=== PATIENT | male | born 1940 | race Caucasian/White ===

== ENCOUNTER → 2019-12-29 | Outpatient (BNVA) | payer MEDICARE, MEDICAID, SELFPAY | PROVIDERS: PCP Family Medicine; Referring Provider Family Medicine; Visit Provider Internal Medicine | DX: I48.0 Paroxysmal atrial fibrillation (principal); Z51.81 Encounter for therapeutic drug level monitoring; Z79.01 Long term (current) use of anticoagulants | CPT/HCPCS: 85610; 99211 ==

== ENCOUNTER → 2020-01-19 09:36 | Outpatient (BNVA) | payer MEDICARE, MEDICAID, SELFPAY | PROVIDERS: PCP Family Medicine; Visit Provider Internal Medicine | DX: I48.0 Paroxysmal atrial fibrillation (principal); Z51.81 Encounter for therapeutic drug level monitoring; Z79.01 Long term (current) use of anticoagulants | CPT/HCPCS: 85610; 99211 ==

== ENCOUNTER 2020-01-21 08:17 | Outpatient (REF) | payer MEDICARE, MEDICAID, SELFPAY ==
[2020-01-21 09:58] LABS: MANUAL DIFF FLAG NO
[2020-01-21 10:03] LABS: Basophils Percent Auto 0.5 % (0-2); Eosinophils Absolute Auto 0.2 X10*3/uL (0.0-0.4); Eosinophils Percent Auto 3.2 % (0-4); Hematocrit 39.7 % (42-52); Imm Gran Abs Auto 0.02 X10*3/uL (0.00-0.03); Imm Gran Pct Auto 0.3 % (0.0-0.4); Lymphocytes Absolute Auto 1.2 X10*3/uL (1.2-4.9); Lymphocytes Percent Auto 19.7 % (20-40); Mean Corpuscular HGB Conc 32.7 g/dl (31.0-36.0); Mean Corpuscular Hemoglobin 29.5 pg (27.0-33.0); Mean Platelet Volume 12.4 fL (9.4-12.4); Monocytes Absolute Auto 0.5 X10*3/uL (0.1-1.2); Monocytes Percent Auto 8.3 % (2-11); Neutrophils Absolute Auto 4.2 X10*3/uL (2.0-8.3); Platelet Count 163 X10*3/uL (160-400); Red Blood Count 4.41 X10*6/uL (4.60-5.80); Red Cell Distribution Width 13.9 % (11.0-16.0); White Blood Count 6.2 X10*3/uL (4.8-10.8)
[2020-01-21 10:29] LABS: Alanine Aminotransferase 30 U/L (0-40); Albumin Level 4.1 g/dL (3.5-5.0); Alkaline Phosphatase 85 U/L (39-117); Anion Gap 12 (12-20); Aspartate Amino Transferase 19 U/L (5-37); Bilirubin Total 0.8 mg/dL (0.0-1.0); Blood Urea Nitrogen 13 mg/dL (9-16); C Reactive Protein 0.03 mg/dL (< or = 0.50); Calcium 8.5 mg/dL (8.4-10.2); Carbon Dioxide 28 mmol/L (22-29); Chloride 104 mmol/L (96-108); Estimated Glomerular Filt Rate > 60; Glucose Random 250 mg/dL (60-115); Potassium 4.2 mmol/l (3.3-5.1); Sodium 140 mmol/L (135-145); Total Protein 6.3 g/dL (6.5-8.0)
[2020-01-21 11:10] LABS: Erythrocyte Sedimentation Rate 5 MM/HR (0-15)
== END 2020-01-21 08:18 | disposition home or self-care (01) ==
LOC: HO.LAB 08:17
PROVIDERS: PCP Family Medicine; Referring Provider Family Medicine; Visit Provider Student in an Organized Health Care Education/Training Program
DX: M19.90 Unspecified osteoarthritis, unspecified site (principal); M43.06 Spondylolysis, lumbar region; Z79.01 Long term (current) use of anticoagulants
CPT/HCPCS: 36415; 80053; 85025; 85652; 86140; 99212

== ENCOUNTER → 2020-02-16 09:18 | Outpatient (BNVA) | payer MEDICARE, MEDICAID, SELFPAY | PROVIDERS: PCP Family Medicine; Visit Provider Internal Medicine | DX: I48.0 Paroxysmal atrial fibrillation (principal); Z51.81 Encounter for therapeutic drug level monitoring; Z79.01 Long term (current) use of anticoagulants | CPT/HCPCS: 85610; 99211 ==

== ENCOUNTER → 2020-03-01 09:12 | Outpatient (BNVA) | payer MEDICARE, MEDICAID, SELFPAY | PROVIDERS: Visit Provider Internal Medicine | DX: I48.0 Paroxysmal atrial fibrillation (principal); Z51.81 Encounter for therapeutic drug level monitoring; Z79.01 Long term (current) use of anticoagulants | CPT/HCPCS: 85610; 99211 ==

== ENCOUNTER → 2020-03-29 08:54 | Outpatient (BNVA) | payer MEDICARE, MEDICAID, SELFPAY | PROVIDERS: PCP Family Medicine; Visit Provider Internal Medicine | DX: I48.0 Paroxysmal atrial fibrillation (principal); Z51.81 Encounter for therapeutic drug level monitoring; Z79.01 Long term (current) use of anticoagulants | CPT/HCPCS: 85610; 99211 ==

== ENCOUNTER → 2020-04-26 09:00 | Outpatient (BNVA) | payer MEDICARE, MEDICAID, SELFPAY | PROVIDERS: PCP Family Medicine; Visit Provider Internal Medicine | DX: I48.0 Paroxysmal atrial fibrillation (principal); Z51.81 Encounter for therapeutic drug level monitoring; Z79.01 Long term (current) use of anticoagulants | CPT/HCPCS: 85610; 99211 ==

== ENCOUNTER → 2020-05-24 08:59 | Outpatient (BNVA) | payer MEDICARE, MEDICAID, SELFPAY | PROVIDERS: PCP Family Medicine; Visit Provider Internal Medicine | DX: I48.0 Paroxysmal atrial fibrillation (principal); Z51.81 Encounter for therapeutic drug level monitoring; Z79.01 Long term (current) use of anticoagulants | CPT/HCPCS: 85610; 99211 ==

== ENCOUNTER → 2020-05-30 09:12 | Outpatient (BNVA) | payer MEDICARE, MEDICAID, SELFPAY | PROVIDERS: PCP Family Medicine; Visit Provider Internal Medicine | DX: I25.10 Atherosclerotic heart disease of native coronary artery without angina pectoris (principal); I48.0 Paroxysmal atrial fibrillation; I71.2 Thoracic aortic aneurysm, without rupture; I10 Essential (primary) hypertension | CPT/HCPCS: 93005; 99212 ==

== ENCOUNTER → 2020-06-21 09:16 | Outpatient (BNVA) | payer MEDICARE, MEDICAID, SELFPAY | PROVIDERS: PCP Family Medicine; Visit Provider Internal Medicine | DX: I48.0 Paroxysmal atrial fibrillation (principal); Z79.01 Long term (current) use of anticoagulants; Z51.81 Encounter for therapeutic drug level monitoring | CPT/HCPCS: 85610; 99211 ==

== ENCOUNTER 2020-07-13 10:11 | Emergency (ER) | payer MEDICARE, MEDICAID, SELFPAY ==
--- NOTE | ~2020-07-13 | XR_ITS ---
EXAMINATION: XR KNEE, RIGHT CLINICAL INFORMATION: Fall, trauma, pain COMPARISON: Radiographs right knee 04/13/2015 TECHNIQUE: Four views of the right knee. FINDINGS: There is no fracture or dislocation or destructive process. Borderline narrowing medial knee joint compartment is present. Hoffa's fat pad appears normal. There is spurring at the proximal anterior tibial tubercle again noted as incidental finding. The deep infrapatellar recess recess is preserved. There is spurring at the quadriceps insertion patella. Soft tissue swelling involves the superficial prepatellar soft tissues. There is also thickening and ill-defined contours distal quadriceps tendon when compared with prior exam. There may be trace suprapatellar effusion. XR/XR knee RT 4V IMPRESSION: 1. Prepatellar soft tissue swelling. Ill-defined and thickened distal quadriceps, possibly related to tendon injury. Probable trace effusion. 2. Mild narrowing medial knee joint compartment. No fracture or dislocation.
[2020-07-13 10:15] VITALS: BP 169/80; PULSE 66; RESP 18; TEMP 36; O2SAT 99; BMI 32.3
--- NOTE | 2020-07-13 10:26 | ED_ITS ---
HPI - General Adult General Chief complaint: Extremity Problem Stated complaint: swollen knee Time Seen by Provider: 07/13/20 10:25 Source: patient and family Limitations: no limitations History of Present Illness HPI narrative: Patient presents to the ER complaining of right knee pain and swelling. Family patient states he tripped on a sandal on Friday falling onto his right knee. Worsening bruising and swelling since the fall. Patient denies loss of consciousness or any other complaints of pain throughout the body. Patient is currently on Coumadin secondary to AFib. Symptoms are mild to moderate pain increases with ambulation and range of motion. Related Data Home Medications Medication Instructions Recorded Confirmed baclofen 10 mg tablet 10 mg PO BEDTIME 01/21/20 06/21/20 cholecalciferol (vitamin D3) 50 50 mcg PO DAILY 01/21/20 06/21/20 mcg (2,000 unit) capsule ferrous sulfate 325 mg (65 mg 325 mg PO DAILY 01/21/20 06/21/20 iron) tablet gabapentin 300 mg capsule 300 mg PO TID 01/21/20 06/21/20 lisinopril 5 mg tablet 5 mg PO DAILY 01/21/20 06/21/20 meclizine 12.5 mg tablet 12.5 mg PO DAILY 01/21/20 06/21/20 metoprolol succinate 25 mg 25 mg PO DAILY 01/21/20 05/30/20 tablet,extended release 24 hr tramadol 50 mg tablet 50 mg PO BEDTIME 01/21/20 06/21/20 nitroglycerin 0.4 mg sublingual mg SUBLINGUAL 02/16/20 06/21/20 tablet rosuvastatin 20 mg tablet mg PO 02/16/20 06/21/20 fluticasone propionate 50 INTRANASAL 03/01/20 06/21/20 mcg/actuation nasal spray,suspension tamsulosin 0.4 mg capsule mg PO 03/01/20 06/21/20 metoprolol tartrate 25 mg tablet mg PO 06/21/20 06/21/20 Previous Rx's Medication Instructions Recorded warfarin 5 mg tablet 5 mg PO DAILY #90 tab 12/29/19 Allergies Allergy/AdvReac Type Severity Reaction Status Date / Time No Known Allergies Allergy Verified 05/24/20 09:08 [No Known Allergies*] Review of Systems Review of Systems: Constitutional : No Weight loss, No Fever, No Chills, No Night Sweats, No Fatigue, No Malaise ENT/Mouth : No Hearing loss, No Ear Pain, No Nasal Congestion, No Sinus Pain, No Hoarseness, No sore throat, No Rhinorrhea, No Swallowing Difficulty Eyes: No Vision Changes Cardiovascular : No Chest Pain, No SOB, No Dyspnea on Exertion Respiratory : No Cough, No Sputum, No Wheezing, No Smoke Exposure, No Dyspnea Gastrointestinal : No Nausea, No Vomiting, No Diarrhea Musculoskeletal : Right knee pain swelling and bruising Neuro : No Weakness, No Numbness, No Paresthesias, No Loss of Consciousness, No Dizziness, No Headache Psych : No Anxiety/Panic, No Depression, No SI/HI/AH/VH, No Social Issues, Heme/Lymph: Right knee bruising secondary to trauma Endocrine : No Polyuria, No Polydipsia, No Temperature Intolerance PMFSH Past Medical History Attestation statement: The following information was validated with the patient. Medical History Ascending aortic aneurysm Atherosclerotic cardiovascular disease Essential hypertension Inflammatory arthritis Lumbar spondylolysis Surgical History Hx of appendectomy Hx of neck surgery Family History Family History Mother Diabetes Social History Social History Household Members: Spouse Alcohol intake: never Smoking Status: Former smoker Advance Directives: No Advance Directives Information Provided: No Physical Exam Vital Signs: Vital Signs: Last Vital Signs Temp 96.8 F 07/13/20 10:15 Pulse 66 07/13/20 10:15 Resp 18 07/13/20 10:15 BP 169/80 H 07/13/20 10:15 Pulse Ox 99 07/13/20 10:15 Body Mass Index 32.3 vital signs have been reviewed as normal and appeared to be correct. Blood pressure normal. Heart rate normal. Respiration rate normal. Temperature normal. Oxygen saturation normal. Appearance: Alert. Oriented X3. No acute distress. Head: Normal external exam. Normocephalic. Atraumatic. No Ivory signs noted. No raccoon eyes noted Eyes: PERRLA. EOMI. Conjunctiva and sclera normal. Eyelids normal. ENT: Pharynx normal. Uvula midline. Moist mucous membranes. Neck: Soft full range of motion, no JVD CVS: Heart regular rate and rhythm no murmurs and rubs Respiratory: Breath sounds are clear to auscultation bilaterally. No accessory muscle use noted. Abdomen: Soft nontender no rebound or guarding positive bowel sounds Back: No CVA tenderness. Full range of motion noted. Skin: Ecchymosis discoloration noted over the right knee no lymphangitis Extremities: Large effusion noted in the right knee slight tenderness decreased range of motion secondary to pain no joint laxity observed Neuro: Oriented X 3. No motor deficit. No sensory deficit. Reflexes normal. Course Course Course Narrative: Patient's symptoms are consistent with a traumatic fall to the right knee x-ray of the right knee is pending will check PT INR at this time. Patient's last INR on 06/21/2020 was 3.1 on 05/24/2020 was 2.7 INR is 2.6. Will give patient follow-up with orthopedics as needed patient is instructed to rest elevate leg at this time Medical Decision Making Differential Diagnosis Differential Diagnosis: Right knee contusion, right knee fracture,Coagulopathy secondary to Coumadi Lab Data Labs: Lab Results 07/13/20 Range/Units 10:50 PT 31.2 H (10.8-13.0) SEC INR 2.6 H (0.9-1.1) Imaging Data knee : Radiologist's impression: [address] [id number] ReportSigned Patient: Ramesh KenyonMR#: [id number]: 1940cct:[id number]/Sex: 79 / MADM Date: 07/13/20Loc: [email or web address].EDAttending Dr: Ordering Physician: Filippo Bolaños Date of Service: 07/13/20 Procedure(s): XR knee RT 4V Accession Number(s): [id number] cc: Filippo Bolaños ~ EXAMINATION: XR KNEE, RIGHT CLINICAL INFORMATION: Fall, trauma, pain COMPARISON: Radiographs right knee 04/13/2015 TECHNIQUE: Four views of the right knee. FINDINGS: There is no fracture or dislocation or destructive process. Borderline narrowing medial knee joint compartment is present. Hoffa's fat pad appears normal. There is spurring at the proximal anterior tibial tubercle again noted as incidental finding. The deep infrapatellar recess recess is preserved. There is spurring at the quadriceps insertion patella. Soft tissue swelling involves the superficial prepatellar soft tissues. There is also thickening and ill-defined contours distal quadriceps tendon when compared with prior exam. There may be trace suprapatellar effusion. XR/XR knee RT 4V IMPRESSION: 1. Prepatellar soft tissue swelling. Ill-defined and thickened distal quadriceps, possibly related to tendon injury. Probable trace effusion. 2. Mild narrowing medial knee joint compartment. No fracture or dislocation. Dictated By:PAOLO WATTigned By:<Electronically signed by PAOLO WATT MD in OV>07/13/20 1049 DD/ 1025TD/TT: [employer] Operator: JOHNSON Discharge Plan Discharge Clinical Impression: Knee contusion Patient Disposition: Home, Self-Care Instructions: Knee Pain (ED) Additional Instructions: The swelling is likely due to the patient being on Coumadin and bleeding into the joint swelling should resolve over time. Pain worsens follow-up with Orthopedics is recommended Rest ice elevation at this time Prescriptions: No Action metoprolol succinate [Toprol XL] 25 mg tablet extended release 24 hr 25 mg PO DAILY RF: 0 ferrous sulfate 325 mg (65 mg iron) tablet 325 mg PO DAILY RF: 0 gabapentin 300 mg capsule 300 mg PO TID RF: 0 tramadol 50 mg tablet 50 mg PO BEDTIME RF: 0 meclizine 12.5 mg tablet 12.5 mg PO DAILY RF: 0 cholecalciferol (vitamin D3) 50 mcg (2,000 unit) capsule 50 mcg PO DAILY RF: 0 baclofen 10 mg tablet 10 mg PO BEDTIME RF: 0 lisinopril 5 mg tablet 5 mg PO DAILY RF: 0 warfarin 5 mg tablet 5 mg PO DAILY Qty: 90 RF: 0 rosuvastatin 20 mg tablet PO RF: 0 nitroglycerin 0.4 mg tablet, sublingual sublingual RF: 0 tamsulosin 0.4 mg capsule PO RF: 0 fluticasone propionate 50 mcg/actuation spray,suspension intranasal RF: 0 metoprolol tartrate 25 mg tablet PO RF: 0 Referrals: Constance Brito MD [Physician] - 2 days
[2020-07-13 11:13] LABS: INTERNATIONAL NORM RATIO 2.6 (0.9-1.1); Prothrombin Time 31.2 SEC (10.8-13.0)
== END 2020-07-13 11:37 | disposition home or self-care (01) ==
PROVIDERS: Physician Assistant; Emergency Provider Emergency Medicine; PCP Family Medicine
DX: S80.01XA Contusion of right knee, initial encounter (principal); W01.0XXA Fall on same level from slipping, tripping and stumbling without subsequent striking against object, initial encounter; I48.91 Unspecified atrial fibrillation; Y93.01 Activity, walking, marching and hiking; Y92.039 Unspecified place in apartment as the place of occurrence of the external cause; Y99.9 Unspecified external cause status; Z79.01 Long term (current) use of anticoagulants
CPT/HCPCS: 36415; 73564; 85610; 99283

== ENCOUNTER → 2020-07-19 09:07 | Outpatient (BNVA) | payer MEDICARE, MEDICAID, SELFPAY | PROVIDERS: PCP Family Medicine; Visit Provider Internal Medicine | DX: I48.0 Paroxysmal atrial fibrillation (principal); Z51.81 Encounter for therapeutic drug level monitoring; Z79.01 Long term (current) use of anticoagulants | CPT/HCPCS: 85610; 99211 ==

== ENCOUNTER → 2020-08-16 09:00 | Outpatient (BNVA) | payer MEDICARE, MEDICAID, SELFPAY | PROVIDERS: PCP Family Medicine; Visit Provider Internal Medicine | DX: I48.0 Paroxysmal atrial fibrillation (principal); Z51.81 Encounter for therapeutic drug level monitoring; Z79.01 Long term (current) use of anticoagulants | CPT/HCPCS: 85610; 99211 ==

== ENCOUNTER → 2020-08-30 08:56 | Outpatient (BNVA) | payer MEDICARE, MEDICAID, SELFPAY | PROVIDERS: PCP Family Medicine; Visit Provider Internal Medicine | DX: I48.0 Paroxysmal atrial fibrillation (principal); Z51.81 Encounter for therapeutic drug level monitoring; Z79.01 Long term (current) use of anticoagulants | CPT/HCPCS: 85610; 99211 ==

== ENCOUNTER → 2020-09-27 08:36 | Outpatient (BNVA) | payer MEDICARE, MEDICAID, SELFPAY | PROVIDERS: PCP Family Medicine; Visit Provider Internal Medicine | DX: I48.0 Paroxysmal atrial fibrillation (principal); Z51.81 Encounter for therapeutic drug level monitoring; Z79.01 Long term (current) use of anticoagulants | CPT/HCPCS: 85610; 99211 ==

== ENCOUNTER 2020-09-29 09:38 | Outpatient (REF) | payer MEDICARE, MEDICAID, SELFPAY ==
--- NOTE | ~2020-09-29 | CT_ITS ---
EXAMINATION: CT CHEST WITHOUT CONTRAST CLINICAL INFORMATION: Solitary pulmonary nodule. COMPARISON: Previous chest CT November 2019. TECHNIQUE: Multidetector volumetric CT imaging of the chest was done. Axial MIP volume rendering provided. Sagittal and coronal reformatted images were obtained. This CT examination was performed using dose optimization techniques as appropriate, variously including the following: *Automated exposure control *Adjustment of mA and/or kV according to patient size (this includes techniques or standardized protocols for targeted exams where dose is matched to indication/reason for exam; i.e. extremities or head) *Use of iterative reconstruction technique DLP: 168 mGy-cm FINDINGS: LUNGS: There is evidence of mild paraseptal emphysema. There is biapical pleural and parenchymal scarring that is stable. There are small bilateral pulmonary nodules. Largest pulmonary nodule measures 4 mm in the left lower lobe adjacent to the diaphragmatic pleural surface axial image 428 series 5. There is mild scarring or chronic subsegmental atelectasis in the posterior segment of the right upper lobe axial image 230 series 5. There is subsegmental atelectasis at the left lung base in the inferior segment of the lingula and in the left lower lobe. This is stable. MEDIASTINUM: There is coronary artery calcification. The thoracic aorta is upper normal in size and tortuous. The mediastinum is otherwise normal. PLEURA: There is mild left pleural thickening that is stable. There is no pleural effusion. AXILLA: No lymphadenopathy. UPPER ABDOMEN: There is a 1 x 2 cm low-attenuation lesion in the peripheral right lobe of the liver that is stable. There is left renal cortical thinning or scarring. There is a 1 cm low-attenuation lesion in the upper pole of the left kidney that is stable and probably represents a cyst. OSSEOUS STRUCTURES: There are degenerative changes of the spine. CT/CT chest wo con IMPRESSION: Emphysema. Stable biapical pleural and parenchymal scarring and small pulmonary nodules. Upper normal-size tortuous thoracic aorta. Coronary artery calcification. Stable abdominal findings.
== END 2020-09-29 09:39 | disposition home or self-care (01) ==
LOC: HO.CT 09:38
PROVIDERS: Visit Provider Surgery
DX: R91.1 Solitary pulmonary nodule (principal)
CPT/HCPCS: 71250

== ENCOUNTER → 2020-10-18 07:59 | Outpatient (BNVA) | payer MEDICARE, MEDICAID, SELFPAY | PROVIDERS: PCP Family Medicine; Visit Provider Internal Medicine | DX: I48.0 Paroxysmal atrial fibrillation (principal); Z51.81 Encounter for therapeutic drug level monitoring; Z79.01 Long term (current) use of anticoagulants | CPT/HCPCS: 85610; 99211 ==

== ENCOUNTER → 2020-10-27 09:37 | Outpatient (BNVA) | payer MEDICARE, MEDICAID, SELFPAY | PROVIDERS: PCP Family Medicine; Visit Provider Surgery | DX: R91.8 Other nonspecific abnormal finding of lung field (principal); J43.9 Emphysema, unspecified; Z79.899 Other long term (current) drug therapy; Z79.01 Long term (current) use of anticoagulants | CPT/HCPCS: 99212 ==

== ENCOUNTER → 2020-11-02 09:05 | Outpatient (REF) | payer MEDICARE, MEDICAID, SELFPAY ==
--- NOTE | 2020-11-02 09:08 | CA_ITS ---
Transthoracic Echocardiogram Patient (Last, First, Middle): Ramesh Kenyon, Gender: Male Date of : 1940 Age: 79 Procedure Date: 11/02/2020 Procedure Type: Transthoracic Echocardiogram Location: OP Height: 167.64 cm Weight: 85.73 kg BSA: 1.95 m2 Heart Rate: bpm BP: 124 / 62 mmHg [employer]: Referring MD: Rodolfo Martin MD Symptoms: I71.2 - Thoracic aortic aneurysm, without rupture Conclusions: - 1. Normal LV systolic function with LVEF of 55-60% with impaired relaxation filling pattern 2. Mild aortic regurgitation 3. Mildly dilated ascending aorta at 4 cm 4. Normal RV systolic pressure 5. No pericardial effusion Findings Left Ventricle Normal left ventricular size, thickness, and systolic function. The visually estimated ejection fraction is between 55-60%. Spectral Doppler is indicative of an impaired relaxation filling pattern. E/E prime ratio is between 8 and 15 consistent with indeterminate filling pressures. Right Ventricle Normal right ventricular cavity size and systolic function. Atria The left atrium is normal in size. Interatrial shunt cannot be excluded. The right atrium is normal in size. Aortic Valve The aortic valve structure and function is likely normal. There is no aortic valve stenosis. There is mild aortic valve regurgitation. Mitral Valve There is mild anterior mitral leaflet thickening. There is trace mitral valve regurgitation. There is no mitral valve stenosis. Pulmonic Valve The pulmonic valve was not well visualized. Tricuspid Valve Likely normal tricuspid valve structure and function. There is trace tricuspid valve regurgitation. The right ventricular systolic pressure is normal. The right ventricular systolic pressure is 31 mmHg. Normal right atrial pressure. There is no evidence of pulmonary hypertension. Great Vessels The pulmonary artery was not well visualized. There is mild dilatation of the ascending aorta measuring 4.00 cm. Venous The inferior vena cava is normal in size and collapses greater than 50% with inspiration. Pericardium/Pleural There is no evidence of pericardial effusion. Prior Study Comparison Changes noted compared to prior study dated: 11/03/2019. LV systolic function is normal on this study Measurements 2D Linear Measurements RVIDd: 3.01 RVIDd Index: 1.54 IVSd: 1.20 0.6-0.9/0.6-1.0 cm LVIDd: 4.59 3.9-5.3/4.2-5.9 cm LVIDd Index: 2.35 2.4-3.2/2.2-3.1 cm/m2 LVIDs: 3.56 2.0-3.6 cm LVPWd: 1.30 0.7-1.1 cm Ao Root: 3.70 2.1-3.5 cm LA Diam: 4.00 2.7-3.8/3.0-4.0 cm LAIDs Index: 2.05 1.5-2.3 cm/m2 LV Mass: 257.68 67-162/88-224 g LV Mass Index: 132.14 43-95/49-115 g/m2 LVOT Diam: 2.30 3.0+(-)1.3 cm 2D Systolic Function EF 4C: 63.00 >55% EF 2C: 48.70 >55% EF BiP: 55.50 >55% Mitral Valve MV Pk E: 0.65 MV PK A: 0.51 MV Decel Time: 289.00 E/A: 1.30 E'Lateral: 6.85 E'Medial: 5.44 E/E' Med: 11.90 E/E' Lat: 9.40 Aortic Valve AoV Pk Yeison: 1.07 AoV Mn Yeison: 0.74 AoV VTI: 0.23 AoV Pk Grad: 5.00 Aov Mn Grad: 2.00 LANA Cont.VTI: 3.22 LVOT LVOT Pk Yeison: 0.77 LVOT Mn Yeison: 0.49 LVOT VTI: 0.18 LVOT Pk Grad: 2.00 LVOT Mn Grad: 1.00 LVOT Diam: 2.30 LVOT Area: 4.15 Diastolic Function MV Pk E: 0.65 MV Pk A: 0.51 E/A: 1.30 E'Medial: 5.44 E/E' Med: 11.90 E' Laterial: 6.85 E/E' Lat: 9.40 Right Ventricle TAPSE (mm): 21.00 TVS' Yeison: 9.10 Tricuspid Valve TR Pk Yeison: 2.65 TR Pk Grad: 28.00 RA Press: 3.00 RVSP: 31.00 Great Vessels Aorta Ao Root-2D: 3.70 2.0-3.7 cm Ao Asc: 4.00 2.1-3.4 cm Ao Arch: 3.30 Updated in Other Vendor System with Status of Final Chace Hernandez MD electronically signed on 11/03/2020 3:48:54 PM with status of Final
== END ==
LOC: HO.CARD 09:05
PROVIDERS: PCP Family Medicine; Visit Provider Internal Medicine
DX: I71.2 Thoracic aortic aneurysm, without rupture (principal)
CPT/HCPCS: 93306

== ENCOUNTER → 2020-11-13 09:14 | Outpatient (BNVA) | payer MEDICARE, MEDICAID, SELFPAY | PROVIDERS: PCP Family Medicine; Visit Provider Internal Medicine | DX: I25.10 Atherosclerotic heart disease of native coronary artery without angina pectoris (principal); I48.0 Paroxysmal atrial fibrillation; I71.2 Thoracic aortic aneurysm, without rupture; I10 Essential (primary) hypertension | CPT/HCPCS: 99212 ==

== ENCOUNTER → 2020-11-15 08:54 | Outpatient (BNVA) | payer MEDICARE, MEDICAID, SELFPAY | PROVIDERS: PCP Family Medicine; Visit Provider Internal Medicine | DX: I48.0 Paroxysmal atrial fibrillation (principal); Z51.81 Encounter for therapeutic drug level monitoring; Z79.01 Long term (current) use of anticoagulants | CPT/HCPCS: 85610; 99211 ==

== ENCOUNTER 2020-12-05 08:44 | Outpatient (REF) | payer MEDICARE, MEDICAID, SELFPAY ==
--- NOTE | ~2020-12-05 | XR_ITS ---
EXAMINATION: XR CERVICAL SPINE CLINICAL INFORMATION: Neck pain COMPARISON: None TECHNIQUE: 5 views of the cervical spine were obtained. FINDINGS: There is normal cervical lordosis. The vertebral heights, alignment and disc heights are normal. There is no visible acute fracture, dislocation or subluxation seen. There is mild ventral bridging osteophytes and anterior longitudinal calcification from C4 to C7 vertebra. No lytic or sclerotic process seen. On oblique views there is mild bilateral narrowing of C3-C4 neural foramina. No visible acute fracture, dislocation or lytic process seen. The prevertebral soft tissues are normal. XR/XR cervical spine 4V IMPRESSION: There is moderate ventral spondylosis with bridging osteophytes and anterior longitudinal calcification from c4 through C7 vertebra. There is no acute fracture or dislocation.
== END 2020-12-05 08:45 | disposition home or self-care (01) ==
LOC: HO.XRAY 08:44
PROVIDERS: PCP Family Medicine; Visit Provider Family Medicine
DX: M54.2 Cervicalgia (principal)
CPT/HCPCS: 72050

== ENCOUNTER → 2020-12-13 08:57 | Outpatient (BNVA) | payer MEDICARE, MEDICAID, SELFPAY | PROVIDERS: PCP Family Medicine; Visit Provider Internal Medicine | DX: I48.0 Paroxysmal atrial fibrillation (principal); Z51.81 Encounter for therapeutic drug level monitoring; Z79.01 Long term (current) use of anticoagulants | CPT/HCPCS: 85610; 99211 ==

== ENCOUNTER → 2021-01-10 09:13 | Outpatient (BNVA) | payer MEDICARE, MEDICAID, SELFPAY | PROVIDERS: PCP Family Medicine; Visit Provider Internal Medicine | DX: I48.0 Paroxysmal atrial fibrillation (principal); Z51.81 Encounter for therapeutic drug level monitoring; Z79.01 Long term (current) use of anticoagulants | CPT/HCPCS: 85610; 99211 ==

== ENCOUNTER 2021-01-30 08:03 | Outpatient (REF) | payer MEDICARE, MEDICAID, SELFPAY ==
--- NOTE | ~2021-01-30 | XR_ITS ---
EXAMINATION: XR LUMBOSACRAL SPINE WITH OBLIQUES CLINICAL INFORMATION: Spondylolysis. . COMPARISON: CT chest 09/29/2020, 11/02/2019 CT abdomen pelvis 03/04/2019 TECHNIQUE: 5 views of lumbar spine FINDINGS: Lumbar vertebrae have normal height and alignment. No fracture or bone destruction. There are degenerative spurs of the endplates of all lumbar and lower thoracic vertebra. There is mild degenerative change of the facet joints of lower lumbar spine. Lumbar disc heights are maintained. No spondylolysis or spondylolisthesis. Compared to prior CAT scan 03/04/2019 there is not been substantial change. XR/XR lumbar spine 4V min IMPRESSION: 1. No acute osseous abnormality. 2. Degenerative spondylosis of lumbar spine.
[2021-01-30 09:13] LABS: MANUAL DIFF FLAG NO
[2021-01-30 09:22] LABS: Basophils Percent Auto 0.5 % (0-2); Eosinophils Absolute Auto 0.1 X10*3/uL (0.0-0.4); Eosinophils Percent Auto 2.4 % (0-4); Hematocrit 41.3 % (42.0-52.0); Hemoglobin 12.8 g/dl (14.0-18.0); Imm Gran Abs Auto 0.03 X10*3/uL (0.00-0.03); Imm Gran Pct Auto 0.5 % (0.0-0.4); Lymphocytes Absolute Auto 1.2 X10*3/uL (1.2-4.9); Lymphocytes Percent Auto 19.3 % (20-40); Mean Corpuscular Hemoglobin 28.2 pg (27.0-33.0); Mean Platelet Volume 12.2 fL (9.4-12.4); Monocytes Absolute Auto 0.6 X10*3/uL (0.1-1.2); Monocytes Percent Auto 9.4 % (2-11); Neutrophils Percent Auto 67.9 % (45-73); Platelet Count 146 X10*3/uL (160-400); Red Blood Count 4.54 X10*6/uL (4.60-5.80); Red Cell Distribution Width 14.6 % (11.0-16.0)
[2021-01-30 10:03] LABS: Alanine Aminotransferase 34 U/L (0-40); Albumin Level 3.9 g/dL (3.5-5.0); Alkaline Phosphatase 82 U/L (39-117); Anion Gap 9 (12-20); Aspartate Amino Transferase 20 U/L (5-37); Bilirubin Total 0.5 mg/dL (0.0-1.0); Blood Urea Nitrogen 17 mg/dL (9-16); C Reactive Protein 0.03 mg/dL (< or = 0.50); Calcium 9.2 mg/dL (8.4-10.2); Carbon Dioxide 29 mmol/L (22-29); Chloride 105 mmol/L (96-108); Estimated Glomerular Filt Rate > 60; Glucose Random 213 mg/dL (60-115); Potassium 4.4 mmol/L (3.3-5.1); Sodium 139 mmol/L (135-145); Total Protein 6.3 g/dL (6.5-8.0)
[2021-01-30 10:08] LABS: Erythrocyte Sedimentation Rate 7 MM/HR (0-15)
== END 2021-01-30 08:04 | disposition home or self-care (01) ==
LOC: HO.LAB 08:03
PROVIDERS: PCP Family Medicine; Referring Provider Family Medicine; Visit Provider Nurse Practitioner Family
DX: M19.90 Unspecified osteoarthritis, unspecified site (principal); M43.06 Spondylolysis, lumbar region
CPT/HCPCS: 36415; 72110; 80053; 85025; 85652; 86140; 99212

== ENCOUNTER → 2021-02-07 09:13 | Outpatient (BNVA) | payer MEDICARE, MEDICAID, SELFPAY | PROVIDERS: PCP Family Medicine; Visit Provider Internal Medicine | DX: I48.0 Paroxysmal atrial fibrillation (principal); Z51.81 Encounter for therapeutic drug level monitoring; Z79.01 Long term (current) use of anticoagulants | CPT/HCPCS: 85610; 99211 ==

== ENCOUNTER → 2021-03-07 09:16 | Outpatient (BNVA) | payer MEDICARE, MEDICAID, SELFPAY | PROVIDERS: PCP Family Medicine; Visit Provider Internal Medicine | DX: I48.0 Paroxysmal atrial fibrillation (principal); Z51.81 Encounter for therapeutic drug level monitoring; Z79.01 Long term (current) use of anticoagulants | CPT/HCPCS: 85610; 99211 ==

== ENCOUNTER → 2021-04-04 09:05 | Outpatient (BNVA) | payer MEDICARE, MEDICAID, SELFPAY | PROVIDERS: PCP Family Medicine; Visit Provider Internal Medicine | DX: I48.0 Paroxysmal atrial fibrillation (principal); Z51.81 Encounter for therapeutic drug level monitoring; Z79.01 Long term (current) use of anticoagulants | CPT/HCPCS: 85610; 99211 ==

== ENCOUNTER 2021-04-18 09:44 | Emergency (ER) | payer MEDICARE, MEDICAID, SELFPAY ==
--- NOTE | ~2021-04-18 | CT_ITS ---
EXAMINATION: CT ABDOMEN AND PELVIS WITH CONTRAST CLINICAL INFORMATION: Right upper quadrant abdominal pain COMPARISON: March 04, 2019 TECHNIQUE: Multidetector volumetric images were obtained from the superior aspect of the liver through the pubic symphysis following administration 85 mL of Omnipaque 350 intravenous contrast. Sagittal and coronal reformatted images were obtained on the technologist's workstation. Oral contrast: No This CT examination was performed using dose optimization techniques as appropriate, variously including the following: *Automated exposure control *Adjustment of mA and/or kV according to patient size (this includes techniques or standardized protocols for targeted exams where dose is matched to indication/reason for exam; i.e. extremities or head) *Use of iterative reconstruction technique DLP: 626 mGy-cm FINDINGS: LUNG BASES: There is some bibasilar atelectasis present. No pleural or pericardial effusion. Coronary artery calcifications present. LIVER, GALLBLADDER, AND BILIARY TREE: Within segment 6 of the liver there is a homogeneously hyperechoic enhancing region on portal phase imaging. which may be related to hemangioma which measures approximately 1.7 x 1.6 cm in size. No intrahepatic bile duct dilatation. The gallbladder is unremarkable with no evidence of radiopaque gallstones, gallbladder wall thickening, or obvious pericholecystic inflammatory changes. PANCREAS: Unremarkable. SPLEEN: Unremarkable. ADRENAL GLANDS: There is a 1.2 x 1.0 cm right adrenal gland nodule. The left adrenal gland appears unremarkable. KIDNEYS AND URETERS: The kidneys are normal in size, shape, and attenuation. No hydronephrosis, hydroureter, or calculi seen. There is mild perinephric stranding. There are multiple bilateral renal cysts present. BLADDER: Unremarkable. GASTROINTESTINAL TRACT: No dilated loops of large or small bowel are evident. No free air or free fluid is seen. Appendix was not identified. ABDOMINAL WALL: No significant hernia is appreciated. LYMPH NODES: No lymphadenopathy appreciated VASCULAR: No abdominal aortic aneurysm is seen. Portal vein is patent. There is moderate calcified plaque within the infrarenal abdominal aorta. PELVIC VISCERA: The prostate gland is enlarged with a nodular appearance.. OSSEOUS STRUCTURES: No destructive bony lesions identified. There is fusion of the left sacroiliac joint. There is multilevel degenerative disc disease seen. There is some marginal spurring seen throughout the lumbar spine with narrowing of the L5-S1 disc space. [facility] is seen within the lower thoracic spine. CT/CT abdomen pelvis w con IMPRESSION: 1.7 cm homogeneously enhancing lesion within segment 6 of the liver during portal venous phase which may represent hemangioma. No evidence of cholelithiasis or acute cholecystitis. No evidence of acute pancreatitis. 1.2 cm right adrenal gland nodule. Multiple bilateral renal cysts. Enlarged nodular prostate gland. Fleischner guidelines were followed.
--- NOTE | ~2021-04-18 | CT_ITS ---
EXAMINATION: CT ANGIOGRAM OF THE CHEST WITH AND WITHOUT CONTRAST (CT PULMONARY ANGIOGRAM FOR PE) CLINICAL INFORMATION: Reason for Exam pt coughing up blood COMPARISON: September 29, 2020 TECHNIQUE: Prior to contrast administration, noncontrast localization images were obtained. Subsequently, multidetector volumetric imaging was performed from the thoracic inlet to below the diaphragms following the administration of 85 mL Omnipaque 350 intravenous contrast. No contrast reaction reported Sagittal, coronal, and MIP oblique sagittal reformatted images were obtained on the CT workstation, uploaded to PACS, and reviewed. This CT examination was performed using dose optimization techniques as appropriate, variously including the following: *Automated exposure control *Adjustment of mA and/or kV according to patient size (this includes techniques or standardized protocols for targeted exams where dose is matched to indication/reason for exam; i.e. extremities or head) *Use of iterative reconstruction technique Total exam dose-length product 315 mGy-cm FINDINGS: QUALITY OF STUDY/CONTRAST BOLUS: Satisfactory. PULMONARY ARTERIES: No central or segmental pulmonary emboli. THORACIC AORTA: There is ectasia of the ascending thoracic aorta to approximately 4.1 cm in diameter. No aortic dissection is appreciated. LUNG: There is apical pleural-parenchymal disease present as well as mild changes of paraseptal and centrilobular emphysema. Central airways are patent. There are regions of discoid and linear atelectasis and/or scarring at the lung bases. There is some dependent atelectasis seen bilaterally. There is bronchial wall thickening present. No bronchiectasis. A few calcified granulomas are present. There are numerous sub-4 mm densities present which artery being peripheral. There is a 4 mm noncalcified nodule seen within the left lower lobe and image 355 of 531. There is a 4 mm noncalcified nodule seen within the right upper lobe on image 218 of 531 in series #9. PLEURA: No pleural effusion or pneumothorax. MEDIASTINUM: Normal heart size. No pericardial effusion. No hilar or mediastinal lymphadenopathy. There is some calcified mediastinal lymph nodes present. There are numerous lymph nodes present but none pathologically enlarged. Coronary artery calcification is seen. Visualized thyroid gland unremarkable. No evidence of septal bowing or right heart strain. CHEST WALL/AXILLA: No axillary or internal mammary lymphadenopathy. OSSEOUS STRUCTURES: No acute or suspicious osseous abnormality. DISH is present. UPPER ABDOMEN: Bilateral renal cysts are evident. No significant reflux of contrast into the hepatic veins to suggest elevated right heart pressures. CT/CT angio chest PE protocol IMPRESSION: No evidence of acute pulmonary artery embolus. Ectasia of the ascending thoracic aorta to approximately 4.1 cm in diameter without dissection. Old granulomatous disease. Numerous sub-4 mm nodules with to 4 mm nodules. According to the UPDATED 2017 Fleischner Society recommendations, the advised follow-up imaging for solid nodules < 6 mm is: LOW RISK PATIENT: No routine follow-up. HIGH RISK PATIENT: Optional CT at 12 months. VTE: negative
--- NOTE | 2021-04-18 09:47 | ECG_ITS ---
Test Reason : COUGHING UP BLOOD Blood Pressure : / mmHG Vent. Rate : 066 BPM Atrial Rate : 066 BPM P-R Int : 182 ms QRS Dur : 098 ms QT Int : 428 ms P-R-T Axes : 048 034 042 degrees QTc Int : 448 ms Normal sinus rhythm Increased R/S ratio in V1, consider early transition or posterior infarct Abnormal ECG When compared with ECG of 25-APR-2019 11:36, Premature atrial complexes are no longer Present Vent. rate has decreased BY 37 BPM Referred By: Annie Santiago Electronically Signed By:SHANNON SEVERINO MD
[2021-04-18 10:07] VITALS: BP 153/80; PULSE 78; RESP 18; TEMP 36.9; O2SAT 97; BMI 31.3
[2021-04-18 10:25] LABS: INTERNATIONAL NORM RATIO 3.1 (0.9-1.1); Prothrombin Time 36.4 SEC (9.9-13.0)
[2021-04-18 10:27] LABS: Partial Thromboplastin Time 47.3 SEC (24.1-38.0)
[2021-04-18 10:32] VITALS: O2SAT 97
[2021-04-18 10:37] LABS: MANUAL DIFF FLAG NO
[2021-04-18 10:42] LABS: Alanine Aminotransferase 23 U/L (0-40); Alkaline Phosphatase 87 U/L (39-117); Anion Gap 10 (12-20); Aspartate Amino Transferase 21 U/L (5-37); Bilirubin Total 0.5 mg/dL (0.0-1.0); Blood Urea Nitrogen 17 mg/dL (9-16); Calcium 9.2 mg/dL (8.4-10.2); Carbon Dioxide 24 mmol/L (22-29); Chloride 106 mmol/L (96-108); Creatinine Clr Calc Pharmacy 62.9; Estimated Glomerular Filt Rate > 60; Glucose Random 273 mg/dL (60-115); Magnesium 1.8 mg/dL (1.6-2.6); Potassium 4.5 mmol/L (3.3-5.1); Sodium 135 mmol/L (135-145); Total Protein 6.5 g/dL (6.5-8.0)
[2021-04-18 10:44] LABS: Basophils Percent Auto 0.6 % (0-2); Eosinophils Absolute Auto 0.1 X10*3/uL (0.0-0.4); Eosinophils Percent Auto 2.3 % (0-4); Hematocrit 40.8 % (42.0-52.0); Hemoglobin 13.1 g/dl (14.0-18.0); Imm Gran Abs Auto 0.02 X10*3/uL (0.00-0.03); Imm Gran Pct Auto 0.4 % (0.0-0.4); Lymphocytes Absolute Auto 0.9 X10*3/uL (1.2-4.9); Lymphocytes Percent Auto 16.3 % (20-40); Mean Corpuscular HGB Conc 32.1 g/dl (31.0-36.0); Mean Corpuscular Hemoglobin 28.6 pg (27.0-33.0); Mean Corpuscular Volume 89.1 fL (80.0-98.0); Mean Platelet Volume 11.7 fL (9.4-12.4); Monocytes Absolute Auto 0.5 X10*3/uL (0.1-1.2); Monocytes Percent Auto 9.4 % (2-11); Neutrophils Absolute Auto 3.8 x10*3/uL (2.0-8.3); Platelet Count 135 X10*3/uL (160-400); Red Blood Count 4.58 X10*6/uL (4.60-5.80); Red Cell Distribution Width 14.3 % (11.0-16.0); White Blood Count 5.3 X10*3/uL (4.8-10.8)
[2021-04-18 11:14] LABS: Appearance Urine CLEAR; Color Urine YELLOW; Glucose Urine UA >=1000 MG/DL (NEG); Leukocyte Esterase Urine NEG (NEG); Nitrite Urine NEG (NEG); PH 5.5 (5.0-8.0); Specific Gravity - Urine <= 1.005 (1.005-1.025); UACC Culture Trigger NO; Urine Blood TRACE (NEG); Urine Ketones NEG (NEG); Urine Protein NEG (NEG-TRACE)
[2021-04-18 11:26] LABS: RBC Urine 0-2 /HPF (0); Squamous Epithelial Cell Urine TRACE /LPF; WBC Urine 0-2 /HPF (0-4)
[2021-04-18] MEDS: iohexoL 350 MG/ML 100 ML INFUS..BTL IV (11:28)
--- NOTE | 2021-04-18 11:54 | ED_ITS ---
HPI - Chest Pain General Chief Complaint: Upper Respiratory Symptoms Stated Complaint: coughing up blood Time Seen by Provider: 04/18/21 09:46 Source: patient and other (Neighbor at bed) Mode of arrival: ambulatory Limitations: language barrier (Citizen Of [place] speaking) History of Present Illness HPI narrative: 80-year-old male with a past medical history of atrial fibrillation currently on Coumadin taking as prescribed, HTN, HLD, ascending aortic aneurysm s/p cardiac catheterization in 2019 due to proximal RCA 90% stenosis, diabetes with polyneuropathy and pulmonary nodules with history of lung surgery in 2019 due to left empyema s/p VATs decortication presenting to the ED with his neighbor at bedside presenting to the ED with complaints of coughing up blood that he noticed this a small amount yesterday and this morning with associated anterior chest pain. He also reports some sneezing and scratchiness in his throat. He reports ruq abd pain as well for the past few days. His neighbor at bedside reported that his and daughter are currently at home coughing and this is why she is accompanying the patient. She reports that apparently he does not have any medications at home only his Coumadin for over a month and he has not taken any other medications. I explained to the neighbor that I am unsure why his prescribers did not give him his prescribed medications although if he has not seen his prescriber then this could be a reason why and the neighbor is unsure when the last time the patient actually seen his prescriber. Otherwise patient denies any fevers, chills, dizziness, headaches, neck pain/stiffness, trouble swallowing or breathing, jaw pain, paresthesias, dyspnea on exertion, orthopnea, palpitations, nausea/vomiting, diarrhea, back pain, dysuria, hematuria, abnormal penile discharge, black or bloody stools, black or bloody emesis, recent travel or sick contacts or any other symptoms complaints or concerns at this time. MD complaint: chest pain and other (And coughing up small amounts of) Pertinent past history: other (See above) Onset (ago): day(s) (Started yesterday) Timing of current episode: episodic Prior episodes: No Onset: during rest Pain location: other (Patient points to the entire chest) Pain radiation: none Severity: mild Quality: aching Relieving factors: nothing Exacerbating factors: nothing Associated symptoms: cough Treatment prior to arrival: none Risk Factors Coronary artery disease risk factors: diabetes, hyperlipidemia and hypertension Thoracic aortic dissection risk factors: none Related Data Home Medications Medication Instructions Recorded Confirmed baclofen 10 mg tablet 10 mg PO BEDTIME 01/21/20 04/04/21 cholecalciferol (vitamin D3) 50 50 mcg PO DAILY 01/21/20 04/04/21 mcg (2,000 unit) capsule ferrous sulfate 325 mg (65 mg 325 mg PO DAILY 01/21/20 04/04/21 iron) tablet gabapentin 300 mg capsule 300 mg PO TID 01/21/20 04/04/21 tramadol 50 mg tablet 50 mg PO BEDTIME 01/21/20 04/04/21 fluticasone propionate 50 INTRANASAL 03/01/20 04/04/21 mcg/actuation nasal spray,suspension tamsulosin 0.4 mg capsule mg PO 03/01/20 04/04/21 metformin 500 mg tablet,extended mg PO 08/16/20 04/04/21 release 24 hr lisinopril 5 mg tablet 2.5 mg PO DAILY tab 11/13/20 04/04/21 meclizine 12.5 mg tablet 12.5 mg PO TID tab 11/13/20 04/04/21 metoprolol tartrate 25 mg tablet 12.5 mg PO Q12H tab 11/13/20 04/04/21 rosuvastatin 20 mg tablet mg PO DAILY tab 11/13/20 04/04/21 Previous Rx's Medication Instructions Recorded warfarin 5 mg tablet 5 mg PO DAILY #90 tab 12/29/19 nitroglycerin 0.4 mg sublingual 0.4 mg SUBLINGUAL DAILY #75 tab 10/11/20 tablet azithromycin 250 mg tablet See Rx Instructions PO .COMPLEX #6 04/18/21 tab baclofen 10 mg tablet 10 mg PO DAILY #30 tab 04/18/21 lisinopril 2.5 mg tablet 2.5 mg PO DAILY #30 tab 04/18/21 meclizine 12.5 mg tablet 12.5 mg PO ONCE #30 tab 04/18/21 metformin 500 mg tablet,extended 500 mg PO DAILY #30 tab 04/18/21 release 24 hr metoprolol tartrate 25 mg tablet 25 mg PO DAILY #30 tab 04/18/21 nitroglycerin 0.4 mg sublingual 0.4 mg SUBLINGUAL Q5M PRN #30 tab 04/18/21 tablet rosuvastatin 20 mg tablet 20 mg PO DAILY #30 tab 04/18/21 Allergies Allergy/AdvReac Type Severity Reaction Status Date / Time No Known Allergies Allergy Verified 04/04/21 09:23 [No Known Allergies*] Review of Systems Review of Systems: Constitutional : No Weight loss, No Fever, No Chills, No Night Sweats, No Fatigue, No Malaise ENT/Mouth : No Hearing loss, No Ear Pain, No Nasal Congestion, No Sinus Pain, No Hoarseness, No sore throat, No Rhinorrhea, No Swallowing Difficulty Eyes: No Eye Pain, No Swelling, No Redness, No Foreign Body, No Discharge, No Vision Changes Cardiovascular : Positive chest pain, No SOB, No Dyspnea on Exertion, No Orthopnea, No Edema, No Palpitations Respiratory : Positive hemoptysis with cough, No Sputum, No Wheezing, No Smoke Exposure, No Dyspnea Gastrointestinal : Positive right upper quadrant abdominal, No Nausea, No Vomiting, No Diarrhea, No Constipation, No Hematochezia, No Melena Genitourinary : no irregular bleeding, No Dysuria, No Urinary Frequency, No Hematuria, No Urinary Incontinence, No Urgency, No Flank Pain, No Urinary Flow Changes, No Hesitancy Musculoskeletal : No joint pain, No Myalgias, No Joint Swelling Skin : No Skin Lesions, No rash Neuro : No Weakness, No Numbness, No Paresthesias, No Loss of Consciousness, No Dizziness, No Headache Psych : No Anxiety/Panic, No Depression, No SI/HI/AH/VH, No Social Issues, Heme/Lymph: No Bruising, No Bleeding,No Lymphadenopathy Endocrine : No Polyuria, No Polydipsia, No Temperature Intolerance Yes all other systems are reviewed and are negative [facility] Past Medical History Attestation statement: The following information was validated with the patient. Medical History Ascending aortic aneurysm Atherosclerotic cardiovascular disease Essential hypertension Hyperlipidemia Inflammatory arthritis Lumbar spondylolysis Paroxysmal atrial fibrillation (~01/2015) Pulmonary nodules Tubular adenoma of colon (~2009) Type 2 diabetes mellitus with polyneuropathy Surgical History History of cardiac cath (~2018) History of colonoscopy (~02/2016) History of left inguinal hernia repair (~01/2019) History of lung surgery (~03/2019) Hx of appendectomy Hx of neck surgery Family History Family History Mother Diabetes Social History Social History Household Members: Spouse Alcohol intake: never Patient Tobacco Use Status: Former Tobacco user Physical Exam Vital Signs: Vital Signs: Last Vital Signs Temp 98.1 F 04/18/21 15:22 Pulse 67 04/18/21 15:22 Resp 18 04/18/21 15:22 BP 165/79 H 04/18/21 15:22 Pulse Ox 97 04/18/21 15:22 BMI result Body Mass Index 31.3 vital signs have been reviewed as normal and appeared to be correct. Blood pressure 153/80. Heart rate normal. Respiration rate normal. Temperature normal. Oxygen saturation normal. Appearance: Alert. Oriented X3. No acute distress. Head: Normal external exam. Normocephalic. Atraumatic. Eyes: PERRLA. EOMI. Conjunctiva and sclera normal. Eyelids normal. ENT: EAC normal. TM's Normal. Pharynx normal. Uvula midline. Moist mucous membranes. No trismus noted. No drooling noted. No muffled voice noted. Neck: Normal inspection. Neck supple. FROM. No adenopathy. Thyroid Normal. No meningeal signs. No neck mass noted. CVS: Normal heart rate and rhythm. Heart sound normal. Pulses normal throughout. No murmurs/rales/gallops. Respiratory: No respiratory distress. Painless inspiration. Breath sounds normal. No wheezes/rales/rhonchi noted. Chest nontender. No accessory muscle usage noted or decreased air movement noted. Abdomen: Soft and mild tenderness up patient to the right upper quadrant. Otherwise no other tenderness throughout the abdomen noted. Bowel sounds normal in all 4 quadrants. No distention noted. No organomegaly noted. No visible injury noted. Back: No CVA tenderness. Full range of motion noted. No rashes/lesion/induration/fluctuance or signs of infection noted. Skin: Skin warm and dry. Normal skin color. Normal skin turgor. No rashe s/lesions/lacerations noted. Extremities: No lower extremity edema. No calf tenderness is noted. E xtremities exhibit normal range of motion. Extremities nontender. Neuro: Oriented X 3. No motor deficit. No sensory deficit. Reflexes normal. Normal steady gait. No focal neuro deficits noted. CN's II-XII intact bilaterally? Vascular: + radial pulses/+ 2 distal pedal pulses/+2 dorsalis pedis b/l. Normal cap refill. No cyanosis noted to upper extremity nails and lower extremity toes nails. Course Course Course Narrative: 9:50am - 80-year-old male with a past medical history of atrial fibrillation currently on Coumadin taking as prescribed, HTN, HLD, ascending aortic aneurysm s/p card iac catheterization in 2019 due to proximal RCA 90% stenosis, diabetes with polyneuropathy and pulmonary nodules with history of lung surgery in 2019 due to left empyema s/p VATs decortication presenting to the ED with his neighbor at bedside presenting to the ED with complaints of coughing up blood that he noticed this a small amount yesterday and this morning with associated anterior chest pain. He also reports some sneezing and scratchiness in his throat. He reports ruq abd pain as well for the past few days. Patient reports he is taking his Coumadin as prescribed. Has not been taking any of his other medications although poor historian related to this reports that his prescriber cancelled the appointment and due to this he does not have any meds. Otherwise he denies any additional complaints or concerns Plan: Labs, COVID swab, EKG, CT of chest for possible PE, CT scan of abdomen pelvis with IV contrast, UA. Place a case management consult for possible home services at home due to patient reports he has not seen his primary care provider due to his appointment was canceled and he is not taking his medications other than his Coumadin for the past month will re-evaluate. Reevaluation(s) Reevaluation #1: - labs reviewed and patient with the hemoglobin and hematocrit at 13.1/40.8 which is similar compared to prior. Platelet count 135 similar compared to prior. Anion gap 10. BUN 17. Random glucose 273. Troponin 38.0 then 3 hours later 36.1 which is negative delta. UA revealed a 1000 of glucose otherwise no evidence of UTI. Patient negative for COVID - CTA of chest for PE negative for PE Ectasia of the ascending thoracic aorta to approximately 4.1 cm in diameter without dissection. Old granulomatous disease. Numerous sub-4 mm nodules with to 4 mm nodules. According to the UPDATED 2017 Fleischner Society recommendations, the advised follow-up imaging for solid nodules < 6 mm is: LOW RISK PATIENT: No routine follow-up. HIGH RISK PATIENT: Optional CT at 12 months. - CT scan of abdomen and pelvis with IV contrast revealed chronic changes such as hemangioma right adrenal gland nodule and bilateral renal cysts along with enlarged nodular prostate gland otherwise no other acute processes. Therefore I have printed out the results and handed to the patient and his family at bedside and explained to him that he should have further evaluation and treatment for the abnormal findings found on his CTA otherwise he can be discharged home with antibiotics for possible bronchitis infection - PATI Serrano from Case Management reported that [facility] will accept the patient for home services. Time: 15:12 MDM - Chest Pain Medical Records Data Attestation: I reviewed the patient's medical records. Lab Data Attestation: I reviewed the patient's lab results. Result diagrams: 04/18/21 10:31 04/18/21 10:12 Labs: Lab Results 04/18/21 04/18/21 04/18/21 Range/Units 10:12 10:12 10:12 WBC (4.8-10.8) X10*3/uL RBC (4.60-5.80) X10*6/uL Hgb (14.0-18.0) g/dl Hct (42.0-52.0) % MCV (80.0-98.0) fL MCH (27.0-33.0) pg MCHC (31.0-36.0) g/dl RDW (11.0-16.0) % Plt Count (160-400) X10*3/uL MPV (9.4-12.4) fL Immature Gran % (Auto) (0.0-0.4) % Neut % (Auto) (45-73) % Lymph % (Auto) (20-40) % Garfield % (Auto) (2-11) % Eos % (Auto) (0-4) % Baso % (Auto) (0-2) % Lymph # (Auto) (1.2-4.9) X10*3/uL [place]field # (Auto) (0.1-1.2) X10*3/uL Eos # (Auto) (0.0-0.4) X10*3/uL Baso # (Auto) (0.0-0.2) X10*3/uL Abs Immat Gran (auto) (0.00-0.03) X10*3/uL Absolute Neuts (auto) (2.0-8.3) x10*3/uL Absolute Nucleated RBC (0.0-0.012) X10*3/uL Nucleated RBC % (auto) (0.0-0.2) /100WBC PT 36.4 H (9.9-13.0) SEC INR 3.1 H (0.9-1.1) APTT 47.3 H (24.1-38.0) SEC Sodium 135 (135-145) mmol/L Potassium 4.5 (3.3-5.1) mmol/L Chloride 106 (96-108) mmol/L Carbon Dioxide 24 (22-29) mmol/L Anion Gap 10 L (12-20) BUN 17 H (9-16) mg/dL Creatinine 0.94 (0.5-1.4) mg/dL Estim Creat Clear Calc 62.9 Estimated GFR > 60 Random Glucose 273 H (60-115) mg/dL Calcium 9.2 (8.4-10.2) mg/dL Magnesium 1.8 (1.6-2.6) mg/dL Total Bilirubin 0.5 (0.0-1.0) mg/dL AST 21 (5-37) U/L ALT 23 (0-40) U/L Alkaline Phosphatase 87 (39-117) U/L Troponin I High Sens (<3.5-35.0) ng/L Total Protein 6.5 (6.5-8.0) g/dL Albumin 4.0 (3.5-5.0) g/dL Urine Color Urine Appearance Urine pH (5.0-8.0) Ur Specific [place] (1.005-1.025) Urine Protein (NEG-TRACE) MG/DL Urine Glucose (UA) (NEG) MG/DL Urine Ketones (NEG) MG/DL Urine Blood (NEG) Urine Nitrite (NEG) Ur Leukocyte Esterase (NEG) Urine RBC (0) /HPF Urine WBC (0-4) /HPF Ur Squamous Epith Cells /LPF Urine Bacteria /LPF COVID-19 (ANGIE) (Negative) COVID-19 Clin Com 04/18/21 04/18/21 04/18/21 Range/Units 10:31 10:31 11:05 WBC 5.3 (4.8-10.8) X10*3/uL RBC 4.58 L (4.60-5.80) X10*6/uL Hgb 13.1 L (14.0-18.0) g/dl Hct 40.8 L (42.0-52.0) % MCV 89.1 (80.0-98.0) fL MCH 28.6 (27.0-33.0) pg MCHC 32.1 (31.0-36.0) g/dl RDW 14.3 (11.0-16.0) % Plt Count 135 L (160-400) X10*3/uL MPV 11.7 (9.4-12.4) fL Immature Gran % (Auto) 0.4 (0.0-0.4) % Neut % (Auto) 71.0 (45-73) % Lymph % (Auto) 16.3 L (20-40) % Garfield % (Auto) 9.4 (2-11) % Eos % (Auto) 2.3 (0-4) % Baso % (Auto) 0.6 (0-2) % Lymph # (Auto) 0.9 L (1.2-4.9) X10*3/uL Garfield # (Auto) 0.5 (0.1-1.2) X10*3/uL Eos # (Auto) 0.1 (0.0-0.4) X10*3/uL Baso # (Auto) 0.0 (0.0-0.2) X10*3/uL Abs Immat Gran (auto) 0.02 (0.00-0.03) X10*3/uL Absolute Neuts (auto) 3.8 (2.0-8.3) x10*3/uL Absolute Nucleated RBC 0.000 (0.0-0.012) X10*3/uL Nucleated RBC % (auto) 0.0 (0.0-0.2) /100WBC PT (9.9-13.0) SEC INR (0.9-1.1) APTT (24.1-38.0) SEC Sodium (135-145) mmol/L Potassium (3.3-5.1) mmol/L Chloride (96-108) mmol/L Carbon Dioxide (22-29) mmol/L Anion Gap (12-20) BUN (9-16) mg/dL Creatinine (0.5-1.4) mg/dL Estim Creat Clear Calc Estimated GFR Random Glucose (60-115) mg/dL Calcium (8.4-10.2) mg/dL Magnesium (1.6-2.6) mg/dL Total Bilirubin (0.0-1.0) mg/dL AST (5-37) U/L ALT (0-40) U/L Alkaline Phosphatase (39-117) U/L Troponin I High Sens 38.0 H (<3.5-35.0) ng/L Total Protein (6.5-8.0) g/dL Albumin (3.5-5.0) g/dL Urine Color YELLOW Urine Appearance CLEAR Urine pH 5.5 (5.0-8.0) Ur Specific [place] <= 1.005 (1.005-1.025) Urine Protein NEG (NEG-TRACE) MG/DL Urine Glucose (UA) >=1000 H (NEG) MG/DL Urine Ketones NEG (NEG) MG/DL Urine Blood TRACE (NEG) Urine Nitrite NEG (NEG) Ur Leukocyte Esterase NEG (NEG) Urine RBC 0-2 (0) /HPF Urine WBC 0-2 (0-4) /HPF Ur Squamous Epith Cells TRACE /LPF Urine Bacteria NONE /LPF COVID-19 (ANGIE) (Negative) COVID-19 Clin Com 04/18/21 04/18/21 Range/Units 12:06 14:08 WBC (4.8-10.8) X10*3/uL RBC (4.60-5.80) X10*6/uL Hgb (14.0-18.0) g/dl Hct (42.0-52.0) % MCV (80.0-98.0) fL MCH (27.0-33.0) pg MCHC (31.0-36.0) g/dl RDW (11.0-16.0) % Plt Count (160-400) X10*3/uL MPV (9.4-12.4) fL Immature Gran % (Auto) (0.0-0.4) % Neut % (Auto) (45-73) % Lymph % (Auto) (20-40) % Garfield % (Auto) (2-11) % Eos % (Auto) (0-4) % Baso % (Auto) (0-2) % Lymph # (Auto) (1.2-4.9) X10*3/uL [place] # (Auto) (0.1-1.2) X10*3/uL Eos # (Auto) (0.0-0.4) X10*3/uL Baso # (Auto) (0.0-0.2) X10*3/uL Abs Immat Gran (auto) (0.00-0.03) X10*3/uL Absolute Neuts (auto) (2.0-8.3) x10*3/uL Absolute Nucleated RBC (0.0-0.012) X10*3/uL Nucleated RBC % (auto) (0.0-0.2) /100WBC PT (9.9-13.0) SEC INR (0.9-1.1) APTT (24.1-38.0) SEC Sodium (135-145) mmol/L Potassium (3.3-5.1) mmol/L Chloride (96-108) mmol/L Carbon Dioxide (22-29) mmol/L Anion Gap (12-20) BUN (9-16) mg/dL Creatinine (0.5-1.4) mg/dL Estim Creat Clear Calc Estimated GFR Random Glucose (60-115) mg/dL Calcium (8.4-10.2) mg/dL Magnesium (1.6-2.6) mg/dL Total Bilirubin (0.0-1.0) mg/dL AST (5-37) U/L ALT (0-40) U/L Alkaline Phosphatase (39-117) U/L Troponin I High Sens 36.1 H (<3.5-35.0) ng/L Total Protein (6.5-8.0) g/dL Albumin (3.5-5.0) g/dL Urine Color Urine Appearance Urine pH (5.0-8.0) Ur Specific [place] (1.005-1.025) Urine Protein (NEG-TRACE) MG/DL Urine Glucose (UA) (NEG) MG/DL Urine Ketones (NEG) MG/DL Urine Blood (NEG) Urine Nitrite (NEG) Ur Leukocyte Esterase (NEG) Urine RBC (0) /HPF Urine WBC (0-4) /HPF Ur Squamous Epith Cells /LPF Urine Bacteria /LPF COVID-19 (ANGIE) Negative (Negative) COVID-19 Clin Com See Note Imaging Data CTA of chest for PE: Attestation: I personally reviewed and interpreted this imaging study as follows: Radiologist's impression: FINDINGS: QUALITY OF STUDY/CONTRAST BOLUS: Satisfactory. PULMONARY ARTERIES: No central or segmental pulmonary emboli.? THORACIC AORTA: There is ectasia of the ascending thoracic aorta to approximately 4.1 cm in diameter. No aortic dissection is appreciated. LUNG: There is apical pleural-parenchymal disease present as well as mild changes of paraseptal and centrilobular emphysema. Central airways are patent. There are regions of discoid and linear atelectasis and/or scarring at the lung bases. There is some dependent atelectasis seen bilaterally. There is bronchial wall thickening present. No bronchiectasis. A few calcified granulomas are present. There are numerous sub-4 mm densities present which artery being peripheral. There is a 4 mm noncalcified nodule seen within the left lower lobe and image 355 of 531. There is a 4 mm noncalcified nodule seen within the right upper lobe on image 218 of 531 in series #9. PLEURA: No pleural effusion or pneumothorax. MEDIASTINUM: Normal heart size.? No pericardial effusion.? No hilar or mediastinal lymphadenopathy. There is some calcified mediastinal lymph nodes present. There are numerous lymph nodes present but none pathologically enlarged. Coronary artery calcification is seen. Visualized thyroid gland unremarkable. No evidence of septal bowing or right heart strain. CHEST WALL/AXILLA: No axillary or internal mammary lymphadenopathy. OSSEOUS STRUCTURES: No acute or suspicious osseous abnormality. DISH is present. UPPER ABDOMEN: Bilateral renal cysts are evident.? No significant reflux of contrast into the hepatic veins to suggest elevated right heart pressures. CT/CT angio chest PE protocol IMPRESSION: No evidence of acute pulmonary artery embolus. ? Ectasia of the ascending thoracic aorta to approximately 4.1 cm in diameter without dissection. ? Old granulomatous disease. ? Numerous sub-4 mm nodules with to 4 mm nodules. According to the UPDATED 2017 Fleischner Society recommendations, the advised follow-up imaging for solid nodules < 6 mm is: ?? LOW RISK PATIENT: No routine follow-up. ?? HIGH RISK PATIENT: Optional CT at 12 months. ? VTE: negative CT scan abdomen pelvis with IV contrast: Attestation: I personally reviewed and interpreted this imaging study as follows: Radiologist's impression: FINDINGS: LUNG BASES: There is some bibasilar atelectasis present. No pleural or pericardial effusion. Coronary artery calcifications present. LIVER, GALLBLADDER, AND BILIARY TREE: Within segment 6 of the liver there is a homogeneously hyperechoic enhancing region on portal phase imaging. which may be related to hemangioma which measures approximately 1.7 x 1.6 cm in size. No intrahepatic bile duct dilatation. The gallbladder is unremarkable with no evidence of radiopaque gallstones, gallbladder wall thickening, or obvious pericholecystic inflammatory changes.? PANCREAS: Unremarkable.? SPLEEN: Unremarkable.? ADRENAL GLANDS: There is a 1.2 x 1.0 cm right adrenal gland nodule. The left adrenal gland appears unremarkable.? KIDNEYS AND URETERS: The kidneys are normal in size, shape, and attenuation. No hydronephrosis, hydroureter, or calculi seen. There is mild perinephric stranding. There are multiple bilateral renal cysts present. BLADDER: Unremarkable.? GASTROINTESTINAL TRACT: No dilated loops of large or small bowel are evident. No free air or free fluid is seen. Appendix was not identified. ABDOMINAL WALL: No significant hernia is appreciated.? LYMPH NODES: No lymphadenopathy appreciated VASCULAR: No abdominal aortic aneurysm is seen. Portal vein is patent. There is moderate calcified plaque within the infrarenal abdominal aorta. PELVIC VISCERA: The prostate gland is enlarged with a nodular appearance..? OSSEOUS STRUCTURES: No destructive bony lesions identified. There is fusion of the left sacroiliac joint. There is multilevel degenerative disc disease seen. There is some marginal spurring seen throughout the lumbar spine with narrowing of the L5-S1 disc space. [facility] is seen within the lower thoracic spine. CT/CT abdomen pelvis w con IMPRESSION: 1.7 cm homogeneously enhancing lesion within segment 6 of the liver during portal venous phase which may represent hemangioma. ? No evidence of cholelithiasis or acute cholecystitis. ? No evidence of acute pancreatitis. ? 1.2 cm right adrenal gland nodule. ? Multiple bilateral renal cysts. ? Enlarged nodular prostate gland. ? Fleischner guidelines were followed. ECG Data ECG #1: Attestation: I personally reviewed and interpreted this ECG as follows: ECG interpretation date: 04/18/21 ECG interpretation time: 10:17 Interpretation: Normal sinus rhythm with a ventricular of 66 with increased R to S ratio in V1 otherwise no acute ischemic changes are noted. Similar when compared to prior EKG on 04/25/2019 Critical Care Time Critical Care Time Critical Care Time: Yes Total Critical Care Time: 60 Attestation: I personally attest to this time spent taking care of the patient Discharge Plan Discharge Clinical Impression: Bronchitis, Hemangioma of liver, Adrenal nodule, Aortic ectasia, thoracic Patient Disposition: Home, Self-Care Instructions: Acute Bronchitis (ED), Adrenal Gland Biopsy (DC) Prescriptions: New azithromycin 250 mg tablet See Rx Instructions PO .COMPLEX Qty: 6 0RF Rx Instructions: take 500 mg today (day 1), then 250 mg for 4 days (days 2-5) nitroglycerin 0.4 mg tablet, sublingual 0.4 mg sublingual Q5M PRN (Reason: chest pain) Qty: 30 0RF Rx Instructions: do not exceed 3 doses per episode meclizine 12.5 mg tablet 12.5 mg PO ONCE Qty: 30 0RF metformin 500 mg tablet extended release 24 hr 500 mg PO DAILY Qty: 30 0RF lisinopril 2.5 mg tablet 2.5 mg PO DAILY Qty: 30 0RF rosuvastatin 20 mg tablet 20 mg PO DAILY Qty: 30 0RF metoprolol tartrate 25 mg tablet 25 mg PO DAILY Qty: 30 0RF baclofen 10 mg tablet 10 mg PO DAILY Qty: 30 0RF No Action nitroglycerin 0.4 mg tablet, sublingual 0.4 mg sublingual DAILY Qty: 75 3RF ferrous sulfate 325 mg (65 mg iron) tablet 325 mg PO DAILY 0RF gabapentin 300 mg capsule 300 mg PO TID 0RF tramadol 50 mg tablet 50 mg PO BEDTIME 0RF cholecalciferol (vitamin D3) 50 mcg (2,000 unit) capsule 50 mcg PO DAILY 0RF baclofen 10 mg tablet 10 mg PO BEDTIME 0RF meclizine 12.5 mg tablet 12.5 mg PO TID 0RF lisinopril 5 mg tablet 2.5 mg PO DAILY 0RF warfarin 5 mg tablet 5 mg PO DAILY Qty: 90 0RF Protocol: Dose Management Condition: Friday (Week One) Dose/Route: 7.5 mg Instruction: 1.5 x 5 mg tablets Condition: Friday Dose/Route: 5 mg Instruction: 1 x 5 mg tablet Condition: Friday Dose/Route: 7.5 mg Instruction: 1.5 x 5 mg tablets Condition: Friday Dose/Route: 5 mg Instruction: 1 x 5 mg tablet Condition: Dose/Route: 7.5 mg Instruction: 1.5 x 5 mg tablets Condition: Friday Dose/Route: 5 mg Instruction: 1 x 5 mg tablet Condition: Friday Dose/Route: 7.5 mg Instruction: 1.5 x 5 mg tablets Condition: Friday (Week Two) Dose/Route: 7.5 mg Instruction: 1.5 x 5 mg tablets Condition: Friday Dose/Route: 5 mg Instruction: 1 x 5 mg tablet Condition: Friday Dose/Route: 7.5 mg Instruction: 1.5 x 5 mg tablets Condition: Friday Dose/Route: 5 mg Instruction: 1 x 5 mg tablet Condition: Dose/Route: 7.5 mg Instruction: 1.5 x 5 mg tablets Condition: Friday Dose/Route: 5 mg Instruction: 1 x 5 mg tablet Condition: Friday Dose/Route: 7.5 mg Instruction: 1.5 x 5 mg tablets Protocol Text: Adjustment Start Date: Friday04/04/21 INR Value: 2.8 INR Date: 04/04/21 Recheck Date: 05/04/21 Additional Instructions: keep same dosing balance greens and reds in diet Rx Instructions: 5MG X2, 7.5MGX5 rosuvastatin 20 mg tablet PO DAILY 0RF tamsulosin 0.4 mg capsule PO 0RF fluticasone propionate 50 mcg/actuation spray,suspension intranasal 0RF metoprolol tartrate 25 mg tablet 12.5 mg PO Q12H 0RF metformin 500 mg tablet extended release 24 hr PO 0RF Referrals: [facility] [Outside] - 2 days Olga Paulino DO [Primary Care Provider] - 2 days Print Language: Citizen Of [place]
[2021-04-18 12:03] VITALS: BP 145/78; PULSE 65; RESP 16; O2SAT 99
[2021-04-18 12:37] LABS: COVID-19 Test Negative (Negative)
--- NOTE | 2021-04-18 13:45 | MHC.CM.ED ---
Addendum entered by Kasia Way 04/18/21 14:32: [facility] is unable to accept patient. [facility] is able to accept patient. Original Note: Received case management consult from FIORELLA Valencia. Patient came to ER due to resp issues. Work up pending. However, there is concern that patient hasn't been taking his medication correctly or even been refilling his medication correctly. PCP is Olga Paulino. Copy of HCP verified to be on file. Met with patient and neighbor. Both agreeable to d/c home when patient is medically stable with [facility] follow up. FIORELLA Valencia aware. Continue to monitor for d/c needs.
[2021-04-18 14:33] LABS: Troponin-I High Sensitivity 36.1 ng/L (<3.5-35.0)
[2021-04-18 15:22] VITALS: BP 165/79; PULSE 67; RESP 18; TEMP 36.7; O2SAT 97
== END 2021-04-18 16:08 | disposition home or self-care (01) ==
PROVIDERS: Physician Assistant Medical; Emergency Provider Emergency Medicine; PCP Family Medicine
DX: J40 Bronchitis, not specified as acute or chronic (principal); D18.09 Hemangioma of other sites; E27.8 Other specified disorders of adrenal gland; I77.810 Thoracic aortic ectasia; Q61.02 Congenital multiple renal cysts; N40.2 Nodular prostate without lower urinary tract symptoms; Z20.822 Contact with and (suspected) exposure to COVID-19; E11.9 Type 2 diabetes mellitus without complications; I10 Essential (primary) hypertension; E78.5 Hyperlipidemia, unspecified; I48.0 Paroxysmal atrial fibrillation; R91.8 Other nonspecific abnormal finding of lung field; Z79.01 Long term (current) use of anticoagulants; Z79.02 Long term (current) use of antithrombotics/antiplatelets
CPT/HCPCS: 36415; 71275; 74177; 80053; 81001; 83735; 84484; 85025; 85610; 85730; 87635; 93005; 99284; 99291; Q9967

== ENCOUNTER → 2021-05-02 08:59 | Outpatient (BNVA) | payer MEDICARE, MEDICAID, SELFPAY | PROVIDERS: PCP Family Medicine; Visit Provider Internal Medicine | DX: I48.0 Paroxysmal atrial fibrillation (principal); Z51.81 Encounter for therapeutic drug level monitoring; Z79.01 Long term (current) use of anticoagulants | CPT/HCPCS: 85610; 99211 ==

== ENCOUNTER → 2021-05-24 09:14 | Outpatient (REF) | payer MEDICARE, MEDICAID, SELFPAY ==
--- NOTE | 2021-05-24 09:21 | CA_ITS ---
Transthoracic Echocardiogram Patient (Last, First, Middle): Ramesh Kenyon, Gender: Male Date of : 1940 Age: 80 Procedure Date: 05/24/2021 Procedure Type: Transthoracic Echocardiogram Location: OP Height: 167.64 cm Weight: 88. kg BSA: 1.97 m2 Heart Rate: bpm BP: 122 / 80 mmHg Senior Advisory: PRESTON Referring MD: Rodolfo Martin MD Network Cabler: Chace Hernandez MD Symptoms: I171.2 THOR AA W/O RUP Study Quality: Fair ECG Rhythm: Sinus Conclusions: - 1. Normal LV systolic function with mild LVH with impaired relaxation filling pattern 2. Mild aortic regurgitation 3. Mildly dilated ascending aorta at 4.2 cm 4. Normal RV systolic pressure 5. No pericardial effusion Findings Left Ventricle Normal left ventricular size and systolic function. There is mildly increased left ventricular wall thickness. The visually estimated ejection fraction is between 55-60%. Spectral Doppler is indicative of an impaired relaxation filling pattern. E/E prime ratio is between 8 and 15 consistent with indeterminate filling pressures. Right Ventricle Normal right ventricular cavity size and systolic function. Atria The left atrium is likely dilated. Interatrial shunt cannot be excluded. The right atrium is normal in size. Aortic Valve The aortic valve structure and function is likely normal. There is no aortic valve stenosis. There is mild aortic valve regurgitation. Mitral Valve Likely normal mitral valve structure and function. There is trace mitral valve regurgitation. There is no mitral valve stenosis. Pulmonic Valve The pulmonic valve was not well visualized. Tricuspid Valve Likely normal tricuspid valve structure and function. There is trace tricuspid valve regurgitation. The right ventricular systolic pressure is normal. The right ventricular systolic pressure is 29 mmHg. Normal right atrial pressure. There is no evidence of pulmonary hypertension. Great Vessels The pulmonary artery was not well visualized. There is mild dilatation of the ascending aorta measuring 4.20 cm. Venous The inferior vena cava is normal in size and collapses greater than 50% with inspiration. Pericardium/Pleural There is no evidence of pericardial effusion. Prior Study Comparison Changes noted compared to prior study dated: 11/02/2020. ascending aorta is measured at 4.2 cm Measurements 2D Linear Measurements IVSd: 1.22 0.6-0.9/0.6-1.0 cm LVIDd: 4.82 3.9-5.3/4.2-5.9 cm LVIDd Index: 2.45 2.4-3.2/2.2-3.1 cm/m2 LVIDs: 3.43 2.0-3.6 cm LVPWd: 1.32 0.7-1.1 cm LA Diam: 3.40 2.7-3.8/3.0-4.0 cm LAIDs Index: 1.73 1.5-2.3 cm/m2 LV Mass: 298.18 67-162/88-224 g LV Mass Index: 151.36 43-95/49-115 g/m2 LVOT Diam: 2.30 3.0+(-)1.3 cm 2D Systolic Function EF 4C: 57.60 >55% EF 2C: 56.30 >55% EF BiP: 55.80 >55% Mitral Valve E'Lateral: 8.70 E'Medial: 5.87 Aortic Valve AoV Pk Yeison: 1.03 AoV Mn Yeison: 0.77 AoV VTI: 0.27 AoV Pk Grad: 4.00 Aov Mn Grad: 3.00 LANA Cont.VTI: 2.96 LVOT LVOT Pk Yeison: 0.69 LVOT Mn Yeison: 0.43 LVOT VTI: 0.19 LVOT Pk Grad: 2.00 LVOT Mn Grad: 1.00 LVOT Diam: 2.30 LVOT Area: 4.15 Diastolic Function E'Medial: 5.87 E' Laterial: 8.70 Right Ventricle TAPSE (mm): 16.10 TVS' Yeison: 7.29 Tricuspid Valve TR Pk Yeison: 2.29 TR Pk Grad: 21.00 RA Press: 8.00 RVSP: 29.00 Great Vessels Aorta Sinus of Valsalva: 3.95 2.0-3.[address] Ridge: 3.44 1.7-3.4 cm Ao Asc: 4.20 2.1-3.4 cm Ao Arch: 3.40 Updated in Other Vendor System with Status of Final Chace Hernandez MD electronically signed on 05/25/2021 1:41:20 PM with status of Final
== END ==
LOC: HO.CARD 09:14
PROVIDERS: Visit Provider Internal Medicine
DX: I71.2 Thoracic aortic aneurysm, without rupture (principal)
CPT/HCPCS: 93306

== ENCOUNTER → 2021-05-30 09:03 | Outpatient (BNVA) | payer MEDICARE, MEDICAID, SELFPAY | PROVIDERS: PCP Family Medicine; Visit Provider Internal Medicine | DX: I48.0 Paroxysmal atrial fibrillation (principal); Z51.81 Encounter for therapeutic drug level monitoring; Z79.01 Long term (current) use of anticoagulants | CPT/HCPCS: 85610; 99211 ==

== ENCOUNTER → 2021-06-05 09:48 | Outpatient (BNVA) | payer MEDICARE, MEDICAID, SELFPAY | PROVIDERS: PCP Family Medicine; Referring Provider Family Medicine; Visit Provider Internal Medicine | DX: I25.10 Atherosclerotic heart disease of native coronary artery without angina pectoris (principal); I48.0 Paroxysmal atrial fibrillation; I71.2 Thoracic aortic aneurysm, without rupture; I10 Essential (primary) hypertension | CPT/HCPCS: 99212 ==

== ENCOUNTER 2021-06-08 10:09 | Outpatient (REF) | payer MEDICARE, MEDICAID, SELFPAY ==
--- NOTE | 2021-06-08 16:10 | MHC.AU.ANR ---
Adult Audiological Evaluation Date of Visit: 06/08/21 Data Center Manager Used: Chadian- In Person Reason for Appointment: Audiological evaluation due to concern for decreased hearing. Mr. Kenyon notes that he has difficulty understanding speech and feels he doesn't hear people clearly. He also notes that he has to turn the TV volume up to hear it. He feels it has been worse since March 2021. He also reports tinnitus in both ears. Does patient feel they have a hearing loss?: Yes Hearing Handicap Inventory: HHIE SCORE: 6 Based on HHIE score, patient has: No perceived hearing handicap Ear History: History of Ear Wax Buildup: Both Ears Bothersome Tinnitus/Ringing/Noises in Ears: Both Ears History of occupational noise exposure?: Yes Medical History: Medical History: Diabetes, Heart Problems, High Blood Pressure Medical History (Other): Bronchitis, hyperlipidimia, inflammatory arthritis, anemia, paroxysmal atrial fibrillation Allergies: sensitive to certain scents Medication List: isosorbide mononitrate, nitroglycerin, multivitamin with iron, Colace, Flomax, meclizine, Crestor, Vitamin D3, Calcium 600 + minerals, baclofen, gabapentin, MAPAP arthritis pain, Shingrix, warfarin, lisinopril, metoprolol tartrate, Claritin, Flonase, metformin Otoscopy: Right Ear: Unremarkable Left Ear: Unremarkable Tympanometry: Tympanometry performed due to: To assess integrity of the middle ear system Right Ear: Normal Middle Ear System (Type A) Left Ear: Normal Middle Ear System (Type A) Hearing Evaluation: Transducer(s) Used: Insert Earphones, Bone Conduction Method: Conventional Audiometry Stimuli Used: Pure Tones Right Ear: Description of Hearing: Mild sloping to moderately-severe sensorineural hearing loss from 250-8000 Hz. Left Ear: Description of Hearing: Mild sloping to moderately-severe sensorineural hearing loss from 250-8000 Hz. Speech Recognition Threshold (SRT): Method Used: Recorded Lists Stimuli Used: Chadian Trisyllable Words Right Ear: 50 dBHL Left Ear: 55 dBHL Word Discrimination: Method: Recorded Lists Word Lists Used: Lista Bisil?bica (Chadian) Right Ear: 96% at 85 dBHL Left Ear: 96% at 85 dBHL Recommendations: Audiological re-evaluation in one year. Trial with amplification is recommended based on degree of hearing loss and shared listening needs. Discussed options. He is interested in rechargeable MARION style hearing aids. Medical clearance is being requested from his PCP. Once obtained, hearing aids will be ordered. Diagnosis: Primary Diagnosis: H90.3 Bilateral Sensorineural Hearing Loss Services Performed: Services Performed: Comprehensive Audiological Evaluation (CPT 83459) Tympanometry (CPT 63635) Signature: Provider: Christopher Raphael, CCC-A
--- NOTE | 2021-06-08 16:24 | MHC.AU.HAS ---
Hearing Aid Evaluation Date of Visit: 06/08/21 Director Power Used: Serbian- In Person Historical Information: Description of Hearing: Mild sloping to moderately-severe sensorineural hearing loss bilaterally. Current personal amplification information, if applicable: None Summary: Binaural amplification is recommended based on the degree of Mr. Kenyon's hearing loss and his shared listening needs. Discussed hearing aid styles and technologies. He is interested in rechargeable MARION style hearing aids. Hearing Aid Prescription: Based on the individual?s shared listening needs, communication environments, dexterity, desire for connectivity, and personal preferences, the following prescription for amplification has been made: Right ear: Wind Science And Planning: Phonak Model: Audeo P70-R Battery Size: Rechargeable Color: P5 Electrical Lineworker: Size 1 M Left ear: Left ear prescription to be same as Right Hearing Aid above: Wind Science And Planning: Phonak Model: Audeo P70-R Battery Size: Rechargeable Color: P5 Electrical Lineworker: Size 1 M Plan of Care: Medical Clearance to be requested from PCP/ENT. Once medical clearance is received, hearing aids will be ordered. Hearing aid fitting will be scheduled when materials arrive. Primary Diagnosis: H90.3 Bilateral Sensorineural Hearing Loss Signature: Provider: Christopher Raphael, CCC-A
--- NOTE | 2021-06-15 16:14 | MHC.AU.MED ---
Medical Clearance for Hearing Instrumentation Date: 06/15/21 Patient Name: Ramesh Kenyon Date of : 1940 Referring Provider: Olga Paulino, DO We have seen your patient on 06/08/21 and have determined that they are a candidate for amplification (See accompanying report). Specifically, they would benefit from: Hearing aid use in both ears There is a statute that addresses Medical Evaluation Requirements prior to fitting a patient with a hearing aid. According to [place] statute 265 CMR:6.03(1), (a) General. Except as provided in 265 CMR 6.03(1)(b), a supervisor shearing shall not sell a hearing aid unless the prospective user has presented to the supervisor shearing a written statement signed by a licensed physician that states that the patient's hearing loss has been medically evaluated and the patient may be considered a candidate for a hearing aid. The medical evaluation must have taken place within the preceding six months. Please note: Due to the [place] Statute referenced above, we cannot accept a signature other than that of a licensed physician. BROOM MAN and PA signatures cannot be accepted. I am in agreement with the above recommendation. There is no medical contraindication for hearing instrumentation. Physician Signature Date Physician Name (Printed)
== END 2021-06-08 10:10 | disposition home or self-care (01) ==
LOC: HO.SH 10:09
PROVIDERS: Visit Provider Family Medicine
DX: Z01.118 Encounter for examination of ears and hearing with other abnormal findings (principal); H90.3 Sensorineural hearing loss, bilateral
CPT/HCPCS: 92557; 92567; 92591

== ENCOUNTER → 2021-06-27 09:19 | Outpatient (BNVA) | payer MEDICARE, MEDICAID, SELFPAY | PROVIDERS: PCP Family Medicine; Visit Provider Internal Medicine | DX: I48.0 Paroxysmal atrial fibrillation (principal); Z79.01 Long term (current) use of anticoagulants; Z51.81 Encounter for therapeutic drug level monitoring | CPT/HCPCS: 85610; 99211 ==

== ENCOUNTER 2021-07-03 13:48 | Outpatient (REF) | payer MEDICARE, MEDICAID, SELFPAY ==
--- NOTE | 2021-07-06 17:38 | MHC.AU.P13 ---
Patient dropped off hearing aids stating he doesn't like them and does not want them. He stated he is not interested in trying anything else at this time. Returned hearing aids for credit.
== END 2021-07-03 13:49 | disposition home or self-care (01) ==
LOC: HO.HAP 13:48
PROVIDERS: Visit Provider Family Medicine
DX: Z46.1 Encounter for fitting and adjustment of hearing aid (principal); H90.3 Sensorineural hearing loss, bilateral
CPT/HCPCS: V5011; V5020; V5160; V5261

== ENCOUNTER → 2021-07-31 09:19 | Outpatient (BNVA) | payer MEDICARE, MEDICAID, SELFPAY | PROVIDERS: PCP Family Medicine; Visit Provider Internal Medicine | DX: I48.0 Paroxysmal atrial fibrillation (principal); Z79.01 Long term (current) use of anticoagulants; Z51.81 Encounter for therapeutic drug level monitoring | CPT/HCPCS: 85610; 99211 ==

== ENCOUNTER → 2021-08-28 09:05 | Outpatient (BNVA) | payer MEDICARE, MEDICAID, SELFPAY | PROVIDERS: PCP Family Medicine; Visit Provider Internal Medicine | DX: I48.0 Paroxysmal atrial fibrillation (principal); Z79.01 Long term (current) use of anticoagulants; Z51.81 Encounter for therapeutic drug level monitoring | CPT/HCPCS: 85610; 99211 ==

== ENCOUNTER → 2021-09-25 08:59 | Outpatient (BNVA) | payer MEDICARE, MEDICAID, SELFPAY | PROVIDERS: PCP Family Medicine; Visit Provider Internal Medicine | DX: I48.0 Paroxysmal atrial fibrillation (principal); Z79.01 Long term (current) use of anticoagulants; Z51.81 Encounter for therapeutic drug level monitoring | CPT/HCPCS: 85610; 99211 ==

== ENCOUNTER → 2021-10-09 09:06 | Outpatient (BNVA) | payer MEDICARE, MEDICAID, SELFPAY | PROVIDERS: PCP Family Medicine; Visit Provider Internal Medicine | DX: I48.0 Paroxysmal atrial fibrillation (principal); Z79.01 Long term (current) use of anticoagulants; Z51.81 Encounter for therapeutic drug level monitoring | CPT/HCPCS: 85610; 99211 ==

== ENCOUNTER → 2021-10-30 09:29 | Outpatient (BNVA) | payer MEDICARE, MEDICAID, SELFPAY | PROVIDERS: PCP Family Medicine; Visit Provider Internal Medicine | DX: I48.0 Paroxysmal atrial fibrillation (principal); Z79.01 Long term (current) use of anticoagulants; Z51.81 Encounter for therapeutic drug level monitoring | CPT/HCPCS: 85610 ==

== ENCOUNTER → 2021-11-12 09:25 | Outpatient (BNVA) | payer MEDICARE, MEDICAID, SELFPAY | PROVIDERS: PCP Family Medicine; Visit Provider Internal Medicine | DX: I48.0 Paroxysmal atrial fibrillation (principal); Z79.01 Long term (current) use of anticoagulants; Z51.81 Encounter for therapeutic drug level monitoring | CPT/HCPCS: 85610; 99211 ==

== ENCOUNTER → 2021-12-03 08:55 | Outpatient (BNVA) | payer MEDICARE, MEDICAID, SELFPAY | PROVIDERS: PCP Family Medicine; Visit Provider Internal Medicine | DX: I48.0 Paroxysmal atrial fibrillation (principal); Z79.01 Long term (current) use of anticoagulants; Z51.81 Encounter for therapeutic drug level monitoring | CPT/HCPCS: 85610; 99211 ==

== ENCOUNTER → 2021-12-04 09:25 | Outpatient (BNVA) | payer MEDICARE, MEDICAID, SELFPAY | PROVIDERS: PCP Family Medicine; Referring Provider Family Medicine; Visit Provider Internal Medicine | DX: I25.10 Atherosclerotic heart disease of native coronary artery without angina pectoris (principal); I71.21 Aneurysm of the ascending aorta, without rupture; I48.0 Paroxysmal atrial fibrillation; I10 Essential (primary) hypertension | CPT/HCPCS: 99212 ==

== ENCOUNTER → 2021-12-24 09:14 | Outpatient (BNVA) | payer MEDICARE, MEDICAID, SELFPAY | PROVIDERS: PCP Family Medicine; Visit Provider Internal Medicine | DX: I48.0 Paroxysmal atrial fibrillation (principal); Z79.01 Long term (current) use of anticoagulants; Z51.81 Encounter for therapeutic drug level monitoring | CPT/HCPCS: 85610; 99211 ==

== ENCOUNTER → 2022-01-21 08:48 | Outpatient (BNVA) | payer MEDICARE, MEDICAID, SELFPAY | PROVIDERS: PCP Family Medicine; Visit Provider Internal Medicine | DX: I48.0 Paroxysmal atrial fibrillation (principal); Z79.01 Long term (current) use of anticoagulants; Z51.81 Encounter for therapeutic drug level monitoring | CPT/HCPCS: 85610; 99211 ==

== ENCOUNTER 2022-01-30 09:46 | Outpatient (REF) | payer MEDICARE, MEDICAID, SELFPAY ==
[2022-01-30 10:54] LABS: C Reactive Protein 0.02 mg/dL (< or = 0.50)
[2022-01-30 11:19] LABS: Erythrocyte Sedimentation Rate 7 MM/HR (0-15)
== END 2022-01-30 09:47 | disposition home or self-care (01) ==
LOC: HO.10HDL 09:46
PROVIDERS: Visit Provider Nurse Practitioner Family
DX: M19.90 Unspecified osteoarthritis, unspecified site (principal)
CPT/HCPCS: 36415; 85652; 86140; 99212

== ENCOUNTER 2022-02-13 15:13 | Outpatient (REF) | payer MEDICARE, MEDICAID, SELFPAY ==
--- NOTE | ~2022-02-13 | MR_ITS ---
EXAMINATION: MR BRAIN WITHOUT AND WITH CONTRAST CLINICAL INFORMATION: Bilateral tinnitus. COMPARISON: CT scan of the head 07/22/2015. MRI scan of the brain 01/16/2015. TECHNIQUE: Multiplanar, multisequence MRI of the brain was obtained before and after the intravenous administration of 9.0 mL Gadavist. FINDINGS: The 7th and 8th cranial nerve complexes are normal in course and caliber. No signal abnormality is visualized within the inner ear structures on the precontrast axial T1-weighted sequence. Fluid signal is preserved within the cochleae, semicircular canals, and vestibules on the high-resolution axial FIESTA sequence. No cerebellopontine angle lesion is noted. There is no abnormal labyrinthine or intracanalicular enhancement on postcontrast imaging. No diffusion abnormality is seen. There are relatively extensive areas of hyperintense T2 and FLAIR signal in the periventricular and subcortical white matter and in the eri, most consistent with chronic microvascular ischemic disease. The ventricles and sulci are commensurately prominent consistent with diffuse volume loss. No mass effect or midline shift is evident. No extra-axial fluid collections are noted. The cerebellum appears normal. On postcontrast imaging, there is no abnormal parenchymal or leptomeningeal enhancement. There is a small focus of low gradient signal in the right occipital lobe which is nonspecific. There is no evidence of acute hemorrhage. The craniovertebral junction, marrow signal, and midline structures are normal. The visualized portions of the major intracranial flow-voids at the level of the [place] of [place] are preserved. The dural venous sinus flow-voids are maintained. There have been bilateral lens extractions. The mastoid air cells are well-aerated. There is no significant paranasal sinus opacification. MR/MR head/brain wo/w con IMPRESSION: 1. There are no acute bleeds or territorial infarcts. No masses are demonstrated. 2. The CP angles and internal auditory canals appear normal bilaterally. 3. There are chronic microvascular ischemic changes and there is diffuse volume loss.
== END 2022-02-13 15:14 | disposition home or self-care (01) ==
LOC: HO.MRI 15:13
PROVIDERS: Visit Provider Family Medicine
DX: H93.13 Tinnitus, bilateral (principal)
CPT/HCPCS: 70553; A9585

== ENCOUNTER → 2022-02-18 10:03 | Outpatient (BNVA) | payer MEDICARE, MEDICAID, SELFPAY | PROVIDERS: PCP Family Medicine; Visit Provider Internal Medicine | DX: I48.0 Paroxysmal atrial fibrillation (principal); Z79.01 Long term (current) use of anticoagulants; Z51.81 Encounter for therapeutic drug level monitoring | CPT/HCPCS: 85610 ==

== ENCOUNTER 2022-02-27 14:48 | Outpatient (REF) | payer MEDICARE, MEDICAID, SELFPAY ==
--- NOTE | ~2022-02-27 | CT_ITS ---
EXAMINATION: CT CHEST WITH CONTRAST CLINICAL INFORMATION: Lesions of oral mucosa. COMPARISON: CT chest 04/18/2021. TECHNIQUE: Multidetector volumetric CT imaging of the chest was obtained after the administration of 85 mL of Omnipaque 350 intravenous contrast without immediate adverse reactions. Axial MIP volume rendering provided. Sagittal and coronal reformatted images were obtained. This CT examination was performed using dose optimization techniques as appropriate, variously including the following: *Automated exposure control *Adjustment of mA and/or kV according to patient size (this includes techniques or standardized protocols for targeted exams where dose is matched to indication/reason for exam; i.e. extremities or head) *Use of iterative reconstruction technique DLP: 141 mGy-cm FINDINGS: DASHBOARD DEVELOPER: Expanded lungs with platelike atelectasis left lung base. LUNGS: There is bilateral apical pleural thickening and apical parenchymal scarring. There are several calcified and noncalcified nodules. A 2 mm noncalcified nodule right upper lobe, axial image 18/5; 4 mm nodule right upper lobe, axial image 106/7; 4 mm nodule left lung base, axial image 135/7; 2 mm nodule right middle lobe, axial image 107/7; and 4 mm subpleural nodule right lower lobe adjacent to the major fissure, axial image 79/7. There is underlying mild centrilobular emphysema. MEDIASTINUM: The thyroid lobes are symmetrical and normal. The central trachea and the bronchi are widely patent. Heart size and great vessels are normal caliber. There is no pericardial effusion. No abnormal-size mediastinal or hilar lymph nodes seen. There are mild coronary artery calcifications seen. PLEURA: There is minimal left basilar posterior pleural thickening. AXILLA: No abnormal axillary lymph nodes seen. The chest wall is unremarkable. UPPER ABDOMEN: Visualized liver, spleen, gallbladder and left adrenal gland appears unremarkable. There is a 2.7 cm cyst midpole right kidney measuring 1.34 cm. There is small cortical defect upper pole left kidney, likely a scar. OSSEOUS STRUCTURES: No aggressive lytic or sclerotic process seen. There is mild ventral spondylosis dorsal spine. CT/CT chest w IV con IMPRESSION: Centrilobular emphysema with bilateral apical parenchymal scarring and pleural thickening. Small calcified and noncalcified pulmonary nodules are stable. There are no new nodules. No acute consolidation. There are bilateral renal cysts and left upper pole cortical large scar/defect. Fleischner guidelines were followed.
[2022-02-28 11:29] LABS: Creatinine POC 0.6 mg/dL (0.5-1.4)
== END 2022-02-27 14:49 | disposition home or self-care (01) ==
LOC: HO.CT 14:48
PROVIDERS: PCP Family Medicine; Visit Provider Family Medicine
DX: K13.79 Other lesions of oral mucosa (principal); R19.8 Other specified symptoms and signs involving the digestive system and abdomen
CPT/HCPCS: 71260; 82565

== ENCOUNTER → 2022-03-18 09:44 | Outpatient (BNVA) | payer MEDICARE, MEDICAID, SELFPAY | PROVIDERS: PCP Family Medicine; Visit Provider Internal Medicine | DX: I48.0 Paroxysmal atrial fibrillation (principal); Z79.01 Long term (current) use of anticoagulants; Z51.81 Encounter for therapeutic drug level monitoring | CPT/HCPCS: 85610; 99211 ==

== ENCOUNTER → 2022-04-15 09:23 | Outpatient (BNVA) | payer MEDICARE, MEDICAID, SELFPAY | PROVIDERS: PCP Family Medicine; Visit Provider Internal Medicine | DX: I48.0 Paroxysmal atrial fibrillation (principal); Z79.01 Long term (current) use of anticoagulants; Z51.81 Encounter for therapeutic drug level monitoring | CPT/HCPCS: 85610; 99211 ==

== ENCOUNTER → 2022-05-13 09:26 | Outpatient (BNVA) | payer MEDICARE, MEDICAID, SELFPAY | PROVIDERS: PCP Family Medicine; Visit Provider Internal Medicine | DX: I48.0 Paroxysmal atrial fibrillation (principal); Z79.01 Long term (current) use of anticoagulants; Z51.81 Encounter for therapeutic drug level monitoring | CPT/HCPCS: 85610; 99211 ==

== ENCOUNTER 2022-05-15 10:30 | Emergency (ER) | payer MEDICARE, MEDICAID, SELFPAY ==
--- NOTE | ~2022-05-15 | XR_ITS ---
EXAMINATION: XR FINGER, RIGHT CLINICAL INFORMATION: Foreign body. COMPARISON: Right hand radiograph dated 05/04/2014. TECHNIQUE: PA view of the right hand as well as oblique and lateral views of the right index finger. FINDINGS: Mild index finger soft tissue swelling with focal swelling overlying the distal interphalangeal joint. No radiopaque foreign body or abnormal soft tissue calcification. No acute fracture or dislocation. No concerning lytic or blastic osseous lesion. 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 XR/XR finger RT min 2V IMPRESSION: Mild index finger soft tissue swelling with focal swelling overlying the distal interphalangeal joint. No radiopaque foreign body or abnormal soft tissue calcification.
[2022-05-15 10:35] VITALS: BP 140/65; PULSE 88; RESP 16; TEMP 36.8; O2SAT 100; BMI 25.8
[2022-05-15] MEDS: Diphth,Pertus(ACell),Tet Adult 0.5 ML SYRINGE IM (13:59)
--- NOTE | 2022-05-17 11:31 | ED.SKABFB ---
HPI - Skin/Abscess/Foreign Bdy General Chief complaint: Skin/Abscess/Foreign Body Stated complaint: Bump on finger Time Seen by Provider: 05/15/22 11:49 History of Present Illness HPI narrative: Patient complains of small bump on right index finger that has been there for many weeks, he remembers a small puncture wound from a chicken bone that he was D boning and thought nothing of it and then it developed a small red new bump that has become mildly painful, he denies any difficulty bending or using the finger, no fever denies any other rash no other complaints Related Data Home Medications Medication Instructions Recorded Confirmed cholecalciferol (vitamin D3) 50 50 mcg PO DAILY 01/21/20 05/13/22 mcg (2,000 unit) capsule ferrous sulfate 325 mg (65 mg 325 mg PO DAILY 01/21/20 05/13/22 iron) tablet gabapentin 300 mg capsule 300 mg PO TID 01/21/20 05/13/22 tramadol 50 mg tablet 50 mg PO BEDTIME 01/21/20 05/13/22 fluticasone propionate 50 intranasal 03/01/20 05/13/22 mcg/actuation nasal spray,suspension tamsulosin 0.4 mg capsule 0.4 mg PO DAILY 06/05/21 05/13/22 lisinopril 2.5 mg tablet mg PO 05/13/22 05/13/22 Previous Rx's Medication Instructions Recorded warfarin 5 mg tablet 5 mg PO DAILY #90 tabs 12/29/19 baclofen 10 mg tablet 10 mg PO DAILY #30 tabs 04/18/21 meclizine 12.5 mg tablet 12.5 mg PO ONCE #30 tabs 04/18/21 metformin 500 mg tablet,extended 500 mg PO DAILY #30 tabs 04/18/21 release 24 hr rosuvastatin 20 mg tablet 20 mg PO DAILY #30 tabs 04/18/21 nitroglycerin 0.4 mg sublingual 0.4 mg sublingual Q5M PRN chest 05/10/21 tablet pain #30 tabs metoprolol tartrate 50 mg tablet 50 mg PO BID 90 days #180 tabs 06/05/21 amlodipine 5 mg tablet 5 mg PO DAILY #90 tabs 12/04/21 mupirocin 2 % topical ointment 1 appl topical BID 5 days #15 grams 05/15/22 Allergies Allergy/AdvReac Type Severity Reaction Status Date / Time No Known Allergies Allergy Verified 05/15/22 10:35 [No Known Allergies*] FORMERLY [facility], [facility] Past Medical History Source: nursing notes reviewed Medical History Ascending aortic aneurysm Atherosclerotic cardiovascular disease Essential hypertension Hyperlipidemia Inflammatory arthritis Lumbar spondylolysis Paroxysmal atrial fibrillation (~01/2015) Pulmonary nodules Tubular adenoma of colon (~2009) Type 2 diabetes mellitus with polyneuropathy Surgical History History of cardiac cath (~2018) History of colonoscopy (~02/2016) History of left inguinal hernia repair (~01/2019) History of lung surgery (~03/2019) Hx of appendectomy Hx of neck surgery Family History Family History Mother Diabetes Social History Social History Household Members: Spouse Alcohol intake: never Patient Tobacco Use Status: Former Tobacco user Current occupational status: retired Hearing needs: Yes Physical Exam Vital Signs: Vital Signs: Last Vital Signs Temp 98.2 F 05/15/22 10:35 Pulse 88 05/15/22 10:35 Resp 16 05/15/22 10:35 BP 140/65 H 05/15/22 10:35 Pulse Ox 100 05/15/22 10:35 O2 Del Method 05/15/22 10:35 BMI result Body Mass Index 25.8 General appearance no distress comfortable relax cooperative Head is normocephalic atraumatic Neck is supple Respiratory no distress Extremities full range of motion x4 Right index finger the dorsal mid phalanx has a small granuloma/lump less than the size of a dime, it is round it is indurated there is no discharge there is a small punctate opening, otherwise the finger has full range of motion no surrounding erythema neurovascular intact all tendon function normal, no redness surrounding the small granuloma Course Course Course Narrative: X-ray of the right index finger did not show any evidence of osteomyelitis, no evidence of foreign body, no acute findings The small lump on the back of the right index finger is cleansed with Betadine, it was aspirated and when the needle was inserted a gelatinous allen colored fluid discharged, not pus no blood and the granuloma flattened out, culture was taken Band-Aid applied, and patient will follow with Hand dr and return if worse Medications Administered Discontinued Medications Generic Name Dose Route Start Last Admin Trade Name Radha PRN Reason Stop Dose Admin Diphtheria/Tetanus/Acell Pertussis 0.5 ml 05/15/22 13:54 05/15/22 13:59 Diphth,Pertus(Acell),Tet Adult 0.5 Ml Syringe IM 05/15/22 13:55 0.5 ml .ONCE ONE Administration Discharge Plan Discharge Clinical Impression: Granuloma due to infection Patient Disposition: Home, Self-Care Additional Instructions: I drained some thick watery fluid from the bump on your finger There is a chance it is mild local infection so apply mupirocin twice a day for 5 days Follow with hand doctor for further evaluation Return any time for spreading redness worse pain and swelling red stripe up arm any sign of worsening or spreading infection or any worse condition You got a tetanus shot today Prescriptions: New mupirocin 2 % ointment 1 appl topical BID 5 Days Qty: 15 0RF No Action nitroglycerin 0.4 mg tablet, sublingual 0.4 mg sublingual Q5M PRN (Reason: chest pain) Qty: 30 0RF Rx Instructions: do not exceed 3 doses per episode meclizine 12.5 mg tablet 12.5 mg PO ONCE Qty: 30 0RF metformin 500 mg tablet extended release 24 hr 500 mg PO DAILY Qty: 30 0RF rosuvastatin 20 mg tablet 20 mg PO DAILY Qty: 30 0RF baclofen 10 mg tablet 10 mg PO DAILY Qty: 30 0RF ferrous sulfate 325 mg (65 mg iron) tablet 325 mg PO DAILY gabapentin 300 mg capsule 300 mg PO TID tramadol 50 mg tablet 50 mg PO BEDTIME cholecalciferol (vitamin D3) 50 mcg (2,000 unit) capsule 50 mcg PO DAILY warfarin 5 mg tablet 5 mg PO DAILY Qty: 90 0RF Protocol: Dose Management Condition: Friday (Week One) Dose/Route: 5 mg Instruction: 1 x 5 mg tablet Condition: Friday Dose/Route: 7.5 mg Instruction: 1.5 x 5 mg tablets Condition: Friday Dose/Route: 5 mg Instruction: 1 x 5 mg tablet Condition: Friday Dose/Route: 7.5 mg Instruction: 1.5 x 5 mg tablets Condition: Dose/Route: 5 mg Instruction: 1 x 5 mg tablet Condition: Friday Dose/Route: 7.5 mg Instruction: 1.5 x 5 mg tablets Condition: Friday Dose/Route: 5 mg Instruction: 1 x 5 mg tablet Condition: Friday (Week Two) Dose/Route: 5 mg Instruction: 1 x 5 mg tablet Condition: Friday Dose/Route: 7.5 mg Instruction: 1.5 x 5 mg tablets Condition: Friday Dose/Route: 5 mg Instruction: 1 x 5 mg tablet Condition: Friday Dose/Route: 7.5 mg Instruction: 1.5 x 5 mg tablets Condition: Dose/Route: 5 mg Instruction: 1 x 5 mg tablet Condition: Friday Dose/Route: 7.5 mg Instruction: 1.5 x 5 mg tablets Condition: Friday Dose/Route: 5 mg Instruction: 1 x 5 mg tablet Protocol Text: Adjustment Start Date: Friday05/13/22 INR Value: 2.4 INR Date: 05/13/22 Recheck Date: 06/10/22 Rx Instructions: 5MG X2, 7.5MGX5 fluticasone propionate 50 mcg/actuation spray,suspension intranasal tamsulosin 0.4 mg capsule 0.4 mg PO DAILY lisinopril 2.5 mg tablet PO metoprolol tartrate 50 mg tablet 50 mg PO BID 90 Days Qty: 180 3RF amlodipine 5 mg tablet 5 mg PO DAILY Qty: 90 3RF Referrals: Caity Rose MD [Physician] - (Granuloma left index finger) Interventions: ED Discharge Assessment Last Done: 05/15/22 14:08 Discharge Date/Time: 05/15/22 14:08
== END 2022-05-15 14:08 | disposition home or self-care (01) ==
PROVIDERS: Emergency Provider Emergency Medicine; PCP Family Medicine
DX: S60.410A Abrasion of right index finger, initial encounter (principal); L92.9 Granulomatous disorder of the skin and subcutaneous tissue, unspecified; W26.9XXA Contact with unspecified sharp object(s), initial encounter; Y93.9 Activity, unspecified; Y92.9 Unspecified place or not applicable; Y99.9 Unspecified external cause status; Z79.899 Other long term (current) drug therapy; Z87.891 Personal history of nicotine dependence; Z23 Encounter for immunization
CPT/HCPCS: 73140; 87070; 87205; 90471; 90715; 99282; 99284

== ENCOUNTER → 2022-06-10 09:28 | Outpatient (REF) | payer MEDICARE, MEDICAID, SELFPAY ==
--- NOTE | 2022-06-10 09:31 | CA_ITS ---
Transthoracic Echocardiogram Patient (Last, First, Middle): Ramesh Blank, Gender: Male Date of : 1940 Age: 81 Procedure Date: 06/10/2022 Procedure Type: Transthoracic Echocardiogram Location: OP Height: 167.64 cm Weight: 85.73 kg BSA: 1.95 m2 Heart Rate: 65 bpm BP: 145 / 70 mmHg Junior Oracle Dba: FOREIGN Ellis MD: Rodolfo Martin MD Hooker Machine Tender: Chace Hernandez MD Symptoms: I25.10 - Atherosclerotic heart disease of [place] coronary artery without... Study Quality: Technically Difficult ECG Rhythm: Sinus Conclusions: - 1. Technically limited study especially parasternal windows 2. Low normal LV ejection fraction 50-55% with grade 1 diastolic dysfunction 3. Trace to mild aortic regurgitation 4. Mildly dilated ascending aorta at 4.3 cm Findings Left Ventricle Normal left ventricular cavity size. There is normal left ventricular wall thickness. The left ventricular systolic function is low normal. The visually estimated ejection fraction is between 50-55%. Regional wall motion abnormalities can not be excluded due to suboptimal endocardial definition. Spectral Doppler is indicative of an impaired relaxation filling pattern. E/E prime ratio is <8, consistent with normal filling pressures. Evidence suggests grade I (mild) diastolic dysfunction. Right Ventricle Normal right ventricular cavity size and systolic function. Atria The left atrium is normal in size. Interatrial shunt cannot be excluded. The right atrium is likely dilated. Aortic Valve The aortic valve structure and function is likely normal. There is no aortic valve stenosis. There is mild aortic valve regurgitation. Mitral Valve There is mild anterior and posterior mitral leaflet thickening. There is trace mitral valve regurgitation. There is no mitral valve stenosis. Pulmonic Valve The pulmonic valve was not well visualized. Tricuspid Valve Likely normal tricuspid valve structure and function. Great Vessels The pulmonary artery was not well visualized. There is mild dilatation of the ascending aorta measuring 4.30 cm. Venous The inferior vena cava was not well visualized. Pericardium/Pleural There is no evidence of pericardial effusion. Prior Study Comparison Changes noted compared to prior study dated: 05/24/2021. LV systolic function is marginally reduced but could be due to the technical quality Measurements 2D Linear Measurements IVSd: 1.09 0.6-0.9/0.6-1.0 cm LVIDd: 3.35 3.9-5.3/4.2-5.9 cm LVIDd Index: 1.72 2.4-3.2/2.2-3.1 cm/m2 LVIDs: 2.48 2.0-3.6 cm LVPWd: 0.97 0.7-1.1 cm LA Diam: 3.30 2.7-3.8/3.0-4.0 cm LAIDs Index: 1.69 1.5-2.3 cm/m2 LV Mass: 125.76 67-162/88-224 g LV Mass Index: 64.49 43-95/49-115 g/m2 LVOT Diam: 2.40 3.0+(-)1.3 cm 2D Systolic Function EF 4C: 53.00 >55% EF 2C: 43.40 >55% Mitral Valve MV Pk E: 0.52 MV PK A: 0.61 MV Decel Time: 299.00 E/A: 0.90 E'Lateral: 7.46 E'Medial: 6.08 E/E' Med: 8.50 E/E' Lat: 6.90 PHT: 88.00 MVA PHT: 2.50 Decel [place]: 1.73 Aortic Valve AoV Pk [place]: 0.95 AoV Mn [place]: 0.66 AoV VTI: 0.20 AoV Pk Grad: 4.00 Aov Mn Grad: 2.00 LANA Cont.VTI: 3.98 LVOT LVOT Pk [place]: 0.77 LVOT Mn [place]: 0.50 LVOT VTI: 0.18 LVOT Pk Grad: 2.00 LVOT Mn Grad: 1.00 LVOT Diam: 2.40 LVOT Area: 4.52 Diastolic Function MV Pk E: 0.52 MV Pk A: 0.61 E/A: 0.90 E'Medial: 6.08 E/E' Med: 8.50 E' Laterial: 7.46 E/E' Lat: 6.90 Right Ventricle TAPSE (mm): 26.70 TVS' [place]: 13.10 Great Vessels Aorta Sinus of Valsalva: 4.30 2.0-3.5 cm Ao Asc: 4.30 2.1-3.4 cm Pulmonary Valve PV Pk Yeison: 0.62 Peak PV Grad: 2.00 Updated in Other Vendor System with Status of Final Chace Hernandez MD electronically signed on 06/10/2022 4:33:57 PM with status of Final
== END ==
LOC: HO.CARD 09:28
PROVIDERS: Visit Provider Internal Medicine
DX: I25.10 Atherosclerotic heart disease of native coronary artery without angina pectoris (principal); I71.20 Thoracic aortic aneurysm, without rupture, unspecified; I48.0 Paroxysmal atrial fibrillation; Z51.81 Encounter for therapeutic drug level monitoring; Z79.01 Long term (current) use of anticoagulants
CPT/HCPCS: 85610; 93306; 99211

== ENCOUNTER → 2022-06-12 13:15 | Outpatient (BNVA) | payer MEDICARE, MEDICAID, SELFPAY | PROVIDERS: PCP Family Medicine; Visit Provider Physician Assistant | DX: M67.40 Ganglion, unspecified site (principal) | CPT/HCPCS: 99202 ==

== ENCOUNTER 2022-06-27 11:22 | Day surgery (SDC) | payer MEDICARE, MEDICAID, SELFPAY ==
[2022-06-27 13:03] VITALS: BMI 30.3
--- NOTE | 2022-06-27 16:14 | MHC.SHP ---
Pre-Procedural Eval Section A Date of Service: 06/27/22 The patient is an INPATIENT: No Changes since office visit: No Cold of Flu in the past 2 weeks, No New Medical Problems, No Changes in Medication and No Patient answered all questions The History & Physical has been completed within 30 days and I have reviewed it.: Yes Section B Chief Complaint: Localized swelling, mass and lump, right upper schmidt Allergies: Allergies Allergy/AdvReac Type Severity Reaction Status Date / Time No Known Allergies Allergy Verified 06/27/22 13:18 [No Known Allergies*] Plan I have reviewed the history and physical and performed a pertinent physical examination on my patient. No changes have occurred unless specified. Time Spent With Patient Time: Total time managing care of this patient today ____ minutes.
--- NOTE | 2022-06-27 16:14 | W.PM.OPN ---
Operative Note Operative Note Date of Service: 06/27/22 Narrative: Operative Note Preop diagnosis: 1. 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 same Procedure: 1. Right index finger mucous cyst excision 2. Right index finger DIP joint arthrotomy and excision of osteophytes. Surgeon: Caity Rose MD Anesthesia: Digital block using 1% lidocaine with epinephrine Findings: mucous cyst EBL: Less than 5 mL Tourniquet time: None Specimens: Mucous cyst from right index finger Complications: None Disposition: Brought to recovery room in stable condition Plan: Follow-up for 7-10 days for wound check and suture removal and to check pathology Indications: The patient is 81 years old, with right index finger D IP joint osteoarthritis and a mucous cyst that has been unresponsive to nonoperative management. The risks and benefits of operative treatment including but not limited to risk of damage to blood vessels, nerves, tendons, infection, persistent pain, persistent symptoms, recurrence or possible need for additional surgery were discussed with the patient and the patient wishes to proceed with surgery. Procedure: Once consent was obtained a digital block was performed in the preop area using a combination of 1% lidocaine with epinephrine. The patient was then brought back to the operating suite and placed on the operative table in supine position. The proximal aspect of the a right upper extremity and the limb was prepped and draped in a standard surgical fashion. A finger tourniquet was applied to the base of the finger for few were than 30 minutes. Once assured that we had a good block, an L-shaped incision was made over the dorsal aspect of the right index finger distal phalanx. The incision was made through the skin to the subcutaneous tissues using a #15 blade. Careful dissection was made down to the level of the mucous cyst and extensor mechanism using iris scissors. The cyst was filled with clear viscous fluid consistent with a ganglion. It was dissected free from the surrounding tissues and removed from the finger and sent for pathology. An arthrotomy was performed on the ulnar side of the extensor mechanism at the D IP joint. The periarticular osteophytes were excised using a rongeur. Once satisfied, the wound was copiously irrigated with normal saline and hemostasis was obtained with a brief period of local pressure. The skin edges were reapproximated with some 5.0 Prolene suture material and a sterile dressing was applied. The patient appears to have tolerated the procedure well and with no complications. All digits were well vascularized at the conclusion of the case.
[2022-06-27 17:00] VITALS: BP 116/78; PULSE 78; RESP 16; TEMP 36.6; O2SAT 98
== END 2022-06-27 17:22 | disposition home or self-care (01) ==
PROVIDERS: PCP Family Medicine; Visit Provider Orthopaedic Surgery
PROC: (CPT 26236; principal; 2022-06-27 14:00)
DX: M67.441 Ganglion, right hand (principal); M25.841 Other specified joint disorders, right hand; M19.041 Primary osteoarthritis, right hand; I48.0 Paroxysmal atrial fibrillation; I10 Essential (primary) hypertension; E11.42 Type 2 diabetes mellitus with diabetic polyneuropathy; Z79.84 Long term (current) use of oral hypoglycemic drugs; Z79.01 Long term (current) use of anticoagulants; Z79.899 Other long term (current) drug therapy; Z87.891 Personal history of nicotine dependence
CPT/HCPCS: 26236; 26160; 88304; 88305; J0171

== ENCOUNTER → 2022-07-01 08:59 | Outpatient (BNVA) | payer MEDICARE, MEDICAID, SELFPAY | PROVIDERS: PCP Family Medicine; Visit Provider Internal Medicine | DX: I48.0 Paroxysmal atrial fibrillation (principal); Z79.01 Long term (current) use of anticoagulants; Z51.81 Encounter for therapeutic drug level monitoring | CPT/HCPCS: 85610; 99211 ==

== ENCOUNTER → 2022-07-03 12:44 | Outpatient (BNVA) | payer MEDICARE, MEDICAID, SELFPAY | PROVIDERS: PCP Family Medicine; Visit Provider Physician Assistant | DX: Z47.89 Encounter for other orthopedic aftercare (principal); Z87.39 Personal history of other diseases of the musculoskeletal system and connective tissue | CPT/HCPCS: 99212 ==

== ENCOUNTER → 2022-07-10 12:48 | Outpatient (BNVA) | payer MEDICARE, MEDICAID, SELFPAY | PROVIDERS: PCP Family Medicine; Visit Provider Orthopaedic Surgery | DX: Z47.89 Encounter for other orthopedic aftercare (principal); Z87.2 Personal history of diseases of the skin and subcutaneous tissue | CPT/HCPCS: 99212 ==

== ENCOUNTER → 2022-07-11 09:38 | Outpatient (BNVA) | payer MEDICARE, MEDICAID, SELFPAY | PROVIDERS: PCP Family Medicine; Visit Provider Internal Medicine | DX: I48.0 Paroxysmal atrial fibrillation (principal); Z79.01 Long term (current) use of anticoagulants; Z51.81 Encounter for therapeutic drug level monitoring | CPT/HCPCS: 85610; 99211 ==

== ENCOUNTER → 2022-07-31 09:05 | Outpatient (BNVA) | payer MEDICARE, MEDICAID, SELFPAY | PROVIDERS: PCP Family Medicine; Visit Provider Internal Medicine | DX: I48.0 Paroxysmal atrial fibrillation (principal); Z79.01 Long term (current) use of anticoagulants; Z51.81 Encounter for therapeutic drug level monitoring | CPT/HCPCS: 85610; 99211 ==

== ENCOUNTER → 2022-08-28 08:58 | Outpatient (BNVA) | payer MEDICARE, MEDICAID, SELFPAY | PROVIDERS: PCP Family Medicine; Visit Provider Internal Medicine | DX: I48.0 Paroxysmal atrial fibrillation (principal); Z79.01 Long term (current) use of anticoagulants; Z51.81 Encounter for therapeutic drug level monitoring | CPT/HCPCS: 85610; 99211 ==

== ENCOUNTER 2022-09-25 09:04 | Outpatient (AMB) | payer MEDICARE, MEDICAID, SELFPAY ==
--- NOTE | 2022-09-25 09:17 | MHC.OFFVISCO ---
Intake Intake Visit Reasons: Anticoagulation Allergies No Known Allergies [No Known Allergies*] Allergy (Verified 09/25/22 09:14) Medication List - Last Reconciled 09/25/22 by Mary Trevino RN amlodipine 5 mg PO DAILY amoxicillin-pot clavulanate 500-125 mg (Augmentin) 1 tab PO Q12H 10 days baclofen 10 mg PO DAILY cholecalciferol (vitamin D3) 50 mcg PO DAILY ferrous sulfate 325 mg PO DAILY fluticasone propionate 50 mcg/actuation intranasal gabapentin 300 mg PO TID lisinopril mg PO meclizine 12.5 mg PO ONCE metformin ER 500 mg PO DAILY metoprolol tartrate 50 mg PO BID 90 days mupirocin 2% 1 appl topical BID 5 days nitroglycerin 0.4 mg sublingual Q5M oxycodone 5 mg PO Q6H PRN rosuvastatin 20 mg PO DAILY tamsulosin 0.4 mg PO DAILY tramadol 50 mg PO BEDTIME warfarin 5 mg See Protocol PO DAILY Nursing Note INR: 2.8- in therapeutic range Medications and supplements reviewed- no changes No changes in health, diet, medications, or supplements, Denies any signs and symptoms of bleeding or bruising or clotting. Bleeding, bruising, clotting discussed Nutritional guidance given Dose: 7.5mg x 3, 5mg x 4 F/U INR: 4 weeks Patient verbalizes understanding of instructions given Anti-Coag Initial Assessment Social Hx Patient Tobacco Use Status: Former Tobacco user alcohol intake: never Alcohol intake frequency: does not drink Coding Level of Care Code Est Patient Level 1 Diagnoses Current use of anticoagulant therapy Z79.01 Results AMB INR Fingerstick AMB INR Fingerstick 2.8 Last Edit by Mary Trevino RN on 09/25/22 09:18 Assessment & Plan Assessment & Plan (1) Current use of anticoagulant therapy: Onset Date: ~01/2015 Comment: (on Coumadin - for AFib dx 01/2015) Code(s): 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
[2022-09-25 09:18] LABS: Prothrombin Time Whole Bld POC 33.3 sec (11.1-13.5); ~PT, ~INR - Anti Coag Clinic 2.8 (0.9-1.1)
== END 2022-09-25 09:23 | disposition home or self-care (01) ==
LOC: HO.ACS 09:04
PROVIDERS: PCP Family Medicine; Visit Provider Internal Medicine
DX: Z79.01 Long term (current) use of anticoagulants (principal)

== ENCOUNTER → 2022-09-25 09:04 | Outpatient (BNVA) | payer MEDICARE, MEDICAID, SELFPAY | PROVIDERS: PCP Family Medicine; Visit Provider Internal Medicine | DX: I48.0 Paroxysmal atrial fibrillation (principal); Z79.01 Long term (current) use of anticoagulants; Z51.81 Encounter for therapeutic drug level monitoring | CPT/HCPCS: 85610; 99211 ==

== ENCOUNTER 2022-10-23 09:13 | Outpatient (AMB) | payer MEDICARE, MEDICAID, SELFPAY ==
--- NOTE | 2022-10-23 09:31 | MHC.OFFVISCO ---
Intake Intake Visit Reasons: Anticoagulation Allergies No Known Allergies [No Known Allergies*] Allergy (Verified 10/23/22 09:25) Medication List - Last Reconciled 10/23/22 by Grace Haynes RN amlodipine 5 mg PO DAILY amoxicillin-pot clavulanate 500-125 mg (Augmentin) 1 tab PO Q12H 10 days baclofen 10 mg PO DAILY cholecalciferol (vitamin D3) 50 mcg PO DAILY ferrous sulfate 325 mg PO DAILY fluticasone propionate 50 mcg/actuation intranasal gabapentin 300 mg PO TID lisinopril mg PO meclizine 12.5 mg PO ONCE metformin ER 500 mg PO DAILY metoprolol tartrate 50 mg PO BID 90 days mupirocin 2% 1 appl topical BID 5 days nitroglycerin 0.4 mg sublingual Q5M oxycodone 5 mg PO Q6H PRN rosuvastatin 20 mg PO DAILY tamsulosin 0.4 mg PO DAILY tramadol 50 mg PO BEDTIME warfarin 5 mg See Protocol PO DAILY Nursing Note NO CP,SOB,DIET/MED CHANGES,FALLS OR SX OF BLEEDING. CONTINUE PRESRNT DOSE AND FOLLOW-UP IN 4 WEEKS. GOOD UNDERSTANDING OF DOSING INSTR. Anti-Coag Initial Assessment Social Hx Patient Tobacco Use Status: Former Tobacco user alcohol intake: never Alcohol intake frequency: does not drink Coding Level of Care Code Est Patient Level 1 Diagnoses Current use of anticoagulant therapy Z79.01 Results AMB INR Fingerstick AMB INR Fingerstick 2.1 Last Edit by Grace Haynes RN on 10/23/22 09:30 Assessment & Plan Assessment & Plan (1) Current use of anticoagulant therapy: Onset Date: ~01/2015 Comment: (on Coumadin - for AFib dx 01/2015) Code(s): Z79.01 - [place] [place] psychiatrist (current) use of anticoagulants Category: Medical
[2022-10-23 09:39] LABS: Prothrombin Time Whole Bld POC 24.9 sec (11.1-13.5); ~PT, ~INR - Anti Coag Clinic 2.1 (0.9-1.1)
== END 2022-10-23 09:33 | disposition home or self-care (01) ==
LOC: HO.ACS 09:13
PROVIDERS: PCP Family Medicine; Visit Provider Internal Medicine
DX: Z79.01 Long term (current) use of anticoagulants (principal)

== ENCOUNTER → 2022-10-23 09:13 | Outpatient (BNVA) | payer MEDICARE, MEDICAID, SELFPAY | PROVIDERS: PCP Family Medicine; Visit Provider Internal Medicine | DX: I48.0 Paroxysmal atrial fibrillation (principal); Z79.01 Long term (current) use of anticoagulants; Z51.81 Encounter for therapeutic drug level monitoring | CPT/HCPCS: 85610; 99211 ==

== ENCOUNTER 2022-11-18 09:49 | Outpatient (AMB) | payer MEDICARE, MEDICAID, SELFPAY ==
--- NOTE | 2022-11-18 10:15 | MHC.OFFVISCO ---
Intake Intake Visit Reasons: Anticoagulation Allergies No Known Allergies [No Known Allergies*] Allergy (Verified 11/18/22 10:10) Medication List - Last Reconciled 11/18/22 by Madhuri Allen RN amlodipine 5 mg PO DAILY cholecalciferol (vitamin D3) 50 mcg PO DAILY ferrous sulfate 325 mg PO DAILY fluticasone propionate 50 mcg/actuation intranasal gabapentin 300 mg PO TID lisinopril mg PO meclizine 12.5 mg PO ONCE metformin ER 500 mg PO DAILY metoprolol tartrate 50 mg PO BID 90 days mupirocin 2% 1 appl topical BID 5 days nitroglycerin 0.4 mg sublingual Q5M oxycodone 5 mg PO Q6H PRN rosuvastatin 20 mg PO DAILY tamsulosin 0.4 mg PO DAILY tramadol 50 mg PO BEDTIME warfarin 5 mg See Protocol PO DAILY Nursing Note INR: 2.4 in therapeutic range Medications and supplements reviewed No changes in health, diet, medications, or supplements, Denies any signs and symptoms of bleeding or bruising or clotting. Bleeding, bruising, clotting discussed Nutritional guidance given Dose: keep same 7.5mg mwf/ 5mg x 4 days F/U INR: 1 monthd Patient verbalizes understanding of instructions given Anti-Coag Initial Assessment Social Hx Patient Tobacco Use Status: Former Tobacco user alcohol intake: never Alcohol intake frequency: does not drink Coding Level of Care Code Est Patient Level 1 Diagnoses Current use of anticoagulant therapy Z79.01 Results AMB INR Fingerstick AMB INR Fingerstick 2.4 Last Edit by Madhuri Allen RN on 11/18/22 10:16 manual entry no interfacing 1016 am 11/18/22 Assessment & Plan Assessment & Plan (1) Current use of anticoagulant therapy: Onset Date: ~01/2015 Comment: (on Coumadin - for AFib dx 01/2015) Code(s): Z79.01 - shelter (current) use of anticoagulants Category: Medical
[2022-11-18 10:19] LABS: Prothrombin Time Whole Bld POC 28.6 sec (11.1-13.5); ~PT, ~INR - Anti Coag Clinic 2.4 (0.9-1.1)
== END 2022-11-18 10:20 | disposition home or self-care (01) ==
LOC: HO.ACS 09:49
PROVIDERS: PCP Family Medicine; Visit Provider Internal Medicine
DX: Z79.01 Long term (current) use of anticoagulants (principal)

== ENCOUNTER → 2022-11-18 09:49 | Outpatient (BNVA) | payer MEDICARE, MEDICAID, SELFPAY | PROVIDERS: PCP Family Medicine; Visit Provider Internal Medicine | DX: I48.0 Paroxysmal atrial fibrillation (principal); Z79.01 Long term (current) use of anticoagulants; Z51.81 Encounter for therapeutic drug level monitoring | CPT/HCPCS: 85610; 99211 ==

== ENCOUNTER 2022-11-20 09:39 | Outpatient (REF) | payer MEDICARE, MEDICAID, SELFPAY ==
--- NOTE | ~2022-11-20 | XR_ITS ---
EXAMINATION: XR LUMBOSACRAL SPINE CLINICAL INFORMATION: Chronic lower back pain. Sciatica with bending. COMPARISON: Lumbar spine radiographs dated 01/30/2021. TECHNIQUE: Three views of the lumbosacral spine. FINDINGS: Normal vertebral body alignment. The lumbar lordosis is maintained. No acute fracture or subluxation. No loss of vertebral body height. Mild multilevel loss of intervertebral disc height with endplate degenerative changes, most prominent at L5-S1, similar when compared to the prior examination. Multilevel bilateral facet arthropathy. Atherosclerotic calcifications. No concerning lytic or blastic osseous lesion. XR/XR lumbar spine 2-3V IMPRESSION: Multilevel degenerative disc disease, most prominent at L5-S1, similar when compared to the prior examination.
== END 2022-11-20 09:40 | disposition home or self-care (01) ==
LOC: HO.HHCX 09:39
PROVIDERS: Visit Provider Family Medicine
DX: M54.50 Low back pain, unspecified (principal)
CPT/HCPCS: 72100

== ENCOUNTER 2022-11-21 08:36 | Outpatient (REF) | payer MEDICARE, MEDICAID, SELFPAY ==
[2022-11-21 11:20] LABS: MANUAL DIFF FLAG NO
[2022-11-21 11:46] LABS: Basophils Percent Auto 0.7 % (0-2); Eosinophils Absolute Auto 0.1 X10*3/uL (0.0-0.4); Eosinophils Percent Auto 2.9 % (0-4); Hematocrit 40.5 % (42.0-52.0); Hemoglobin 12.8 g/dl (14.0-18.0); Imm Gran Abs Auto 0.01 X10*3/uL (0.00-0.03); Imm Gran Pct Auto 0.2 % (0.0-0.4); Lymphocytes Absolute Auto 1.2 X10*3/uL (1.2-4.9); Lymphocytes Percent Auto 25.9 % (20-40); Mean Corpuscular HGB Conc 31.6 g/dl (31.0-36.0); Mean Corpuscular Hemoglobin 27.6 pg (27.0-33.0); Mean Corpuscular Volume 87.3 fL (80.0-98.0); Monocytes Absolute Auto 0.5 X10*3/uL (0.1-1.2); Neutrophils Absolute Auto 2.7 x10*3/uL (2.0-8.3); Neutrophils Percent Auto 60.3 % (45-73); Platelet Count 135 X10*3/uL (160-400); Red Blood Count 4.64 X10*6/uL (4.60-5.80); Red Cell Distribution Width 15.6 % (11.0-16.0); White Blood Count 4.5 X10*3/uL (4.8-10.8)
[2022-11-21 12:19] LABS: Estimated Average Glucose 143 mg/dL; Hemoglobin A1c % 6.6 % (<6.0)
[2022-11-21 12:22] LABS: Alanine Aminotransferase 20 U/L (0-40); Albumin Level 3.9 g/dL (3.5-5.0); Alkaline Phosphatase 79 U/L (39-117); Anion Gap 13 (12-20); Aspartate Amino Transferase 18 U/L (5-37); Bilirubin Direct 0.3 mg/dL (0.0-0.5); Bilirubin Total 0.9 mg/dL (0.0-1.0); Blood Urea Nitrogen 15 mg/dL (9-16); Calcium 9.2 mg/dL (8.4-10.2); Carbon Dioxide 28 mmol/L (22-29); Chloride 106 mmol/L (96-108); Cholesterol 121 mg/dL (<200); Estimated Glomerular Filt Rate > 60; Glucose Random 124 mg/dL (60-115); HDL Cholesterol 38 mg/dL (>40); Iron 63 mcg/dL (45-160); LDL Cholesterol Calculated 60 mg/dL (<100); Percent Iron Saturation 19 % (15-50); Potassium 3.8 mmol/L (3.3-5.1); Sodium 143 mmol/L (135-145); Total Iron Binding Capacity 335 mcg/dL (228-428); Total Protein 6.5 g/dL (6.5-8.0); Triglycerides 119 mg/dL (<150); Unsaturated Iron Binding 272 ug/dL
[2022-11-21 12:25] LABS: Ferritin 32 ng/mL (20-250); Free T4 (Free Thyroxine) 0.84 ng/dL (0.71-1.85); Vitamin D 25-OH Total 37.7 ng/mL (>30)
[2022-11-21 12:36] LABS: Folate 13.4 ng/mL (> or = 4.0); Vitamin B12 669 pg/mL (200-900)
[2022-11-21 12:48] LABS: Creatinine Urine 145.49 mg/dL; Microalbum/Creatinine Ratio Ur 283.8 ug/mg cr (<30)
== END 2022-11-21 08:37 | disposition home or self-care (01) ==
LOC: HO.HHCL 08:36
PROVIDERS: Visit Provider Family Medicine
DX: E11.29 Type 2 diabetes mellitus with other diabetic kidney complication (principal); E55.9 Vitamin D deficiency, unspecified; D64.9 Anemia, unspecified
CPT/HCPCS: 36415; 80048; 80061; 80076; 82043; 82306; 82570; 82607; 82728; 82746; 83036; 83540; 84439; 84443; 85025

== ENCOUNTER 2022-12-17 08:51 | Outpatient (AMB) | payer MEDICARE, MEDICAID, SELFPAY ==
[2022-12-17 09:03] LABS: Prothrombin Time Whole Bld POC 24.4 sec (11.1-13.5)
--- NOTE | 2022-12-17 09:05 | MHC.OFFVISCO ---
Intake Intake Visit Reasons: Anticoagulation Allergies No Known Allergies [No Known Allergies*] Allergy (Verified 12/17/22 08:59) Medication List - Last Reconciled 12/17/22 by Madhuri Allen RN amlodipine 5 mg PO DAILY cholecalciferol (vitamin D3) 50 mcg PO DAILY ferrous sulfate 325 mg PO DAILY fluticasone propionate 50 mcg/actuation intranasal gabapentin 300 mg PO TID lisinopril mg PO meclizine 12.5 mg PO ONCE metformin ER 500 mg PO DAILY metoprolol tartrate 50 mg PO BID 90 days mupirocin 2% 1 appl topical BID 5 days nitroglycerin 0.4 mg sublingual Q5M oxycodone 5 mg PO Q6H PRN rosuvastatin 20 mg PO DAILY tamsulosin 0.4 mg PO DAILY tramadol 50 mg PO BEDTIME triamcinolone acetonide 0.1% topical warfarin 5 mg See Protocol PO DAILY Nursing Note INR: 2.0 in therapeutic range Medications and supplements reviewed No changes in health, diet, medications, or supplements, Denies any signs and symptoms of bleeding or bruising or clotting. Bleeding, bruising, clotting discussed Nutritional guidance given - eat foods to help raise the INR with discription Dose: 7.5mg mwf/ 5mg x 4 days F/U INR: 4 week Patient verbalizes understanding of instructions given Anti-Coag Initial Assessment Social Hx Patient Tobacco Use Status: Former Tobacco user alcohol intake: never Alcohol intake frequency: does not drink Coding Level of Care Code Est Patient Level 1 Diagnoses Current use of anticoagulant therapy Z79.01 Assessment & Plan Assessment & Plan (1) Current use of anticoagulant therapy: Onset Date: ~01/2015 Comment: (on Coumadin - for AFib dx 01/2015) Code(s): Z79.01 - intermediate teacher (current) use of anticoagulants Category: Medical
== END 2022-12-17 09:07 | disposition home or self-care (01) ==
LOC: HO.ACS 08:51
PROVIDERS: PCP Family Medicine; Visit Provider Internal Medicine
DX: Z79.01 Long term (current) use of anticoagulants (principal)

== ENCOUNTER → 2022-12-17 08:51 | Outpatient (BNVA) | payer MEDICARE, MEDICAID, SELFPAY | PROVIDERS: PCP Family Medicine; Visit Provider Internal Medicine | DX: I48.0 Paroxysmal atrial fibrillation (principal); Z79.01 Long term (current) use of anticoagulants; Z51.81 Encounter for therapeutic drug level monitoring | CPT/HCPCS: 85610; 99211 ==

== ENCOUNTER 2023-01-14 08:53 | Outpatient (AMB) | payer MEDICARE, MEDICAID, SELFPAY ==
[2023-01-14 09:09] LABS: Prothrombin Time Whole Bld POC 26.4 sec (11.1-13.5); ~PT, ~INR - Anti Coag Clinic 2.2 (0.9-1.1)
--- NOTE | 2023-01-14 09:13 | MHC.OFFVISCO ---
Intake Intake Visit Reasons: Anticoagulation Allergies No Known Allergies [No Known Allergies*] Allergy (Verified 01/14/23 08:55) Medication List - Last Reconciled 01/14/23 by Aniyah Vo RN amlodipine 5 mg PO DAILY cholecalciferol (vitamin D3) 50 mcg PO DAILY ferrous sulfate 325 mg PO DAILY fluticasone propionate 50 mcg/actuation intranasal gabapentin 300 mg PO TID lisinopril mg PO meclizine 12.5 mg PO ONCE metformin ER 500 mg PO DAILY metoprolol tartrate 50 mg PO BID 90 days mupirocin 2% 1 appl topical BID 5 days nitroglycerin 0.4 mg sublingual Q5M oxycodone 5 mg PO Q6H PRN rosuvastatin 20 mg PO DAILY tamsulosin 0.4 mg PO DAILY tramadol 50 mg PO BEDTIME triamcinolone acetonide 0.1% topical warfarin 5 mg See Protocol PO DAILY Nursing Note Amb to ACS feeling well Interpretor available for visit, came in at end of visit Medications and supplements reviewed No changes in health, diet, medications, or supplements Denies any unusual signs and symptoms of bruising, bleeding Denies any new Chest pain, SOB, or clotting INR: 2.2 in therapeutic range Nutritional guidance given: balance greens and reds in diet Dose: continue usual dosing; 7.5mg x 3 days and 5mg x 4 days F/U INR: 4 weeks Patient verbalizes understanding of instructions given with accurate read back/ teach back of dosing Anti-Coag Initial Assessment Social Hx Patient Tobacco Use Status: Former Tobacco user alcohol intake: never Alcohol intake frequency: does not drink Questionnaires HAS-BLED Does the patient had uncontrolled Hypertension?: No Does the patient have renal disease?: Yes Does the patient have liver disease?: No Does the patient have a history of stroke?: No Has the patient had major bleeding or predisposition to bleeding?: Yes Does the patient have labile INRs?: No Is the patient over 65 years of age?: Yes Is the patient on medications that gives them a predisposition to bleeding?: Yes Does the patient use alcohol?: No HAS-BLED Score: 4 CHADSVASC Age: 75 or over Gender: Male Does the patient have a history of CHF?: No Does the patient have a history of Hypertension?: Yes Does the patient have a history of Stroke/TIA/Thromboembolism?: No Does the patient have a history of Vascular Disease (prior [place], PAD or aortic plaque)?: Yes Does the patient have a history of Diabetes?: Yes CHADS VACS Score: 5 Phyllis Prediction Score Rsk VTE Active Cancer: No Previous VTE, excluding superficial vein thrombosis: No Reduced mobility: No Already known Thrombophilic Condition: Yes With-in last month Trauma and/or Surgery: No Elderly 70 year or older: Yes Heart and/or Respiratory Failure: No Acute Myocardial infarction and/or Ischemic Stroke: No Acute Infection and/or Rheumatologic Disorder: No Obesity (BMI 30 or greater): No Ongoing Hormonal Treatment: No Score: 4 Phyllis Score less than 4; Low Risk of VTE Phyllis Score 4 or greater; High Risk of VTE Coding Level of Care Code Est Patient Level 1 Diagnoses Current use of anticoagulant therapy Z79.01 Time Spent (min) 20 Assessment & Plan Assessment & Plan (1) Current use of anticoagulant therapy: Onset Date: ~01/2015 Comment: (on Coumadin - for AFib dx 01/2015) Code(s): Z79.01 - [facility] (current) use of anticoagulants Category: Medical
== END 2023-01-14 09:21 | disposition home or self-care (01) ==
LOC: HO.ACS 08:53
PROVIDERS: PCP Family Medicine; Visit Provider Internal Medicine
DX: Z79.01 Long term (current) use of anticoagulants (principal)

== ENCOUNTER → 2023-01-14 08:53 | Outpatient (BNVA) | payer MEDICARE, MEDICAID, SELFPAY | PROVIDERS: PCP Family Medicine; Visit Provider Internal Medicine | DX: I48.0 Paroxysmal atrial fibrillation (principal); I10 Essential (primary) hypertension; I25.10 Atherosclerotic heart disease of native coronary artery without angina pectoris; I71.20 Thoracic aortic aneurysm, without rupture, unspecified; Z79.01 Long term (current) use of anticoagulants; Z51.81 Encounter for therapeutic drug level monitoring | CPT/HCPCS: 85610; 93005; 99211; 99212 ==

== ENCOUNTER 2023-01-14 12:36 | Outpatient (AMB) | payer OTHER, MEDICAID, SELFPAY ==
[2023-01-14 13:19] VITALS: BP 130/72; PULSE 88; BMI 29.3
--- NOTE | 2023-01-14 13:19 | MHC.OFFVIS ---
Intake Vital Signs 01/14/23 13:19 Height 5 ft 6 in Weight 181 lb 10.574 oz BMI 29.3 BP 130/72 Blood Pressure Location Lt brachial Position Sitting Pulse 88 Intake Visit Reasons: 1 year follow up Sales And Service Specialist Required: Yes Sales And Service Specialist Language: Cloth Bleaching Range Back Tender Name: val woodward [id number] Allergies No Known Allergies [No Known Allergies*] Allergy (Verified 01/14/23 13:32) Medication List - Last Reconciled 01/14/23 by Laura Mckeon NP amlodipine 5 mg PO DAILY cholecalciferol (vitamin D3) 50 mcg PO DAILY ferrous sulfate 325 mg PO DAILY fluticasone propionate 50 mcg/actuation intranasal gabapentin 300 mg PO TID lisinopril mg PO meclizine 12.5 mg PO ONCE metformin ER 500 mg PO DAILY metoprolol tartrate 50 mg PO BID 90 days mupirocin 2% 1 appl topical BID 5 days nitroglycerin 0.4 mg sublingual Q5M oxycodone 5 mg PO Q6H PRN rosuvastatin 20 mg PO DAILY tamsulosin 0.4 mg PO DAILY tramadol 50 mg PO BEDTIME triamcinolone acetonide 0.1% topical warfarin 5 mg See Protocol PO DAILY HPI HPI Comments History of Present Illness Details 82-year-old male presents for his one year follow-up. Past medical history of paroxysmal atrial fibrillation, hyperlipidemia, HTN, ascending aortic aneurysm, and type two diabetes. He reports doing well. Denies any symptoms at this time. Reports blood pressures at home have been well but has no numbers at this time. [facility] Medical History Pulmonary nodules Tubular adenoma of colon (~2009) Hyperlipidemia Type 2 diabetes mellitus with polyneuropathy Paroxysmal atrial fibrillation (~01/2015) Essential hypertension Ascending aortic aneurysm Atherosclerotic cardiovascular disease Lumbar spondylolysis Inflammatory arthritis Surgical History History of cardiac cath (~2018) History of lung surgery (~03/2019) History of left inguinal hernia repair (~01/2019) History of colonoscopy (~02/2016) Hx of neck surgery Hx of appendectomy Family History Mother Diabetes Social History Household Members: Spouse Alcohol intake: never Patient Tobacco Use Status: Former Tobacco user Current occupational status: retired Hearing needs: Yes Review of Systems Const Denies chills, Denies fatigue, Denies fever(s), Denies frequent falls, Denies weakness, Denies weight gain and Denies weight loss ENT Denies dizziness Card Denies chest pain, Denies chest pain at rest, Denies chest pain with activity, Denies rapid heart rate, Denies pedal edema, Denies edema, Denies leg edema, Denies lightheadedness, Denies palpitations, Denies dyspnea, Denies dyspnea on exertion and Denies orthopnea Resp Denies cough, Denies dyspnea and Denies dyspnea on exertion GI Denies hematochezia and Denies change in stool character Musc Denies abnormal gait, Reports limited range of motion, Reports muscle cramps, Denies muscle weakness, Denies numbness, Denies radiating pain into limb, Denies stiffness and Denies tingling Neuro Denies abnormal gait, Denies dizziness, Denies frequent falls, Denies numbness, Denies tingling and Denies weakness Endo Denies fatigue and Denies palpitations Physical Exam Vital Signs: Last Vital Signs Pulse 88 01/14/23 13:19 BP 130/72 01/14/23 13:19 BMI result Body Mass Index 29.3 Const General: healthy appearing and no acute distress Orientation/consciousness: patient oriented x3 HEENT Head: Yes normal to inspection Eyes General: appearance normal, both eyes and all related structures Neck Neck: Yes normal visual inspection Chest Chest palpation & inspection: normal inspection of the chest Resp Effort & Inspection: normal respiratory effort Auscultation: clear to auscultation bilaterally Cardio Jugular venous distension: no JVD Palpation: normal PMI Rate: regular rate Rhythm: regular rhythm Heart sounds: S1 normal heart sound present, S2 normal heart sound present, no click, no gallops, no murmurs and no rubs GI Inspection: Yes normal to inspection Palpation (GI): Soft to palpation Skin General skin exam: no rashes or lesions noted Neuro General: patient oriented x3 Extrem General: Yes normal to inspection Psych Appearance: grossly normal Office Procedures EKG Details: EKG today. Sinus Rhythm with frequent PACs. Cannot exclude atrial fibrillation. Rate 88 bpm. QTc 469ms. [id number], Complete Assessment & Plan Assessment & Plan (1) Paroxysmal atrial fibrillation: Onset Date: ~01/2015 Comment: (onset 01/2015 - on Coumadin) Code(s): I48.0 - Paroxysmal atrial fibrillation (2) Essential hypertension: Code(s): I10 - Essential (primary) hypertension (3) Ascending aortic aneurysm: Code(s): I71.2 - Thoracic aortic aneurysm, without rupture (4) Atherosclerotic cardiovascular disease: Code(s): I25.10 - Atherosclerotic heart disease of [place] coronary artery without angina pectoris Plan Patient continues on warfarin with no issues - continue with clinic. Importance of blood pressure control discuss in detail and how i will affect his aortic aneurysm. Report any new or worsening symptoms. Follow-up in 6 months after echocardiogram or sooner if needed. Orders: Orders CA echo transthoracic complete 5 Months I71.2 - Thoracic aortic aneurysm, without rupture Coding Level of Care Code Est Pt Level 3 (95447) Diagnoses Paroxysmal atrial fibrillation I48.0 Essential hypertension I10 Ascending aortic aneurysm I71.2 Atherosclerotic cardiovascular disease I25.10 CPT Codes EKG - CPT: 09156-[id number], Complete ([id number])
== END 2023-01-14 13:56 | disposition home or self-care (01) ==
PROVIDERS: PCP Family Medicine; Visit Provider Nurse Practitioner
DX: I48.0 Paroxysmal atrial fibrillation (principal); I10 Essential (primary) hypertension; I71.20 Thoracic aortic aneurysm, without rupture, unspecified; I25.10 Atherosclerotic heart disease of native coronary artery without angina pectoris
CPT/HCPCS: 93010; 99213

== ENCOUNTER 2023-02-11 09:13 | Outpatient (AMB) | payer MEDICARE, MEDICAID, SELFPAY ==
[2023-02-11 09:20] LABS: Prothrombin Time Whole Bld POC 22.3 sec (11.1-13.5); ~PT, ~INR - Anti Coag Clinic 1.9 (0.9-1.1)
--- NOTE | 2023-02-11 09:23 | MHC.OFFVISCO ---
Intake Intake Visit Reasons: Anticoagulation Allergies No Known Allergies [No Known Allergies*] Allergy (Verified 02/11/23 09:15) Medication List - Last Reconciled 02/11/23 by Madhuri Allen RN amlodipine 5 mg PO DAILY cholecalciferol (vitamin D3) 50 mcg PO DAILY ferrous sulfate 325 mg PO DAILY fluticasone propionate 50 mcg/actuation intranasal gabapentin 300 mg PO TID lisinopril mg PO meclizine 12.5 mg PO ONCE metformin ER 500 mg PO DAILY metoprolol tartrate 50 mg PO BID 90 days mupirocin 2% 1 appl topical BID 5 days nitroglycerin 0.4 mg sublingual Q5M oxycodone 5 mg PO Q6H PRN rosuvastatin 20 mg PO DAILY tamsulosin 0.4 mg PO DAILY tramadol 50 mg PO BEDTIME triamcinolone acetonide 0.1% topical warfarin 5 mg See Protocol PO DAILY Nursing Note INR 1.9?? out of therapeutic range Medications and supplements reviewed Patient status: possibly diet related -had too many greens Medications or supplements: no changes Diet: good Denies any signs and symptoms of bleeding or clotting or unusual bruising Bleeding, bruising, clotting discussed Nutritional guidance given: no greens today, then review food list weekly Dose: booster today 7.5mg then resume 7.5mg x 3 days/ 5mg x 4 days F/U INR Date : 4 weeks?? Patient verbalizing understanding of instructions given. Anti-Coag Initial Assessment Social Hx Patient Tobacco Use Status: Former Tobacco user alcohol intake: never Alcohol intake frequency: does not drink Coding Level of Care Code Est Patient Level 1 Diagnoses Current use of anticoagulant therapy Z79.01 Assessment & Plan Assessment & Plan (1) Current use of anticoagulant therapy: Onset Date: ~01/2015 Comment: (on Coumadin - for AFib dx 01/2015) Code(s): Z79.01 - terminal superintendent (current) use of anticoagulants Category: Medical
== END 2023-02-11 09:29 | disposition home or self-care (01) ==
LOC: HO.ACS 09:13
PROVIDERS: PCP Family Medicine; Visit Provider Internal Medicine
DX: Z79.01 Long term (current) use of anticoagulants (principal)

== ENCOUNTER → 2023-02-11 09:13 | Outpatient (BNVA) | payer MEDICARE, SELFPAY | PROVIDERS: PCP Family Medicine; Visit Provider Internal Medicine | DX: I48.0 Paroxysmal atrial fibrillation (principal); Z79.01 Long term (current) use of anticoagulants; Z51.81 Encounter for therapeutic drug level monitoring | CPT/HCPCS: 85610; 99211 ==

== ENCOUNTER 2023-03-18 09:02 | Outpatient (AMB) | payer MEDICARE, MEDICAID, SELFPAY ==
--- NOTE | 2023-03-18 09:07 | MHC.OFFVISCO ---
Intake Intake Visit Reasons: Anticoagulation Allergies No Known Allergies [No Known Allergies*] Allergy (Verified 03/18/23 09:02) Medication List - Last Reconciled 03/18/23 by Mary Trevino RN amlodipine 5 mg PO DAILY cholecalciferol (vitamin D3) 50 mcg PO DAILY ferrous sulfate 325 mg PO DAILY fluticasone propionate 50 mcg/actuation intranasal gabapentin 300 mg PO TID lisinopril mg PO meclizine 12.5 mg PO ONCE metformin ER 500 mg PO DAILY metoprolol tartrate 50 mg PO BID 90 days mupirocin 2% 1 appl topical BID 5 days nitroglycerin 0.4 mg sublingual Q5M oxycodone 5 mg PO Q6H PRN rosuvastatin 20 mg PO DAILY tamsulosin 0.4 mg PO DAILY tramadol 50 mg PO BEDTIME triamcinolone acetonide 0.1% topical warfarin 5 mg See Protocol PO DAILY Nursing Note INR: 2.0- in therapeutic range of 2-3 Medications and supplements reviewed-no changes No changes in health, diet, medications, or supplements, Denies any signs and symptoms of bleeding or bruising or clotting. Bleeding, bruising, clotting discussed Nutritional guidance given - no greens for 2 days, eat reds to raise Dose: 7.5mg x 3, 5mg x 4 F/U INR: 4 weeks Patient verbalizes understanding of instructions given Anti-Coag Initial Assessment Social Hx Patient Tobacco Use Status: Former Tobacco user alcohol intake: never Alcohol intake frequency: does not drink Coding Level of Care Code Est Patient Level 1 Diagnoses Current use of anticoagulant therapy Z79.01 Results AMB INR Fingerstick AMB INR Fingerstick 2.0 Last Edit by Mary Trevino RN on 03/18/23 09:09 Assessment & Plan Assessment & Plan (1) Current use of anticoagulant therapy: Onset Date: ~01/2015 Comment: (on Coumadin - for AFib dx 01/2015) Code(s): Z79.01 - [facility] (current) use of anticoagulants Category: Medical
[2023-03-18 09:18] LABS: Prothrombin Time Whole Bld POC 24.1 sec (11.1-13.5)
== END 2023-03-18 09:14 | disposition home or self-care (01) ==
LOC: HO.ACS 09:02
PROVIDERS: PCP Family Medicine; Visit Provider Internal Medicine
DX: Z79.01 Long term (current) use of anticoagulants (principal)

== ENCOUNTER → 2023-03-18 09:02 | Outpatient (BNVA) | payer OTHER, SELFPAY | PROVIDERS: PCP Family Medicine; Visit Provider Internal Medicine | DX: I48.0 Paroxysmal atrial fibrillation (principal); Z79.01 Long term (current) use of anticoagulants; Z51.81 Encounter for therapeutic drug level monitoring | CPT/HCPCS: 85610; 99211 ==

== ENCOUNTER 2023-04-15 08:39 | Outpatient (AMB) | payer MEDICARE, MEDICAID, SELFPAY ==
[2023-04-15 08:47] LABS: Prothrombin Time Whole Bld POC 23.4 sec (11.1-13.5)
--- NOTE | 2023-04-15 08:50 | MHC.OFFVISCO ---
Intake Intake Visit Reasons: Anticoagulation Allergies No Known Allergies [No Known Allergies*] Allergy (Verified 03/18/23 09:02) Medication List - Last Reconciled 04/15/23 by Madhuri Allen RN amlodipine 5 mg PO DAILY cholecalciferol (vitamin D3) 50 mcg PO DAILY ferrous sulfate 325 mg PO DAILY fluticasone propionate 50 mcg/actuation intranasal gabapentin 300 mg PO TID lisinopril mg PO meclizine 12.5 mg PO ONCE metformin ER 500 mg PO DAILY metoprolol tartrate 50 mg PO BID 90 days mupirocin 2% 1 appl topical BID 5 days nitroglycerin 0.4 mg sublingual Q5M oxycodone 5 mg PO Q6H PRN rosuvastatin 20 mg PO DAILY tamsulosin 0.4 mg PO DAILY tramadol 50 mg PO BEDTIME triamcinolone acetonide 0.1% topical warfarin 5 mg See Protocol PO DAILY Anti-Coag Initial Assessment Social Hx Patient Tobacco Use Status: Former Tobacco user alcohol intake: never Alcohol intake frequency: does not drink Questionnaires HAS-BLED Does the patient had uncontrolled Hypertension?: No Does the patient have renal disease?: No Does the patient have liver disease?: No Does the patient have a history of stroke?: No Has the patient had major bleeding or predisposition to bleeding?: Yes Does the patient have labile INRs?: No Is the patient over 65 years of age?: Yes Is the patient on medications that gives them a predisposition to bleeding?: Yes Does the patient use alcohol?: No HAS-BLED Score: 3 CHADSVASC Age: 75 or over Gender: Male Does the patient have a history of CHF?: No Does the patient have a history of Hypertension?: Yes Does the patient have a history of Stroke/TIA/Thromboembolism?: No Does the patient have a history of Vascular Disease (prior [place], PAD or aortic plaque)?: Yes Does the patient have a history of Diabetes?: Yes CHADS VACS Score: 5 Phyllis Prediction Score Rsk VTE Active Cancer: No Previous VTE, excluding superficial vein thrombosis: No Reduced mobility: No Already known Thrombophilic Condition: Yes With-in last month Trauma and/or Surgery: No Elderly 70 year or older: Yes Heart and/or Respiratory Failure: No Acute Myocardial infarction and/or Ischemic Stroke: No Acute Infection and/or Rheumatologic Disorder: No Obesity (BMI 30 or greater): No Ongoing Hormonal Treatment: No Score: 4 Phyllis Score less than 4; Low Risk of VTE Phyllis Score 4 or greater; High Risk of VTE Coding Level of Care Code Est Patient Level 1 Diagnoses Current use of anticoagulant therapy Z79.01 Assessment & Plan Assessment & Plan (1) Current use of anticoagulant therapy: Onset Date: ~01/2015 Comment: (on Coumadin - for AFib dx 01/2015) Code(s): Z79.01 - [facility] (current) use of anticoagulants Category: Medical
== END 2023-04-15 08:56 | disposition home or self-care (01) ==
LOC: HO.ACS 08:39
PROVIDERS: PCP Family Medicine; Visit Provider Internal Medicine
DX: Z79.01 Long term (current) use of anticoagulants (principal)

== ENCOUNTER → 2023-04-15 08:39 | Outpatient (BNVA) | payer OTHER, SELFPAY | PROVIDERS: PCP Family Medicine; Visit Provider Internal Medicine | DX: I48.0 Paroxysmal atrial fibrillation (principal); Z79.01 Long term (current) use of anticoagulants; Z51.81 Encounter for therapeutic drug level monitoring | CPT/HCPCS: 85610; 99211 ==

== ENCOUNTER 2023-05-13 09:02 | Outpatient (AMB) | payer OTHER, SELFPAY ==
--- NOTE | 2023-05-13 09:43 | MHC.OFFVISCO ---
Intake Intake Visit Reasons: Anticoagulation Allergies No Known Allergies [No Known Allergies*] Allergy (Verified 05/13/23 09:23) Medication List - Last Reconciled 05/13/23 by Aniyah Kern RN amlodipine 5 mg PO DAILY cholecalciferol (vitamin D3) 50 mcg PO DAILY ferrous sulfate 325 mg PO DAILY fluticasone propionate 50 mcg/actuation intranasal gabapentin 300 mg PO TID lisinopril mg PO meclizine 12.5 mg PO ONCE metformin ER 500 mg PO DAILY metoprolol tartrate 50 mg PO BID 90 days mupirocin 2% 1 appl topical BID 5 days nitroglycerin 0.4 mg sublingual Q5M oxycodone 5 mg PO Q6H PRN rosuvastatin 20 mg PO DAILY tamsulosin 0.4 mg PO DAILY tramadol 50 mg PO BEDTIME triamcinolone acetonide 0.1% topical warfarin 5 mg See Protocol PO DAILY Nursing Note Pt to [facility]. Latvian interpretter used INR 1.7?? out of therapeutic range 2-3 Pt denies missed dose Unable to determine cause for low INR Medications and supplements reviewed Patient status: no changes Medications or supplements: no changes Diet: no changes Denies any signs and symptoms of bleeding or clotting or unusual bruising Bleeding, bruising, clotting discussed Nutritional guidance given:avoid greens today and tomorrow Food list given to pt in Latvian. Pt to review. Dose: increase today's dose to 7.5mg(5mg) then resume usual dose of 7.5mg X3days and 5mg X4 days F/U INR Date : 2 weeks?? Patient verbalizing understanding of instructions given. Anti-Coag Initial Assessment Social Hx Patient Tobacco Use Status: Former Tobacco user alcohol intake: never Alcohol intake frequency: does not drink Coding Level of Care Code Est Patient Level 1 Diagnoses Current use of anticoagulant therapy Z79.01 Results AMB INR Fingerstick AMB INR Fingerstick 1.7 Last Edit by Aniyah Kern RN on 05/13/23 09:38 interface delay Assessment & Plan Assessment & Plan (1) Current use of anticoagulant therapy: Onset Date: ~01/2015 Comment: (on Coumadin - for AFib dx 01/2015) Code(s): Z79.01 - [facility] (current) use of anticoagulants Category: Medical
[2023-05-13 09:53] LABS: Prothrombin Time Whole Bld POC 20.9 sec (11.1-13.5); ~PT, ~INR - Anti Coag Clinic 1.7 (0.9-1.1)
== END 2023-05-13 09:49 | disposition home or self-care (01) ==
LOC: HO.ACS 09:02
PROVIDERS: PCP Family Medicine; Visit Provider Internal Medicine
DX: Z79.01 Long term (current) use of anticoagulants (principal)

== ENCOUNTER → 2023-05-13 09:02 | Outpatient (BNVA) | payer OTHER, SELFPAY | PROVIDERS: PCP Family Medicine; Visit Provider Internal Medicine | DX: I48.0 Paroxysmal atrial fibrillation (principal); Z79.01 Long term (current) use of anticoagulants; Z51.81 Encounter for therapeutic drug level monitoring | CPT/HCPCS: 85610; 99211 ==

== ENCOUNTER 2023-05-27 08:48 | Outpatient (AMB) | payer OTHER, SELFPAY ==
[2023-05-27 08:59] LABS: Prothrombin Time Whole Bld POC 22.5 sec (11.1-13.5); ~PT, ~INR - Anti Coag Clinic 1.9 (0.9-1.1)
--- NOTE | 2023-05-27 09:17 | MHC.OFFVISCO ---
Intake Intake Visit Reasons: Anticoagulation Allergies No Known Allergies [No Known Allergies*] Allergy (Verified 05/27/23 08:52) Medication List - Last Reconciled 05/27/23 by Madhuri Allen RN amlodipine 5 mg PO DAILY cholecalciferol (vitamin D3) 50 mcg PO DAILY ferrous sulfate 325 mg PO DAILY fluticasone propionate 50 mcg/actuation intranasal gabapentin 300 mg PO TID lisinopril mg PO meclizine 12.5 mg PO ONCE metformin ER 500 mg PO DAILY metoprolol tartrate 50 mg PO BID 90 days mupirocin 2% 1 appl topical BID 5 days nitroglycerin 0.4 mg sublingual Q5M oxycodone 5 mg PO Q6H PRN rosuvastatin 20 mg PO DAILY tamsulosin 0.4 mg PO DAILY tramadol 50 mg PO BEDTIME triamcinolone acetonide 0.1% 1 appl topical BID-TID triamcinolone acetonide 0.1% topical warfarin 5 mg See Protocol PO DAILY Nursing Note INR 1.9 out of therapeutic range Medications and supplements reviewed Patient status: unable to determine reason for low INR, only change he has not refilled his calcium for a few weeks. states he has been having strange dreams - wonder if medication - enc to talk with md . Medications or supplements: no other changes Diet: good Denies any signs and symptoms of bleeding or clotting or unusual bruising Bleeding, bruising, clotting discussed Nutritional guidance given: no greens today then resume usual diet with greens - warfarin dose being increased Dose: 7.5mg x 4 days/ 5mg x 3 days F/U INR Date : 2 weeks ?? Patient verbalizing understanding of instructions given. 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
== END 2023-05-27 09:21 | disposition home or self-care (01) ==
LOC: HO.ACS 08:48
PROVIDERS: PCP Family Medicine; Visit Provider Internal Medicine
DX: Z79.01 Long term (current) use of anticoagulants (principal)

== ENCOUNTER → 2023-05-27 08:48 | Outpatient (BNVA) | payer OTHER, SELFPAY | PROVIDERS: PCP Family Medicine; Visit Provider Internal Medicine | DX: I48.0 Paroxysmal atrial fibrillation (principal); Z79.01 Long term (current) use of anticoagulants; Z51.81 Encounter for therapeutic drug level monitoring | CPT/HCPCS: 85610; 99211 ==

== ENCOUNTER 2023-06-10 09:03 | Outpatient (AMB) | payer OTHER, SELFPAY ==
--- NOTE | 2023-06-10 09:08 | MHC.OFFVISCO ---
Intake Intake Visit Reasons: Anticoagulation Allergies No Known Allergies [No Known Allergies*] Allergy (Verified 06/04/23 10:53) Nursing Note Pt to ACS with no complaints. slat basket maker helper utilized. INR: 2.2 in therapeutic range of 2-3 Medications and supplements reviewed: no changes No changes in health, diet, medications, or supplements, Denies any signs and symptoms of bleeding or bruising or clotting. Bleeding, bruising, clotting discussed Nutritional guidance given to review the food list and cont to balance reds and greens. Japanese food list given. Aske pt if he was still taking calcium as it can raise the INR and his level has been low to low range. Pt states only 2X a week. Dose: 5mg X3 days and 7.5mg X4 days F/U INR: 3 weeks Patient verbalizes understanding of instructions given Anti-Coag Initial Assessment Social Hx Patient Tobacco Use Status: Former Tobacco user alcohol intake: never Alcohol intake frequency: does not drink Coding Level of Care Code Est Patient Level 1 Diagnoses Current use of anticoagulant therapy Z79.01 Assessment & Plan Assessment & Plan (1) Current use of anticoagulant therapy: Onset Date: ~01/2015 Comment: (on Coumadin - for AFib dx 01/2015) Code(s): Z79.01 - long-term (current) use of anticoagulants Category: Medical
[2023-06-10 09:09] LABS: Prothrombin Time Whole Bld POC 26.3 sec (11.1-13.5); ~PT, ~INR - Anti Coag Clinic 2.2 (0.9-1.1)
== END 2023-06-10 09:39 | disposition home or self-care (01) ==
LOC: HO.ACS 09:03
PROVIDERS: PCP Family Medicine; Visit Provider Internal Medicine
DX: Z79.01 Long term (current) use of anticoagulants (principal)

== ENCOUNTER → 2023-06-10 09:03 | Outpatient (BNVA) | payer OTHER, SELFPAY | PROVIDERS: PCP Family Medicine; Visit Provider Internal Medicine | DX: I48.0 Paroxysmal atrial fibrillation (principal); Z79.01 Long term (current) use of anticoagulants; Z51.81 Encounter for therapeutic drug level monitoring | CPT/HCPCS: 85610; 99211 ==

== ENCOUNTER → 2023-06-17 09:28 | Outpatient (REF) | payer OTHER, SELFPAY ==
--- NOTE | 2023-06-17 09:32 | CA_ITS ---
Transthoracic Echocardiogram Patient (Last, First, Middle): Ramesh Blank, Gender: Male Date of : 1940 Age: 82 Procedure Date: 06/17/2023 Procedure Type: Transthoracic Echocardiogram Location: OP Height: 167. cm Weight: 83.46 kg BSA: 1.93 m2 Heart Rate: 69 bpm BP: 145 / 65 mmHg Costume Mistress: FOREIGN Referring MD: Laura Mckeon NP Symptoms: I71.2 - Thoracic aortic aneurysm, without rupture Study Quality: Fair ECG Rhythm: Frequent atrial premature beats Conclusions: - The left ventricular systolic function is mildly decreased. The calculated ejection fraction is 46% by biplane method. - The basal inferior, basal inferoseptal, and basal anteroseptal segments are hypokinetic. - No obvious valvular pathology seen on this study. - There is mild dilatation of the ascending aorta measuring 4.30 cm. Findings Left Ventricle Normal left ventricular cavity size. There is normal left ventricular wall thickness. The left ventricular systolic function is mildly decreased. The calculated ejection fraction is 46% by biplane method. Evidence suggests grade I (mild) diastolic dysfunction. Wall Motion Rest Echo Findings The basal inferior, basal inferoseptal, and basal anteroseptal segments are hypokinetic. Right Ventricle Normal right ventricular cavity size. There is low normal right ventricular systolic function. Atria The left atrium is mildly dilated. The right atrium is normal in size. Aortic Valve There is a normal trileaflet aortic valve. There is no aortic valve stenosis. There is trace (trivial) aortic valve regurgitation. Mitral Valve There is mild anterior mitral leaflet thickening. There is trace mitral valve regurgitation. There is no mitral valve stenosis. Pulmonic Valve The pulmonic valve is likely normal. Tricuspid Valve Normal tricuspid valve structure. There is trace tricuspid valve regurgitation. There is no evidence of pulmonary hypertension. Great Vessels There is mild dilatation of the ascending aorta measuring 4.30 cm. Venous The inferior vena cava is normal in size and collapses greater than 50% with inspiration. Pericardium/Pleural There is no evidence of pericardial effusion. Prior Study Comparison No significant change compared to prior study dated: 06/10/2022. (images reviewed). Recommendations, Care & Conclusions No obvious valvular pathology seen on this study. Measurements 2D Linear Measurements IVSd: 1.01 0.6-0.9/0.6-1.0 cm LVIDd: 4.32 3.9-5.3/4.2-5.9 cm LVIDd Index: 2.24 2.4-3.2/2.2-3.1 cm/m2 LVIDs: 3.96 2.0-3.6 cm LVPWd: 1.01 0.7-1.1 cm LA Diam: 3.90 2.7-3.8/3.0-4.0 cm LAIDs Index: 2.02 1.5-2.3 cm/m2 LV Mass: 181.19 67-162/88-224 g LV Mass Index: 93.88 43-95/49-115 g/m2 LVOT Diam: 2.40 3.0+(-)1.3 cm 2D Systolic Function EF 4C: 47.70 >55% EF 2C: 45.90 >55% EF BiP: 46.30 >55% Mitral Valve MV Pk E: 0.54 MV PK A: 0.50 MV Decel Time: 335.00 E/A: 1.10 E'Lateral: 7.72 E'Medial: 4.13 E/E' Med: 13.20 E/E' Lat: 7.00 PHT: 98.00 MVA PHT: 2.24 Decel Gaines: 1.62 Aortic Valve AoV Pk Yeison: 1.11 AoV Mn Yeison: 0.78 AoV VTI: 0.25 AoV Pk Grad: 5.00 Aov Mn Grad: 3.00 LANA Cont.VTI: 3.15 AI Pk Yeison: 3.77 AI Gaines: 1.89 LVOT LVOT Pk Yeison: 0.87 LVOT Mn Yeison: 0.55 LVOT VTI: 0.18 LVOT Pk Grad: 3.00 LVOT Mn Grad: 1.00 LVOT Diam: 2.40 LVOT Area: 4.52 Diastolic Function MV Pk E: 0.54 MV Pk A: 0.50 E/A: 1.10 E'Medial: 4.13 E/E' Med: 13.20 E' Laterial: 7.72 E/E' Lat: 7.00 Right Ventricle TAPSE (mm): 19.80 TVS' Yeison: 8.92 Tricuspid Valve TR Pk Yeison: 1.87 TR Pk Grad: 14.00 Great Vessels Aorta Sinus of Valsalva: 4.00 2.0-3.5 cm Ao Asc: 4.30 2.1-3.4 cm Pulmonary Valve PV Pk Yeison: 0.65 Peak PV Grad: 2.00 Updated in Other Vendor System with Status of Final Rodolfo Martin MD electronically signed on 06/17/2023 11:06:54 AM with status of Final
== END ==
LOC: HO.CARD 09:28
PROVIDERS: PCP Family Medicine; Visit Provider Nurse Practitioner
DX: I71.20 Thoracic aortic aneurysm, without rupture, unspecified (principal)
CPT/HCPCS: 93306

== ENCOUNTER → 2023-06-17 09:32 | Outpatient (BNV) | payer OTHER, SELFPAY | PROVIDERS: PCP Family Medicine; Visit Provider Internal Medicine | DX: I71.21 Aneurysm of the ascending aorta, without rupture (principal) | CPT/HCPCS: 93306 ==

== ENCOUNTER 2023-06-27 08:34 | Outpatient (REF) | payer OTHER, SELFPAY ==
[2023-06-27 11:51] LABS: Hematocrit 42.6 % (42.0-52.0); Hemoglobin 13.3 g/dl (14.0-18.0); Mean Corpuscular HGB Conc 31.2 g/dl (31.0-36.0); Mean Corpuscular Hemoglobin 28.1 pg (27.0-33.0); Mean Corpuscular Volume 89.9 fL (80.0-98.0); Mean Platelet Volume 12.8 fL (9.4-12.4); Platelet Count 145 X10*3/uL (160-400); Red Blood Count 4.74 X10*6/uL (4.60-5.80); Red Cell Distribution Width 14.5 % (11.0-16.0); White Blood Count 5.6 X10*3/uL (4.8-10.8)
[2023-06-27 12:11] LABS: Estimated Average Glucose 151 mg/dL; Hemoglobin A1c % 6.9 % (<6.0)
[2023-06-27 12:39] LABS: Alanine Aminotransferase 21 U/L (0-40); Alkaline Phosphatase 97 U/L (39-117); Anion Gap 10 (12-20); Aspartate Amino Transferase 20 U/L (5-37); Bilirubin Direct 0.2 mg/dL (0.0-0.5); Bilirubin Total 0.6 mg/dL (0.0-1.0); Blood Urea Nitrogen 14 mg/dL (9-16); Carbon Dioxide 31 mmol/L (22-29); Chloride 105 mmol/L (96-108); Cholesterol 113 mg/dL (<200); Estimated Glomerular Filt Rate > 60; Glucose Random 120 mg/dL (60-115); HDL Cholesterol 35 mg/dL (>40); Iron 78 mcg/dL (45-160); LDL Cholesterol Calculated 57 mg/dL (<100); Percent Iron Saturation 22 % (15-50); Potassium 4.5 mmol/L (3.3-5.1); Sodium 141 mmol/L (135-145); Total Iron Binding Capacity 347 mcg/dL (228-428); Total Protein 6.8 g/dL (6.5-8.0); Triglycerides 108 mg/dL (<150); Unsaturated Iron Binding 269 ug/dL
[2023-06-27 12:42] LABS: Creatinine Urine 79.61 mg/dL; Microalbum/Creatinine Ratio Ur 251.2 ug/mg cr (<30)
[2023-06-27 12:56] LABS: Folate 9.6 ng/mL (> or = 4.0); Vitamin B12 612 pg/mL (200-900)
[2023-06-27 12:58] LABS: Ferritin 40 ng/mL (20-250); Free T4 (Free Thyroxine) 0.77 ng/dL (0.71-1.85); Thyroid Stimulating Hormone 1.95 uIU/mL (0.32-4.0); Vitamin D 25-OH Total 26.2 ng/mL (>30)
== END 2023-06-27 08:35 | disposition home or self-care (01) ==
LOC: HO.HHCL 08:34
PROVIDERS: Visit Provider Family Medicine
DX: E11.29 Type 2 diabetes mellitus with other diabetic kidney complication (principal); D64.9 Anemia, unspecified
CPT/HCPCS: 36415; 80048; 80061; 80076; 82043; 82306; 82570; 82607; 82728; 82746; 83036; 83540; 84439; 84443; 85027

== ENCOUNTER 2023-07-01 08:47 | Outpatient (AMB) | payer OTHER, SELFPAY ==
--- NOTE | 2023-07-01 09:19 | MHC.OFFVISCO ---
Intake Intake Visit Reasons: Anticoagulation Allergies No Known Allergies [No Known Allergies*] Allergy (Verified 07/01/23 09:16) Medication List - Last Reconciled 07/01/23 by Mary Trevino RN amlodipine 5 mg PO DAILY cholecalciferol (vitamin D3) 50 mcg PO DAILY ferrous sulfate 325 mg PO DAILY fluticasone propionate 50 mcg/actuation intranasal gabapentin 300 mg PO TID lisinopril mg PO meclizine 12.5 mg PO ONCE metformin ER 500 mg PO DAILY metoprolol tartrate 50 mg PO BID 90 days mupirocin 2% 1 appl topical BID 5 days nitroglycerin 0.4 mg sublingual Q5M oxycodone 5 mg PO Q6H PRN rosuvastatin 20 mg PO DAILY tamsulosin 0.4 mg PO DAILY tramadol 50 mg PO BEDTIME triamcinolone acetonide 0.1% 1 appl topical BID-TID triamcinolone acetonide 0.1% topical warfarin 5 mg See Protocol PO DAILY Nursing Note INR: 2.8- in therapeutic range of 2-3 Medications and supplements reviewed- no changes No changes in health, diet, medications, or supplements, Denies any signs and symptoms of bleeding or bruising or clotting. Bleeding, bruising, clotting discussed Nutritional guidance given Dose: 5mg x 3, 7.5mg x 4 F/U INR: 3 weeks Patient verbalizes understanding of instructions given Anti-Coag Initial Assessment Social Hx Patient Tobacco Use Status: Former Tobacco user alcohol intake: never Alcohol intake frequency: does not drink Coding Level of Care Code Est Patient Level 1 Diagnoses Current use of anticoagulant therapy Z79.01 Assessment & Plan Assessment & Plan (1) Current use of anticoagulant therapy: Onset Date: ~01/2015 Comment: (on Coumadin - for AFib dx 01/2015) Code(s): Z79.01 - watermelon inspector (current) use of anticoagulants Category: Medical
[2023-07-01 09:20] LABS: Prothrombin Time Whole Bld POC 33.3 sec (11.1-13.5); ~PT, ~INR - Anti Coag Clinic 2.8 (0.9-1.1)
== END 2023-07-01 10:56 | disposition home or self-care (01) ==
LOC: HO.ACS 08:47
PROVIDERS: PCP Family Medicine; Visit Provider Internal Medicine
DX: Z79.01 Long term (current) use of anticoagulants (principal)

== ENCOUNTER → 2023-07-01 08:47 | Outpatient (BNVA) | payer OTHER, SELFPAY | PROVIDERS: PCP Family Medicine; Visit Provider Internal Medicine | DX: I48.0 Paroxysmal atrial fibrillation (principal); Z51.81 Encounter for therapeutic drug level monitoring; Z79.01 Long term (current) use of anticoagulants | CPT/HCPCS: 85610; 99211 ==

== ENCOUNTER 2023-07-17 12:06 | Outpatient (AMB) | payer OTHER, SELFPAY ==
--- NOTE | 2023-07-17 12:30 | MHC.OFFVIS ---
Vital Signs 07/17/23 12:32 Height 5 ft 6 in Weight 190 lb 14.725 oz BMI 30.8 BP 120/60 Blood Pressure Location Rt brachial Position Sitting Pulse 68 Pulse Source Pulse Oximeter Pulse Oximetry (%) 98 Intake Visit Reasons: 6 mos followup Full Stack Engineer Required: Yes Full Stack Engineer Name: [email or web address] Accompanied by: Self / Same As Patient Allergies No Known Allergies [No Known Allergies*] Allergy (Verified 07/01/23 09:16) Medication List - Last Reconciled 07/17/23 by Rodolfo Martin MD amlodipine 5 mg PO DAILY cholecalciferol (vitamin D3) 50 mcg PO DAILY ferrous sulfate 325 mg PO DAILY fluticasone propionate 50 mcg/actuation intranasal gabapentin 300 mg PO TID lisinopril mg PO meclizine 12.5 mg PO ONCE metformin ER 500 mg PO DAILY metoprolol tartrate 50 mg PO BID 90 days mupirocin 2% 1 appl topical BID 5 days nitroglycerin 0.4 mg sublingual Q5M rosuvastatin 20 mg PO DAILY tamsulosin 0.4 mg PO DAILY triamcinolone acetonide 0.1% 1 appl topical BID-TID triamcinolone acetonide 0.1% topical warfarin 5 mg See Protocol PO DAILY HPI Comments Details: Ramesh returns for follow-up regarding his cardiac issues. He has coronary disease, paroxysmal atrial fibrillation, ascending aortic aneurysm. To recall, he was seen in the past for chest pains which led to noninvasive workup with stress test followed by cardiac catheterization. That showed single vessel disease in the right coronary artery, but he is being medically managed. Since last seen, he states he is generally doing okay. Occasionally nose bleeds, but otherwise no clear-cut cardiac symptoms. [facility] Medical History Pulmonary nodules Tubular adenoma of colon (~2009) Hyperlipidemia Type 2 diabetes mellitus with polyneuropathy Paroxysmal atrial fibrillation (~01/2015) Essential hypertension Ascending aortic aneurysm Atherosclerotic cardiovascular disease Lumbar spondylolysis Inflammatory arthritis Surgical History History of cardiac cath (~2018) History of lung surgery (~03/2019) History of left inguinal hernia repair (~01/2019) History of colonoscopy (~02/2016) Hx of neck surgery Hx of appendectomy Family History Mother Diabetes Social History Household Members: Spouse Alcohol intake: never Patient Tobacco Use Status: Former Tobacco user Current occupational status: retired Hearing needs: Yes Review of Systems Const Denies chills, Denies fatigue, Denies fever(s), Denies frequent falls, Denies weakness, Denies weight gain and Denies weight loss ENT Denies dizziness Card Denies chest pain, Denies leg edema, Denies lightheadedness, Denies palpitations, Denies dyspnea and Denies dyspnea on exertion Resp Denies cough, Denies dyspnea and Denies dyspnea on exertion GI Denies hematochezia Musc Denies abnormal gait, Denies muscle weakness, Denies numbness, Denies radiating pain into limb and Denies tingling Neuro Denies abnormal gait, Denies dizziness, Denies frequent falls, Denies numbness, Denies tingling and Denies weakness Endo Denies fatigue and Denies palpitations Physical Exam Vital Signs: Last Vital Signs Pulse 68 07/17/23 12:32 BP 120/60 07/17/23 12:32 Pulse Ox 98 07/17/23 12:32 BMI result Body Mass Index 30.8 Const General: comfortable and no acute distress Orientation/consciousness: patient oriented x3 HEENT Other: Unremarkable Head: Yes normal to inspection Neck Neck: Yes normal visual inspection Chest Chest palpation & inspection: normal inspection of the chest Resp Auscultation: clear to auscultation bilaterally Cardio Palpation: normal PMI Heart sounds: S1 normal heart sound present, S2 normal heart sound present, no gallops, no murmurs and no rubs GI Palpation (GI): Soft to palpation Back/Spine/Pelvis Other: unremarkable Skin General skin exam: no rashes or lesions noted Neuro General: patient oriented x3 Extrem General: Yes normal to inspection Psych Mental Status: mental status grossly normal Assessment & Plan Assessment & Plan (1) Atherosclerotic cardiovascular disease: Code(s): I25.10 - Atherosclerotic heart disease of [place] coronary artery without angina pectoris Category: Medical Plan: Cardiac [id number] RCA-90% stenosis; severe, long segment, heavily calcified; ectatic and tortuous vessel; mild disease elsewhere; for medical treatment. In the recent echocardiogram, LVEF 46%. Basal inferior/inferoseptal/anteroseptal hypokinesis. Clinically, no angina. Continue beta-blockers and statins. Last LDL cholesterol 57 mg/dL. (2) Paroxysmal A-fib: Code(s): I48.0 - Paroxysmal atrial fibrillation Category: Medical Plan: No recent occurrences. He is on anticoagulation with Coumadin. (3) Ascending aortic aneurysm: Code(s): I71.2 - Thoracic aortic aneurysm, without rupture Category: Medical Plan: In the recent echocardiogram, ascending aorta measures 4.3cm. Recheck before next visit. (4) Essential hypertension: Code(s): I10 - Essential (primary) hypertension Category: Medical Plan: Stable. No changes. Coding Level of Care Code Est Pt Level 4 (27696) Diagnoses Atherosclerotic cardiovascular disease I25.10 Paroxysmal A-fib I48.0 Ascending aortic aneurysm I71.2 Essential hypertension I10
[2023-07-17 12:32] VITALS: BP 120/60; PULSE 68; O2SAT 98; BMI 30.8
== END 2023-07-17 12:51 | disposition home or self-care (01) ==
PROVIDERS: PCP Family Medicine; Visit Provider Internal Medicine
DX: I25.10 Atherosclerotic heart disease of native coronary artery without angina pectoris (principal); I48.0 Paroxysmal atrial fibrillation; I71.20 Thoracic aortic aneurysm, without rupture, unspecified; I10 Essential (primary) hypertension
CPT/HCPCS: 99214

== ENCOUNTER → 2023-07-17 12:06 | Outpatient (BNVA) | payer OTHER, SELFPAY | PROVIDERS: PCP Family Medicine; Visit Provider Internal Medicine | DX: I25.10 Atherosclerotic heart disease of native coronary artery without angina pectoris (principal); I48.0 Paroxysmal atrial fibrillation; I71.21 Aneurysm of the ascending aorta, without rupture; I10 Essential (primary) hypertension | CPT/HCPCS: 99212 ==

== ENCOUNTER 2023-07-22 09:05 | Outpatient (AMB) | payer OTHER, SELFPAY ==
[2023-07-22 09:33] LABS: Prothrombin Time Whole Bld POC 28.8 sec (11.1-13.5); ~PT, ~INR - Anti Coag Clinic 2.4 (0.9-1.1)
--- NOTE | 2023-07-22 09:35 | MHC.OFFVISCO ---
Intake Intake Visit Reasons: Anticoagulation Allergies No Known Allergies [No Known Allergies*] Allergy (Verified 07/22/23 09:27) Medication List - Last Reconciled 07/22/23 by Aniyah Vo RN amlodipine 5 mg PO DAILY cholecalciferol (vitamin D3) 50 mcg PO DAILY ferrous sulfate 325 mg PO DAILY fluticasone propionate 50 mcg/actuation intranasal gabapentin 300 mg PO TID lisinopril mg PO meclizine 12.5 mg PO ONCE metformin ER 500 mg PO DAILY metoprolol tartrate 50 mg PO BID 90 days mupirocin 2% 1 appl topical BID 5 days nitroglycerin 0.4 mg sublingual Q5M rosuvastatin 20 mg PO DAILY tamsulosin 0.4 mg PO DAILY triamcinolone acetonide 0.1% 1 appl topical BID-TID triamcinolone acetonide 0.1% topical warfarin 5 mg See Protocol PO DAILY Nursing Note Amb to ACS feeling well Cycle Analyst available for visit Medications and supplements reviewed No changes in health, diet, medications, or supplements, Denies any signs and symptoms of bleeding, bruising, or clotting. INR 2.4 in therapeutic range continue usual dosing 5mg x 3 days and 7.5mg x 4 days Nutritional guidance given, balance greens and reds in diet, be consistent F/U INR: 4 weeks Patient verbalizes understanding of instructions given Anti-Coag Initial Assessment Social Hx Patient Tobacco Use Status: Former Tobacco user alcohol intake: never Alcohol intake frequency: does not drink Coding Level of Care Code Est Patient Level 1 Diagnoses Current use of anticoagulant therapy Z79.01 Time Spent (min) 15 Assessment & Plan Assessment & Plan (1) Current use of anticoagulant therapy: Onset Date: ~01/2015 Comment: (on Coumadin - for AFib dx 01/2015) Code(s): Z79.01 - intermediate accountant (current) use of anticoagulants Category: Medical
== END 2023-07-22 09:41 | disposition home or self-care (01) ==
LOC: HO.ACS 09:05
PROVIDERS: PCP Family Medicine; Visit Provider Internal Medicine
DX: Z79.01 Long term (current) use of anticoagulants (principal)

== ENCOUNTER → 2023-07-22 09:05 | Outpatient (BNVA) | payer OTHER, SELFPAY | PROVIDERS: PCP Family Medicine; Visit Provider Internal Medicine | DX: I48.0 Paroxysmal atrial fibrillation (principal); Z79.01 Long term (current) use of anticoagulants; Z51.81 Encounter for therapeutic drug level monitoring | CPT/HCPCS: 85610; 99211 ==

== ENCOUNTER 2023-08-19 09:13 | Outpatient (AMB) | payer OTHER, SELFPAY ==
[2023-08-19 09:47] LABS: Prothrombin Time Whole Bld POC 29.5 sec (11.1-13.5); ~PT, ~INR - Anti Coag Clinic 2.5 (0.9-1.1)
--- NOTE | 2023-08-19 09:47 | MHC.OFFVISCO ---
Intake Intake Visit Reasons: Anticoagulation Allergies No Known Allergies [No Known Allergies*] Allergy (Verified 08/19/23 09:34) Medication List - Last Reconciled 08/19/23 by Aniyah Kern RN amlodipine 5 mg PO DAILY cholecalciferol (vitamin D3) 50 mcg PO DAILY ferrous sulfate 325 mg PO DAILY fluticasone propionate 50 mcg/actuation intranasal gabapentin 300 mg PO TID lisinopril mg PO meclizine 12.5 mg PO ONCE metformin ER 500 mg PO DAILY metoprolol tartrate 50 mg PO BID 90 days mupirocin 2% 1 appl topical BID 5 days nitroglycerin 0.4 mg sublingual Q5M rosuvastatin 20 mg PO DAILY tamsulosin 0.4 mg PO DAILY triamcinolone acetonide 0.1% 1 appl topical BID-TID triamcinolone acetonide 0.1% topical warfarin 5 mg See Protocol PO DAILY Nursing Note INR: 2.5 in therapeutic range of 2-3 Medications and supplements reviewed No changes in health, diet, medications, or supplements, Denies any signs and symptoms of bleeding or bruising or clotting. Bleeding, bruising, clotting discussed Nutritional guidance given to continue to balance foods that raise and foods that lower the INR Dose: 7.5mg X 4 days and 5mg X 3 F/U INR: 4 weeks Patient verbalizes understanding of instructions given Anti-Coag Initial Assessment Social Hx Patient Tobacco Use Status: Former Tobacco user alcohol intake: never Alcohol intake frequency: does not drink Coding Level of Care Code Est Patient Level 1 Diagnoses Current use of anticoagulant therapy Z79.01 Results AMB INR Fingerstick AMB INR Fingerstick 2.5 Last Edit by Aniyah Kern RN on 08/19/23 09:41 interface delay Assessment & Plan Assessment & Plan (1) Current use of anticoagulant therapy: Onset Date: ~01/2015 Comment: (on Coumadin - for AFib dx 01/2015) Code(s): Z79.01 - terminal carman (current) use of anticoagulants Category: Medical
== END 2023-08-19 09:50 | disposition home or self-care (01) ==
LOC: HO.ACS 09:13
PROVIDERS: PCP Family Medicine; Visit Provider Internal Medicine
DX: Z79.01 Long term (current) use of anticoagulants (principal)

== ENCOUNTER → 2023-08-19 09:13 | Outpatient (BNVA) | payer OTHER, SELFPAY | PROVIDERS: PCP Family Medicine; Visit Provider Internal Medicine | DX: I48.0 Paroxysmal atrial fibrillation (principal); Z79.01 Long term (current) use of anticoagulants; Z51.81 Encounter for therapeutic drug level monitoring | CPT/HCPCS: 85610; 99211 ==

== ENCOUNTER 2023-09-16 09:17 | Outpatient (AMB) | payer OTHER, SELFPAY ==
[2023-09-16 09:32] LABS: Prothrombin Time Whole Bld POC 32.7 sec (11.1-13.5); ~PT, ~INR - Anti Coag Clinic 2.7 (0.9-1.1)
--- NOTE | 2023-09-16 09:37 | MHC.OFFVISCO ---
Intake Intake Visit Reasons: Anticoagulation Allergies No Known Allergies [No Known Allergies*] Allergy (Verified 09/16/23 09:28) Medication List - Last Reconciled 09/16/23 by Aniyah Kern RN amlodipine 5 mg PO DAILY cholecalciferol (vitamin D3) 50 mcg PO DAILY ferrous sulfate 325 mg PO DAILY fluticasone propionate 50 mcg/actuation intranasal gabapentin 300 mg PO TID lisinopril mg PO meclizine 12.5 mg PO ONCE metformin ER 500 mg PO DAILY metoprolol tartrate 50 mg PO BID 90 days mupirocin 2% 1 appl topical BID 5 days nitroglycerin 0.4 mg sublingual Q5M rosuvastatin 20 mg PO DAILY tamsulosin 0.4 mg PO DAILY triamcinolone acetonide 0.1% 1 appl topical BID-TID triamcinolone acetonide 0.1% topical warfarin 5 mg See Protocol PO DAILY Nursing Note INR: 2.7 in therapeutic range of 2-3 Medications and supplements reviewed No changes in health, diet, medications, or supplements, Denies any signs and symptoms of bleeding or bruising or clotting. Bleeding, bruising, clotting discussed Nutritional guidance given Dose: continue usual dose of 7.5mg X 5 days and 5mg X 2 days F/U INR: 4 weeks Patient verbalizes understanding of instructions given Anti-Coag Initial Assessment Social Hx Patient Tobacco Use Status: Former Tobacco user alcohol intake: never Alcohol intake frequency: does not drink Coding Level of Care Code Est Patient Level 1 Diagnoses Current use of anticoagulant therapy Z79.01 Results AMB INR Fingerstick AMB INR Fingerstick 2.7 Last Edit by Aniyah Kern RN on 09/16/23 09:33 interface delay Assessment & Plan Assessment & Plan (1) Current use of anticoagulant therapy: Onset Date: ~01/2015 Comment: (on Coumadin - for AFib dx 01/2015) Code(s): Z79.01 - skilled nursing (current) use of anticoagulants Category: Medical
== END 2023-09-16 09:39 | disposition home or self-care (01) ==
LOC: HO.ACS 09:17
PROVIDERS: PCP Family Medicine; Visit Provider Internal Medicine
DX: Z79.01 Long term (current) use of anticoagulants (principal)

== ENCOUNTER → 2023-09-16 09:17 | Outpatient (BNVA) | payer OTHER, SELFPAY | PROVIDERS: PCP Family Medicine; Visit Provider Internal Medicine | DX: I48.0 Paroxysmal atrial fibrillation (principal); Z79.01 Long term (current) use of anticoagulants; Z51.81 Encounter for therapeutic drug level monitoring | CPT/HCPCS: 85610; 99211 ==

== ENCOUNTER 2023-10-14 09:05 | Outpatient (AMB) | payer OTHER, SELFPAY ==
--- NOTE | 2023-10-14 09:17 | MHC.OFFVISCO ---
Intake Intake Visit Reasons: Anticoagulation Allergies No Known Allergies [No Known Allergies*] Allergy (Verified 10/14/23 09:13) Medication List - Last Reconciled 10/14/23 by aMry Trevino RN amlodipine 5 mg PO DAILY cholecalciferol (vitamin D3) 50 mcg PO DAILY ferrous sulfate 325 mg PO DAILY fluticasone propionate 50 mcg/actuation intranasal gabapentin 300 mg PO TID lisinopril mg PO meclizine 12.5 mg PO ONCE metformin ER 500 mg PO DAILY metoprolol tartrate 50 mg PO BID 90 days mupirocin 2% 1 appl topical BID 5 days nitroglycerin 0.4 mg sublingual Q5M rosuvastatin 20 mg PO DAILY tamsulosin 0.4 mg PO DAILY triamcinolone acetonide 0.1% 1 appl topical BID-TID triamcinolone acetonide 0.1% topical warfarin 5 mg See Protocol PO DAILY Nursing Note INR: 2.5- in therapeutic range of 2-3 Medications and supplements reviewed- no changes No changes in health, diet, medications, or supplements, Denies any signs and symptoms of bleeding or bruising or clotting. Bleeding, bruising, clotting discussed Nutritional guidance given Dose: 5mg x 3, 7.5mg x 4 F/U INR: 4 weeks Patient verbalizes understanding of instructions given Anti-Coag Initial Assessment Social Hx Patient Tobacco Use Status: Former Tobacco user alcohol intake: never Alcohol intake frequency: does not drink Coding Level of Care Code Est Patient Level 1 Diagnoses Current use of anticoagulant therapy Z79.01 Assessment & Plan Assessment & Plan (1) Current use of anticoagulant therapy: Onset Date: ~01/2015 Comment: (on Coumadin - for AFib dx 01/2015) Code(s): Z79.01 - residential (current) use of anticoagulants Category: Medical
[2023-10-14 09:18] LABS: Prothrombin Time Whole Bld POC 29.9 sec (11.1-13.5); ~PT, ~INR - Anti Coag Clinic 2.5 (0.9-1.1)
== END 2023-10-14 09:23 | disposition home or self-care (01) ==
LOC: HO.ACS 09:05
PROVIDERS: PCP Family Medicine; Visit Provider Internal Medicine
DX: Z79.01 Long term (current) use of anticoagulants (principal)

== ENCOUNTER → 2023-10-14 09:05 | Outpatient (BNVA) | payer OTHER, SELFPAY | PROVIDERS: PCP Family Medicine; Visit Provider Internal Medicine | DX: I48.0 Paroxysmal atrial fibrillation (principal); Z79.01 Long term (current) use of anticoagulants; Z51.81 Encounter for therapeutic drug level monitoring | CPT/HCPCS: 85610; 99211 ==

== ENCOUNTER 2023-11-11 08:56 | Outpatient (AMB) | payer OTHER, SELFPAY ==
--- NOTE | 2023-11-11 09:02 | MHC.OFFVISCO ---
Intake Intake Visit Reasons: Anticoagulation Allergies No Known Allergies [No Known Allergies*] Allergy (Verified 11/11/23 08:58) Medication List - Last Reconciled 11/11/23 by Mary Trevino RN amlodipine 5 mg PO DAILY cholecalciferol (vitamin D3) 50 mcg PO DAILY ferrous sulfate 325 mg PO DAILY fluticasone propionate 50 mcg/actuation intranasal gabapentin 300 mg PO TID lisinopril mg PO meclizine 12.5 mg PO ONCE metformin ER 500 mg PO DAILY metoprolol tartrate 50 mg PO BID 90 days mupirocin 2% 1 appl topical BID 5 days nitroglycerin 0.4 mg sublingual Q5M rosuvastatin 20 mg PO DAILY tamsulosin 0.4 mg PO DAILY triamcinolone acetonide 0.1% 1 appl topical BID-TID triamcinolone acetonide 0.1% topical warfarin 5 mg See Protocol PO DAILY Nursing Note INR: 2.6- in therapeutic range of 2-3 Medications and supplements reviewed- no changes No changes in health, diet, medications, or supplements, Denies any signs and symptoms of bleeding or bruising or clotting. Bleeding, bruising, clotting discussed Nutritional guidance given Dose: 5mg x 3, 7.5mg x 4 F/U INR: 4 weeks Patient verbalizes understanding of instructions given Anti-Coag Initial Assessment Social Hx Patient Tobacco Use Status: Former Tobacco user alcohol intake: never Alcohol intake frequency: does not drink Coding Level of Care Code Est Patient Level 1 Diagnoses Current use of anticoagulant therapy Z79.01 Results AMB INR Fingerstick AMB INR Fingerstick 2.6 Last Edit by Mary Trevino RN on 11/11/23 09:03 interface delay Assessment & Plan Assessment & Plan (1) Current use of anticoagulant therapy: Onset Date: ~01/2015 Comment: (on Coumadin - for AFib dx 01/2015) Code(s): Z79.01 - [facility] (current) use of anticoagulants Category: Medical
[2023-11-11 09:04] LABS: Prothrombin Time Whole Bld POC 31.2 sec (11.1-13.5); ~PT, ~INR - Anti Coag Clinic 2.6 (0.9-1.1)
== END 2023-11-11 09:08 | disposition home or self-care (01) ==
LOC: HO.ACS 08:56
PROVIDERS: PCP Family Medicine; Visit Provider Internal Medicine
DX: Z79.01 Long term (current) use of anticoagulants (principal)

== ENCOUNTER → 2023-11-11 08:56 | Outpatient (BNVA) | payer OTHER, SELFPAY | PROVIDERS: PCP Family Medicine; Visit Provider Internal Medicine | DX: I48.0 Paroxysmal atrial fibrillation (principal); Z79.01 Long term (current) use of anticoagulants; Z51.81 Encounter for therapeutic drug level monitoring | CPT/HCPCS: 85610; 99211 ==

== ENCOUNTER 2023-12-09 09:03 | Outpatient (AMB) | payer OTHER, SELFPAY ==
[2023-12-09 09:12] LABS: Prothrombin Time Whole Bld POC 44.5 sec (11.1-13.5); ~PT, ~INR - Anti Coag Clinic 3.7 (0.9-1.1)
--- NOTE | 2023-12-09 09:16 | MHC.OFFVISCO ---
Intake Intake Visit Reasons: Anticoagulation Allergies No Known Allergies [No Known Allergies*] Allergy (Verified 12/09/23 09:08) Medication List - Last Reconciled 12/09/23 by Aniyah Kern RN amlodipine 5 mg PO DAILY cholecalciferol (vitamin D3) 50 mcg PO DAILY ferrous sulfate 325 mg PO DAILY fluticasone propionate 50 mcg/actuation intranasal gabapentin 300 mg PO TID lisinopril mg PO meclizine 12.5 mg PO ONCE metformin ER 500 mg PO DAILY metoprolol tartrate 50 mg PO BID 90 days mupirocin 2% 1 appl topical BID 5 days nitroglycerin 0.4 mg sublingual Q5M rosuvastatin 20 mg PO DAILY tamsulosin 0.4 mg PO DAILY triamcinolone acetonide 0.1% 1 appl topical BID-TID triamcinolone acetonide 0.1% topical warfarin 5 mg See Protocol PO DAILY Nursing Note INR 3.7?out of therapeutic range of 2-3 Medications and supplements reviewed Patient status: well Medications or supplements: no changes Diet: usual diet for pt Denies any signs and symptoms of bleeding or clotting or unusual bruising Bleeding, bruising, clotting discussed Nutritional guidance given: to have a serving of greens today Dose: pt took today's dose already so will hold tomorrow's dose of 5mg then resume usual dose of 7.5mg X 4 days and 5mg X 3 days F/U INR Date : 2 weeks?? Patient verbalizing understanding of instructions given. Anti-Coag Initial Assessment Social Hx Patient Tobacco Use Status: Former Tobacco user alcohol intake: never Alcohol intake frequency: does not drink Coding Level of Care Code Est Patient Level 1 Diagnoses Current use of anticoagulant therapy Z79.01 Results AMB INR Fingerstick AMB INR Fingerstick 3.7 Last Edit by Aniyah Kern RN on 12/09/23 09:13 interface delay Assessment & Plan Assessment & Plan (1) Current use of anticoagulant therapy: Onset Date: ~01/2015 Comment: (on Coumadin - for AFib dx 01/2015) Code(s): Z79.01 - intermodal customer service (current) use of anticoagulants Category: Medical
== END 2023-12-09 09:21 | disposition home or self-care (01) ==
LOC: HO.ACS 09:03
PROVIDERS: PCP Family Medicine; Visit Provider Internal Medicine
DX: Z79.01 Long term (current) use of anticoagulants (principal)

== ENCOUNTER → 2023-12-09 09:03 | Outpatient (BNVA) | payer OTHER, SELFPAY | PROVIDERS: PCP Family Medicine; Visit Provider Internal Medicine | DX: I48.0 Paroxysmal atrial fibrillation (principal); Z79.01 Long term (current) use of anticoagulants; Z51.81 Encounter for therapeutic drug level monitoring | CPT/HCPCS: 85610; 99211 ==

== ENCOUNTER 2023-12-23 08:46 | Outpatient (AMB) | payer OTHER, SELFPAY ==
--- NOTE | 2023-12-23 08:53 | MHC.OFFVISCO ---
Intake Intake Visit Reasons: Anticoagulation Allergies No Known Allergies [No Known Allergies*] Allergy (Verified 12/23/23 08:47) Medication List - Last Reconciled 12/23/23 by Mary Trevino RN amlodipine 5 mg PO DAILY cholecalciferol (vitamin D3) 50 mcg PO DAILY ferrous sulfate 325 mg PO DAILY fluticasone propionate 50 mcg/actuation intranasal gabapentin 300 mg PO TID lisinopril mg PO meclizine 12.5 mg PO ONCE metformin ER 500 mg PO DAILY metoprolol tartrate 50 mg PO BID 90 days mupirocin 2% 1 appl topical BID 5 days nitroglycerin 0.4 mg sublingual Q5M rosuvastatin 20 mg PO DAILY tamsulosin 0.4 mg PO DAILY triamcinolone acetonide 0.1% 1 appl topical BID-TID triamcinolone acetonide 0.1% topical warfarin 5 mg See Protocol PO DAILY Nursing Note INR: 2.7- in therapeutic range of 2-3 Medications and supplements reviewed No changes in health, diet, medications, or supplements, Denies any signs and symptoms of bleeding or bruising or clotting. Bleeding, bruising, clotting discussed Nutritional guidance given Dose: 5mg x 3, 7.5mg x 4 F/U INR: 4 weeks Patient verbalizes understanding of instructions given Anti-Coag Initial Assessment Social Hx Patient Tobacco Use Status: Former Tobacco user alcohol intake: never Alcohol intake frequency: does not drink Coding Level of Care Code Est Patient Level 1 Diagnoses Current use of anticoagulant therapy Z79.01 Results AMB INR Fingerstick AMB INR Fingerstick 2.7 Last Edit by Mary Trevino RN on 12/23/23 08:54 interface delay Assessment & Plan Assessment & Plan (1) Current use of anticoagulant therapy: Onset Date: ~01/2015 Comment: (on Coumadin - for AFib dx 01/2015) Code(s): Z79.01 - [facility] (current) use of anticoagulants Category: Medical
[2023-12-23 08:54] LABS: Prothrombin Time Whole Bld POC 32.1 sec (11.1-13.5); ~PT, ~INR - Anti Coag Clinic 2.7 (0.9-1.1)
== END 2023-12-23 09:01 | disposition home or self-care (01) ==
LOC: HO.ACS 08:46
PROVIDERS: PCP Family Medicine; Visit Provider Internal Medicine
DX: Z79.01 Long term (current) use of anticoagulants (principal)

== ENCOUNTER → 2023-12-23 08:46 | Outpatient (BNVA) | payer OTHER, SELFPAY | PROVIDERS: PCP Family Medicine; Visit Provider Internal Medicine | DX: I48.0 Paroxysmal atrial fibrillation (principal); Z79.01 Long term (current) use of anticoagulants; Z51.81 Encounter for therapeutic drug level monitoring | CPT/HCPCS: 85610; 99211 ==

== ENCOUNTER 2024-01-06 08:58 | Outpatient (AMB) | payer OTHER, SELFPAY ==
--- NOTE | 2024-01-06 09:07 | A.OFFVIS_ITS ---
Intake Visit Reasons: [facility] referral for VV Intake Note: Patient has bilateral varicose veins . No pain, swelling or cramping. Allergies No Known Allergies [No Known Allergies*] Allergy (Verified 01/06/24 09:08) [facility] referral for VV: Details: Very pleasant 83-year-old gentleman patient presents for painful varicose veins. Complaints include pain over varicosities, swelling of lower extremities, cramping, fatigue, and heaviness of the lower extremities. It has been affecting there daily activities including walking. It is noted more so in right leg. Of concern to him is the large varicosities in his right lateral thigh. Patient denies any previous venous surgery or injections. Patient denies any history of DVT/ PE. Patient denies any history of phlebitis. Trial of compression includes - [id number] They now present for vascular evaluation regarding their varicose veins. COUNT INCLUDES THE [facility] Medical History Pulmonary nodules Tubular adenoma of colon (~2009) Hyperlipidemia Type 2 diabetes mellitus with polyneuropathy Paroxysmal atrial fibrillation (~01/2015) Essential hypertension Ascending aortic aneurysm Atherosclerotic cardiovascular disease Lumbar spondylolysis Inflammatory arthritis Surgical History History of cardiac cath (~2018) History of lung surgery (~03/2019) History of left inguinal hernia repair (~01/2019) History of colonoscopy (~02/2016) Hx of neck surgery Hx of appendectomy Family History Mother Diabetes Social History Household Members: Spouse Alcohol intake: never Patient Tobacco Use Status: Former Tobacco user Current occupational status: retired Hearing needs: Yes Review of Systems Const Reports as per HPI ENT Reports no additional complaints Card Denies chest pain, Denies chest pain at rest and Denies chest pain with activity Resp Denies chest congestion and Denies cough GI Reports no additional complaints Musc Details: pain over varicosities, aching of lower extremities, swelling, cramping, h eaviness and tiredness, itching Denies abnormal gait Skin/Breast Reports pruritus and Denies wounds Neuro Reports no additional complaints and Denies abnormal gait Psych Denies no additional complaints Physical Exam Const General: cooperative, healthy appearing and comfortable Orientation/consciousness: oriented to person, oriented to place and oriented to time Neck Carotids: no bruits Chest Chest palpation & inspection: normal inspection of the chest and normal palpation of entire chest wall Resp Effort & Inspection: normal respiratory effort and able to speak in complete sentences Cardio Rate: regular rate Heart sounds: S1 normal heart sound present and S2 normal heart sound present Peripheral pulses: Peripheral pulses 2+ throughout GI Inspection: Yes normal to inspection Skin Other: +2 edema, large rope-like varicosities greater than 4 mm CEAP Classification C4 - skin color changes Ep - Etiology Primary As - superficial veins P - reflux General skin exam: dry skin Neuro General: oriented to person, oriented to place and oriented to time Extrem Right lower extremity: full ROM, normal capillary refill and edema Left lower extremity: full ROM, normal capillary refill and edema Psych Mental Status: mental status grossly normal Assessment & Plan Assessment & Plan (1) Varicose veins of right lower extremity with inflammation: Code(s): I83.11 - Varicose veins of right lower extremity with inflammation Category: Medical Plan: In short, the patient has evidence of venous insufficiency. I have discussed the pathophysiology with the patient. In addition I have provided informational material regarding venous disease to the patient. We have discussed conservative measures including compression, elevation, and exercise. I have also provided a handout regarding appropriate use of compression stockings and where to purchase good compression stockings as well. I have taken the liberty of ordering venous insufficiency testing with the patient. They will follow up with me after testing. The patient had an opportunity to ask questions regarding the treatment plan. All questions were answered. Imaging studies, laboratory studies and physical exam results were discussed and reviewed in detail. No major barriers to understanding were identified. The patient expressed understanding and agreement with the above treatment plan. The patient is aware they should contact our office by phone for worsening of the current condition or the appearance of new symptoms. Thank you for allowing me to participate in the vascular care of this patient. If you have any questions or concerns regarding the treatment for the above condition please do not hesitate to contact me. The office telephone contact is [phone]. This note is constructed using voice recognition software. While every effort has been made to ensure accuracy, research home economist errors may have been included. Thank you for allowing me to participate in the care of your patient. Yours sincerely, Franky Starr MD, FACS, R.P.V.I. Orders: Orders US venous duplex LE BI 1 Week I83.11 - Varicose veins of right lower extremity with inflammation Coding Level of Care Code New Pt Level 4 (00127) Diagnoses Varicose veins of right lower extremity with inflammation I83.11
== END 2024-01-06 09:33 | disposition home or self-care (01) ==
LOC: HO.HVS 08:58
PROVIDERS: PCP Family Medicine; Visit Provider Surgery Vascular Surgery
DX: I83.11 Varicose veins of right lower extremity with inflammation (principal)
CPT/HCPCS: 99204

== ENCOUNTER → 2024-01-06 08:58 | Outpatient (BNVA) | payer OTHER, SELFPAY | PROVIDERS: PCP Family Medicine; Visit Provider Surgery Vascular Surgery | DX: I83.11 Varicose veins of right lower extremity with inflammation (principal) | CPT/HCPCS: 99202 ==

== ENCOUNTER 2024-01-20 08:40 | Outpatient (AMB) | payer OTHER, SELFPAY ==
--- NOTE | 2024-01-20 08:53 | MHC.OFFVISCO ---
Intake Intake Visit Reasons: Anticoagulation Allergies No Known Allergies [No Known Allergies*] Allergy (Verified 01/20/24 08:49) Medication List - Last Reconciled 01/20/24 by Mary Trevino RN amlodipine 5 mg PO DAILY cholecalciferol (vitamin D3) 50 mcg PO DAILY ferrous sulfate 325 mg PO DAILY fluticasone propionate 50 mcg/actuation intranasal gabapentin 300 mg PO TID lisinopril mg PO meclizine 12.5 mg PO ONCE metformin ER 500 mg PO DAILY metoprolol tartrate 50 mg PO BID 90 days mupirocin 2% 1 appl topical BID 5 days nitroglycerin 0.4 mg sublingual Q5M rosuvastatin 20 mg PO DAILY tamsulosin 0.4 mg PO DAILY triamcinolone acetonide 0.1% 1 appl topical BID-TID warfarin 5 mg See Protocol PO DAILY Nursing Note INR: 2.4- in therapeutic range of 2-3 Medications and supplements reviewed- no changes No changes in health, diet, medications, or supplements, Denies any signs and symptoms of bleeding or bruising or clotting. Bleeding, bruising, clotting discussed Nutritional guidance given Dose: 5mg x 3, 7.5mg x 4 F/U INR: 4 weeks Patient verbalizes understanding of instructions given Anti-Coag Initial Assessment Social Hx Patient Tobacco Use Status: Former Tobacco user alcohol intake: never Alcohol intake frequency: does not drink Coding Level of Care Code Est Patient Level 1 Diagnoses Current use of anticoagulant therapy Z79.01 Results AMB INR Fingerstick AMB INR Fingerstick 2.4 Last Edit by Mary Trevino RN on 01/20/24 08:54 interface delAY Assessment & Plan Assessment & Plan (1) Current use of anticoagulant therapy: Onset Date: ~01/2015 Comment: (on Coumadin - for AFib dx 01/2015) Code(s): 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
[2024-01-20 08:54] LABS: Prothrombin Time Whole Bld POC 29.4 sec (11.1-13.5); ~PT, ~INR - Anti Coag Clinic 2.4 (0.9-1.1)
== END 2024-01-20 08:59 | disposition home or self-care (01) ==
LOC: HO.ACS 08:40
PROVIDERS: PCP Family Medicine; Visit Provider Internal Medicine
DX: Z79.01 Long term (current) use of anticoagulants (principal)

== ENCOUNTER → 2024-01-20 08:40 | Outpatient (BNVA) | payer OTHER, SELFPAY | PROVIDERS: PCP Family Medicine; Visit Provider Internal Medicine | DX: I48.0 Paroxysmal atrial fibrillation (principal); Z51.81 Encounter for therapeutic drug level monitoring; Z79.01 Long term (current) use of anticoagulants | CPT/HCPCS: 85610; 99211 ==

== ENCOUNTER 2024-01-26 08:11 | Outpatient (REF) | payer OTHER, SELFPAY | END 2024-01-26 08:12 | disposition home or self-care (01) | LOC: HO.US 08:11 | PROVIDERS: PCP Family Medicine; Visit Provider Surgery Vascular Surgery | DX: I83.11 Varicose veins of right lower extremity with inflammation (principal) | CPT/HCPCS: 93970 ==

== ENCOUNTER 2024-02-03 09:45 | Outpatient (AMB) | payer OTHER, SELFPAY ==
[2024-02-03 10:19] VITALS: BP 114/64; PULSE 71; BMI 30.1
--- NOTE | 2024-02-03 10:19 | A.OFFVIS_ITS ---
Vital Signs 02/03/24 10:19 Height 5 ft 6 in Weight 186 lb 8.177 oz BMI 30.1 BP 114/64 Blood Pressure Location Lt brachial Position Sitting Pulse 71 Intake Visit Reasons: 6M FOLLOW UP Produce Assistant Required: Yes Produce Assistant Services: Produce Assistant Present Produce Assistant Name: Kylah [id number] Accompanied by: Self / Same As Patient Allergies No Known Allergies [No Known Allergies*] Allergy (Verified 01/20/24 08:49) Medication List - Last Reconciled 02/03/24 by Rodolfo Martin MD amlodipine 5 mg PO DAILY cholecalciferol (vitamin D3) 50 mcg PO DAILY ferrous sulfate 325 mg PO DAILY fluticasone propionate 50 mcg/actuation intranasal gabapentin 300 mg PO TID lisinopril 2.5 mg PO ONCE meclizine 12.5 mg PO ONCE metformin ER 500 mg PO DAILY metoprolol tartrate 50 mg PO BID 90 days mupirocin 2% 1 appl topical BID 5 days nitroglycerin 0.4 mg sublingual Q5M rosuvastatin 20 mg PO DAILY tamsulosin 0.4 mg PO DAILY triamcinolone acetonide 0.1% 1 appl topical BID-TID warfarin 5 mg See Protocol PO DAILY HPI Comments Details: Ramesh returns for follow-up regarding his cardiac issues. He has coronary disease, paroxysmal atrial fibrillation, ascending aortic aneurysm. To recall, he was seen in the past for chest pains which led to noninvasive workup with stress test followed by cardiac catheterization. That showed single vessel disease in the right coronary artery, but he is being medically managed. Since last seen, he states he is generally doing okay. Occasionally nose bl eeds, but otherwise no clear-cut cardiac symptoms. [facility] Medical History Pulmonary nodules Tubular adenoma of colon (~2009) Hyperlipidemia Type 2 diabetes mellitus with polyneuropathy Paroxysmal atrial fibrillation (~01/2015) Essential hypertension Ascending aortic aneurysm Atherosclerotic cardiovascular disease Lumbar spondylolysis Inflammatory arthritis Surgical History History of cardiac cath (~2018) History of lung surgery (~03/2019) History of left inguinal hernia repair (~01/2019) History of colonoscopy (~02/2016) Hx of neck surgery Hx of appendectomy Family History Mother Diabetes Social History Household Members: Spouse Alcohol intake: never Patient Tobacco Use Status: Former Tobacco user Current occupational status: retired Hearing needs: Yes Review of Systems Const Denies chills, Denies fatigue, Denies fever(s), Denies weight gain and Denies weight loss ENT Denies dizziness Card Denies chest pain, Denies leg edema, Denies lightheadedness, Denies palpitations, Denies dyspnea on exertion, Denies orthopnea and Denies other Resp Denies cough and Denies dyspnea on exertion GI Denies hematochezia and Denies change in stool character Musc Denies abnormal gait, Denies muscle weakness, Denies numbness, Denies radiating pain into limb and Denies tingling Neuro Denies abnormal gait, Denies dizziness, Denies numbness and Denies tingling Endo Denies fatigue and Denies palpitations Physical Exam Vital Signs: Last Vital Signs Pulse 71 02/03/24 10:19 BP 114/64 02/03/24 10:19 BMI result Body Mass Index 30.1 Const General: comfortable and no acute distress Orientation/consciousness: patient oriented x3 HEENT Other: Unremarkable Head: Yes normal to inspection Neck Neck: Yes normal visual inspection Chest Chest palpation & inspection: normal inspection of the chest Resp Auscultation: clear to auscultation bilaterally Cardio Palpation: normal PMI Heart sounds: S1 normal heart sound present, S2 normal heart sound present, no gallops, no murmurs and no rubs GI Palpation (GI): Soft to palpation Back/Spine/Pelvis Other: unremarkable Skin General skin exam: no rashes or lesions noted Neuro General: patient oriented x3 Extrem General: Yes normal to inspection Psych Mental Status: mental status grossly normal Office Procedures EKG Details: EKG with possibly sinus rhythm with frequent PACs. Ventricular rate 71/Min. [id number], Complete Assessment & Plan Assessment & Plan (1) Atherosclerotic cardiovascular disease: Code(s): I25.10 - Atherosclerotic heart disease of [place] coronary artery without angina pectoris Category: Medical Plan: Cardiac [id number] RCA-90% stenosis; severe, long segment, heavily calcified; ectatic and tortuous vessel; mild disease elsewhere; for medical treatment. In the recent echocardiogram, LVEF 46%. Basal inferior/inferoseptal/anteroseptal hypokinesis. Clinically, no angina. Continue beta-blockers and statins. Last LDL cholesterol 57 mg/dL. (2) Paroxysmal A-fib: Code(s): I48.0 - Paroxysmal atrial fibrillation Category: Medical Plan: Stable. He is on anticoagulation with Coumadin. (3) Ascending aortic aneurysm: Code(s): I71.2 - Thoracic aortic aneurysm, without rupture Category: Medical Plan: In the last echocardiogram, ascending aorta measures 4.3cm. Recheck 1 year (4) Essential hypertension: Code(s): I10 - Essential (primary) hypertension Category: Medical Plan: Stable. No changes. Orders: Orders CA echo transthoracic complete 1 Year I71.2 - Thoracic aortic aneurysm, without rupture Coding Level of Care Code Est Pt Level 4 (70855) Diagnoses Atherosclerotic cardiovascular disease I25.10 Paroxysmal A-fib I48.0 Ascending aortic aneurysm I71.2 Essential hypertension I10 CPT Codes EKG - CPT: 87637-[id number], Complete ([id number])
== END 2024-02-03 10:56 | disposition home or self-care (01) ==
PROVIDERS: PCP Family Medicine; Visit Provider Internal Medicine
DX: I25.10 Atherosclerotic heart disease of native coronary artery without angina pectoris (principal); I48.0 Paroxysmal atrial fibrillation; I71.20 Thoracic aortic aneurysm, without rupture, unspecified; I10 Essential (primary) hypertension
CPT/HCPCS: 93010; 99214

== ENCOUNTER → 2024-02-03 09:45 | Outpatient (BNVA) | payer OTHER, SELFPAY | PROVIDERS: PCP Family Medicine; Visit Provider Internal Medicine | DX: I25.10 Atherosclerotic heart disease of native coronary artery without angina pectoris (principal); I48.0 Paroxysmal atrial fibrillation; I71.20 Thoracic aortic aneurysm, without rupture, unspecified; I10 Essential (primary) hypertension | CPT/HCPCS: 93005; 99212 ==

== ENCOUNTER 2024-02-17 09:27 | Outpatient (AMB) | payer OTHER, SELFPAY ==
--- OUTSIDE RECORDS SUMMARY | 2024-02-17 09:28 | XMS_ITS | Clinical Summary ---
Author Organization Unknown Care Team Providers Care Shipping Lead Name Role Phone MARIA R MCNULTY, DORIAN Unavailable Unavailable CAROLINE KRUEGER, JEREMY Unavailable Unavailable Payers Payer Name Policy Type Policy Number Effective Date Expira tion Date MEDICARE - NGS [place] - PDGM [id number] Problems Condition Name Condition Details Condition Category Status Onset Date Resolution Date Last Treatment Date Treating Clinician Comments PAROXYSMAL ATRIAL FIBRILLATION Active 03-03 00:00: 00 ATHSCL HEART DISEASE OF [place] CORONARY ARTERY W/O ANG PCTRS Active 03-03 00:00: 00 ESSENTIAL (PRIMARY) HYPERTENSION Active 03-03 00:00: 00 THORACIC AORTIC ANEURYSM, WITHOUT RUPTURE Active 03-03 00:00: 00 TYPE 2 DIABETES MELLITUS WITH DIABETIC POLYNEUROPAT HY Active 03-03 00:00: 00 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 Active 03-03 00:00: 00 CENTRILOBULA R EMPHYSEMA Active 03-03 00:00: 00 HYPERLIPIDEM IA, UNSPECIFIED Active 03-03 00:00: 00 BENIGN PROSTATIC HYPERPLASIA WITHOUT LOWER URINRY TRACT SYMP Active 03-03 00:00: 00 ANEMIA, UNSPECIFIED Active 03-03 00:00: 00 PRIMARY OSTEOARTHRIT IS, UNSPECIFIED SITE Active 03-03 00:00: 00 OTH DISRD OF BONE DENSITY AND STRUCTURE, UNSPECIFIED SITE Active 03-03 00:00: 00 SPONDYLOLYSI S, LUMBAR REGION Active 03-03 00:00: 00 PYOGENIC ARTHRITIS, UNSPECIFIED Active 03-03 00:00: 00 RADICULOPATH Y, CERVICAL REGION Active 03-03 00:00: 00 SOLITARY PULMONARY NODULE Active 03-03 00:00: 00 FOUNDRY HAND (CURRENT) USE OF ORAL HYPOGLYCEMIC DRUGS Active 03-03 00:00: 00 FOUNDRY HAND (CURRENT) USE OF ANTICOAGULAN TS Active 03-03 00:00: 00 PERSONAL HISTORY OF COLONIC POLYPS Active 03-03 00:00: 00 Allergies, Adverse Reactions, Alerts Allergy Name Allergy Type Status Severity Reaction(s) Onset Date Inactive Date Treating Clinician Comments NKA Propensity to adverse reactions Active 2021-04 14:35:0 3 Medications Ordered Medication Name Filled Medication Name Start Date Stop Date Current Medication? Ordering Clinician Indication Dosage Frequency Signature (SIG) Comments Components warfarin 5 mg tablet 03-08 00:00: 00 Yes [id number] Per instruc tions DAILY DIRECTED Per instructio ns DAILY DIRECTED (route: oral) Med Classific ation: Hematolog ical Agents lisinopril 2.5 mg tablet 2020-03- 00:00: 00 Yes [id number] 1 tablet DAILY 1 tablet DAILY (route: oral) Med Classific ation: Cardiovas cular Therapy Agents rosuvastati n 20 mg tablet 2020-03 00:00: 00 Yes [id number] 1 tablet DAILY 1 tablet DAILY (route: oral) Med Classific ation: Cardiovas cular Therapy Agents baclofen 10 mg tablet 04-20 00:00: 00 Yes [id number] muscle ache 1 tablet DAILY 1 tablet DAILY (route: oral) Med Classific ation: Locomotor System cholecalcif everardo (vitamin D3) 50 mcg (2,000 unit) capsule 04-20 00:00: 00 Yes [id number] 1 capsule DAILY 1 capsule DAILY (route: oral) Med Classific ation: Electroly te Balance-N utritiona l Products gabapentin 300 mg capsule 04-20 00:00: 00 Yes [id number] 1 capsule DAILY 1 capsule DAILY (route: oral) Med Classific ation: Central Nervous System Agents meclizine 12.5 mg tablet 04-20 00:00: 00 Yes [id number] for nausea and vomiting 1 tablet 3 TIMES DAILY 1 tablet 3 TIMES DAILY (route: oral) Med Classific ation: Gastroint estinal Therapy Agents metformin 500 mg tablet 04-20 00:00: 00 Yes [id number] 1 tablet DAILY 1 tablet DAILY (route: oral) Med Classific ation: Endocrine metoprolol tartrate 25 mg tablet 04-20 00:00: 00 Yes [id number] 1 tablet DAILY 1 tablet DAILY (route: oral) Med Classific ation: Cardiovas cular Therapy Agents nitroglycer in 0.4 mg sublingual tablet 04-20 00:00: 00 Yes [id number] 1 tablet DAILY 1 tablet DAILY (route: sublingual ) Med Classific ation: Cardiovas cular Therapy Agents tamsulosin 0.4 mg capsule 04-20 00:00: 00 Yes [id number] 1 capsule BEDTIME 1 capsule BEDTIME (route: oral) Med Classific ation: Genitouri nary Therapy Immunizations Ordered Immunization Name Filled Immunization Name Date Status Comments Refusal Reason INFLUENZA, TIV (INACTIVATED) 2020-11-01 00:00:00 PNEUMOCOCCAL (PPV), PPV 2015-01-02 00:00:00 Vital Signs Vital Name Observation Time Observation Value Commen ts Temperature 2021-05-09 18:54:29.000 97.9 [degF] Temperature 2021-05-02 12:52:58.000 98.2 [degF] Temperature 2021-04-30 15:59:09.000 98.4 [degF] Temperature 2021-04-27 18:22:13.000 98.6 [degF] Temperature 2021-04-25 14:05:03.000 98.3 [degF] Temperature 2021-04-20 14:37:31.000 98.1 [degF] Height 2021-04-20 14:38:04.000 65 [in_us] Pulse 2021-05-09 18:54:39.000 60 /min Pulse 2021-05-02 12:53:10.000 72 /min Pulse 2021-04-30 15:59:18.000 62 /min Pulse 2021-04-27 18:22:19.000 66 /min Pulse 2021-04-25 14:05:10.000 66 /min Pulse 2021-04-20 14:37:38.000 77 /min O2 Saturation (%) 2021-05-09 18:55:34.000 98 % O2 Saturation (%) 2021-05-02 12:53:53.000 100 % O2 Saturation (%) 2021-04-30 15:59:50.000 97 % O2 Saturation (%) 2021-04-27 18:22:37.000 98 % O2 Saturation (%) 2021-04-25 14:05:43.000 98 % O2 Saturation (%) 2021-04-20 14:38:23.000 97 % Respirations 2021-05-09 18:54:45.000 18 /min Respirations 2021-05-02 12:53:16.000 18 /min Respirations 2021-04-30 15:59:23.000 18 /min Respirations 2021-04-27 18:22:23.000 20 /min Respirations 2021-04-25 14:05:15.000 18 /min Respirations 2021-04-20 14:37:43.000 18 /min Weight (lbs) 2021-04-20 14:38:32.000 192 [lb_av] Systolic Blood Pressure 2021-05-09 18:55:17.000 124 mm [Hg] Systolic Blood Pressure 2021-05-02 12:53:28.000 152 mm [Hg] Systolic Blood Pressure 2021-04-30 15:59:33.000 128 mm [Hg] Systolic Blood Pressure 2021-04-27 18:22:30.000 128 mm [Hg] Systolic Blood Pressure 2021-04-25 14:05:25.000 124 mm [Hg] Systolic Blood Pressure 2021-04-20 14:37:53.000 138 mm [Hg] Diastolic Blood Pressure 2021-05-09 18:55:17.000 80 mm [Hg] Diastolic Blood Pressure 2021-05-02 12:53:28.000 86 mm [Hg] Diastolic Blood Pressure 2021-04-30 15:59:33.000 70 mm [Hg] Diastolic Blood Pressure 2021-04-27 18:22:30.000 74 mm [Hg] Diastolic Blood Pressure 2021-04-25 14:05:25.000 70 mm [Hg] Diastolic Blood Pressure 2021-04-20 14:37:53.000 78 mm [Hg] Plan of Treatment Planned Activity Planned Date Details Comments Future Scheduled Test SKILLED NU RSE TO PERFORM GENERAL ASSESSMENT AND EVALUATE PATIENT, IDENTIFY PRIMARY AND CO-MORBID CONDITIONS, AND DEVELOP PATIENT SPECIFIC PLAN OF CARE THAT INCLUDES PATIENT GOAL FOR HOME HEALTH. CLINICAL SUMMARY (SOC/MELODY/RECERT, 10 DAY, 60 DAY) THE PATIENT IS RECEIVING HOMECARE DUE TO NEW ONSET/EXACERBATION OF: AFIB AND DIABETES RECENT HOSPITALIZATION/INPATIENT ADMISSION RELATED TO: CHEST PAIN NEW OR CHANGED MEDICATIONS PERTINENT TO THE PLAN OF CARE: METOPROLOL TARTRATE 25MG DAILY, WARFARIN DOSE ADJUSTED PATIENT LIVING SITUATION/CAREGIVER STATUS: PATIENT LIVES WITH SIGNIFICANT OTHER IN APARTMENT WITH [address] LU[address] MIGUEL WHO IS ABLE TO ASSIST WITH ADLS AND MEDICATIONS RECENT FALLS: NA SKILLED TEACHING AND TRAINING, OBSERVATION AND ASSESSMENT, AND/OR TREATMENTS THAT REQUIRE SKILLED CARE: AFIB, HYPERTENSION, DIABETES, ANTICOAGULATION AND MEDICATION EDUCATION AND MANAGEMENT ADDITIONAL DISCIPLINES NEEDED OR DECLINED ORDERED SERVICES: PHYSICAL AND OCCUPATIONAL THERAPY REFUSED [code = SKILLED NURSE TO PERFORM GENERAL ASSESSMENT AND EVALUATE PATIENT, IDENTIFY PRIMARY AND CO-MORBID CONDITIONS, AND DEVELOP PATIENT SPECIFIC PLAN OF CARE THAT INCLUDES PATIENT GOAL FOR HOME HEALTH. CLINICAL SUMMARY (SOC/MELODY/RECERT, 10 DAY, 60 DAY) THE PATIENT IS RECEIVING HOMECARE DUE TO NEW ONSET/EXACERBATION OF: AFIB AND DIABETES RECENT HOSPITALIZATION/INPATIENT ADMISSION RELATED TO: CHEST PAIN NEW OR CHANGED MEDICATIONS PERTINENT TO THE PLAN OF CARE: METOPROLOL TARTRATE 25MG DAILY, WARFARIN DOSE ADJUSTED PATIENT LIVING SITUATION/CAREGIVER STATUS: PATIENT LIVES WITH SIGNIFICANT OTHER IN APARTMENT WITH [address] LU[address] MIGUEL WHO IS ABLE TO ASSIST WITH ADLS AND MEDICATIONS RECENT FALLS: NA SKILLED TEACHING AND TRAINING, OBSERVATION AND ASSESSMENT, AND/OR TREATMENTS THAT REQUIRE SKILLED CARE: AFIB, HYPERTENSION, DIABETES, ANTICOAGULATION AND MEDICATION EDUCATION AND MANAGEMENT ADDITIONAL DISCIPLINES NEEDED OR DECLINED ORDERED SERVICES: PHYSICAL AND OCCUPATIONAL THERAPY REFUSED ] Future Scheduled Test SKILLED NU RSE FOR O/A OF LOWER EXTREMITIES TO IDENTIFY CHANGES OR LESIONS ASSOCIATED WITH DIABETES MELLITUS FOR EARLY INTERVENTIONS OF COMPLICATIONS. SKILLED NURSE TO PROVIDE INSTRUCTION ON PROPER DIABETIC SKIN/FOOT CARE. [code = SKILLED NURSE FOR O/A OF LOWER EXTREMITIES TO IDENTIFY CHANGES OR LESIONS ASSOCIATED WITH DIABETES MELLITUS FOR EARLY INTERVENTIONS OF COMPLICATIONS. SKILLED NURSE TO PROVIDE INSTRUCTION ON PROPER DIABETIC SKIN/FOOT CARE.] Future Scheduled Test SKILLED NU RSE TO REVIEW PATIENT MEDICATIONS. INSTRUCT PATIENT/CAREGIVER ON MONITORING OF EFFECTIVENESS, ADVERSE DRUG REACTIONS, SIDE EFFECTS OF ALL MEDICATIONS (PRESCRIPTION/-OTC), AND HOW AND WHEN TO REPORT PROBLEMS. [code = SKILLED NURSE TO REVIEW PATIENT MEDICATIONS. INSTRUCT PATIENT/CAREGIVER ON MONITORING OF EFFECTIVENESS, ADVERSE DRUG REACTIONS, SIDE EFFECTS OF ALL MEDICATIONS (PRESCRIPTION/-OTC), AND HOW AND WHEN TO REPORT PROBLEMS.] Future Scheduled Test SKILLED NU RSE TO PERFORM HOME SAFETY AND FALL ASSESSMENT AND PROVIDE INSTRUCTION TO IMPLEMENT HOME SAFETY AND FALL PREVENTION STRATEGIES. [code = SKILLED NURSE TO PERFORM HOME SAFETY AND FALL ASSESSMENT AND PROVIDE INSTRUCTION TO IMPLEMENT HOME SAFETY AND FALL PREVENTION STRATEGIES.] Future Scheduled Test SKILLED NU RSE TO OBTAIN PULSE OXIMETRY MEASUREMENT PRN FOR SIGNS AND SYMPTOMS OF SHORTNESS OF BREATH, ACTIVITY INTOLERANCE AND WHEN OXYGEN IS ORDERED. [code = SKILLED NURSE TO OBTAIN PULSE OXIMETRY MEASUREMENT PRN FOR SIGNS AND SYMPTOMS OF SHORTNESS OF BREATH, ACTIVITY INTOLERANCE AND WHEN OXYGEN IS ORDERED.] Future Scheduled Test PATIENT AMAYA S A RISK OF REHOSPITALIZATION. SKILLED NURSE TO ESTABLISH SUPPORT MEASURES TO MINIMIZE RISK OF REHOSPITALIZATION, AND INSTRUCT PATIENT/CAREGIVER ON METHODS TO REDUCE AVOIDABLE HOSPITALIZATION. [code = PATIENT HAS A RISK OF REHOSPITALIZATION. SKILLED NURSE TO ESTABLISH SUPPORT MEASURES TO MINIMIZE RISK OF REHOSPITALIZATION, AND INSTRUCT PATIENT/CAREGIVER ON METHODS TO REDUCE AVOIDABLE HOSPITALIZATION.] Future Scheduled Test SKILLED NU RSE TO PROVIDE INSTRUCTION TO PATIENT/CAREGIVER RELATED TO DISCHARGE PLANNING. [code = SKILLED NURSE TO PROVIDE INSTRUCTION TO PATIENT/CAREGIVER RELATED TO DISCHARGE PLANNING.] Future Scheduled Test SKILLED NU RSE FOR OBSERVATION AND ASSESSMENT OF PATIENTS PAIN LEVEL AND EFFECTIVENESS OF PAIN MANAGEMENT REGIMEN. SKILLED NURSE TO INSTRUCT PATIENT/CAREGIVER REGARDING PHARMACOLOGIC AND NON-PHARMACOLOGIC PAIN CONTROL MEASURES. SKILLED NURSE TO REPORT TO PHYSICIAN IF PAIN IS UNCONTROLLED WITH CURRENT PAIN MANAGEMENT REGIMEN. [code = SKILLED NURSE FOR OBSERVATION AND ASSESSMENT OF PATIENTS PAIN LEVEL AND EFFECTIVENESS OF PAIN MANAGEMENT REGIMEN. SKILLED NURSE TO INSTRUCT PATIENT/CAREGIVER REGARDING PHARMACOLOGIC AND NON-PHARMACOLOGIC PAIN CONTROL MEASURES. SKILLED NURSE TO REPORT TO PHYSICIAN IF PAIN IS UNCONTROLLED WITH CURRENT PAIN MANAGEMENT REGIMEN.] Future Scheduled Test SKILLED NU RSE FOR O/A, TEACHING AND MANAGEMENT OF BPH FOR EARLY IDENTIFICATION OF EXACERBATION OF DISEASE PROCESS [code = SKILLED NURSE FOR O/A, TEACHING AND MANAGEMENT OF BPH FOR EARLY IDENTIFICATION OF EXACERBATION OF DISEASE PROCESS] Future Scheduled Test SKILLED NU RSE FOR O/A OF RESPIRATORY SYSTEM TO IDENTIFY CHANGES ASSOCIATED WITH EXACERBATION AND TO PROVIDE SKILLED TEACHING ON MANAGEMENT OF PULMONARY NODULES AND CENRILOBULAR EMPHYSEMA PROCESS. [code = SKILLED NURSE FOR O/A OF RESPIRATORY SYSTEM TO IDENTIFY CHANGES ASSOCIATED WITH EXACERBATION AND TO PROVIDE SKILLED TEACHING ON MANAGEMENT OF PULMONARY NODULES AND CENRILOBULAR EMPHYSEMA PROCESS.] Future Scheduled Test SKILLED NU RSE FOR O/A AND SKILLED TEACHING IN MANAGEMENT OF AAA AND CAD. [code = SKILLED NURSE FOR O/A AND SKILLED TEACHING IN MANAGEMENT OF AAA AND CAD.] Future Scheduled Test SKILLED NU RSE FOR MONITORING, O/A AND TEACHING RELATED TO MANAGEMENT OF ANTICOAGULATION THERAPY INCLUDING DIET, MEDICATION SIDE EFFECTS, SAFETY MEASURES TO PREVENT INJURY, AND S/S TO REPORT. PT/INR TO BE OBTAINED ORDERED BY PHYSICIAN AND RESULTS REPORTED TO PHYSICIAN. [code = SKILLED NURSE FOR MONITORING, O/A AND TEACHING RELATED TO MANAGEMENT OF ANTICOAGULATION THERAPY INCLUDING DIET, MEDICATION SIDE EFFECTS, SAFETY MEASURES TO PREVENT INJURY, AND S/S TO REPORT. PT/INR TO BE OBTAINED ORDERED BY PHYSICIAN AND RESULTS REPORTED TO PHYSICIAN.] Future Scheduled Test SKILLED NU RSE TO ASSESS PATIENT'S SKIN INTEGRITY AND INSTRUCT PATIENT/CAREGIVER ON MEASURES TO PREVENT PRESSURE ULCERS [code = SKILLED NURSE TO ASSESS PATIENT'S SKIN INTEGRITY AND INSTRUCT PATIENT/CAREGIVER ON MEASURES TO PREVENT PRESSURE ULCERS] Future Scheduled Test INSTRUCTED PATIENT/CAREGIVER ON SIGNS AND SYMPTOMS, RISK FACTORS, COMPLICATIONS, AND MANAGEMENT OF ATRIAL FIBRILLATION. [code = INSTRUCTED PATIENT/CAREGIVER ON SIGNS AND SYMPTOMS, RISK FACTORS, COMPLICATIONS, AND MANAGEMENT OF ATRIAL FIBRILLATION.] Future Scheduled Test SKILLED NU RSE TO PROVIDE TEACHING ON SIGNS AND SYMPTOMS AND MANAGEMENT OF HYPERTENSION. [code = SKILLED NURSE TO PROVIDE TEACHING ON SIGNS AND SYMPTOMS AND MANAGEMENT OF HYPERTENSION.] Future Scheduled Test SKILLED NU RSE FOR O/A AND TEACHING OF DIABETIC MANAGEMENT INCLUDING PARTICIPATION IN [facility] DIABETIC SPECIALTY PROGRAM, SPECIFY BLOOD SUGAR MONITORING/USE OF GLUCOMETER, DIABETIC DIET, LOWER EXTREMITY SKIN INSPECTION, PROPER SKIN/FOOT CARE, AND SIGNS AND SYMPTOMS HYPO/HYPERGLYCEMIA TO REPORT AND METHODS TO MANAGE [code = SKILLED NURSE FOR O/A AND TEACHING OF DIABETIC MANAGEMENT INCLUDING PARTICIPATION IN [facility] DIABETIC SPECIALTY PROGRAM, SPECIFY BLOOD SUGAR MONITORING/USE OF GLUCOMETER, DIABETIC DIET, LOWER EXTREMITY SKIN INSPECTION, PROPER SKIN/FOOT CARE, AND SIGNS AND SYMPTOMS HYPO/HYPERGLYCEMIA TO REPORT AND METHODS TO MANAGE] Future Scheduled Test SKILLED NU RSE FOR O/A AND SKILLED TEACHING RELATED TO SIGNS AND SYMPTOMS AND MANAGEMENT OF INFLAMATORY ARTHRITIS AND LUMBAR SPONDYLOSIS, RADICULOPATHY, AND OSTEOPENIA. [code = SKILLED NURSE FOR O/A AND SKILLED TEACHING RELATED TO SIGNS AND SYMPTOMS AND MANAGEMENT OF INFLAMATORY ARTHRITIS AND LUMBAR SPONDYLOSIS, RADICULOPATHY, AND OSTEOPENIA. ] Goal 2021-05-09 Patient Goal - TO BE ABLE TO DRIVE AGAIN Goal Provider Goal - A PLAN OF CARE WILL BE ESTABLISHED THAT MEETS PATIENT'S JAIL NEEDS AND INCLUDES PATIENT GOAL FOR HOME HEALTH. Goal Provider Goal - CHANGES IN LOWER EXTREMITIES WILL BE IDENTIFIED AND REPORTED TO MD FOR PROMPT INTERVENTION TO PREVENT ASSOCIATED RISKS THROUGHOUT THE CERTIFICATION PERIOD. PATIENT/CAREGIVER WILL VERBALIZE UNDERSTANDING OF PROPER DIABETIC SKIN/FOOT CARE BY THE END OF THE CERTIFICATION PERIOD. Goal Provider Goal - PATIENT/CAREGIVER WILL VERBALIZE UNDERSTANDING OF EDUCATION PROVIDED ON MEDICATIONS BY THE END OF THE CERTIFICATION PERIOD. Goal Provider Goal - PATIENT/CAREGIVER WILL VERBALIZE/DEMONSTRATE EFFECTIVE HOME SAFETY AND FALL PREVENTION STRATEGIES THROUGHOUT CERTIFICATION PERIOD. Goal Provider Goal - PULSE OXIMETER RESULTS OBTAINED NEEDED FOR RESPIRATORY COMPLICATIONS. Goal Provider Goal - PATIENT WILL HAVE SUPPORT MEASURES ESTABLISHED TO PREVENT REHOSPITALIZATION AND PATIENT/CAREGIVER WILL VERBALIZE/DEMONSTRATE METHODS TO REDUCE AVOIDABLE HOSPITALIZATION BY JUNE 18 2021 Goal Provider Goal - PATIENT/CAREGIVER WILL VERBALIZE UNDERSTANDING OF DISCHARGE PLANNING INSTRUCTIONS BY DATE OF DISCHARGE. Goal Provider Goal - PATIENT/CAREGIVER WILL DEMONSTRATE UNDERSTANDING OF PHARMACOLOGIC AND NONPHARMACOLOGIC PAIN CONTROL MEASURES AND PATIENT WILL HAVE IMPROVEMENT IN PAIN INTERFERING WITH ACTIVITY EVIDENCED BY PAIN CONTROLLED AT LEVEL OF 7 OR LESS BY END OF CERTIFICATION PERIOD. Goal Provider Goal - PATIENT/CAREGIVER WILL VERBALIZE UNDERSTANDING OF GENITOURINARY DISEASE PROCESS, AND EXACERBATIONS OF GENITOURINARY DISEASE WILL BE PROMPTLY IDENTIFIED FOR EARLY INTERVENTION THROUGHOUT THE CERTIFICATION PERIOD. Goal Provider Goal - PATIENT/CAREGIVER WILL VERBALIZE/DEMONSTRATE MANAGEMENT OF RESPIRATORY DISEASE PROCESS. CHANGES IN RESPIRATORY STATUS WILL BE IDENTIFIED AND REPORTED TO PHYSICIAN FOR PROMPT INTERVENTION THROUGHOUT THE CERTIFICATION PERIOD. Goal Provider Goal - PATIENT/CARGIVER WILL VERBALIZE/DEMONSTRATE THE ABILITY TO MANAGE CIRCULATORY DISEASE PROCESS AND EXACERBATIONS WILL BE IDENTIFIED FOR EARLY INTERVENTION THROUGHOUT THE CERTIFICATION PERIOD. Goal Provider Goal - PATIENT/CAREGIVER WILL VERBALIZE/DEMONSTRATE UNDERSTANDING OF MANAGEMENT OF ANTICOAGULATION THERAPY BY 2021. PT/INR OBTAINED AND REPORTED TO PHYSICIAN. Goal Provider Goal - PATIENT/CAREGIVER WILL VERBALIZE UNDERSTANDING OF PRESSURE ULCER PREVENTION BY JUNE 18 2021 Goal Provider Goal - PATIENT/CAREGIVER WILL VERBALIZE UNDERSTANDING OF SIGNS AND SYMPTOMS, COMPLICATIONS, AND MANAGEMENT OF ATRIAL FIBRILLATION BY END OF EPISODE. Goal Provider Goal - PATIENT/CAREGIVER WILL VERBALIZE SIGNS AND SYMPTOMS OF HYPERTENSION AND WILL BE ABLE TO DEMONSTRATE ABILITY TO MANAGE EXACERBATION BY JUNE 18 2021 Goal Provider Goal - PATIENT/CAREGIVER WILL VERBALIZE/DEMONSTRATE UTILIZATION OF TOOLS ASSOCIATED WITH THE [facility] DIABETIC SPECIALTY PROGRAM, AND/OR KNOWLEDGE OF DIABETIC MANAGEMENT. CHANGES IN DIABETIC STATUS WILL BE IDENTIFIED AND REPORTED TO PHYSICIAN FOR PROMPT INTERVENTION THROUGHOUT THE CERTIFICATION PERIOD. Goal Provider Goal - PATIENT/CAREGIVER WILL VERBALIZE UNDERSTANDING OF MUSCULOSKELETAL DISEASE INCLUDING SIGNS AND SYMPTOMS, MANAGEMENT, AND PRESCRIBED TREATMENT REGIMEN BY END OF EPISODE. Reason for Visit INDEPENDENT IN THE COMMUNITY Encounters Start Date/Time End Date/Time Encounter Type Admission Type Attending [facility] Care Department Encounter ID Discharge Date Discharge Status Discharge Condition Discharge Reason Percent Goals Met 2021-04-20 00:00:00 2021-05-09 00:00:00 Outpatient NEW ADMISSION JEREMY VELAZQUEZ [facility] [id number] 00:00:00 DISCHARGE TO HOME OR SELF CARE INDEPENDEN T IN THE COMMUNITY NO LONGER HOMEBOUND ( ONLY) 92.86
[2024-02-17 09:31] LABS: Prothrombin Time Whole Bld POC 30.5 sec (11.1-13.5); ~PT, ~INR - Anti Coag Clinic 2.5 (0.9-1.1)
--- NOTE | 2024-02-17 09:37 | MHC.OFFVISCO ---
Intake Intake Visit Reasons: Anticoagulation Allergies No Known Allergies [No Known Allergies*] Allergy (Verified 02/17/24 09:36) Medication List - Last Reconciled 02/17/24 by Madhuri Allen RN amlodipine 5 mg PO DAILY cholecalciferol (vitamin D3) 50 mcg PO DAILY ferrous sulfate 325 mg PO DAILY fluticasone propionate 50 mcg/actuation intranasal gabapentin 300 mg PO TID lisinopril 2.5 mg PO ONCE meclizine 12.5 mg PO ONCE metformin ER 500 mg PO DAILY metoprolol tartrate 50 mg PO BID 90 days mupirocin 2% 1 appl topical BID 5 days nitroglycerin 0.4 mg sublingual Q5M rosuvastatin 20 mg PO DAILY tamsulosin 0.4 mg PO DAILY triamcinolone acetonide 0.1% 1 appl topical BID-TID warfarin 5 mg See Protocol PO DAILY Nursing Note INR: 2.5 in therapeutic range Medications and supplements reviewed No changes in health, diet, medications, or supplements, Denies any signs and symptoms of bleeding or bruising or clotting. Bleeding, bruising, clotting discussed Nutritional guidance given Dose: keep same dose 5mg x 3 days/ 7.5mg x 4 days F/U INR: 1 month Patient verbalizes understanding of instructions given Anti-Coag Initial Assessment Social Hx Patient Tobacco Use Status: Former Tobacco user alcohol intake: never Alcohol intake frequency: does not drink Coding Level of Care Code Est Patient Level 1 Diagnoses Current use of anticoagulant therapy Z79.01 Assessment & Plan Assessment & Plan (1) Current use of anticoagulant therapy: Onset Date: ~01/2015 Comment: (on Coumadin - for AFib dx 01/2015) Code(s): Z79.01 - group home (current) use of anticoagulants Category: Medical
== END 2024-02-17 09:38 | disposition home or self-care (01) ==
LOC: HO.ACS 09:27
PROVIDERS: PCP Family Medicine; Visit Provider Internal Medicine
DX: Z79.01 Long term (current) use of anticoagulants (principal)

== ENCOUNTER → 2024-02-17 09:27 | Outpatient (BNVA) | payer OTHER, SELFPAY | PROVIDERS: PCP Family Medicine; Visit Provider Internal Medicine | DX: I48.0 Paroxysmal atrial fibrillation (principal); Z79.01 Long term (current) use of anticoagulants; Z51.81 Encounter for therapeutic drug level monitoring | CPT/HCPCS: 85610; 99211 ==

== ENCOUNTER 2024-03-16 08:45 | Outpatient (AMB) | payer OTHER, SELFPAY ==
--- OUTSIDE RECORDS SUMMARY | 2024-03-16 09:06 | XMS_ITS | Clinical Summary ---
Author Organization Unknown Care Team Providers Care Vice Principal Name Role Phone MARIA R MCNULTY, DORIAN Unavailable Unavailable CAROLINE KRUEGER, JEREMY Unavailable Unavailable Payers Payer Name Policy Type Policy Number Effective Date Expira tion Date MEDICARE - [place] PDGM [id number] Problems Condition Name Condition Details Condition Category Status Onset Date Resolution Date Last Treatment Date Treating Clinician Comments PAROXYSMAL ATRIAL FIBRILLATION Active 03-03 00:00: 00 ATHSCL HEART DISEASE OF [place] CORONARY ARTERY W/O ANG PCTRS Active 03-03 [...] SOLITARY PULMONARY NODULE Active 03-03 00:00: 00 CUSTODIAL (CURRENT) USE OF ORAL HYPOGLYCEMIC DRUGS Active 03-03 00:00: 00 RESEARCH SPEC (CURRENT) USE OF ANTICOAGULAN TS Active 03-03 [...] 5 mg tablet 03-08 00:00: 00 Yes [id number] Per instruc tions DAILY DIRECTED Per instructio ns DAILY DIRECTED (route: oral) Med Classific ation: Hematolog ical Agents lisinopril 2.5 mg tablet 2020-03- 00:00: 00 Yes [id number] 1 tablet DAILY 1 tablet DAILY (route: oral) Med Classific ation: Cardiovas cular Therapy Agents rosuvastati n 20 mg tablet 2020-03 00:00: 00 Yes [id number] 1 tablet DAILY 1 tablet DAILY (route: oral) Med Classific ation: Cardiovas cular Therapy Agents baclofen 10 mg tablet 04-20 00:00: 00 Yes [id number] muscle ache 1 tablet DAILY 1 tablet DAILY (route: oral) Med Classific ation: Locomotor System cholecalcif everardo (vitamin D3) 50 mcg (2,000 unit) capsule 04-20 00:00: 00 Yes [id number] 1 capsule DAILY 1 capsule DAILY (route: oral) Med Classific ation: Electroly te Balance-N utritiona l Products gabapentin 300 mg capsule 04-20 00:00: 00 Yes [id number] 1 capsule DAILY 1 capsule DAILY (route: oral) Med Classific ation: Central Nervous System Agents meclizine 12.5 mg tablet 04-20 00:00: 00 Yes [id number] for nausea and vomiting 1 tablet 3 TIMES DAILY 1 tablet 3 TIMES DAILY (route: oral) Med Classific ation: Gastroint estinal Therapy Agents metformin 500 mg tablet 04-20 00:00: 00 Yes [id number] 1 tablet DAILY 1 tablet DAILY (route: oral) Med Classific ation: Endocrine metoprolol tartrate 25 mg tablet 04-20 00:00: 00 Yes [id number] 1 tablet DAILY 1 tablet DAILY (route: oral) Med Classific ation: Cardiovas cular Therapy Agents nitroglycer in 0.4 mg sublingual tablet 04-20 00:00: 00 Yes [id number] 1 tablet DAILY 1 tablet DAILY (route: sublingual ) Med Classific ation: Cardiovas cular Therapy Agents tamsulosin 0.4 mg capsule 04-20 00:00: 00 Yes [id number] 1 capsule BEDTIME 1 capsule BEDTIME (route: [...] TEACHING OF DIABETIC MANAGEMENT INCLUDING PARTICIPATION IN [facility] DIABETIC SPECIALTY PROGRAM, SPECIFY BLOOD SUGAR MONITORING/USE OF GLUCOMETER, DIABETIC DIET, LOWER EXTREMITY SKIN INSPECTION, PROPER SKIN/FOOT CARE, AND SIGNS AND SYMPTOMS HYPO/HYPERGLYCEMIA TO REPORT AND METHODS TO MANAGE [code = SKILLED NURSE FOR O/A AND TEACHING OF DIABETIC MANAGEMENT INCLUDING PARTICIPATION IN [facility] DIABETIC SPECIALTY PROGRAM, SPECIFY BLOOD SUGAR [...] CARE WILL BE ESTABLISHED THAT MEETS PATIENT'S [facility] NEEDS AND INCLUDES PATIENT GOAL FOR HOME [...] VERBALIZE/DEMONSTRATE UTILIZATION OF TOOLS ASSOCIATED WITH THE [facility] DIABETIC SPECIALTY PROGRAM, AND/OR KNOWLEDGE OF [...] End Date/Time Encounter Type Admission Type Attending [facility] Care Department Encounter ID Discharge Date Discharge Status Discharge Condition Discharge Reason Percent Goals Met 2021-04-20 00:00:00 2021-05-09 00:00:00 Outpatient NEW ADMISSION JEREMY VELAZQUEZ [facility] [id number] [id number] 00:00:00 DISCHARGE TO HOME OR SELF CARE INDEPENDEN T IN THE COMMUNITY NO LONGER HOMEBOUND ( ONLY) 92.86
--- OUTSIDE RECORDS SUMMARY | 2024-03-16 09:06 | XMS_ITS | Clinical Summary ---
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 03-03 [...] SOLITARY PULMONARY NODULE Active 03-03 00:00: 00 [facility] (CURRENT) USE OF ORAL HYPOGLYCEMIC DRUGS Active 03-03 00:00: 00 SALES SUPPORT MANAGER (CURRENT) USE OF ANTICOAGULAN TS Active 03-03 [...] 5 mg tablet 03-08 00:00: 00 Yes [id number] Per instruc tions DAILY DIRECTED Per instructio ns DAILY DIRECTED (route: oral) Med Classific ation: Hematolog ical Agents lisinopril 2.5 mg tablet 2020-03- 00:00: 00 Yes [id number] 1 tablet DAILY 1 tablet DAILY (route: oral) Med Classific ation: Cardiovas cular Therapy Agents rosuvastati n 20 mg tablet 2020-03 00:00: 00 Yes [id number] 1 tablet DAILY 1 tablet DAILY (route: oral) Med Classific ation: Cardiovas cular Therapy Agents baclofen 10 mg tablet 04-20 00:00: 00 Yes [id number] muscle ache 1 tablet DAILY 1 tablet DAILY (route: oral) Med Classific ation: Locomotor System cholecalcif everardo (vitamin D3) 50 mcg (2,000 unit) capsule 04-20 00:00: 00 Yes [id number] 1 capsule DAILY 1 capsule DAILY (route: oral) Med Classific ation: Electroly te Balance-N utritiona l Products gabapentin 300 mg capsule 04-20 00:00: 00 Yes [id number] 1 capsule DAILY 1 capsule DAILY (route: oral) Med Classific ation: Central Nervous System Agents meclizine 12.5 mg tablet 04-20 00:00: 00 Yes [id number] for nausea and vomiting 1 tablet 3 TIMES DAILY 1 tablet 3 TIMES DAILY (route: oral) Med Classific ation: Gastroint estinal Therapy Agents metformin 500 mg tablet 04-20 00:00: 00 Yes [id number] 1 tablet DAILY 1 tablet DAILY (route: oral) Med Classific ation: Endocrine metoprolol tartrate 25 mg tablet 04-20 00:00: 00 Yes [id number] 1 tablet DAILY 1 tablet DAILY (route: oral) Med Classific ation: Cardiovas cular Therapy Agents nitroglycer in 0.4 mg sublingual tablet 04-20 00:00: 00 Yes [id number] 1 tablet DAILY 1 tablet DAILY (route: sublingual ) Med Classific ation: Cardiovas cular Therapy Agents tamsulosin 0.4 mg capsule 04-20 00:00: 00 Yes [id number] 1 capsule BEDTIME 1 capsule BEDTIME (route: [...] TEACHING OF DIABETIC MANAGEMENT INCLUDING PARTICIPATION IN [facility], SPECIFY BLOOD SUGAR MONITORING/USE OF GLUCOMETER, DIABETIC DIET, LOWER EXTREMITY SKIN INSPECTION, PROPER SKIN/FOOT CARE, AND SIGNS AND SYMPTOMS HYPO/HYPERGLYCEMIA TO REPORT AND METHODS TO MANAGE [code = SKILLED NURSE FOR O/A AND TEACHING OF DIABETIC MANAGEMENT INCLUDING PARTICIPATION IN [facility] DI[facility]ET[facility], SPECIFY BLOOD SUGAR [...] CARE WILL BE ESTABLISHED THAT MEETS PATIENT'S DETENTION NEEDS AND INCLUDES PATIENT GOAL FOR HOME [...] VERBALIZE/DEMONSTRATE UTILIZATION OF TOOLS ASSOCIATED WITH THE [facility] DIABET[facility], AND/OR KNOWLEDGE OF [...] End Date/Time Encounter Type Admission Type Attending [facility] Care Department Encounter ID Discharge Date Discharge Status Discharge Condition Discharge Reason Percent Goals Met 2021-04-20 00:00:00 2021-05-09 00:00:00 Outpatient NEW ADMISSION JEREMY VELAZQUEZ [facility] [id number] 00:00:00 DISCHARGE TO HOME OR SELF CARE INDEPENDEN T IN THE COMMUNITY NO LONGER HOMEBOUND ( ONLY) 92.86
[2024-03-16 09:11] LABS: Prothrombin Time Whole Bld POC 30.2 sec (11.1-13.5); ~PT, ~INR - Anti Coag Clinic 2.5 (0.9-1.1)
--- NOTE | 2024-03-16 09:12 | MHC.OFFVISCO ---
Intake Intake Visit Reasons: Anticoagulation Allergies No Known Allergies [No Known Allergies*] Allergy (Verified 03/16/24 09:05) Medication List - Last Reconciled 03/16/24 by Aniyah Kern, PATI amlodipine 5 mg PO DAILY cholecalciferol (vitamin D3) 50 mcg PO DAILY ferrous sulfate 325 mg PO DAILY fluticasone propionate 50 mcg/actuation intranasal gabapentin 300 mg PO TID lisinopril 2.5 mg PO ONCE meclizine 12.5 mg PO ONCE metformin ER 500 mg PO DAILY metoprolol tartrate 50 mg PO BID 90 days mupirocin 2% 1 appl topical BID 5 days nitroglycerin 0.4 mg sublingual Q5M rosuvastatin 20 mg PO DAILY tamsulosin 0.4 mg PO DAILY triamcinolone acetonide 0.1% 1 appl topical BID-TID warfarin 5 mg See Protocol PO DAILY Nursing Note INR: 2.5 in therapeutic range of 2-3 Medications and supplements reviewed No changes in health, diet, medications, or supplements, Denies any signs and symptoms of bleeding or bruising or clotting. Bleeding, bruising, clotting discussed Nutritional guidance given Dose: 7.5mg X 4 days and 5mg X 3 days F/U INR: 4 weeks Patient verbalizes understanding of instructions given Anti-Coag Initial Assessment Social Hx Patient Tobacco Use Status: Former Tobacco user alcohol intake: never Alcohol intake frequency: does not drink Coding Level of Care Code Est Patient Level 1 Diagnoses Current use of anticoagulant therapy Z79.01 Assessment & Plan Assessment & Plan (1) Current use of anticoagulant therapy: Onset Date: ~01/2015 Comment: (on Coumadin - for AFib dx 01/2015) Code(s): Z79.01 - meterman (current) use of anticoagulants Category: Medical
== END 2024-03-16 09:16 | disposition home or self-care (01) ==
LOC: HO.ACS 08:45
PROVIDERS: PCP Family Medicine; Visit Provider Internal Medicine
DX: Z79.01 Long term (current) use of anticoagulants (principal)

== ENCOUNTER → 2024-03-16 08:45 | Outpatient (BNVA) | payer OTHER, SELFPAY | PROVIDERS: PCP Family Medicine; Visit Provider Internal Medicine | DX: I48.0 Paroxysmal atrial fibrillation (principal); Z79.01 Long term (current) use of anticoagulants; Z51.81 Encounter for therapeutic drug level monitoring | CPT/HCPCS: 85610; 99211 ==

== ENCOUNTER 2024-03-23 10:37 | Outpatient (AMB) | payer OTHER, SELFPAY ==
--- NOTE | 2024-03-23 10:52 | A.OFFVIS_ITS ---
Intake Visit Reasons: follow up s/p US 01/26/24 Intake Note: Patient presents for US follow up. No complaints. Accompanied by: Self / Same As Patient Allergies No Known Allergies [No Known Allergies*] Allergy (Verified 03/23/24 10:53) [facility] follow up s/p US 01/26/24: Details: 83-year-old gentleman presents for follow-up regarding venous insufficiency. He continues to have swelling and itching of the lower extremities he complains about the right more so than left. He has had no interval changes since his last visit. Now presents for follow-up with venous insufficiency testing. REPLACED BY [facility] Medical History Pulmonary nodules Tubular adenoma of colon (~2009) Hyperlipidemia Type 2 diabetes mellitus with polyneuropathy Paroxysmal atrial fibrillation (~01/2015) Essential hypertension Ascending aortic aneurysm Atherosclerotic cardiovascular disease Lumbar spondylolysis Inflammatory arthritis Surgical History History of cardiac cath (~2018) History of lung surgery (~03/2019) History of left inguinal hernia repair (~01/2019) History of colonoscopy (~02/2016) Hx of neck surgery Hx of appendectomy Family History Mother Diabetes Social History Household Members: Spouse Alcohol intake: never Patient Tobacco Use Status: Former Tobacco user Current occupational status: retired Hearing needs: Yes Review of Systems Const Reports as per HPI ENT Reports no additional complaints Card Denies chest pain, Denies chest pain at rest and Denies chest pain with activity Resp Denies chest congestion and Denies cough GI Reports no additional complaints Musc Details: pain over varicosities, aching of lower extremities, swelling, cramping, heaviness and tiredness, itching Denies abnormal gait Skin/Breast Reports pruritus and Denies wounds Neuro Reports no additional complaints and Denies abnormal gait Psych Denies no additional complaints Physical Exam Const General: cooperative, healthy appearing and comfortable Orientation/consciousness: oriented to person, oriented to place and oriented to time Neck Carotids: no bruits Chest Chest palpation & inspection: normal inspection of the chest and normal palpation of entire chest wall Resp Effort & Inspection: normal respiratory effort and able to speak in complete sentences Cardio Rate: regular rate Heart sounds: S1 normal heart sound present and S2 normal heart sound present Peripheral pulses: Peripheral pulses 2+ throughout GI Inspection: Yes normal to inspection Skin Other: +2 edema, large rope-like varicosities greater than 4 mm CEAP Classification C4 - skin color changes Ep - Etiology Primary As - superficial veins P - reflux General skin exam: dry skin Neuro General: oriented to person, oriented to place and oriented to time Extrem Right lower extremity: full ROM, normal capillary refill and edema Left lower extremity: full ROM, normal capillary refill and edema Psych Mental Status: mental status grossly normal Results Reviewed Results Reviewed: Brief summary of venous insufficiency testing is as follows: right great saphenous vein: Positive right small saphenous vein: negative right accessory vein: none present left great saphenous vein: Positive left small saphenous vein: negative left accessory vein: none present Please note there is no evidence of any venous aneurysms or significant tortuos ity Assessment & Plan Assessment & Plan (1) Varicose veins of right lower extremity with inflammation: Code(s): I83.11 - Varicose veins of right lower extremity with inflammation Category: Medical Plan: This patient has varicose veins with inflammation. They continue to be a source of discomfort for the patient. The patient has tried conservative treatment with compression, leg elevation and exercise program for over 3 months time. They have been compliant with all treatment. This has provided minimal relief for the patient. I do not anticipate this course of treatment will alter the underlying etiology. The patient has been scheduled for lower extremity venous treatment inclusive of --- right great saphenous vein radiofrequency ablation. Risks, benefits, and complications of this procedure has been discussed in detail with the patient including but not limited to bleeding, infection, and the development of a DVT. The patient has demonstrated a clear understanding and has consented. We will schedule the patient as soon as possible. Thank you for allowing us to participate in this patient's care. If there are any questions or concerns please do not hesitate to contact us. Coding Level of Care Code Est Pt Level 4 (18029) Diagnoses Varicose veins of right lower extremity with inflammation I83.11
== END 2024-03-23 11:02 | disposition home or self-care (01) ==
PROVIDERS: PCP Family Medicine; Visit Provider Surgery Vascular Surgery
DX: I83.11 Varicose veins of right lower extremity with inflammation (principal)
CPT/HCPCS: 99214

== ENCOUNTER → 2024-03-23 10:37 | Outpatient (BNVA) | payer OTHER, SELFPAY | PROVIDERS: PCP Family Medicine; Visit Provider Surgery Vascular Surgery | DX: I83.11 Varicose veins of right lower extremity with inflammation (principal) | CPT/HCPCS: 99212 ==

== ENCOUNTER 2024-04-13 09:15 | Outpatient (AMB) | payer OTHER, SELFPAY ==
[2024-04-13 09:25] LABS: Prothrombin Time Whole Bld POC 25.2 sec (11.1-13.5); ~PT, ~INR - Anti Coag Clinic 2.1 (0.9-1.1)
--- NOTE | 2024-04-13 09:26 | MHC.OFFVISCO ---
Intake Intake Visit Reasons: Anticoagulation Allergies No Known Allergies [No Known Allergies*] Allergy (Verified 04/13/24 09:20) Medication List - Last Reconciled 04/13/24 by Madhuri Allen RN amlodipine 5 mg PO DAILY cholecalciferol (vitamin D3) 50 mcg PO DAILY ferrous sulfate 325 mg PO DAILY fluticasone propionate 50 mcg/actuation intranasal gabapentin 300 mg PO TID lisinopril 2.5 mg PO ONCE meclizine 12.5 mg PO ONCE metformin ER 500 mg PO DAILY metoprolol tartrate 50 mg PO BID 90 days mupirocin 2% 1 appl topical BID 5 days nitroglycerin 0.4 mg sublingual Q5M rosuvastatin 20 mg PO DAILY tamsulosin 0.4 mg PO DAILY triamcinolone acetonide 0.1% 1 appl topical BID-TID warfarin 5 mg See Protocol PO DAILY Nursing Note INR:2.1 in therapeutic range Medications and supplements reviewed No changes in health, diet, medications, or supplements, Denies any signs and symptoms of bleeding or bruising or clotting. Bleeding, bruising, clotting discussed Nutritional guidance given - CONT TO EAT A MIX OF FRUITS AND VEGETABLES Dose: 5MG X 3 DAYS/ 7.5MG X 4 DAYS F/U INR: 1 MONTH Patient verbalizes understanding of instructions given Anti-Coag Initial Assessment Social Hx Patient Tobacco Use Status: Former Tobacco user alcohol intake: never Alcohol intake frequency: does not drink Questionnaires HAS-BLED Does the patient had uncontrolled Hypertension?: No Does the patient have renal disease?: No Does the patient have liver disease?: No Does the patient have a history of stroke?: No Has the patient had major bleeding or predisposition to bleeding?: Yes (ASCENDING AORTIC ANEURYSM) Does the patient have labile INRs?: No Is the patient over 65 years of age?: Yes Is the patient on medications that gives them a predisposition to bleeding?: Yes Does the patient use alcohol?: No HAS-BLED Score: 3 CHADSVASC Age: 75 or over Gender: Male Does the patient have a history of CHF?: No Does the patient have a history of Hypertension?: Yes Does the patient have a history of Stroke/TIA/Thromboembolism?: No Does the patient have a history of Vascular Disease (prior [place], PAD or aortic plaque)?: Yes Does the patient have a history of Diabetes?: Yes CHADS VACS Score: 5 Phyllis Prediction Score Rsk VTE Active Cancer: No Previous VTE, excluding superficial vein thrombosis: No Reduced mobility: No Already known Thrombophilic Condition: No With-in last month Trauma and/or Surgery: No Elderly 70 year or older: Yes Heart and/or Respiratory Failure: No Acute Myocardial infarction and/or Ischemic Stroke: No Acute Infection and/or Rheumatologic Disorder: Yes (INFLAMMATORY ARTHRITIS, VARICOSE VEINS WITH INFLAMMATION ) Obesity (BMI 30 or greater): No Ongoing Hormonal Treatment: No Score: 2 Phyllis Score less than 4; Low Risk of VTE Phyllis Score 4 or greater; High Risk of VTE Coding Level of Care Code Est Patient Level 1 Diagnoses Current use of anticoagulant therapy Z79.01 Assessment & Plan Assessment & Plan (1) Current use of anticoagulant therapy: Onset Date: ~01/2015 Comment: (on Coumadin - for AFib dx 01/2015) Code(s): Z79.01 - first beater (current) use of anticoagulants Category: Medical
== END 2024-04-13 09:33 | disposition home or self-care (01) ==
LOC: HO.ACS 09:15
PROVIDERS: PCP Family Medicine; Visit Provider Internal Medicine
DX: Z79.01 Long term (current) use of anticoagulants (principal)

== ENCOUNTER → 2024-04-13 09:15 | Outpatient (BNVA) | payer OTHER, SELFPAY | PROVIDERS: PCP Family Medicine; Visit Provider Internal Medicine | DX: I48.0 Paroxysmal atrial fibrillation (principal); Z79.01 Long term (current) use of anticoagulants; Z51.81 Encounter for therapeutic drug level monitoring | CPT/HCPCS: 85610; 99211 ==

== ENCOUNTER 2024-04-23 11:37 | Outpatient (AMB) | payer OTHER, SELFPAY ==
--- NOTE | 2024-04-23 11:57 | MHC.OFFVIS ---
Intake Visit Reasons: Right Leg RFA Allergies No Known Allergies [No Known Allergies*] Allergy (Verified 04/23/24 12:02) PFSH Medical History Pulmonary nodules Tubular adenoma of colon (~2009) Hyperlipidemia Type 2 diabetes mellitus with polyneuropathy Paroxysmal atrial fibrillation (~01/2015) Essential hypertension Ascending aortic aneurysm Atherosclerotic cardiovascular disease Lumbar spondylolysis Inflammatory arthritis Surgical History History of cardiac cath (~2018) History of lung surgery (~03/2019) History of left inguinal hernia repair (~01/2019) History of colonoscopy (~02/2016) Hx of neck surgery Hx of appendectomy Family History Mother Diabetes Social History Household Members: Spouse Alcohol intake: never Patient Tobacco Use Status: Former Tobacco user Current occupational status: retired Hearing needs: Yes Office Procedures Vascular Office Procedure Details Details: Diagnosis: Varicose veins with inflammation of right leg Procedure: Endovenous radiofrequency ablation of the right great saphenous vein(s) of the lower extremity. Anesthesia: Local infiltration 5 cc, Tumescent 200 cc. Estimated Blood Loss: minimal Specimen: Varicose veins The patient was transferred to the procedure suite and the insufficient saphenous vein was mapped by ultrasound and diagrammed on the overlying skin. The depth and diameter of the vein(s) to be treated was documented. The varicose tributary veins and suitable access sites were identified and mapped as well. The patient was then positioned supine on the procedure table. The affected limb was prepped and draped in the usual sterile fashion. The RF catheter was placed on the sterile field, flushed and wiped down, prepared, and connected by a sterile cable. The patient was placed in supine position and local anesthesia was instilled in the skin overlying the access site. A skin incision was made overlying the identified and mapped great saphenous vein entry site. The vein was accessed using ultrasound guidance and the Seldinger technique, a guide wire was introduced through the needle, which was then exchanged over the guide wire for a 6F sheath, which was secured in place. The guide wire was removed and the sheath was flushed. The RF catheter was placed into the vein through the sheath and preferentially, imaging was used to place the catheter tip just inferior to the superficial epigastric vein to preserve normal physiological flow in that vein. Additionally, it was confirmed by ultrasound guidance that the catheter tip was also placed a minimum of 1.5cm distal to the saphenofemoral junction. After the RF catheter position was verified by ultrasound, tumescent anesthesia was infiltrated, under ultrasound guidance, precisely into the perivenous compartment along the entire length of vein from the entry site to the saphenofemoral junction until a halo of fluid was noted around the vein. The patient was then placed in supine position to further exsanguinate the superficial venous system. After RF catheter position was again confirmed with ultrasound imaging, and under direct external compression along the length of the heating element, RF energy was applied. The vein was segmentally ablated by heating a 8 cm segment and then indexing the catheter forward by 7.5 cm until the treatment length is completed. Device temperature was maintained at 120 plus or minus 5 degrees C with an initial power level of 40W dropping to below 20W for each treatment. Total vein length treated 15 cm Total cycles of RF 3. Repeat ultrasound of the saphenous vein was performed, confirming successful treatment. The catheter and sheath were withdrawn and hemostasis established with direct pressure. After assuring hemostasis, the skin incision over the saphenous vein was closed with a bandage and a compression wrap, and/ or graduated compression stocking was applied from the level of the foot to the most proximal level of the thigh. 88355 - Endovenous RF, 1st Vein All charges added?: Procedure code (CPT) selection complete Assessment & Plan Assessment & Plan (1) Varicose veins of right lower extremity with inflammation: Comment: 04/23/2024 - right great saphenous vein radiofrequency ablation Code(s): I83.11 - Varicose veins of right lower extremity with inflammation Category: Medical Plan: See op note Coding Level of Care Code Procedure Only Diagnoses Varicose veins of right lower extremity with inflammation I83.11 CPT Codes Details - Vascular 1: 39987 - Endovenous RF, 1st Vein ([id number])
--- OUTSIDE RECORDS SUMMARY | 2024-04-23 12:41 | XMS_ITS | Encounter Summary ---
Author Organization [employer] Address [address] [facility] [address] [place] [address] Care Team Providers Care Business Objects Consultant Name Role Phone Olga Paulino DO Primary Care Provider [phone] Reason for Visit * Reason Comments Med Refill Encounter Details Date Type Department Care Team ([facility] st Contact Info) Description 04/12/2024 Refill [facility] [address] [place] [address] Olga Paulino DO [address] [place] [address] Essential hypertension; Type 2 diabetes mellitus with other specified complication, unspecified whether usp insulin use (CMS/HCC); Paroxysmal atrial fibrillation ([facility]) Social History Tobacco Use Types Packs/Day Years Used Date Smoking Tobacco: Former Cigarettes Passive Smoke Exposure: Past Smokeless Tobacco: Never Alcohol Use Standard Drinks/Week Comments Never 0 (1 standard drink = 0.6 oz pur e alcohol) Depression Answer Date Recorded Patient Health Questionnaire-9 Score 0 10/06/2023 Patient Health Questionnaire-9 Score 0 10/06/2023 Last PHQ-9: Questionnaire Data Not on file 0 10/06/2023 Housing Stability Answer Date Recorded What is your housing situation today? I have brian mccrary 10/06/[address] you li ve. Do you have problems with any of the following? Pests such as bugs, ants, or mice 10/06/2023 Food Insecurity Answer Date Recorded Within the past 12 months, y ou worried that your food would run out before you got money to buy more: Never True 10/06/2023 Within the past 12 months,th e food you bought just didn't last and you didn't have enough money to get more: Never True 07/2023 Transportation Answer Date Recorded In the past 12 months, has l ack of transportation kept you from medical appts, meetings, work or from getting things needed for daily living? No 10/06/2023 Utilities Answer Date Recorded In the past 12 months, has t he electric, gas, oil or water company threatened to shut off services in your home? No 10/06/2023 Depression Answer Date Recorded Patient Health Questionnaire-2 Score 0 10/06/2023 Internet Access Answer Date Recorded Internet Access Q1 Yes 11/03/2023 Internet Access Q2 Not on file 11/03/2023 Sex and Gender Information Value Date Recorded Sex Assigned at Male 12/31/2021 10:18 AM EDT Legal Sex Male 10:18 AM EDT Gender Identity Male 12/31/2021 10:18 AM EDT Sexual Orientation Straight 12/31/2021 10 :18 AM EDT documented as of this encounter Plan of Treatment Upcoming Encounters Date Type Department Care Team (Late st Contact Info) Description 05/17/2024 9:00 AM EDT Office Visit [facility] [address] [place] [address] Olga Paulino DO [address] [place] [address] documented as of this encounter Visit Diagnoses Diagnosis Essential hypertension Unspecified essential hypertension Type 2 diabetes mellitus with other specified complication, unspecified whether intermodal customer service insulin use ([facility]/HCC) Paroxysmal atrial fibrillation ([facility]) Atrial fibrillation documented in this encounter Additional Health Concerns Assessment Noted Time PHQ-9 Depression Total Score: 0 10/06/19 24 9:06 AM EDT documented as of this encounter Care Teams Business Objects Consultant Relationship Specialty Start Date End Date Olga Paulino DO [address] [place] [address] PCP - General Family Medicine 03/03/18 documented as of this encounter
--- OUTSIDE RECORDS SUMMARY | 2024-04-23 12:41 | XMS_ITS | Encounter Summary ---
Author Organization [employer] Address [address] [facility] [address] [place] [address] Care Team Providers Care Brokerage Manager Name Role Phone Olga Paulino DO Primary Care Provider [phone] Encounter Details Date Type Department Care Team (Late st Contact Info) Description 06/28/2022 Orders Only [facility] [address] [place] [address] Olga Jaime LPN Social History Tobacco Use Types Packs/Day Years Used Date Smoking Tobacco: Never Assessed Sex and Gender Information Value Date Recorded Sex Assigned at Male 12/31/2021 10:18 AM EDT Legal Sex Male 10:18 AM EDT Gender Identity Male 12/31/2021 10:18 AM EDT Sexual Orientation Straight 12/31/2021 10 :18 AM EDT documented as of this encounter Plan of Treatment Upcoming Encounters Date Type Department Care Team (Late st Contact Info) Description 05/17/2024 9:00 AM EDT Office Visit [facility] [address] [place] [address] Olga Paulino DO [address] [place] [address] documented as of this encounter Visit Diagnoses Not on filedocumented in this encounter Care Teams Brokerage Manager Relationship Specialty Start Date End Date Olga Paulino DO [address] [place] [address] PCP - General Family Medicine 03/03/18 documented as of this encounter
--- OUTSIDE RECORDS SUMMARY | 2024-04-23 12:41 | XMS_ITS | Encounter Summary ---
Demographics Address [address] [place] [address] Home Phone Work Phone Mobile Phone Preferred Language es Marital Status Unknown Anglican Affiliation Unknown Race Other Race Ethnic Group or Author Organization [employer] Address [address] [place] [address] Care Team Providers Care Corrective Therapist Name Role Phone Olga Paulino DO Primary Care Provider [phone] Encounter Details Date Type Department Care Team (Late st Contact Info) Description 04/13/2024 Orders Only GENERIC EXTERNAL DATA DEPARTMENT Provider, Generic External Data Social History Tobacco Use Types Packs/Day Years [...] Description 05/17/2024 9:00 AM EDT Office Visit [facility] [address] [place] [address] Olga Paulino DO [address] [place] [address] documented as of this encounter Procedures Procedure Name Priority Date/Time Associated Diagnosis Comments PROTHROMBIN TIME WHOLE BLD POC Routine 04/13/2024 9:23 AM EST ~PT, ~INR - ANTI COAG CLINIC Routine 04/13/2024 9:23 AM EST documented in this encounter Results * (ABNORMAL) PROTHROMBIN TIME WHOLE BLD POC (04/13/2024 9:23 AM EST) Protime 25.2(H) 11.1 - 13.5 sec [facility] 04/13/2024 9:23 AM EST 04/13/2024 9:25 AM EST us Generic External Data Provider LAB BLOOD ORDERAB LES Final Result [facility] [address] [place] [address] [phone] * (ABNORMAL) ~PT, ~INR - ANTI COAG CLINIC (04/13/2024 9:23 AM EST) Prothrombin Time INR 2.1(H) 0.9 - 1.1 [facility] Comment:METER #: [id number] TERNATIONAL NORMALIZED RATIO (INR) REFERENCE RANGES Reference RangeFor patients not on anticoagulant therapy: 0.9 - 1.1INR ranges for oral anticoagulanttherapy:For prevention and treatment of venous thrombosis and pulmonary embolism: 2.0 - 3.0For acute myocardial infarction with aspirin therapy: 2.0 - 3.0For acute myocardial infarction without aspirin therapy: 3.0 - 4.0For patients with mechanical prosthetic heart valves: 2.5 - 3.5 04/13/2024 9:23 AM EST 04/13/2024 9:25 AM EST us Generic External Data Provider LAB BLOOD ORDERAB LES Final Result [facility] [address] [place] [address] [phone] documented in this encounter Visit Diagnoses Not on filedocumented in this encounter Additional Health Concerns Assessment Noted Time PHQ-9 Depression Total Score: 0 10/06/19 24 9:06 AM EDT documented as of this encounter Care Teams Corrective Therapist Relationship Specialty Start Date End Date Olga Paulino DO [address] [place] [address] PCP - General Family Medicine 03/03/18 documented as of this encounter
--- OUTSIDE RECORDS SUMMARY | 2024-04-23 12:41 | XMS_ITS | Clinical Summary ---
Demographics Address [address] [place] [address] Home Phone Work Phone Mobile Phone Preferred Language es Marital Status Unknown Moravian Affiliation Unknown Race Other Race Ethnic Group or Author Organization [employer] Address [address] [place] [address] Care Team Providers Care Business Process Associate Name Role Phone Olga Paulino DO Primary Care Provider [phone] Allergies No known active allergies Medications amLODIPine (Norvasc) 5 MG tablet TOME JACKIE TABLETA TODOS LOS D 03/01/20 22 Active metoprolol tartrate (Lopressor) 50 MG tablet TOME JACKIE TABLETA DOS VECES AL D A 12/06/19 22 Active Blood Glucose Monitoring Suppl (FreeStyle Collins Lite) w/Device kit USE TO CHECK BLOOD SUGAR TWICE A DAY 1 kit 07/12/19 23 Active Blood Glucose Monitoring Suppl (Accu-Chek Leslye Plus) w/Device kit 1 each 2 times daily. 1 kit 08/09/19 23 Active glucose blood (Accu-Chek Leslye Plus) test strip USE TO TEST BLOOD SUGAR DOS VECES AL SABIHA 100 strip 11 08/09/19 23 Active nitroglycerin (Nitrostat) 0.4 MG SL tablet DISSOLVE 1 TABLET SUBLINGUALLY EVERY 5 MINS X3 DOSES FOR CHEST PAIN, IF NO RELIEF CALL 911 08/08/19 23 Active triamcinolone (Kenalog) 0.1 % ointmentIndicat ions:Nummular dermatitis Apply topically 2 times daily. 80 g 12/28/19 23 Active Calcium Carbonate-Vit D-Min (Calcium 600+D Plus Minerals) 600-400 MG-UNIT tabletIndicatio ns:Osteopenia, unspecified location Take 1 tablet by mouth daily 90 tablet 3 02/20/20 23 Active Vitamin D3 Super Strength 50 MCG (2000 UT) tablet Take 2,000 Units by mouth in the morning. 30 tablet 11 06/03/19 24 2024 Active triamcinolone (Kenalog) 0.1 % cream APPLY TOPICALLY IF NEEDED IN THE MORNING AND AT BEDTIME (PAIN AND SWELLING). 30 g 2 08/22/19 24 Active rosuvastatin (Crestor) 20 MG tablet TOME JACKIE TABLETA TODOS LOS STINSON 90 tablet 3 09/10/19 24 Active tamsulosin (Flomax) 0.4 MG 24 hr capsuleIndicati ons:Benign prostatic hyperplasia, unspecified whether lower urinary tract symptoms present TAKE 1 CAPSULE BY MOUTH EVERY DAY 1/2 HOUR FOLLOWING THE SAME MEAL EACH DAY 90 capsule 3 10/21/19 24 Active fluticasone (Flonase) 50 MCG/ACT nasal sprayIndication s:Allergic rhinitis, unspecified seasonality, unspecified trigger SPRAY 2 SPRAYS INTO EACH NOSTRIL EVERY DAY IF NEEDED 48 mL 1 10/30/19 24 Active lisinopril 2.5 MG tabletIndicatio ns:Essential hypertension TOME JACKIE TABLETA TODOS LOS STINSON 90 tablet 3 04/14/19 25 Active metFORMIN XR (Glucophage-XR) 500 MG 24 hr tabletIndicatio ns:Type 2 diabetes mellitus with other specified complication, unspecified whether longwall machine operator helper insulin use (CMS/HCC) TOME 1 TABLETA POR VIA ORAL TODOS LOS STINSON 90 tablet 1 04/14/19 25 Active warfarin (Coumadin) 5 MG tabletIndicatio ns:Paroxysmal atrial fibrillation (CMS/HCC) TAKE 1 - 1 & 1/2 TABLETS POR VIA ORAL TODOS LOS STINSON AIDA LO INDICADO BY COUMADIN CLINIC 135 tablet 1 04/14/19 25 Active lisinopril 2.5 MG tabletIndicatio ns:Essential hypertension TAKE 1 TABLET BY MOUTH EVERY DAY 90 tablet 3 05/04/19 24 2024 Discontinued metFORMIN XR (Glucophage-XR) 500 MG 24 hr tabletIndicatio ns:Type 2 diabetes mellitus with other specified complication, unspecified whether chcf insulin use (CMS/HCC) TAKE 1 TABLET BY MOUTH EVERY DAY 90 tablet 1 10/16/19 24 2024 Discontinued warfarin (Coumadin) 5 MG tabletIndicatio ns:Paroxysmal atrial fibrillation (CMS/HCC) TAKE 1 - 1 & 1/2 TABLETS POR VIA ORAL TODOS LOS STINSON AIDA LO INDICADO BY COUMADIN CLINIC 135 tablet 1 10/21/19 24 2024 Discontinued Active Problems Problem Noted Date Diagnosed Date Healthcare maintenance 06/03/2023 Assessment & Plan (06/03/2023 1:55 PM EDT): -s/p flu vaccine NOV 2022 -COVID vaccine today -encouraged RSV vaccine -s/p Tdap MAY 2022 -s/p pneumovax JAN 2015 -PCV20 today -s/p prevnar August 2014 -encouraged shingrix vaccine -Hep B immune -s/p DEXA with osteopenia May 2011, encouraged Ca/Vit D supplementation -s/p colonoscopy with tubular adenoma Feb 2016->no need for repeat, per GS -s/p abd US with no AAA May 2009 -STI/HIV screen negative Apr 2015 Current use of anticoagulant therapy 07/10/2022 Lumbar degenerative disc disease 07/10/2022 Cerebral microvascular disease 07/10/2022 Ascending aortic aneurysm 07/10/2022 Assessment & Plan (06/03/2023 1:51 PM EDT): -CT-A chest w/ ectasia of the ascending thoracic aorta to 4.1cm APR 2021 -ECHO w/ ascending aorta at 4.2cm MAY 2021->repeat this mos as scheduled -f/u with cardiology as scheduled, due JULY 2023 Centrilobular emphysema 07/10/2022 Renal cyst 07/10/2022 Coronary artery disease 07/10/2022 Multiple pulmonary nodules 07/10/2022 Assessment & Plan (06/03/2023 1:53 PM EDT): CT chest w/ small, stable pulmonary nodules JAN 2022 -no need for repeat CT chest per CT surgeon -f/u with Dr. Isabel shaikh Sensorineural hearing loss, bilateral 07/09/2022 Assessment & Plan (06/03/2023 1:51 PM EDT): Audiology eval w/ b/l [id number] SN hearing loss JUN 2021 -his agrees to schedule f/u w/ audiology Type 2 diabetes mellitus 06/16/2015 Assessment & Plan (06/03/2023 1:48 PM EDT): A1c at-goal -cont metformin daily -cont aspirin, statin, and lisinopril daily -s/p optho eval JAN 2023 for annual f/u with Dr. Cleary -foot exam with abnormal monofilament today Anemia 06/16/2015 Assessment & Plan (06/03/2023 1:50 PM EDT): Hgb stable NOV 2022 -iron studies nml, B12/folate normal NOV 2022 -cont MVI with iron daily -colonoscopy with tubular adenoma Feb 2016, no need for repeat per GI Paroxysmal atrial fibrillation 03/16/2015 Assessment & Plan (06/03/2023 1:52 PM EDT): CHADS2 score=3, rate controlled -continue metoprolol BID -ECHO with nml EF mild LVH, mild diastolic dysfunction, and mild AR MAY 2021 -cardiac cath with single vessel RCA disease -f/u with coumadin clinic as scheduled, goal INR 2-3 -f/u with cardiology as scheduled, due JULY 2023 Benign prostatic hyperplasia 12/15/2014 Cervical radiculopathy 12/15/2014 Assessment & Plan (06/03/2023 1:53 PM EDT): s/p NS eval, no indication for surgery per Dr. Fragoso -MRI C-spine with stenosis, spondylosis and neuroforaminal narrowing NOV 2013 -C-spine XR with moderate spondylosis DEC 2020 -cont gabapentin BID -encouraged standing doses of tylenol -encouraged baclofen prn -encouraged heat/ice therapy -cont HEP -advised rtc if sx worsen Essential hypertension 12/15/2014 Assessment & Plan (06/03/2023 1:49 PM EDT): BP controlled -cont lisinopril and amlodipine daily -Cr/GFR nml with significant urine microalbumin NOV 2022->repeat today -there is EKG in chart -optho as above Hyperlipidemia 12/15/2014 Assessment & Plan (06/03/2023 1:50 PM EDT): LDL at-goal NOV 2022 -cont crestor nightly Inflammatory arthritis 12/15/2014 Assessment & Plan (06/03/2023 1:52 PM EDT): In-remission -f/u with rheumatology prn Microalbuminuria 12/15/2014 Osteopenia 12/15/2014 Tubular adenoma of colon 12/15/2014 Encounters Date Type Department Care Team Description 04/13/2024 Orders Only GENERIC EXTERNAL DATA DEPARTMENT Provider, Generic External Data 04/12/2024 Refill [facility] [address] [place] [phone] Olga Paulino DO Essential hypertension; Type 2 diabetes mellitus with other specified complication, unspecified whether longwall machine operator helper insulin use ([facility]); Paroxysmal atrial fibrillation ([facility]) 03/17/2024 Telephone [facility] [address] [place] [address] Julia Driscoll, PATI Coumadin clinic renewal form 03/16/2024 Orders Only GENERIC EXTERNAL DATA DEPARTMENT Provider, Generic External Data 02/17/2024 Orders Only GENERIC EXTERNAL DATA DEPARTMENT Provider, Generic External Data from Last 3 Months Immunizations Name Administration Dates Next Due Influenza High-dose Quadriva lent Preservative Free 11/20/2021 Influenza Quadrivalent Adjuvanted 11/07/2022,,11/10/2019 Influenza injectable quadriv alent IIV4 with preservative 02/22/2016 Influenza injectable quadriv alent preservative free 12/02/2014 Influenza, High Dose Seasona l, Preservative Free 11/26/2017,12/03/2016 Influenza, IIV3, injectable 11/08/2013,1 ,11/10/2009,12/15,12/25/2007,12/24/2006 Influenza, Split (incl. tommy f[place] surface antigen) 01/01/2014,11/03/2012,03/19/2012,11/26 Influenza, trivalent, adjuvanted 11/08/2018 Moderna Covid-19 Vaccine 12+ 08/13/2021, 03/05/2021,05/11/2020,04/13 Pfizer Covid-19 Vaccine 12+ 06/03/2023 Pfizer Covid-19 Vaccine 12+ Bivalent 01/15/2022 Pneumococcal Conjugate PCV 13 08/17/2014 Pneumococcal Conjugate PCV 20 06/03/2023 Pneumococcal Polysaccharide PPSV23 01/16/2015, TD (adult), 2 Lf tetanus tox oid, preservative free, adsorbed 07/11/2005 Tdap 05/15/2022,10/19/2015 Social History Tobacco Use Types Packs/Day Years Used Date Smoking Tobacco: Former Cigarettes Passive Smoke Exposure: Past Smokeless Tobacco: Never Tobacco Cessation:Counseling Given: Not Answered Alcohol Use Standard Drinks/Week Comments Never 0 [...] Orientation Straight 12/31/2021 10 :18 AM EDT Last Filed Vital Signs Vital Sign Reading Time Taken Comments Blood Pressure 135/72 10/06/2023 9:05 AM EDT Pulse 71 10/06/2023 9:05 AM EDT Temperature 37.4 ??C (99.3 ??F) 10/06/2023 9:05 AM ED T Respiratory Rate 20 10/06/2023 9:05 AM EDT Oxygen Saturation 99% 10/06/2023 9:05 AM EDT Inhaled Oxygen Concentration - - Weight 84 kg (185 lb 3.2 oz) 10/06/2023 9:05 AM EDT Height 167.6 cm (5' 6 ) 10/06/2023 9:05 AM EDT Body Mass Index 29.89 10/06/2023 9:05 AM EDT Plan of Treatment Upcoming Encounters Date Type Department Care Team (Late st Contact Info) Description 05/17/2024 9:00 AM EDT Office Visit [facility] [address] [place] [address] Olga Paulino DO [address] [place] [address] Health Maintenance Due Date Last Done Comments Eye Exam 1950 Alcohol/Substance Use Screening 1950 Zoster Vaccines (1 of 2) 1988 RSV Patients and Patients Aged 60 years or older (1 - 1-dose 75+ series) 2013 COVID-19 Vaccine ( season) 2023 06/03/2023, 01/15/2022, 08/13/2021, Additional history exists Diabetes: Hemoglobin A1C 04/07/2024 024, 06/27/2023, 06/03/2023, Additional history exists Diabetes: Foot Exam 06/02/2024 06/03/2023, 06/03/2023, 06/03/2023, Additional history exists Lipid Panel 06/26/2024 06/27/2023, 11/02, 06/07/2021, Additional history exists Depression Screening 10/05/2024 10/06/2023, 10/06/19 SDOH Screening 10/05/2024 10/06/2023 Tobacco Screening 10/05/2024 10/06/2023 DTaP/Tdap/Td Vaccines (3 - Td or Tdap) 05/15/2032 05/15/2022, 10/19/2015, 07/11/2005 Pneumococcal Vaccine: 50+ Years Completed 06/03/2023, 01/16/2015, 08/17/2014, Additional history exists Influenza Vaccine Completed 12/09/2023, , 11/20/2021, Additional history exists HIB Vaccines Aged Out No longer eligi ble based on patient's age to complete this topic HPV Vaccines Aged Out No longer eligi ble based on patient's age to complete this topic Hepatitis A Vaccines Aged Out No long er eligible based on patient's age to complete this topic Hepatitis B Vaccines Aged Out No long er eligible based on patient's age to complete this topic IPV Vaccines Aged Out No longer eligi ble based on patient's age to complete this topic Meningococcal Vaccine Aged Out No harika damaris eligible based on patient's age to complete this topic RSV under 20 months Aged Out No longe r eligible based on patient's age to complete this topic Rotavirus Vaccines Aged Out No longer eligible based on patient's age to complete this topic Procedures Procedure Name Priority Date/Time Associated Diagnosis Comments PROTHROMBIN TIME WHOLE BLD POC Routine 04/13/2024 9:23 AM EST ~PT, ~INR - ANTI COAG CLINIC Routine 04/13/2024 9:23 AM EST PROTHROMBIN TIME WHOLE BLD POC Routine 03/16/2024 9:09 AM EST ~PT, ~INR - ANTI COAG CLINIC Routine 03/16/2024 9:09 AM EST PROTHROMBIN TIME WHOLE BLD POC Routine 02/17/2024 9:29 AM EST ~PT, ~INR - ANTI COAG CLINIC Routine 02/17/2024 9:29 AM EST VASC US LOWER EXTREMITY VENOUS INSUFFICIENCY BILATERAL Routine 01/26/2024 8:39 AM EST POCT GLYCATED HEMOGLOBIN, TOTAL Routine 10/06/2023 9:09 AM EDT 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) LIPID PANEL, STANDARD Routine 06/27/2023 8:40 AM EDT 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) from Last 3 Months or Most Recently Relevant to Health Maintenance Results * (ABNORMAL) PROTHROMBIN TIME WHOLE BLD POC (04/13/2024 9:23 AM EST) Only the most recent of3 resultswithin the time period is included. Protime 25.2(H) 11.1 - 13.5 sec [facility] 04/13/2024 9:23 AM EST 04/13/2024 9:25 AM EST us Generic External Data Provider LAB BLOOD ORDERAB LES Final Result Performing Organization Address City/State/[facility] Co de Phone Number [facility] [address] [place] [phone] * (ABNORMAL) ~PT, ~INR - ANTI COAG CLINIC (04/13/2024 9:23 AM EST) Only the most recent of3 resultswithin the time period is included. Prothrombin Time INR 2.1(H) 0.9 - 1.1 [facility] Comment:METER #: [id number] TERNATIONAL NORMALIZED RATIO (INR) REFERENCE RANGES Reference [...] Provider LAB BLOOD ORDERAB LES Final Result [facility] [address] [facility] [place] [address] [phone] * VASC US Lower Extremity Venous Insufficiency Bilateral (01/26/2024 8:39 AM EST) 01/26/2024 8:39 AM EST Narrative [facility] - 02/27/2024 5:53 PM EST ? [facility] ?[address] ?[place] [address] ? Ultrasound Report ? Signed ? Patient: Ramesh Blank ?MR#: ?? [id number] ? : 1940 ?Acct:[id number] ? Age/Sex: 83 / M ?ADM Date: 01/26/24 ? Loc: HO.US ? Attending Dr: Franky Starr MD ? Ordering Physician: Franky Starr MD ?? Date of Service: 01/26/24 ?? Procedure(s): US venous insuf bilat ?? Accession Number(s): [id number] ? cc: Olga Paulino DO; Franky Starr MD ? EXAMINATION: ?? US LOWER EXTREMITY VENOUS (REFLUX EXAM), BILATERAL ? CLINICAL INDICATION: ?? Varicose veins of right lower extremity with inflammation ? COMPARISON: ?? None. ? TECHNIQUE: ?? Color flow triplex imaging and compression Doppler was performed to ?? evaluate both the deep and the superficial systems bilaterally. To ?? evaluate the superficial system, the examination was performed in the ?? upright position. Color-flow Doppler ultrasound and compression ?? ultrasound were utilized. In addition, maneuvers were utilized to ?? demonstrate reflux. ? FINDINGS: ? 1. DEEP VENOUS ULTRASOUND OF THE RIGHT LOWER EXTREMITY: ?? Common Femoral Vein: Compressible, normal respiratory variation and ?? augmented flow. ? Femoral Vein: Compressible, normal color flow and augmentation. ?? Popliteal Vein: Compressible, normal augmentation. ? Deep Reflux: There is no evidence of reflux in the deep system in ?? either the common femoral vein, superficial femoral or the popliteal ?? vein. ? There is no evidence of a Lomax's cyst. ? 2. SUPERFICIAL ULTRASOUND WITH DOPPLER OF RIGHT LOWER EXTREMITY: ? GREAT SAPHENOUS VEIN: ?? Saphenofemoral Junction: 0.7 cm; Reflux: 2384 ms ?? Proximal Thigh: 0.5 cm; Reflux: 2660 ms ?? Mid Thigh: 0.3 cm; Reflux: 2292 ms ?? Above Knee: 0.3 cm; Reflux: 2388 ms ?? At Knee: 0.3 cm; Reflux: 0 ms ?? Below Knee: 0.1 cm; Reflux: 2208 ms ?? Mid Calf: 0.2 cm; Reflux: 0 ms ?? Ankle: 0.3 cm; Reflux: 0 ms ? DUPLICATED MEDIAL GREAT SAPHENOUS VEIN: ?? Saphenofemoral Junction: 0.5 cm; Reflux: 0 ms ?? Mid Thigh: Not visualized ? SMALL SAPHENOUS VEIN: ?? Saphenopopliteal Junction: 0.1 cm; Reflux: 0 ms ?? Proximal: 0.2 cm; Reflux: 0 ms ?? Distal: 0.2 cm; Reflux: 0 ms ? PERFORATORS: ?? Location: Posterior SSV thigh extension ?? Size: 0.1; Reflux: 0 ms ? Location: Mid calf SSV ?? Size: 0.2; Reflux: 0 ms ? Location: Distal PTV ?? Size: 0.3; Reflux: 0 ms ? Location: Proximal PTV ?? Size: 0.2; Reflux: 0 ms ? Location: Mid calf ?? Size: 0.1; Reflux: 0 ms ? VARICOSITIES: ?? Location: SFJ ?? Size: 0.4; Reflux: 0 ms ? Location: SFJ ?? Size: 0.5; Reflux: 0 ms ? Location: SFJ ?? Size: 0.3; Reflux: 0 ms ? Location: Mid thigh ?? Size: 0.4; Reflux: 2880 ms ? Location: Proximal calf ?? Size: 0.3; Reflux: 0 ms ? Location: Lateral distal thigh to proximal calf ?? Size: 0.4; Reflux: 3172 ms ? 3. DEEP VENOUS ULTRASOUND OF THE LEFT LOWER EXTREMITY: ?? Common Femoral Vein: Compressible, normal respiratory variation and ?? augmented flow. ? Femoral Vein: Compressible, normal color flow and augmentation. ?? Popliteal Vein: Compressible, normal augmentation. ? Deep Reflux: There is no evidence of reflux in the deep system in ?? either the common femoral vein, superficial femoral or the popliteal ?? vein. ? There is no evidence of a Lomax's cyst. ? 4. SUPERFICIAL ULTRASOUND WITH DOPPLER OF LEFT LOWER EXTREMITY: ? GREAT SAPHENOUS VEIN: ?? Saphenofemoral Junction: 1.0 cm; Reflux: 0 ms ?? Proximal Thigh: 0.4 cm; Reflux: 2492 ms ?? Mid Thigh: 0.4 cm; Reflux: 2792 ms ?? Above Knee: 0.4 cm; Reflux: 1232 ms ?? At Knee: 0.4 cm; Reflux: 2104 ms ?? Below Knee: 0.3 cm; Reflux: 992 ms ?? Mid Calf: 0.2 cm; Reflux: 0 ms ?? Ankle: 0.3 cm; Reflux: 0 ms ? DUPLICATED MEDIAL GREAT SAPHENOUS VEIN: ?? Saphenofemoral Junction: 0.4 cm; Reflux: 0 ms ?? Mid Thigh: Not visualized ? DUPLICATED LATERAL GREAT SAPHENOUS VEIN: ?? Saphenofemoral Junction: 0.3 cm; Reflux: 1620 ms ?? Mid Thigh: 0.1 cm; Reflux: 0 ms ? SMALL SAPHENOUS VEIN: ?? Saphenopopliteal Junction: 0.2 cm; Reflux: 0 ms ?? Proximal: 0.1 cm; Reflux: 0 ms ?? Distal: 0.2 cm; Reflux: 0 ms ? PERFORATORS: ?? Location: Proximal calf ?? Size: 0.3; Reflux: 0 ms ? Location: Proximal calf ?? Size: 0.2; Reflux: 0 ms ? Location: Posterior distal PTV ?? Size: 0.5; Reflux: 0 ms ? VARICOSITIES: ?? Location: SFJ ?? Size: 0.4; Reflux: 0 ms ? Location: Proximal calf ?? Size: 0.4; Reflux: 0 ms ? / venous insuf bilat ?? IMPRESSION: ?? 1. ??No evidence of deep venous thrombosis or reflux in the bilateral ?? lower extremities. ?? 2. ??Multifocal areas of incompetence in the right great saphenous vein ?? from the saphenofemoral junction to the distal thigh and again in the ?? proximal calf, with significant reflux measuring up to 2660 ms. ?? 3. ??Long segment of incompetence in the left great saphenous vein from ?? the proximal thigh to the proximal calf, with significant reflux ?? measuring up to 2792 ms. ?? 4. ??Multiple perforators in varicose veins in the bilateral lower ?? extremities. ? Electronically signed by: ??Jolynn Meneses MD ??02/27/2024 05:50 PM EST ? Dictated By: ?Isabel Meneses ? Signed By: ?<Electronically signed by Isabel ??Gideon in OV> ? 02/27/24 1750 ? DD/ 0839 ? TD/TT: 01/26/24 0934 ? Extension Service Agent: ? Procedure Note Phuong Morelos - 02/27/2024 [place] [address] Ultrasound Report Signed Patient: Ramesh BlankMR#: [id number] : 1940cct:[id number] Age/Sex: 83 / MADM Date: 01/26/24 Loc: HO.US Attending Dr: Franky Starr MD Ordering Physician: Franky Starr MD Date of Service: 01/26/24 Procedure(s): US venous insuf bilat Accession Number(s): [id number] cc: Olga Paulino DO; Franky Starr MD EXAMINATION: US LOWER EXTREMITY VENOUS (REFLUX EXAM), BILATERAL CLINICAL INDICATION: Varicose veins of right lower extremity with inflammation COMPARISON: None. TECHNIQUE: Color flow triplex imaging and compression Doppler was performed to evaluate both the deep and the superficial systems bilaterally. To evaluate the superficial system, the examination was performed in the upright position. Color-flow Doppler ultrasound and compression ultrasound were utilized. In addition, maneuvers were utilized to demonstrate reflux. FINDINGS: 1. DEEP VENOUS ULTRASOUND OF THE RIGHT LOWER EXTREMITY: Common Femoral Vein: Compressible, normal respiratory variation and augmented flow. Femoral Vein: Compressible, normal color flow and augmentation. Popliteal Vein: Compressible, normal augmentation. Deep Reflux: There is no evidence of reflux in the deep system in either the common femoral vein, superficial femoral or the popliteal vein. There is no evidence of a Lomax's cyst. 2. SUPERFICIAL ULTRASOUND WITH DOPPLER OF RIGHT LOWER EXTREMITY: GREAT SAPHENOUS VEIN: Saphenofemoral Junction: 0.7 cm; Reflux: 2384 ms Proximal Thigh: 0.5 cm; Reflux: 2660 ms Mid Thigh: 0.3 cm; Reflux: 2292 ms Above Knee: 0.3 cm; Reflux: 2388 ms At Knee: 0.3 cm; Reflux: 0 ms Below Knee: 0.1 cm; Reflux: 2208 ms Mid Calf: 0.2 cm; Reflux: 0 ms Ankle: 0.3 cm; Reflux: 0 ms DUPLICATED MEDIAL GREAT SAPHENOUS VEIN: Saphenofemoral Junction: 0.5 cm; Reflux: 0 ms Mid Thigh: Not visualized SMALL SAPHENOUS VEIN: Saphenopopliteal Junction: 0.1 cm; Reflux: 0 ms Proximal: 0.2 cm; Reflux: 0 ms Distal: 0.2 cm; Reflux: 0 ms PERFORATORS: Location: Posterior SSV thigh extension Size: 0.1; Reflux: 0 ms Location: Mid calf SSV Size: 0.2; Reflux: 0 ms Location: Distal PTV Size: 0.3; Reflux: 0 ms Location: Proximal PTV Size: 0.2; Reflux: 0 ms Location: Mid calf Size: 0.1; Reflux: 0 ms VARICOSITIES: Location: SFJ Size: 0.4; Reflux: 0 ms Location: SFJ Size: 0.5; Reflux: 0 ms Location: SFJ Size: 0.3; Reflux: 0 ms Location: Mid thigh Size: 0.4; Reflux: 2880 ms Location: Proximal calf Size: 0.3; Reflux: 0 ms Location: Lateral distal thigh to proximal calf Size: 0.4; Reflux: 3172 ms 3. DEEP VENOUS ULTRASOUND OF THE LEFT LOWER EXTREMITY: Common Femoral Vein: Compressible, normal respiratory variation and augmented flow. Femoral Vein: Compressible, normal color flow and augmentation. Popliteal Vein: Compressible, normal augmentation. Deep Reflux: There is no evidence of reflux in the deep system in either the common femoral vein, superficial femoral or the popliteal vein. There is no evidence of a Lomax's cyst. 4. SUPERFICIAL ULTRASOUND WITH DOPPLER OF LEFT LOWER EXTREMITY: GREAT SAPHENOUS VEIN: Saphenofemoral Junction: 1.0 cm; Reflux: 0 ms Proximal Thigh: 0.4 cm; Reflux: 2492 ms Mid Thigh: 0.4 cm; Reflux: 2792 ms Above Knee: 0.4 cm; Reflux: 1232 ms At Knee: 0.4 cm; Reflux: 2104 ms Below Knee: 0.3 cm; Reflux: 992 ms Mid Calf: 0.2 cm; Reflux: 0 ms Ankle: 0.3 cm; Reflux: 0 ms DUPLICATED MEDIAL GREAT SAPHENOUS VEIN: Saphenofemoral Junction: 0.4 cm; Reflux: 0 ms Mid Thigh: Not visualized DUPLICATED LATERAL GREAT SAPHENOUS VEIN: Saphenofemoral Junction: 0.3 cm; Reflux: 1620 ms Mid Thigh: 0.1 cm; Reflux: 0 ms SMALL SAPHENOUS VEIN: Saphenopopliteal Junction: 0.2 cm; Reflux: 0 ms Proximal: 0.1 cm; Reflux: 0 ms Distal: 0.2 cm; Reflux: 0 ms PERFORATORS: Location: Proximal calf Size: 0.3; Reflux: 0 ms Location: Proximal calf Size: 0.2; Reflux: 0 ms Location: Posterior distal PTV Size: 0.5; Reflux: 0 ms VARICOSITIES: Location: SFJ Size: 0.4; Reflux: 0 ms Location: Proximal calf Size: 0.4; Reflux: 0 ms US/US venous insuf bilat IMPRESSION: 1. No evidence of deep venous thrombosis or reflux in the bilateral lower extremities. 2. Multifocal areas of incompetence in the right great saphenous vein from the saphenofemoral junction to the distal thigh and again in the proximal calf, with significant reflux measuring up to 2660 ms. 3. Long segment of incompetence in the left great saphenous vein from the proximal thigh to the proximal calf, with significant reflux measuring up to 2792 ms. 4. Multiple perforators in varicose veins in the bilateral lower extremities. Electronically signed by: Jolynn Meneses MD 02/27/2024 05:50 PM [facility] Dictated By: Isabel Meneses Signed By: <Electronically signed by Isabel Meneses in OV> 02/27/24 1750 DD/ 0839 TD/TT: 01/26/24 0934 Extension Service Agent: [facility] External Provider CV VASC ULAR PROCEDURES Final Result [facility] [address] [place] [address] [phone] * (ABNORMAL) POCT HGB A1C (10/06/2023 9:09 AM EDT) Hemoglobin A1C 6.6(A) 4.0 - 6.0 % QC Media Lot # [id number] Lot# Expiration Date [id number] Blood 10/06/2023 9:09 AM EDT Olga Paulino DO POINT OF CARE TEST ENTER/PREETHI T ORDERABLES Final Result * (ABNORMAL) Lipid Panel, Standard (06/27/2023 8:40 AM EDT) Triglycerides 108 <150 mg/dL [facility] Comment:Desirable Triglyceri de: less than 150 mg/dLBorderline High Triglyceride 150-199 mg/dLHigh Triglyceride: 200-499 mg/dLVery High Triglyceride: greater than or equal to 5OO mg/dL Cholesterol 113 <200 mg/dL [facility] Comment:Desirable Cholestero l: less than 200 mg/dLBorderline High Cholesterol: 200-239 mg/dLHigh Cholesterol: greater than 239 mg/dL LDL Cholesterol Calculated 57 <100 mg/dL [facility] Comment:Desirable LDL: less than 100 mg/dLNear Optimal/Above Optimal LDL: 110- 129 mg/dLBorderline High LDL: 130-159 mg/dLHigh LDL: 160-189 mg/dLVery High LDL: greater than or equal to 190 mg/dL HDL Cholesterol 35(L) >40 mg/dL [facility] Comment:Desirable HDL: great er than 40 mg/dL Note: This HDL assay may give artificially low results in patients with liver disease. Blood Venous blood specimen / Unknown 06/27/2023 8:40 AM EDT 06/27/2023 11:31 AM EDT Olga Paulino DO LAB BLOOD ORDERABLES Final R esult [facility] [address] [place] [phone] [phone] from Last 3 Months or Most Recently Relevant to Health Maintenance Insurance [facility] Care Teams Business Process Associate Relationship Specialty Start Date End Date Olga Paulino DO [address] [place] [address] PCP - General Family Medicine 03/03/18
--- OUTSIDE RECORDS SUMMARY | 2024-04-23 12:41 | XMS_ITS | Encounter Summary ---
Author Organization [employer] Address [address] [facility] 7t [place] [address] Care Team Providers Care Animal Chiropractor Name Role Phone Olga Paulino DO Primary Care Provider [phone]- [phone] Encounter Details Date Type Department Care Team (Late st Contact Info) Description 04/26/2022 Orders Only [facility] [address] [place] [address] Olga Jaime LPN Social History Tobacco Use [...] Description 05/17/2024 9:00 AM EDT Office Visit [facility] [address] [place] [address] Olga Paulino DO [address] [place] [address] documented as of this encounter Visit Diagnoses Not on filedocumented in this encounter Care Teams Animal Chiropractor Relationship Specialty Start Date End Date Olga Paulino DO [address] [place] [address] PCP - General Family Medicine 03/03/18 documented as of this encounter
== END 2024-04-23 13:23 | disposition home or self-care (01) ==
PROVIDERS: PCP Family Medicine; Visit Provider Surgery Vascular Surgery
DX: I83.11 Varicose veins of right lower extremity with inflammation (principal)
CPT/HCPCS: 36475

== ENCOUNTER → 2024-04-23 11:37 | Outpatient (BNVA) | payer OTHER, SELFPAY | PROVIDERS: PCP Family Medicine; Visit Provider Surgery Vascular Surgery | DX: I83.11 Varicose veins of right lower extremity with inflammation (principal) | CPT/HCPCS: 36475; J2003; J2004 ==

== ENCOUNTER 2024-05-11 09:09 | Outpatient (AMB) | payer OTHER, SELFPAY ==
[2024-05-11 09:35] LABS: Prothrombin Time Whole Bld POC 26.4 sec (11.1-13.5); ~PT, ~INR - Anti Coag Clinic 2.2 (0.9-1.1)
--- NOTE | 2024-05-11 09:36 | MHC.OFFVISCO ---
Intake Intake Visit Reasons: Anticoagulation Allergies No Known Allergies [No Known Allergies*] Allergy (Verified 05/11/24 09:29) Medication List - Last Reconciled 05/11/24 by Aniyah Vo RN amlodipine 5 mg PO DAILY cholecalciferol (vitamin D3) 50 mcg PO DAILY ferrous sulfate 325 mg PO DAILY fluticasone propionate 50 mcg/actuation intranasal gabapentin 300 mg PO TID lisinopril 2.5 mg PO ONCE meclizine 12.5 mg PO ONCE metformin ER 500 mg PO DAILY metoprolol tartrate 50 mg PO BID 90 days mupirocin 2% 1 appl topical BID 5 days nitroglycerin 0.4 mg sublingual Q5M rosuvastatin 20 mg PO DAILY tamsulosin 0.4 mg PO DAILY triamcinolone acetonide 0.1% 1 appl topical BID-TID warfarin 5 mg See Protocol PO DAILY Nursing Note Amb to ACS feeling well Medications and supplements reviewed No changes in health, diet, medications, or supplements, Denies any signs and symptoms of bleeding,bruising, or clotting. Bleeding, bruising, clotting discussed INR 2.2 in therapeutic range Dose: continue usual dosing 5mg x 3 days and 7.5mg x 4 days balance greens and reds in diet, be consistent F/U INR: 4 weeks Patient verbalizes understanding of instructions given Anti-Coag Initial Assessment Social Hx Patient Tobacco Use Status: Former Tobacco user alcohol intake: never Alcohol intake frequency: does not drink Coding Level of Care Code Est Patient Level 1 Diagnoses Current use of anticoagulant therapy Z79.01 Time Spent (min) 15 Assessment & Plan Assessment & Plan (1) Current use of anticoagulant therapy: Onset Date: ~01/2015 Comment: (on Coumadin - for AFib dx 01/2015) Code(s): Z79.01 - FPC (current) use of anticoagulants Category: Medical
--- OUTSIDE RECORDS SUMMARY | 2024-05-11 10:13 | XMS_ITS | Encounter Summary ---
Demographics Address [address] [place] [address] Home Phone Work Phone Mobile Phone Preferred Language es Marital Status Unknown Hinduism Affiliation Unknown Race Other Race Ethnic Group or Author Organization [employer] Address [address] [facility] [address] [place] [address] Care Team Providers Care Client Onboarding Analyst Name Role Phone Olga Paulino DO Primary Care Provider [phone] [phone] Encounter Details Date Type Department Care Team [...] Description 05/17/2024 9:00 AM EDT Office Visit [facility] [address] [place] [address] Olga Paulino DO [address] [place] [address] documented as of this encounter Procedures Procedure Name Priority Date/Time Associated Diagnosis Comments PROTHROMBIN TIME WHOLE BLD POC Routine 04/13/2024 9:23 AM EST ~PT, ~INR - ANTI COAG CLINIC Routine 04/13/2024 9:23 AM EST documented in this encounter Results * (ABNORMAL) PROTHROMBIN TIME WHOLE BLD POC (04/13/2024 9:23 AM EST) Protime 25.2(H) 11.1 - 13.5 sec [facility] 04/13/2024 9:23 AM EST 04/13/2024 9:25 AM EST us Generic External Data Provider LAB BLOOD ORDERAB LES Final Result [facility] [address] [place] [address] [phone] * (ABNORMAL) ~PT, ~INR - ANTI COAG CLINIC (04/13/2024 9:23 AM EST) Prothrombin Time INR 2.1(H) 0.9 - 1.1 [facility] Comment:METER #: [id number] TERNATIONAL NORMALIZED RATIO (INR) REFERENCE RANGES Reference [...] Provider LAB BLOOD ORDERAB LES Final Result [facility] [address] [place] [address] [phone] documented in this encounter Visit Diagnoses Not on filedocumented in this encounter Additional Health Concerns Assessment Noted Time PHQ-9 Depression Total Score: 0 10/06/19 24 9:06 AM EDT documented as of this encounter Care Teams Client Onboarding Analyst Relationship Specialty Start Date End Date Olga Paulino DO [address] [place] [address] PCP - General Family Medicine 03/03/18 documented as of this encounter
--- OUTSIDE RECORDS SUMMARY | 2024-05-11 10:13 | XMS_ITS | Encounter Summary ---
Author Organization [employer] Address [address] [facility] [address] [place] [address] Care Team Providers Care Commercial Solar Sales Consultant Name Role Phone Olga Paulino DO Primary Care Provider [phone] [phone] Encounter Details Date Type Department Care Team (Late st Contact Info) Description 05/10/2024 Patient Outreach [facility] & [facility]EDS [address] [place] [address] Olag Paulino DO [address] [place] [address] Social History Tobacco Use Types Packs/Day Years [...] Description 05/17/2024 9:00 AM EDT Office Visit [facility] [address] [place] [address] Olga Paulino DO [address] [place] [address] documented as of this encounter Visit Diagnoses Not on filedocumented in this encounter Additional Health Concerns Assessment Noted Time PHQ-9 Depression Total Score: 0 10/06/19 24 9:06 AM EDT documented as of this encounter Care Teams Commercial Solar Sales Consultant Relationship Specialty Start Date End Date Olga Paulino DO [address] [place] [address] PCP - General Family Medicine 03/03/18 documented as of this encounter
--- OUTSIDE RECORDS SUMMARY | 2024-05-11 10:13 | XMS_ITS | Encounter Summary ---
Author Organization [employer] Address [address] [facility] [address] [place] [address] Care Team Providers Care Manager Environmental Health And Safety Name Role Phone Olga Paulino DO Primary Care Provider [phone]- [phone] Encounter Details Date Type Department Care Team (Late st Contact Info) Description 04/26/2022 Orders Only [facility] MED & PEDS [address] [place] [address] Olga Jaime LPN Social History Tobacco Use [...] Description 05/17/2024 9:00 AM EDT Office Visit [facility] [address] [place] [address] Olga Paulino DO [address] [place] [address] documented as of this encounter Visit Diagnoses Not on filedocumented in this encounter Care Teams Manager Environmental Health And Safety Relationship Specialty Start Date End Date Olga Paulino DO [address] [place] [address] PCP - General Family Medicine 03/03/18 documented as of this encounter
--- OUTSIDE RECORDS SUMMARY | 2024-05-11 10:13 | XMS_ITS | Encounter Summary ---
Author Organization [employer] Address [address] [facility] [address] [place] [address] Care Team Providers Care Communication Center Operator Name Role Phone Olga Paulino DO Primary Care Provider [phone]- [phone] Encounter Details Date Type Department Care Team (Late st Contact Info) Description 06/28/2022 Orders Only [facility] MED & PEDS [address] [place] [address] Olga Jaime LPN Social History Tobacco Use [...] Description 05/17/2024 9:00 AM EDT Office Visit [facility] MED[facility]INE [address] [place] [address] Olga Paulino DO [address] [place] [address] documented as of this encounter Visit Diagnoses Not on filedocumented in this encounter Care Teams Communication Center Operator Relationship Specialty Start Date End Date Olga Paulino DO [address] [place] [address] PCP - General Family Medicine 03/03/18 documented as of this encounter
--- OUTSIDE RECORDS SUMMARY | 2024-05-11 10:13 | XMS_ITS | Encounter Summary ---
Author Organization [employer] Address [address] [facility] [address] [place] [address] Care Team Providers Care Wellness Nurse Name Role Phone Olga Paulino DO Primary Care Provider [phone] Reason for Visit * Reason Comments Pre-visit Planning SDOH screening negat jaden and tobacco screening negative Encounter Details Date Type Department Care Team (Late st Contact Info) Description 05/10/2024 Patient Outreach [facility] [address] [place] [address] Olga Paulino DO [address] [place], [place] [phone] Pre-visit Planning (SDOH screening negative and tobacco screening negative) Social History Tobacco Use Types Packs/Day Years [...] AM EDT documented as of this encounter Progress Notes * Precious Zurita - 05/10/2024 9:12 AM EDT CC Precious placed successful outbound call to patient for pre-visit planning. Patient name and confirmed. Patient confirms appt date and time, and has transportation. Biggest concern for appointment at this time is none Patient advised to bring to appointment a photo id and insurance card. Appropriate screenings completed in anticipation of appointment. documented in this encounter Plan of Treatment Upcoming Encounters Date Type Department Care Team (Late st Contact Info) Description 05/17/2024 9:00 AM EDT Office Visit [facility] [address] [place] [address] Olga Paulino DO [address] [place] [address] documented as of this encounter Visit Diagnoses Not on filedocumented in this encounter Additional Health Concerns Assessment Noted Time PHQ-9 Depression Total Score: 0 10/06/19 24 9:06 AM EDT documented as of this encounter Care Teams Wellness Nurse Relationship Specialty Start Date End Date Olga Paulino DO [address] [place] [address] PCP - General Family Medicine 03/03/18 documented as of this encounter
--- OUTSIDE RECORDS SUMMARY | 2024-05-11 10:13 | XMS_ITS | Encounter Summary ---
Author Organization [employer] Address [address] [facility] [address] [place] [address] Care Team Providers Care Quality Assurance Calibrator Name Role Phone Ogla Paulino DO Primary Care Provider [phone]- [phone] Reason for Visit * Reason Comments Med Refill Encounter Details Date Type Department Care Team ([facility] st Contact Info) Description 04/12/2024 Refill [facility] [address] [place] [address] Olga Paulino DO [address] [place], [place] [phone] Essential hypertension; Type 2 diabetes mellitus with other specified complication, unspecified whether mcfp insulin use (CMS/HCC); Paroxysmal atrial fibrillation ([facility]) Social History Tobacco Use Types Packs/Day Years [...] Description 05/17/2024 9:00 AM EDT Office Visit [facility] [address] [place] [address] Olga Paulino DO [address] [place] [address] documented as of this encounter Visit Diagnoses Diagnosis Essential hypertension Unspecified essential hypertension Type 2 diabetes mellitus with other specified complication, unspecified whether exterminator helper insulin use ([facility]/HCC) Paroxysmal atrial fibrillation ([facility]) Atrial fibrillation documented in this encounter Additional Health Concerns Assessment Noted Time PHQ-9 Depression Total Score: 0 10/06/19 24 9:06 AM EDT documented as of this encounter Care Teams Quality Assurance Calibrator Relationship Specialty Start Date End Date Olga Paulino DO [address] [place] [address] PCP - General Family Medicine 03/03/18 documented as of this encounter
--- OUTSIDE RECORDS SUMMARY | 2024-05-11 10:13 | XMS_ITS | Encounter Summary ---
Demographics Address [address] [facility] [address] [place] [address] Home Phone Work Phone Mobile Phone Preferred Language es Marital Status Unknown Jewish Affiliation Unknown Race Other Race Ethnic Group or Author Organization [employer] Address [address] [facility] 7t [place] [address] Care Team Providers Care Manager File Name Role Phone Olga Paulino DO Primary Care Provider [phone] [phone] Encounter Details Date Type Department Care Team (Late st Contact Info) Description 05/11/2024 Orders Only GENERIC EXTERNAL DATA DEPARTMENT Provider, [...] 9:00 AM EDT Office Visit [facility] [address] [place] [address] Olga Paulino DO [address] [place] [address] documented as of this encounter Procedures Procedure Name Priority Date/Time Associated Diagnosis Comments PROTHROMBIN TIME WHOLE BLD POC Routine 05/11/2024 9:33 AM EDT ~PT, ~INR - ANTI COAG CLINIC Routine 05/11/2024 9:33 AM EDT documented in this encounter Results * (ABNORMAL) PROTHROMBIN TIME WHOLE BLD POC (05/11/2024 9:33 AM EDT) Protime 26.4(H) 11.1 - 13.5 sec [facility] 05/11/2024 9:33 AM EDT 05/11/2024 9:34 AM EDT us Generic External Data Provider LAB BLOOD ORDERAB LES Final Result [facility] [address] [place] [phone] * (ABNORMAL) ~PT, ~INR - ANTI COAG CLINIC (05/11/2024 9:33 AM EDT) Prothrombin Time INR 2.2(H) 0.9 - 1.1 [facility] Comment:METER #: [id number] TERNATIONAL NORMALIZED RATIO (INR) REFERENCE RANGES Reference RangeFor patients not on anticoagulant therapy: 0.9 - 1.1INR ranges for oral anticoagulanttherapy:For prevention and treatment of venous thrombosis and pulmonary embolism: 2.0 - 3.0For acute myocardial infarction with aspirin therapy: 2.0 - 3.0For acute myocardial infarction without aspirin therapy: 3.0 - 4.0For patients with mechanical prosthetic heart valves: 2.5 - 3.5 05/11/2024 9:33 AM EDT 05/11/2024 9:34 AM EDT us Generic External Data Provider LAB BLOOD ORDERAB LES Final Result Performing Organization Address City/State/[facility] Co de Phone Number [facility] [address] [place] [phone] documented in this encounter Visit Diagnoses Not on filedocumented in this encounter Additional Health Concerns Assessment Noted Time PHQ-9 Depression Total Score: 0 10/06/19 24 9:06 AM EDT documented as of this encounter Care Teams Manager File Relationship Specialty Start Date End Date Olga Paulino DO [address] [place] [address] PCP - General Family Medicine 03/03/18 documented as of this encounter
--- OUTSIDE RECORDS SUMMARY | 2024-05-11 10:13 | XMS_ITS | Clinical Summary ---
Demographics Address [address] [facility] [facility] [address] [place] [address] Home Phone Work Phone Mobile Phone Preferred Language es Marital Status Unknown Anglican Affiliation Unknown Race Other Race Ethnic Group or Author Organization [employer] Address [address] [facility] [address] [place] [address] Care Team Providers Care Student Loan Counselor Name Role Phone Olga Paulino DO Primary Care Provider Allergies No known active allergies Medications amLODIPine (Norvasc) 5 MG tablet TOME JACKIE TABLETA TODOS LOS D 03/01/20 22 Active metoprolol tartrate (Lopressor) 50 MG tablet TOME JACKIE TABLETA DOS VECES AL D A 12/06/19 22 Active Blood Glucose Monitoring Suppl (FreeStyle [place]) w/Device kit USE TO CHECK BLOOD [...] mellitus with other specified complication, unspecified whether mcc insulin use (CMS/HCC) TOME 1 TABLETA POR [...] mellitus with other specified complication, unspecified whether mcc insulin use (CMS/HCC) TAKE 1 TABLET BY [...] 1:51 PM EDT): Audiology eval w/ b/l [id number] SN hearing loss JUN 2021 -his agrees [...] Encounters Date Type Department Care Team Description 05/11/2024 Orders Only GENERIC EXTERNAL DATA DEPARTMENT Provider, Generic External Data 05/10/2024 Patient Outreach [facility] & PEDS [address] [place], [place] [phone] Olga Paulino DO 05/10/2024 Patient Outreach [facility] [address] [place] [address] Olga Paulino DO Pre-visit Planning (SDOH screening negative and tobacco screening negative) 04/13/2024 Orders Only GENERIC EXTERNAL DATA DEPARTMENT Provider, Generic External Data 04/12/2024 Refill [facility] [address] [place] [phone] Olga Paulino DO Essential hypertension; Type 2 diabetes mellitus with other specified complication, unspecified whether mcc insulin use ([facility]); Paroxysmal atrial fibrillation ([facility]) 03/17/2024 Telephone [facility] [address] [place] [address] [phone] Julia Driscoll, PATI Coumadin clinic renewal form [...] Description 05/17/2024 9:00 AM EDT Office Visit [facility] [address] [place] [address] Olga Paulino DO [address] [place] [address] Health Maintenance Due Date Last Done Comments [...] history exists Depression Screening 10/05/2024 10/06/2023, 10/06/19 Tobacco Screening 10/05/2024 10/06/2023 SDOH Screening 05/10/2025 05/10/2024 DTaP/Tdap/Td Vaccines (3 - Td or Tdap) [...] COAG CLINIC Routine 05/11/2024 9:33 AM EDT PROTHROMBIN TIME WHOLE BLD POC Routine 04/13/2024 9:23 AM EST ~PT, ~INR - ANTI COAG CLINIC Routine 04/13/2024 9:23 AM EST PROTHROMBIN TIME WHOLE BLD POC Routine 03/16/2024 9:09 AM EST ~PT, ~INR - ANTI COAG CLINIC Routine 03/16/2024 9:09 AM EST PROTHROMBIN TIME WHOLE BLD POC Routine 02/17/2024 9:29 AM EST ~PT, ~INR - ANTI COAG CLINIC Routine 02/17/2024 9:29 AM EST POCT GLYCATED HEMOGLOBIN, TOTAL Routine 10/06/2023 9:09 AM EDT 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 Protime 26.4(H) 11.1 - 13.5 sec [facility] 05/11/2024 9:33 AM EDT 05/11/2024 9:34 AM EDT us Generic External Data Provider LAB BLOOD ORDERAB LES Final Result [facility] [address] [place] [phone] * (ABNORMAL) ~PT, ~INR - ANTI COAG CLINIC (05/11/2024 9:33 AM EDT) Only the most recent of4 resultswithin the time period is included. Prothrombin Time INR 2.2(H) 0.9 - 1.1 [facility] Comment:METER #: [id number] TERNATIONAL NORMALIZED RATIO (INR) REFERENCE RANGES Reference [...] ORDERAB LES Final Result Performing Organization Address City/State/[facility] Co de Phone Number [facility] [address] [place] [phone] * (ABNORMAL) POCT HGB A1C (10/06/2023 9:09 AM EDT) Hemoglobin A1C 6.6(A) 4.0 - 6.0 % QC Media Lot # [id number] Lot# Expiration Date ,026 Blood 10/06/2023 9:09 AM EDT Olga Paulino DO POINT OF CARE TEST ENTER/PREETHI T ORDERABLES Final Result * (ABNORMAL) Lipid Panel, Standard (06/27/2023 8:40 AM EDT) Triglycerides 108 <150 mg/dL [facility] Comment:Desirable Triglyceri de: less than 150 mg/dLBorderline High Triglyceride 150-199 mg/dLHigh Triglyceride: 200-499 mg/dLVery High Triglyceride: greater than or equal to 5OO mg/dL Cholesterol 113 <200 mg/dL [facility] Comment:Desirable Cholestero l: less than 200 mg/dLBorderline High Cholesterol: 200-239 mg/dLHigh Cholesterol: greater than 239 mg/dL LDL Cholesterol Calculated 57 <100 mg/dL [facility] Comment:Desirable LDL: less than 100 mg/dLNear Optimal/Above Optimal LDL: 110- 129 mg/dLBorderline High LDL: 130-159 mg/dLHigh LDL: 160-189 mg/dLVery High LDL: greater than or equal to 190 mg/dL HDL Cholesterol 35(L) >40 mg/dL [facility] Comment:Desirable HDL: great er than 40 mg/dL Note: This HDL assay may give artificially low results in patients with liver disease. Blood Venous blood specimen / Unknown 06/27/2023 8:40 AM EDT 06/27/2023 11:31 AM EDT us Olga Paulino DO LAB BLOOD ORDERABLES Final R esult [facility] [address] [place] [phone] [phone] from Last 3 Months or Most Recently Relevant to Health Maintenance Insurance [facility] Care Teams Student Loan Counselor Relationship Specialty Start Date End Date Olga Paulino DO [address] [place] [phone] PCP - General Family Medicine 03/03/18
== END 2024-05-11 09:39 | disposition home or self-care (01) ==
LOC: HO.ACS 09:09
PROVIDERS: PCP Family Medicine; Visit Provider Internal Medicine
DX: Z79.01 Long term (current) use of anticoagulants (principal)

== ENCOUNTER → 2024-05-11 09:09 | Outpatient (BNVA) | payer OTHER, SELFPAY | PROVIDERS: PCP Family Medicine; Visit Provider Internal Medicine | DX: I48.0 Paroxysmal atrial fibrillation (principal); Z79.01 Long term (current) use of anticoagulants; Z51.81 Encounter for therapeutic drug level monitoring | CPT/HCPCS: 85610; 99211 ==

== ENCOUNTER 2024-06-04 19:47 | Emergency (ER) | payer OTHER, SELFPAY ==
[2024-06-04 19:58] VITALS: BP 190/120; PULSE 80; O2SAT 96
[2024-06-04 20:16] VITALS: BP 143/68; PULSE 90; RESP 20; TEMP 36.7; O2SAT 95; BMI 28.1
--- NOTE | 2024-06-04 20:23 | ED.GENADULT ---
HPI - General Adult General Chief complaint: General Medical Stated complaint: hypertension Time Seen by Provider: 06/04/24 23:21 Source: patient, family (), RN notes reviewed and air analyst Mode of arrival: EMS Limitations: language barrier History of Present Illness ED Provider: Augustine HPI narrative: 83-year-old male with past medical history significant for atrial fibrillation on Coumadin, diabetes, hypertension presents for evaluation of multiple complaints. Patient reports that he went to urgent care 3 days ago for cough which is worse at night. He was discharged with a prescription for Augmentin and Tylenol with codeine he took the antibiotic and cough medicine earlier this afternoon and shortly after developed nausea vomiting, felt warm, dizzy his blood pressure was elevated to 191/128 which prompted him to come to the emergency department the patient's states the patient intermittently has nosebleeds and sometimes his gums bleed. The patient denies any abdominal pain, he only had 1 episode of vomiting and he has no further nausea. Denies any shortness of breath, back pain he has no other complaints or concerns at this time Related Data Home Medications ?Medication ?Instructions ?Recorded ?Confirmed cholecalciferol (vitamin D3) 50 50 mcg PO DAILY 01/21/20 05/11/24 mcg (2,000 unit) capsule ferrous sulfate 325 mg (65 mg 325 mg PO DAILY 01/21/20 05/11/24 iron) tablet gabapentin 300 mg capsule 300 mg PO TID 01/21/20 05/11/24 fluticasone propionate 50 intranasal 03/01/20 05/11/24 mcg/actuation nasal spray,suspension tamsulosin 0.4 mg capsule 0.4 mg PO DAILY 06/05/21 05/11/24 triamcinolone acetonide 0.1 % 1 appl topical BID-TID 05/27/23 05/11/24 topical cream lisinopril 2.5 mg tablet 2.5 mg PO ONCE 02/03/24 05/11/24 Previous Rx's ?Medication ?Instructions ?Recorded meclizine 12.5 mg tablet 12.5 mg PO ONCE #30 tabs 04/18/21 metformin 500 mg tablet,extended 500 mg PO DAILY #30 tabs 04/18/21 release 24 hr rosuvastatin 20 mg tablet 20 mg PO DAILY #30 tabs 04/18/21 metoprolol tartrate 50 mg tablet 50 mg PO BID 90 days #180 tabs 06/05/21 amlodipine 5 mg tablet 5 mg PO DAILY #90 tabs 12/04/21 mupirocin 2 % topical ointment 1 appl topical BID 5 days #15 grams 05/15/22 nitroglycerin 0.4 mg sublingual 0.4 mg sublingual Q5M #25 tabs 08/07/22 tablet warfarin 5 mg tablet 5 mg PO DAILY #90 tabs 05/27/23 cefpodoxime 200 mg tablet 200 mg PO Q12H #10 tabs 06/05/24 Allergies Allergy/AdvReac Type Severity Reaction Status Date / Time No Known Allergies Allergy Verified 06/04/24 20:25 [No Known Allergies*] Review of Systems Constitutional: Constitutional: Denies body ache(s), Denies chills, Denies fever(s), Denies headache(s), Denies increased appetite and Denies lethargy Eyes: Eyes: Denies blurry vision ENT: Denies vertigo, Reports dizziness, Denies headache(s) and Reports epistaxis Cardiovascular: Cardiovascular: Denies chest pain, Denies chest pain at rest, Denies rapid heart rate and Denies dyspnea Respiratory: Respiratory: Reports cough, Denies hemoptysis and Denies dyspnea Gastrointestinal: Gastrointestinal: Denies abdominal pain, Denies nausea and Denies vomiting Musculoskeletal: Musculoskeletal: Denies back pain Integumentary/Breasts: Skin/Breast: Denies rash Neurologic: Denies vertigo, Reports dizziness and Denies headache(s) Psychiatric: Psychiatric: Denies anxiety [facility] Past Medical History Medical History Pulmonary nodules Tubular adenoma of colon (~2009) Hyperlipidemia Type 2 diabetes mellitus with polyneuropathy Paroxysmal atrial fibrillation (~01/2015) Essential hypertension Ascending aortic aneurysm Atherosclerotic cardiovascular disease Lumbar spondylolysis Inflammatory arthritis Surgical History History of cardiac cath (~2018) History of lung surgery (~03/2019) History of left inguinal hernia repair (~01/2019) History of colonoscopy (~02/2016) Hx of neck surgery Hx of appendectomy Family History Family History Mother Diabetes Social History Social History Household Members: Spouse Alcohol intake: never Patient Tobacco Use Status: Former Tobacco user Advance Directives: Yes Advance Directives Information Provided: Yes Advance Directives on File: No Current occupational status: retired Hearing needs: Yes Physical Exam ED Vital Signs: Vital Signs - 24 hr 06/04/24 20:16 06/04/24 23:23 06/05/24 00:15 Temperature 98.1 F 97.9 F 97.9 F Pulse Rate 90 81 81 Respiratory Rate 20 16 16 Blood Pressure 143/68 H 133/56 L 133/56 L Pulse Oximetry 95 96 96 Oxygen Delivery Method Room Air Room Air Room Air BMI result Body Mass Index 28.1 Const General: healthy appearing, comfortable, no acute distress, alert and awake Nutritional Appearance: well nourished Orientation/consciousness: patient oriented x3 HENMT Head: Yes normocephalic and Yes atraumatic Eyes Eyelids: Yes eyelids normal Conjunctivae: conjunctivae normal Sclerae: sclerae normal Corneas: corneas normal Pupils: Equal, round and reactive pupils present EOM: EOMs intact bilaterally Neck Neck: Yes full ROM Resp Effort & Inspection: normal respiratory effort, able to speak in complete sentences, no audible wheezes and not labored Auscultation: clear to auscultation bilaterally Cardio Rate: abnormal rate Rhythm: abnormal rhythm GI Inspection: No distended Palpation (GI): Soft to palpation, not firm, nontender, no guarding and not rigid Skin General skin exam: elasticity normal Neuro General: patient oriented x3 Cranial nerves: Yes Equal, round and reactive pupils present and Yes Bilaterally intact EOM present Cognition (Neuro): normal cognition Extrem Other: Moving all extremities well without any obvious deformities Course Course Course Narrative: RME performed by Tania Liang PA-C. Patient is an 83 year old assigned male at presenting to the emergency department with multiple concerns. Patient doesn't express any complaints however, his states that he has been dizzy, vomiting, and overall unwell appearing. Detailed physical exam and review of systems are deferred to the securities settlement processor. EKG, labs, imaging, and swabs ordered. Patient placed back in the waiting room pending room availability and results. Medical Decision Making Medical Decision Making MDM Narrative: 83-year-old male past medical history as above presents for evaluation of multiple complaints but primarily he had an episode of nausea vomiting with dizziness prior to arrival. This happened after he took his Augmentin and Tylenol with codeine which she was taking for bronchitis. Both of these medications can cause GI upset as well as dizziness. His blood pressure was elevated to 191/128 which was likely reactive to his episode of vomiting. he did not have any chest pain, shortness of breath. His blood pressure has returned to normal, most recently 133/56 without any intervention. The patient's lungs are clear to auscultation, he is not tachypneic, tachycardic or hypoxic. I do not see any indication for x-ray imaging at this time. The patient has no leukocytosis, he has a mild anemia consistent with his baseline, there is no significant left shift. His INR is elevated to 2.7 which is consistent with his warfarin use for AFib. No significant chemistry abnormalities. Patient's troponin is elevated to 43.0, but he does not have any chest pain, his troponin was similarly elevated last time he was here to 38 and 36. the patient's EKG shows AFib with a rate of 82 beats minute. Prolonged QTC with a QTC of 490. I believe the patient's symptoms are likely related to his medications he was prescribed call with have him discontinue the Tylenol with codeine and we will change his Augmentin to cefuroxime. I considered azithromycin but given the prolonged QT felt this was not a good choice. Differential Diagnosis Differential Diagnoses: The differential diagnosis associated with the presentation includes Acute bronchitis Upper respiratory infection GI upset from antibiotic use Dizziness Hypertension Pneumonia less likely Admission/Observation Consideration of admission/observation: Escalation of care including admission/observation considered Lab Data MDM Lab Attestation statement: I reviewed the patient's lab results. as above 06/04/24 20:36 06/04/24 20:36 Labs: Lab Results 06/04/24 06/04/24 Range/Units 20:36 20:42 WBC 7.1 (4.8-10.8) X10*3/uL RBC 4.40 L (4.60-5.80) X10*6/uL Hgb 12.7 L (14.0-18.0) g/dl Hct 38.7 L (42.0-52.0) % MCV 88.0 (80.0-98.0) fL MCH 28.9 (27.0-33.0) pg MCHC 32.8 (31.0-36.0) g/dl RDW 14.3 (11.0-16.0) % Plt Count 158 L (160-400) X10*3/uL MPV 11.5 (9.4-12.4) fL Immature Gran % (Auto) 0.6 H (0.0-0.4) % Neut % (Auto) 72.0 (45-73) % Lymph % (Auto) 16.3 L (20-40) % [place] % (Auto) 8.2 (2-11) % Eos % (Auto) 2.5 (0-4) % Baso % (Auto) 0.4 (0-2) % Lymph # (Auto) 1.2 (1.2-4.9) X10*3/uL [place] # (Auto) 0.6 (0.1-1.2) X10*3/uL Eos # (Auto) 0.2 (0.0-0.4) X10*3/uL Baso # (Auto) 0.0 (0.0-0.2) X10*3/uL Abs Immat Gran (auto) 0.04 H (0.00-0.03) X10*3/uL Absolute Neuts (auto) 5.1 (2.0-8.3) x10*3/uL Absolute Nucleated RBC 0.000 (0.0-0.012) X10*3/uL Nucleated RBC % (auto) 0.0 (0.0-0.2) /100WBC PT 31.8 H (10.9-12.4) SEC INR 2.7 H (0.9-1.1) Sodium 141 (135-145) mmol/L Potassium 4.0 (3.3-5.1) mmol/L Chloride 106 (96-108) mmol/L Carbon Dioxide 28 (22-29) mmol/L Anion Gap 11 L (12-20) BUN 21 H (9-16) mg/dL Creatinine 0.95 (0.5-1.4) mg/dL Estim Creat Clear Calc 59.9 Estimated GFR > 60 Random Glucose 178 H (60-115) mg/dL Calcium 8.8 (8.4-10.2) mg/dL Magnesium 2.0 (1.6-2.6) mg/dL Total Bilirubin 0.4 (0.0-1.0) mg/dL AST 26 (5-37) U/L ALT 27 (0-40) U/L Alkaline Phosphatase 96 (39-117) U/L Troponin I High Sens 43.0 H (<3.5-35.0) ng/L Total Protein 6.4 L (6.5-8.0) g/dL Albumin 3.6 (3.5-5.0) g/dL Urine Color Yellow Urine Appearance Clear Urine pH 6.0 (5.0-9.0) Ur Specific [place] >= 1.030 H (1.005-1.025) Urine Protein 300 (3+) H (Neg-Trace) mg/dL Urine Glucose (UA) Negative (Negative) mg/dL Urine Ketones Trace (Negative) mg/dL Urine Blood Negative (Negative) Urine Nitrite Negative (Negative) Ur Leukocyte Esterase Negative (Negative) Urine RBC 0-2 (0-2) /HPF Urine WBC 0-5 (0-5) /HPF Ur Squamous Epith Cells 0-2 (0-2) /HPF Urine Bacteria None Seen (None Seen) Hyaline Casts 0-2 (0-2) /LPF Influenza Type A (PCR) NEGATIVE (Negative) Influenza Type B (PCR) NEGATIVE (Negative) RSV RNA Qual (PCR) NEGATIVE (Negative) SARS-CoV-2 RNA (RT-PCR) NEGATIVE (Negative) Independent Interpretation I performed an independent interpretation of an: EKG Tests considered The following testing was considered but not selected: consider chest x-ray Discharge Plan Discharge Clinical Impression: Nausea & vomiting, Hypertension Patient Disposition: Home, Self-Care Instructions: Chronic Hypertension (ED) Additional Instructions: your workup in the ER today was reassuring. Your blood work did not show any concerning abnormalities. The nausea, vomiting from this afternoon was possibly related to the antibiotic you are taking. Augmentin is well known to cause GI upset. I recommend that you discontinue this medication and start taking cefuroxime b.i.d. for the remaining 5 days of your prescription the Tylenol with codeine may have also contributed to your dizziness, I recommend that you stop taking this your blood pressure improved today without any intervention, take your medications as prescribed for your nosebleed I recommend using the humidifier that you told me you have at home this may help prevent nosebleeds and may help with the coughing as well follow-up with your primary doctor, return for new or worsening symptoms Prescriptions: New cefpodoxime 200 mg tablet 200 mg PO Q12H Qty: 10 0RF Rx Instructions: must administer with a meal/food No Action nitroglycerin 0.4 mg tablet, sublingual 0.4 mg sublingual Q5M Qty: 25 0RF Rx Instructions: Dissolve 1 tab under tongue every 5 minutes times 3 doses for chest pain. OVERDUE FOR APPT. PLEASE CALL [phone] TO SCHEDULE FOLLOW UP FOR 2022 SO WE CAN CONTINUE REFILLING meclizine 12.5 mg tablet 12.5 mg PO ONCE Qty: 30 0RF metformin 500 mg tablet extended release 24 hr 500 mg PO DAILY Qty: 30 0RF rosuvastatin 20 mg tablet 20 mg PO DAILY Qty: 30 0RF mupirocin 2 % ointment 1 appl topical BID 5 Days Qty: 15 0RF ferrous sulfate 325 mg (65 mg iron) tablet 325 mg PO DAILY gabapentin 300 mg capsule 300 mg PO TID cholecalciferol (vitamin D3) 50 mcg (2,000 unit) capsule 50 mcg PO DAILY fluticasone propionate 50 mcg/actuation spray,suspension intranasal tamsulosin 0.4 mg capsule 0.4 mg PO DAILY lisinopril 2.5 mg tablet 2.5 mg PO ONCE metoprolol tartrate 50 mg tablet 50 mg PO BID 90 Days Qty: 180 3RF amlodipine 5 mg tablet 5 mg PO DAILY Qty: 90 3RF triamcinolone acetonide 0.1 % cream 1 appl topical BID-TID warfarin 5 mg tablet 5 mg PO DAILY Qty: 90 0RF Protocol: Dose Management Condition: Friday (Week One) Dose/Route: 5 mg Instruction: 1 x 5 mg tablet Condition: Friday Dose/Route: 7.5 mg Instruction: 1.5 x 5 mg tablets Condition: Friday Dose/Route: 7.5 mg Instruction: 1.5 x 5 mg tablets Condition: Friday Dose/Route: 5 mg Instruction: 1 x 5 mg tablet Condition: Dose/Route: 7.5 mg Instruction: 1.5 x 5 mg tablets Condition: Friday Dose/Route: 5 mg Instruction: 1 x 5 mg tablet Condition: Friday Dose/Route: 7.5 mg Instruction: 1.5 x 5 mg tablets Condition: Friday (Week Two) Dose/Route: 5 mg Instruction: 1 x 5 mg tablet Condition: Friday Dose/Route: 7.5 mg Instruction: 1.5 x 5 mg tablets Condition: Friday Dose/Route: 7.5 mg Instruction: 1.5 x 5 mg tablets Condition: Friday Dose/Route: 5 mg Instruction: 1 x 5 mg tablet Condition: Dose/Route: 7.5 mg Instruction: 1.5 x 5 mg tablets Condition: Friday Dose/Route: 5 mg Instruction: 1 x 5 mg tablet Condition: Friday Dose/Route: 7.5 mg Instruction: 1.5 x 5 mg tablets Protocol Text: Adjustment Start Date: Friday05/11/24 INR Value: Pending INR Date: 05/11/24 Recheck Date: 06/10/24 Additional Instructions: INR is in range continue usual dosing balance greens and reds in diet and be consistent Rx Instructions: 5MG X3, [id number] Interventions: ED Discharge Assessment Last Done: 06/05/24 00:15 Discharge Date/Time: 06/05/24 00:20 Print Language: Ugandan
--- NOTE | 2024-06-04 20:24 | ECG_ITS ---
Test Reason : WEAKNESS Blood Pressure : */* mmHG Vent. Rate : 82 BPM Atrial Rate : * BPM P-R Int : * ms QRS Dur : 98 ms QT Int : 420 ms P-R-T Axes : * 66 68 degrees QTcB Int : 490 ms Normal sinus rhythm Premature atrial complexes Prolonged QT Abnormal ECG When compared with ECG of 18-Apr-2021 10:17, Premature atrial complexes present Referred By: Tania Liang Electronically Signed By: TONE SOL
[2024-06-04 20:40] LABS: MANUAL DIFF FLAG NO
[2024-06-04 20:42] LABS: Basophils Percent Auto 0.4 % (0-2); Eosinophils Absolute Auto 0.2 X10*3/uL (0.0-0.4); Eosinophils Percent Auto 2.5 % (0-4); Hematocrit 38.7 % (42.0-52.0); Hemoglobin 12.7 g/dl (14.0-18.0); Imm Gran Abs Auto 0.04 X10*3/uL (0.00-0.03); Imm Gran Pct Auto 0.6 % (0.0-0.4); Lymphocytes Absolute Auto 1.2 X10*3/uL (1.2-4.9); Lymphocytes Percent Auto 16.3 % (20-40); Mean Corpuscular HGB Conc 32.8 g/dl (31.0-36.0); Mean Corpuscular Hemoglobin 28.9 pg (27.0-33.0); Mean Platelet Volume 11.5 fL (9.4-12.4); Monocytes Absolute Auto 0.6 X10*3/uL (0.1-1.2); Monocytes Percent Auto 8.2 % (2-11); Neutrophils Absolute Auto 5.1 x10*3/uL (2.0-8.3); Platelet Count 158 X10*3/uL (160-400); Red Cell Distribution Width 14.3 % (11.0-16.0); White Blood Count 7.1 X10*3/uL (4.8-10.8)
[2024-06-04 20:48] LABS: INTERNATIONAL NORM RATIO 2.7 (0.9-1.1); Prothrombin Time 31.8 SEC (10.9-12.4)
[2024-06-04 20:50] LABS: Appearance Urine Clear; Color Urine Yellow; Glucose Urine UA Negative (Negative); Leukocyte Esterase Urine Negative (Negative); Nitrite Urine Negative (Negative); Specific Gravity - Urine >= 1.030 (1.005-1.025); UMIC TRIGGER UACC YES; Urine Blood Negative (Negative); Urine Ketones Trace mg/dL (Negative); Urine Protein 300 (3+) mg/dL (Neg-Trace)
[2024-06-04 20:54] LABS: Alanine Aminotransferase 27 U/L (0-40); Albumin Level 3.6 g/dL (3.5-5.0); Alkaline Phosphatase 96 U/L (39-117); Anion Gap 11 (12-20); Aspartate Amino Transferase 26 U/L (5-37); Bilirubin Total 0.4 mg/dL (0.0-1.0); Blood Urea Nitrogen 21 mg/dL (9-16); Calcium 8.8 mg/dL (8.4-10.2); Carbon Dioxide 28 mmol/L (22-29); Chloride 106 mmol/L (96-108); Creatinine Clr Calc Pharmacy 59.9; Estimated Glomerular Filt Rate > 60; Glucose Random 178 mg/dL (60-115); Sodium 141 mmol/L (135-145); Total Protein 6.4 g/dL (6.5-8.0)
[2024-06-04 20:59] LABS: Bacteria Urine None Seen (None Seen); Hyaline Casts Urine 0-2 /LPF (0-2); RBC Urine 0-2 /HPF (0-2); Squamous Epithelial Cell Urine 0-2 /HPF (0-2); WBC Urine 0-5 /HPF (0-5)
[2024-06-04 21:17] LABS: Influenza A PCR NEGATIVE (Negative); Influenza B PCR NEGATIVE (Negative); Resp Syncy Virus RNA Qual PCR NEGATIVE (Negative); SARS COV2 PCR INHOUSE NEGATIVE (Negative)
[2024-06-04 23:23] VITALS: BP 133/56; PULSE 81; RESP 16; TEMP 36.6; O2SAT 96
--- OUTSIDE RECORDS SUMMARY | 2024-06-04 23:39 | XMS_ITS | Encounter Summary ---
Author Organization [employer] Address [address] [place] [address] Care Team Providers Care Bobbin Dumper Name Role Phone Olga Paulino DO Primary Care Provider [phone] Encounter Details Date Type Department Care Team (Late st Contact Info) Description 04/26/2022 Orders Only [facility] [address] [place] [address] Olga Jaime LPN Social History Tobacco Use Types Packs/Day Years Used Date Smoking Tobacco: Never Assessed Sex and Gender Information Value Date Recorded Sex Assigned at Male 12/31/2021 10:18 AM EDT Legal Sex Male 10:18 AM EDT Gender Identity Male 12/31/2021 10:18 AM EDT Sexual Orientation Straight 12/31/2021 10 :18 AM EDT documented as of this encounter Plan of Treatment Not on file documented as of this encounter Visit Diagnoses Not on filedocumented in this encounter Care Teams Bobbin Dumper Relationship Specialty Start Date End Date Olga Paulino DO [address] [place] [address] PCP - General Family Medicine 03/03/18 documented as of this encounter
--- OUTSIDE RECORDS SUMMARY | 2024-06-04 23:39 | XMS_ITS | Encounter Summary ---
Author Organization [employer] Address [address] [facility] [facility] [address] [place] [address] Care Team Providers Care Bilingual Inside Sales Representative Name Role Phone Olga Paulino DO Primary Care Provider [phone] Reason for Visit * Reason Comments Cough Sore Throat Encounter Details Date Type Department Care Team (Late st Contact Info) Description 06/02/2024 10:00 AM EDT Office Visit [facility] [address] [place] [address] Ambrosio Byers MD [address] [place] [address] Acute cough (Primary Dx); Acute non-recurrent sinusitis, unspecified location; Essential hypertension; Acute URI Social History Tobacco Use Types Packs/Day Years [...] AM EDT documented as of this encounter Last Filed Vital Signs Vital Sign Reading Time Taken Comments Blood Pressure 185/85 06/02/2024 9:56 AM EDT Pulse 81 06/02/2024 9:56 AM EDT Temperature 36.7 ??C (98.1 ??F) 06/02/2024 9:56 AM ED T Respiratory Rate 17 06/02/2024 9:56 AM EDT Oxygen Saturation 99% 06/02/2024 10: 05 AM EDT Inhaled Oxygen Concentration - - Weight 84.7 kg (186 lb 12.8 oz) 06/02/2024 9:56 AM EDT Height - - Body Mass Index 30.15 05/17/2024 10:32 AM EDT documented in this encounter Progress Notes * Ambrosio Byers MD - 06/02/2024 10:00 AM EDT Subjective Patient ID: Ramesh Kenyon is a 83 y.o. male. Senior Software Engineer Analytics: Teofilo Here with . HPI Ramesh has 3 week h/o productive cough that is worse at night, left forehead and cheek pain, nasal discharge, occasional throat discomfort.. No fever, SOB, n/v/d, wheezing. Taking po well. Tried Robitussin with no relief of cough. Lives with Former smoker. Last INR= 2.2 on 05/11/2024. Patient Active Problem List Diagnosis Benign prostatic hyperplasia Cervical radiculopathy Essential hypertension Hyperlipidemia Inflammatory arthritis Microalbuminuria Osteopenia Tubular adenoma of colon Type 2 diabetes mellitus (CMS/HCC) Paroxysmal atrial fibrillation (CMS/HCC) Sensorineural hearing loss, bilateral Anemia Current use of anticoagulant therapy Lumbar degenerative disc disease Cerebral microvascular disease Ascending aortic aneurysm (CMS/HCC) Centrilobular emphysema (CMS/HCC) Renal cyst Coronary artery disease Multiple pulmonary nodules Healthcare maintenance The following portions of the chart were reviewed this encounter and updated as appropriate: Review of Systems Constitutional: Negative for fever. HENT: Positive for rhinorrhea, sinus pressure and sinus pain. Respiratory: Positive for cough. Negative for wheezing. Cardiovascular: Negative for chest pain. Gastrointestinal: Negative for abdominal pain. Skin: Negative for rash. Neurological: Negative for headaches. Objective Physical Exam Constitutional: Appearance: Normal appearance. HENT: Right Ear: Tympanic membrane, ear canal and external ear normal. Left Ear: Tympanic membrane, ear canal and external ear normal. Nose: Nose normal. Mouth/Throat: Mouth: Mucous membranes are moist. Pharynx: Oropharynx is clear. Eyes: Conjunctiva/sclera: Conjunctivae normal. Pupils: Pupils are equal, round, and reactive to light. Cardiovascular: Rate and Rhythm: Normal rate. Rhythm irregular. Heart sounds: No murmur heard. Pulmonary: Effort: Pulmonary effort is normal. Breath sounds: Normal breath sounds. Musculoskeletal: General: Normal range of motion. Cervical back: No tenderness. Skin: Findings: No rash. Neurological: Mental Status: He is alert. Gait: Gait is intact. Psychiatric: Mood and Affect: Mood normal. Behavior: Behavior normal. Procedures Assessment/Plan Diagnoses and all orders for this visit: Acute non-recurrent sinusitis, unspecified location Prescribed acetaminophen and Augmentin. Return to clinic if not improving Acute cough Negative rapid Covid and Influenza tests. Rapid Strep test negative. Prescribed albuterol HFA with chamber to try for cough. Return to clinic if not improving. Essential hypertension Has home BP monitor. Reviewed BP parameters, given written BP log that includes BP parameters, to keep daily. Call if BP readings are elevated. - POCT Rapid COVID Ag - POCT rapid strep A manually resulted - Influenza B (ID NOW Rapid Molecular) - Influenza A (ID NOW Rapid Molecular) Other orders - albuterol 108 (90 Base) MCG/ACT inhaler; Inhale 2 puffs every 4 (four) hours if needed for wheezing or shortness of breath. - Spacer/Aero-Holding Chambers (OptiChamber Bernadette) misc; 1 each every 4 (four) hours if needed (asthma). - amoxicillin-clavulanate (Augmentin) 875-125 MG tablet; Take 1 tablet by mouth 2 times daily. - acetaminophen (Tylenol) 500 MG tablet; Take 2 tablets (1,000 mg) by mouth every 6 (six) hours if needed for moderate pain or fever. documented in this encounter Plan of Treatment Not on file documented as of this encounter Procedures Procedure Name Priority Date/Time Associated Diagnosis Comments POCT INFLUENZA B (ID NOW RAPID MOLECULAR) Routine 06/02/2024 10:02 AM EDT Acute URI POCT INFLUENZA A (ID NOW RAPID MOLECULAR) Routine 06/02/2024 10:02 AM EDT Acute URI POCT RAPID COVID ANTIGEN Routine 06/02/2024 10:02 AM EDT Acute URI POCT RAPID STREP A Routine 06/02/2024 10 :02 AM EDT Acute URI documented in this encounter Results * Influenza A (ID NOW Rapid Molecular) (06/02/2024 10:02 AM EDT) Influenza A Negative Negative, Indeterminate [facility] Swab 06/02/2024 10:0 2 AM EDT us Ambrosio yBers MD POINT OF CARE TEST ENTER/EDIT OR DERABLES Final Result [facility] [address] [place] [phone] * Influenza B (ID NOW Rapid Molecular) (06/02/2024 10:02 AM EDT) Influenza B Negative Negative, Indeterminate [facility] Swab 06/02/2024 10:0 2 AM EDT us Ambrosio Byers MD POINT OF CARE TEST ENTER/EDIT OR DERABLES Final Result Performing Organization Address [facility] de Phone Number [facility] [address] [place] [phone] * POCT rapid strep A manually resulted (06/02/2024 10:02 AM EDT) Pathologist [facility] Rapid Strep A Screen Negative Negative, None Detected [facility] Swab 06/02/2024 10:0 2 AM EDT us Ambrosio Byers MD POINT OF CARE TEST ENTER/EDIT OR DERABLES Final Result Performing Organization Address [facility] de Phone Number [facility] [address] [place] [phone] * POCT Rapid COVID Ag (06/02/2024 10:02 AM EDT) Pathologist [facility] Rapid COVID Ag Negative [facility] Swab 06/02/2024 10:0 2 AM EDT us Ambrosio Byers MD POINT OF CARE TEST ENTER/EDIT OR DERABLES Final Result Performing Organization Address [facility] Phone Number [facility] [address] [place] [phone] documented in this encounter Visit Diagnoses Diagnosis Acute cough- Primary Acute non-recurrent sinusitis, unspecified location Essential hypertension Unspecified essential hypertension Acute URI Acute upper respiratory infections of unspecified site documented in this encounter Additional Health Concerns Assessment Noted Time PHQ-9 Depression Total Score: 0 10/06/19 24 9:06 AM EDT documented as of this encounter Care Teams Bilingual Inside Sales Representative Relationship Specialty Start Date End Date Olga Paulino DO [address] [place] [address] PCP - General Family Medicine 03/03/18 documented as of this encounter
--- OUTSIDE RECORDS SUMMARY | 2024-06-04 23:39 | XMS_ITS | Clinical Summary ---
Demographics Address [address] [place] [address] Home Phone Work Phone Mobile Phone Preferred Language es Marital Status Unknown Buddhist Affiliation Unknown Race Other Race Ethnic Group or Author Organization [email or web address] Address [address] [facility] [address] [place] [address] Care Team Providers Care Funds Development Director Name Role Phone Olga Paulino DO Primary Care Provider Allergies No known active allergies Medications amLODIPine (Norvasc) 5 MG tablet TOME JACKIE TABLETA TODOS LOS D 022 Active metoprolol tartrate (Lopressor) 50 MG tablet TOME JACKIE TABLETA DOS VECES AL D A 022 Active Blood Glucose Monitoring Suppl (FreeStyle [place] Lite) w/Device kit USE TO CHECK BLOOD SUGAR TWICE A DAY 1 kit 023 Active Blood Glucose Monitoring Suppl (Accu-Chek Leslye Plus) w/Device kit 1 each 2 times daily. 1 kit 023 Active glucose blood (Accu-Chek Leslye Plus) test strip USE TO TEST BLOOD SUGAR DOS VECES AL SABIHA 100 strip 11 023 Active Calcium Carbonate-Vit D-Min (Calcium 600+D Plus Minerals) 600-400 MG-UNIT tabletIndicatio ns:Osteopenia, unspecified location Take 1 tablet by mouth daily 90 tablet 3 023 Active rosuvastatin (Crestor) 20 MG tablet TOME JACKIE TABLETA TODOS LOS STINSON 90 tablet 3 024 Active tamsulosin (Flomax) 0.4 MG 24 hr capsuleIndicati ons:Benign prostatic hyperplasia, unspecified whether lower urinary tract symptoms present TAKE 1 CAPSULE BY MOUTH EVERY DAY 1/2 HOUR FOLLOWING THE SAME MEAL EACH DAY 90 capsule 3 024 Active fluticasone (Flonase) 50 MCG/ACT nasal sprayIndication s:Allergic rhinitis, unspecified seasonality, unspecified trigger SPRAY 2 SPRAYS INTO EACH NOSTRIL EVERY DAY IF NEEDED 48 mL 1 024 Active lisinopril 2.5 MG tabletIndicatio ns:Essential hypertension TOME JACKIE TABLETA TODOS LOS STINSON 90 tablet 3 025 Active metFORMIN XR (Glucophage-XR) 500 MG 24 hr tabletIndicatio ns:Type 2 diabetes mellitus with other specified complication, unspecified whether intermediate manager insulin use (CMS/HCC) TOME 1 TABLETA POR VIA ORAL TODOS LOS STINSON 90 tablet 1 025 Active warfarin (Coumadin) 5 MG tabletIndicatio ns:Paroxysmal atrial fibrillation (CMS/[facility]) TAKE 1 - 1 & 1/2 TABLETS POR VIA ORAL TODOS LOS STINSON AIDA LO INDICADO BY COUMADIN CLINIC 135 tablet 1 025 Active nitroglycerin (Nitrostat) 0.[address] 1 tablet (0.4 mg) under the tongue every 5 (five) minutes if needed for chest pain. X 3 doses. Call 911 if CP does not resolve 30 tablet 025 Active triamcinolone (Kenalog) 0.1 % ointmentIndicat ions:Nummular dermatitis Apply topically 2 times daily. 80 g 025 Active albuterol 108 (90 Base) MCG/ACT inhaler Inhale 2 puffs every 4 (four) hours if needed for wheezing or shortness of breath. 18 g 1 025 2025 Active Spacer/Aero-Hol ding Chambers (OptiChamber Bernadette) misc 1 each every 4 (four) hours if needed (asthma). 1 each 025 Active amoxicillin-cla vulanate (Augmentin) 875-125 MG tablet Take 1 tablet by mouth 2 times daily. 14 tablet 025 Active acetaminophen (Tylenol) 500 MG tablet Take 2 tablets (1,000 mg) by mouth every 6 (six) hours if needed for moderate pain or fever. 30 tablet 025 Active nitroglycerin (Nitrostat) 0.4 MG SL tablet DISSOLVE 1 TABLET SUBLINGUALLY EVERY 5 MINS X3 DOSES FOR CHEST PAIN, IF NO RELIEF CALL 911 023 2024 Discontinued(R eovijayer (will not trigger notification to Pharmacy)) triamcinolone (Kenalog) 0.1 % ointmentIndicat ions:Nummular dermatitis Apply topically 2 times daily. 80 g 023 2024 Discontinued Vitamin D3 Super Strength 50 MCG (2000 UT) tablet Take 2,000 Units by mouth in the morning. 30 tablet 11 024 2024 triamcinolone (Kenalog) 0.1 % cream APPLY TOPICALLY IF NEEDED IN THE MORNING AND AT BEDTIME (PAIN AND SWELLING). 30 g 2 024 2024 Discontinued meclizine (Antivert) 12.5 MG tablet Take 1 tablet (12.5 mg) by mouth if needed in the morning, at noon, and at bedtime for dizziness for up to 10 days. 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) (Primary Dx); Essential hypertension; Other hyperlipidemia; Anemia, unspecified type; Bilateral hearing loss, unspecified hearing loss type; Ascending aortic aneurysm, unspecified whether ruptured (CMS/HCC); Paroxysmal atrial fibrillation (CMS/HCC); Inflammatory arthritis; Cervical radiculopathy; Multiple pulmonary nodules; Chronic bilateral low back pain without sciatica; Varicose veins of bilateral lower extremities with pain; Rash; Healthcare maintenance; Nummular dermatitis; Need for vaccination 05/17/2024 Travel 05/11/2024 Orders Only GENERIC EXTERNAL DATA DEPARTMENT Provider, Generic External Data 05/10/2024 Patient Outreach [facility] [address] [place], [place] [phone] Olga Paulino DO 05/10/2024 Patient Outreach [facility] [address] [place] [address] Olga Paulino DO Pre-visit Planning (SDOH screening negative and tobacco screening negative) 04/13/2024 Orders Only GENERIC EXTERNAL DATA DEPARTMENT Provider, Generic External Data 04/12/[address] [address] Olga Paulino DO Essential hypertension; Type 2 diabetes mellitus with other specified complication, unspecified whether skilled nursing insulin use ([facility]); Paroxysmal atrial fibrillation ([facility]) 03/17/[address] [address] Julia Driscoll, PATI Coumadin clinic renewal form 03/16/2024 Orders Only GENERIC EXTERNAL DATA DEPARTMENT Provider, Generic External Data from Last 3 Months Immunizations Name Administration Dates Next Due Influenza High-dose Quadriva lent Preservative Free 11/20/2021 Influenza Quadrivalent Adjuvanted 11/07/2022,,11/10/2019 Influenza injectable quadriv alent IIV4 with preservative 02/22/2016 Influenza injectable quadriv alent preservative free 12/02/2014 Influenza, High Dose Seasona l, Preservative Free 12/09/2023,11/26/2017,12/03/2016 Influenza, IIV3, injectable 11/08/2013,1 ,11/10/2009,12/15,12/25/2007,12/24/2006 Influenza, Split (incl. tommy fied surface antigen) 01/01/2014,11/03/2012,03/19/2012,11/26 Influenza, trivalent, adjuvanted 11/08/2018 Moderna Covid-19 Vaccine 12+ 08/13/2021, 03/05/2021,05/11/2020,04/13 Pfizer Covid-19 Vaccine 12+ 05/17/2024, Pfizer Covid-19 Vaccine 12+ Bivalent 01/15/2022 Pneumococcal [...] 12.8 oz) 06/02/2024 9:56 AM EDT Height 167.6 cm (5' 6 ) 05/17/2024 10:3 2 AM EDT Body Mass Index 30.15 05/17/2024 10:32 AM EDT Plan of Treatment Health Maintenance Due Date Last Done Comments Eye Exam 1948 Alcohol/Substance Use Screening 1950 Zoster Vaccines (1 of 2) 1988 RSV Patients and Patients Aged 60 years or older (1 - 1-dose 75+ series) 2013 Diabetes: Foot Exam 06/02/2024 06/03/2023, 06/03/2023, 06/03/2023, Additional history exists Lipid Panel 06/26/2024 06/27/2023, 11/02, 06/07/2021, Additional history exists Depression Screening 10/05/2024 10/06/2023, 10/06/19 24 Diabetes: Hemoglobin A1C 11/17/2024 025, 10/06/2023, 06/27/2023, Additional history exists SDOH Screening 05/10/2025 05/10/2024 Tobacco Screening 06/02/2025 06/02/2024 DTaP/Tdap/Td Vaccines (3 - Td or Tdap) 05/15/2032 05/15/2022, 10/19/2015, 07/11/2005 Pneumococcal Vaccine: 50+ Years Completed 06/03/2023, 01/16/2015, 08/17/2014, Additional history exists Influenza Vaccine Completed 12/09/2023, , 11/20/2021, Additional history exists COVID-19 Vaccine Completed 05/17/2024, 04/2023, 01/15/2022, Additional history exists HIB Vaccines Aged Out [...] Priority Date/Time Associated Diagnosis Comments POCT INFLUENZA A (ID NOW RAPID MOLECULAR) Routine 06/02/2024 10:02 AM EDT Acute URI POCT INFLUENZA B (ID NOW RAPID MOLECULAR) Routine 06/02/2024 10:02 AM EDT Acute URI POCT RAPID STREP A Routine 06/02/2024 10 :02 AM EDT Acute URI POCT RAPID COVID ANTIGEN Routine 06/02/2024 10:02 AM EDT Acute URI POCT GLYCATED HEMOGLOBIN, TOTAL Routine 05/17/2024 10:43 AM EDT 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) POCT GLUCOSE Routine 05/17/2024 10:35 AM EDT 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) PROTHROMBIN TIME WHOLE BLD POC Routine 05/11/2024 9:33 AM EDT ~PT, ~INR - ANTI COAG CLINIC Routine 05/11/2024 9:33 AM EDT PROTHROMBIN TIME WHOLE BLD POC Routine 04/13/2024 9:23 AM EST ~PT, ~INR - ANTI COAG CLINIC Routine 04/13/2024 9:23 AM EST PROTHROMBIN TIME WHOLE BLD POC Routine 03/16/2024 9:09 AM EST ~PT, ~INR - ANTI COAG CLINIC Routine 03/16/2024 9:09 AM EST LIPID PANEL, STANDARD Routine 06/27/2023 8:40 AM EDT 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) from Last 3 Months or Most Recently Relevant to Health Maintenance Results * Influenza B (ID NOW Rapid Molecular) (06/02/2024 10:02 AM EDT) Influenza B Negative Negative, Indeterminate [facility] Swab 06/02/2024 10:0 2 AM EDT us Ambrosio Byers MD POINT OF CARE TEST ENTER/EDIT OR DERABLES Final Result Performing Organization Address [facility] Co de Phone Number [facility] [address] [place] [phone] * Influenza A (ID NOW Rapid Molecular) (06/02/2024 10:02 AM EDT) Influenza A Negative Negative, Indeterminate [facility] Swab 06/02/2024 10:0 2 AM EDT us Ambrosio Byers MD POINT OF CARE TEST ENTER/EDIT OR DERABLES Final Result Performing Organization Address [facility] Co de Phone Number [facility] [address] [place] [phone] * POCT Rapid COVID Ag (06/02/2024 10:02 AM EDT) [facility] Rapid COVID Ag Negative [facility] Swab 06/02/2024 10:0 2 AM EDT Ambrosio Byers MD POINT OF CARE TEST ENTER/EDIT OR DERABLES Final Result Performing Organization Address City/[facility]/ZIP Co de Phone Number [facility] [address] [place] [phone] [phone] * POCT rapid strep A manually resulted (06/02/2024 10:02 AM EDT) [facility] Rapid Strep A Screen Negative Negative, None Detected [facility] Swab 06/02/2024 10:0 2 AM EDT Ambrosio Byers MD POINT OF CARE TEST ENTER/EDIT OR DERABLES Final Result Performing Organization Address City/[facility] Co de Phone Number [facility] [address] [place] [phone] * (ABNORMAL) POCT HGB A1C (05/17/2024 10:43 AM EDT) [facility] Hemoglobin A1C 6.9(A) 4.0 - 6.0 % QC Media Lot # [id number] Lot# Expiration Date Blood 05/17/2024 10:4 3 AM EDT Olga Paulino DO POINT OF CARE TEST ENTER/PREETHI T ORDERABLES Final Result * (ABNORMAL) POCT Glucose (05/17/2024 10:35 AM EDT) [facility] Glucose Blood, POC 250(A) 60 - 200 mg/dL QC Media Lot # [id number] Lot# Expiration Date Blood Capillary blood specimen / Unknown 05/17/2024 10:35 AM EDT us Olga Paulino DO POINT OF CARE TEST ENTER/PREETHI T ORDERABLES Final Result * (ABNORMAL) PROTHROMBIN TIME WHOLE BLD POC (05/11/2024 9:33 AM EDT) Only the most recent of3 resultswithin the time period is included. Protime 26.4(H) 11.1 - 13.5 sec [facility] 05/11/2024 9:33 AM EDT 05/11/2024 9:34 AM EDT us Generic External Data Provider LAB BLOOD ORDERAB LES Final Result Performing Organization Address [facility] Co de Phone Number [facility] [address] [place] [phone] * (ABNORMAL) ~PT, ~INR - ANTI COAG CLINIC (05/11/2024 9:33 AM EDT) Only the most recent of3 resultswithin the time period is included. Prothrombin Time INR 2.2(H) 0.9 - 1.1 [facility] Comment:METER #: [id number] TERNATIONAL NORMALIZED RATIO (INR) REFERENCE RANGES Reference [...] ORDERAB LES Final Result Performing Organization Address [facility]/ZIP Co de Phone Number [facility] [address] [place] [phone] * (ABNORMAL) Lipid Panel, Standard (06/27/2023 8:40 AM EDT) Triglycerides 108 <150 mg/dL [facility] Comment:Desirable Triglyceri de: less than 150 mg/dLBorderline High Triglyceride 150-199 mg/dLHigh Triglyceride: 200-499 mg/dLVery High Triglyceride: greater than or equal to 5OO mg/dL Cholesterol 113 <200 mg/dL [facility] Comment:Desirable Cholestero l: less than 200 mg/dLBorderline High Cholesterol: 200-239 mg/dLHigh Cholesterol: greater than 239 mg/dL LDL Cholesterol Calculated 57 <100 mg/dL [facility] Comment:Desirable LDL: less than 100 mg/dLNear Optimal/Above Optimal LDL: 110- 129 mg/dLBorderline High LDL: 130-159 mg/dLHigh LDL: 160-189 mg/dLVery High LDL: greater than or equal to 190 mg/dL HDL Cholesterol 35(L) >40 mg/dL [facility] Comment:Desirable HDL: great er than 40 mg/dL Note: This HDL assay may give artificially low results in patients with liver disease. Blood Venous blood specimen / Unknown 06/27/2023 8:40 AM EDT 06/27/2023 11:31 AM EDT us Olga Paulino DO LAB BLOOD ORDERABLES Final R esult [facility] [address] [place] [phone] from Last 3 Months or Most Recently Relevant to Health Maintenance Insurance [facility] Care Teams Funds Development Director Relationship Specialty Start Date End Date Olga Paulino DO [address] [place] [phone] PCP - General Family Medicine 03/03/18
--- OUTSIDE RECORDS SUMMARY | 2024-06-04 23:39 | XMS_ITS | Encounter Summary ---
Author Organization [employer] Address [address] [facility] [address] [place] [address] Care Team Providers Care Mud Analysis Well Logging Captain Name Role Phone Olga Paulino DO Primary Care Provider [phone] Encounter Details Date Type Department Care Team (Late st Contact Info) Description 06/28/2022 Orders Only [facility] [address] [place] [address] Olga Jaime LPN Social History Tobacco Use [...] on filedocumented in this encounter Care Teams Mud Analysis Well Logging Captain Relationship Specialty Start Date End Date Olga Paulino DO [address] [place] [address] PCP - General Family Medicine 03/03/18 documented as of this encounter
[2024-06-05 00:15] VITALS: BP 133/56; PULSE 81; RESP 16; TEMP 36.6; O2SAT 96
== END 2024-06-05 00:20 | disposition home or self-care (01) ==
PROVIDERS: Physician Assistant Medical; Emergency Provider Internal Medicine; PCP Family Medicine
DX: R11.2 Nausea with vomiting, unspecified (principal); R10.2 Pelvic and perineal pain; I10 Essential (primary) hypertension; R05.9 Cough, unspecified; I48.91 Unspecified atrial fibrillation; R42 Dizziness and giddiness; Z79.01 Long term (current) use of anticoagulants; Z79.899 Other long term (current) drug therapy; Z03.818 Encounter for observation for suspected exposure to other biological agents ruled out; Z87.891 Personal history of nicotine dependence
CPT/HCPCS: 0241U; 36415; 80053; 81001; 83735; 84484; 85025; 85610; 93005; 99283; 99284

== ENCOUNTER → 2024-06-04 20:24 | Outpatient (BNV) | payer OTHER, SELFPAY | PROVIDERS: Emergency Provider Internal Medicine; PCP Family Medicine; Visit Provider Internal Medicine | DX: I49.1 Atrial premature depolarization (principal) | CPT/HCPCS: 93010 ==

== ENCOUNTER 2024-06-08 09:15 | Outpatient (AMB) | payer OTHER, SELFPAY ==
[2024-06-08 09:33] LABS: Prothrombin Time Whole Bld POC 29.8 sec (11.1-13.5); ~PT, ~INR - Anti Coag Clinic 2.5 (0.9-1.1)
--- NOTE | 2024-06-08 09:47 | MHC.OFFVISCO ---
Intake Intake Visit Reasons: Anticoagulation Allergies No Known Allergies [No Known Allergies*] Allergy (Verified 06/04/24 20:25) Medication List - Last Reconciled 06/08/24 by Madhuri Allen RN acetaminophen mg PO albuterol sulfate 90 mcg/actuation inhalation amlodipine 5 mg PO DAILY amoxicillin-pot clavulanate 875-125 mg 1 tab PO BID cefpodoxime 200 mg PO Q12H cholecalciferol (vitamin D3) 50 mcg PO DAILY ferrous sulfate 325 mg PO DAILY fluticasone propionate 50 mcg/actuation intranasal gabapentin 300 mg PO TID lisinopril 2.5 mg PO ONCE meclizine 12.5 mg PO ONCE metformin ER 500 mg PO DAILY metoprolol tartrate 50 mg PO BID 90 days mupirocin 2% 1 appl topical BID 5 days nitroglycerin 0.4 mg sublingual Q5M rosuvastatin 20 mg PO DAILY tamsulosin 0.4 mg PO DAILY triamcinolone acetonide 0.1% 1 appl topical BID-TID warfarin 5 mg See Protocol PO DAILY Nursing Note INR: 2.5 in therapeutic range Medications and supplements reviewed Has URI on antbx that can raise the INR starte 06/02/24 Denies any signs and symptoms of bleeding or bruising or clotting. Bleeding, bruising, clotting discussed Nutritional guidance given - increase greens over the weekend due to antbiotic raising the INR Dose: decrease this week dose at end of week - friday from 7.5mg to 5mg -( 5mg x 4 days this week ) then next week resume 5mg sun fri/ 7.5mg x 4 days F/U INR: 10 days Patient verbalizes understanding of instructions given Anti-Coag Initial Assessment Social Hx Patient Tobacco Use Status: Former Tobacco user alcohol intake: never Alcohol intake frequency: does not drink Coding Level of Care Code Est Patient Level 1 Diagnoses Current use of anticoagulant therapy Z79.01 Assessment & Plan Assessment & Plan (1) Current use of anticoagulant therapy: Onset Date: ~01/2015 Comment: (on Coumadin - for AFib dx 01/2015) Code(s): Z79.01 - senior living (current) use of anticoagulants Category: Medical
--- OUTSIDE RECORDS SUMMARY | 2024-06-08 10:11 | XMS_ITS | Encounter Summary ---
Author Organization [employer] Address [address] [facility] [address] [place] [address] Care Team Providers Care Color Grinder Name Role Phone Olga Paulino DO Primary Care Provider [phone] Encounter Details Date Type Department Care Team (Late st Contact Info) Description 04/26/2022 Orders Only [facility] [address] [place] [address] Olga Jaime LPN Social History Tobacco Use [...] on filedocumented in this encounter Care Teams Color Grinder Relationship Specialty Start Date End Date Olga Paulino DO [address] [place] [address] PCP - General Family Medicine 03/03/18 documented as of this encounter
--- OUTSIDE RECORDS SUMMARY | 2024-06-08 10:11 | XMS_ITS | Encounter Summary ---
Author Organization [employer] Address [address] [facility] [address] [place] [address] Care Team Providers Care Spray Cementer Name Role Phone Olga Paulino DO Primary Care Provider [phone]- [phone] Encounter Details Date Type Department Care Team (Late st Contact Info) Description 06/28/2022 Orders Only [facility] [address] [place] [address] Olga Jaime LPN Social History Tobacco Use [...] on filedocumented in this encounter Care Teams Spray Cementer Relationship Specialty Start Date End Date Olga Paulino DO [address] [place] [address] PCP - General Family Medicine 03/03/18 documented as of this encounter
--- OUTSIDE RECORDS SUMMARY | 2024-06-08 10:11 | XMS_ITS | Encounter Summary ---
Demographics Address [address] [facility] [address] [place] [address] Home Phone Work Phone Mobile Phone Preferred Language es Marital Status Unknown Cheondoism Affiliation Unknown Race Other Race Ethnic Group or Author Organization [employer] Address [address] [facility] [address] [place] [address] Care Team Providers Care Core Winder Machine Operator Name Role Phone Olga Paulino DO Primary Care Provider [phone] Encounter Details Date Type Department Care Team (Late st Contact Info) Description 06/08/2024 Orders Only GENERIC EXTERNAL DATA DEPARTMENT Provider, [...] Comments PROTHROMBIN TIME WHOLE BLD POC Routine 06/08/2024 9:31 AM EDT ~PT, ~INR - ANTI COAG CLINIC Routine 06/08/2024 9:31 AM EDT documented in this encounter Results * (ABNORMAL) PROTHROMBIN TIME WHOLE BLD POC (06/08/2024 9:31 AM EDT) Protime 29.8(H) 11.1 - 13.5 sec [facility] 06/08/2024 9:31 AM EDT 06/08/2024 9:33 AM EDT us Generic External Data Provider LAB BLOOD ORDERAB LES Final Result [facility] [address] [place] [phone] * (ABNORMAL) ~PT, ~INR - ANTI COAG CLINIC (06/08/2024 9:31 AM EDT) Prothrombin Time INR 2.5(H) 0.9 - 1.1 [facility] Comment:METER #: [id number] TERNATIONAL NORMALIZED RATIO (INR) REFERENCE RANGES Reference RangeFor patients not on anticoagulant therapy: 0.9 - 1.1INR ranges for oral anticoagulanttherapy:For prevention and treatment of venous thrombosis and pulmonary embolism: 2.0 - 3.0For acute myocardial infarction with aspirin therapy: 2.0 - 3.0For acute myocardial infarction without aspirin therapy: 3.0 - 4.0For patients with mechanical prosthetic heart valves: 2.5 - 3.5 06/08/2024 9:31 AM EDT 06/08/2024 9:33 AM EDT us Generic External Data Provider LAB BLOOD ORDERAB LES Final Result [facility] [address] [place] [address] [phone] documented in this encounter Visit Diagnoses Not on filedocumented in this encounter Additional Health Concerns Assessment Noted Time PHQ-9 Depression Total Score: 0 10/06/19 24 9:06 AM EDT documented as of this encounter Care Teams Core Winder Machine Operator Relationship Specialty Start Date End Date Olga Paulino DO [address] [place] [address] PCP - General Family Medicine 03/03/18 documented as of this encounter
--- OUTSIDE RECORDS SUMMARY | 2024-06-08 10:11 | XMS_ITS | Clinical Summary ---
Demographics Address [address] [place] [address] Home Phone Work Phone Mobile Phone Preferred Language es Marital Status Unknown Scientologist Affiliation Unknown Race Other Race Ethnic Group or Author Organization [employer] Address [address] [facility] [address] [place] [address] Care Team Providers Care Bias Cutting Machine Operator Vertical Name Role Phone Olga Paulino DO Primary Care Provider [phone] Allergies No known active allergies Medications amLODIPine (Norvasc) 5 MG tablet TOME JACKIE TABLETA TODOS LOS D 022 Active metoprolol tartrate (Lopressor) 50 MG tablet TOME JACKIE TABLETA DOS VECES AL D A 022 Active Blood Glucose Monitoring Suppl (FreeStyle [place] Lite) w/Device kit USE TO CHECK BLOOD [...] mellitus with other specified complication, unspecified whether manager long term care insulin use (CMS/HCC) TOME 1 TABLETA POR VIA ORAL TODOS LOS STINSON 90 tablet 1 025 Active warfarin (Coumadin) 5 MG tabletIndicatio ns:Paroxysmal atrial fibrillation (CMS/[facility]) TAKE 1 - 1 & 1/2 TABLETS [...] 1:51 PM EDT): Audiology eval w/ b/l [id number] SN hearing loss JUN 2021 -his agrees [...] Encounters Date Type Department Care Team Description 06/08/2024 Orders Only GENERIC EXTERNAL DATA DEPARTMENT Provider, Generic External Data 06/02/2024 10:00 AM EDT Office Visit [facility] [address] [place] [phone] Ambrosio Byers MD Acute cough (Primary Dx); Acute non-recurrent sinusitis, unspecified location; Essential hypertension; Acute URI 05/17/2024 9:00 AM EDT Office Visit [facility] [address] [place] [phone] Olga Paulino DO Type 2 diabetes mellitus [...] Provider, Generic External Data 05/10/2024 Patient Outreach [facility] [address] [place], [place] [phone] Olga Paulino DO 05/10/2024 Patient Outreach [facility] [address] [place], [place] [phone] Olga Paulino DO Pre-visit Planning (SDOH screening negative and tobacco screening negative) 04/13/2024 Orders Only GENERIC EXTERNAL DATA DEPARTMENT Provider, Generic External Data 04/12/[address] [phone] Olga Paulino DO Essential hypertension; Type 2 diabetes mellitus with other specified complication, unspecified whether manager long term care insulin use (CMS/[facility]); Paroxysmal atrial fibrillation ([facility]) 03/17/[address] [phone] Julia Driscoll RN Coumadin clinic renewal form 03/16/2024 Orders Only [...] [facility] Routine 06/08/2024 9:31 AM EDT POCT INFLUENZA A (ID NOW RAPID MOLECULAR) [...] WHOLE BLD POC (06/08/2024 9:31 AM EDT) Only the most recent of4 resultswithin the time period is included. Protime 29.8(H) 11.1 - 13.5 sec [facility] 06/08/2024 9:31 AM EDT 06/08/2024 9:33 AM EDT us Generic External Data Provider LAB BLOOD ORDERAB LES Final Result [facility] [address] [place] [phone] * (ABNORMAL) ~PT, ~INR - ANTI COAG CLINIC (06/08/2024 9:31 AM EDT) Only the most recent of4 resultswithin the time period is included. [facility] Prothrombin Time INR 2.5(H) 0.9 - 1.1 [facility] Comment:METER #: [id number] TERNATIONAL NORMALIZED RATIO (INR) REFERENCE RANGES Reference [...] 9:31 AM EDT 06/08/2024 9:33 AM EDT Generic External Data Provider LAB BLOOD ORDERAB LES Final Result Performing Organization Address [facility]/ZIP Co de Phone Number [facility] [address] [place] [phone] * Influenza B (ID NOW Rapid Molecular) (06/02/2024 10:02 AM EDT) [facility] Influenza B Negative Negative, Indeterminate [facility] Swab 06/02/2024 10:0 2 AM EDT Ambrosio Byers MD POINT OF CARE TEST ENTER/EDIT OR DERABLES Final Result Performing Organization Address [facility] Co de Phone Number [facility] [address] [place] [phone] * Influenza A (ID NOW Rapid Molecular) (06/02/2024 10:02 AM EDT) [facility] Influenza A Negative Negative, Indeterminate [facility] Swab 06/02/2024 10:0 2 AM EDT Ambrosio Byers MD POINT OF CARE TEST ENTER/EDIT OR DERABLES Final Result Performing Organization Address [facility]/ZIP Co de Phone Number [facility] [address] [place] [phone] * POCT Rapid COVID Ag (06/02/2024 10:02 AM EDT) [facility] Rapid COVID Ag Negative [facility] Swab 06/02/2024 10:0 2 AM EDT Ambrosio Byers MD POINT OF CARE TEST ENTER/EDIT OR DERABLES Final Result Performing Organization Address [facility] Co de Phone Number [facility] [address] [place] [phone] * POCT rapid strep A manually resulted (06/02/2024 10:02 AM EDT) [facility] Rapid Strep A Screen Negative Negative, None Detected [facility] Swab 06/02/2024 10:0 2 AM EDT Ambrosio Byers MD POINT OF CARE TEST ENTER/EDIT OR DERABLES Final Result Performing Organization Address [facility] de Phone Number [facility] [address] [place] [phone] * (ABNORMAL) POCT HGB A1C (05/17/2024 10:43 AM EDT) [facility] Hemoglobin A1C 6.9(A) 4.0 - 6.0 % QC Media Lot # [id number] Lot# Expiration Date ,397 Blood 05/17/2024 10:4 3 AM EDT Olga Paulino DO POINT OF CARE TEST ENTER/PREETHI T ORDERABLES Final Result * (ABNORMAL) POCT Glucose (05/17/2024 10:35 AM EDT) Glucose Blood, POC 250(A) 60 - 200 mg/dL QC Media Lot # [id number] Lot# Expiration Date [id number] Blood Capillary blood specimen / Unknown 05/17/2024 10:35 AM EDT Olga Paulino DO POINT OF CARE TEST ENTER/PREETHI T ORDERABLES Final Result * (ABNORMAL) Lipid Panel, Standard (06/27/2023 8:40 AM EDT) Triglycerides 108 <150 mg/dL [facility] Comment:Desirable Triglyceri de: less than 150 mg/dLBorderline High Triglyceride 150-199 mg/dLHigh Triglyceride: 200-499 mg/dLVery High Triglyceride: greater than or equal to 5OO mg/dL Cholesterol 113 <200 mg/dL [facility] Comment:Desirable Cholestero l: less than 200 mg/dLBorderline High Cholesterol: 200-239 mg/dLHigh Cholesterol: greater than 239 mg/dL LDL Cholesterol Calculated 57 <100 mg/dL [facility] Comment:Desirable LDL: less than 100 mg/dLNear Optimal/Above Optimal LDL: 110- 129 mg/dLBorderline High LDL: 130-159 mg/dLHigh LDL: 160-189 mg/dLVery High LDL: greater than or equal to 190 mg/dL HDL Cholesterol 35(L) >40 mg/dL [facility] Comment:Desirable HDL: great er than 40 mg/dL Note: This HDL assay may give artificially low results in patients with liver disease. Blood Venous blood specimen / Unknown 06/27/2023 8:40 AM EDT 06/27/2023 11:31 AM EDT us Olga Paulino DO LAB BLOOD ORDERABLES Final R esult [facility] [address] [place] [phone] from Last 3 Months or Most Recently Relevant to Health Maintenance Insurance [facility] Care Teams Bias Cutting Machine Operator Vertical Relationship Specialty Start Date End Date Olga Paulino DO [address] [place] [phone] PCP - General Family Medicine 03/03/18
== END 2024-06-08 09:52 | disposition home or self-care (01) ==
LOC: HO.ACS 09:15
PROVIDERS: PCP Family Medicine; Visit Provider Internal Medicine Medical Oncology
DX: Z79.01 Long term (current) use of anticoagulants (principal)

== ENCOUNTER → 2024-06-08 09:15 | Outpatient (BNVA) | payer OTHER, SELFPAY | PROVIDERS: PCP Family Medicine; Visit Provider Internal Medicine Medical Oncology | DX: I48.0 Paroxysmal atrial fibrillation (principal); Z79.01 Long term (current) use of anticoagulants; Z51.81 Encounter for therapeutic drug level monitoring | CPT/HCPCS: 85610; 99211 ==

== ENCOUNTER 2024-06-10 17:48 | Observation (INO) | payer OTHER, SELFPAY ==
--- NOTE | ~2024-06-10 | CT_ITS ---
CLINICAL HISTORY: dizziness CT head without contrast Comparison: MR/SR - MR HEAD/BRAIN WO/W CON - 02/13/22 16:45 EST Findings: No intracranial mass, midline shift, hydrocephalus, or acute hemorrhage. There is generalized cerebral volume loss. Mild nonspecific periventricular and subcortical white matter changes are identified, which may be seen in the setting of chronic small vessel ischemic disease. Coarse calcifications identified along the falx. Visualized paranasal sinuses and mastoid air cells appear clear. No acute skull fracture. Impression: 1. No acute intracranial abnormality. No acute intracranial hemorrhage. This document has been electronically signed by: Drake Galvez MD on 06/11/2024 02:42:06
[2024-06-10 17:58] VITALS: BP 164/66; PULSE 97; O2SAT 94
[2024-06-10 18:05] VITALS: BP 147/78; PULSE 85; RESP 18; TEMP 36.5; O2SAT 96; BMI 26.9
--- NOTE | 2024-06-10 18:23 | ECG_ITS ---
Test Reason : DIZZINESS Blood Pressure : */* mmHG Vent. Rate : 70 BPM Atrial Rate : * BPM P-R Int : * ms QRS Dur : 102 ms QT Int : 464 ms P-R-T Axes : * 39 40 degrees QTcB Int : 501 ms Atrial fibrillation Increased R/S ratio in V1, consider early transition or posterior infarct Prolonged QT Abnormal ECG When compared with ECG of 04-Jun-2024 20:28, No significant change was found Referred By: Tania Liang Electronically Signed By: Kwasi Parrish
[2024-06-10 18:40] VITALS: BP 144/71; PULSE 71; RESP 18; O2SAT 98
[2024-06-10 18:42] LABS: MANUAL DIFF FLAG NO
[2024-06-10 18:44] LABS: Basophils Percent Auto 0.5 % (0-2); Eosinophils Absolute Auto 0.1 X10*3/uL (0.0-0.4); Eosinophils Percent Auto 2.1 % (0-4); Hematocrit 38.3 % (42.0-52.0); Hemoglobin 12.7 g/dl (14.0-18.0); Imm Gran Abs Auto 0.03 X10*3/uL (0.00-0.03); Imm Gran Pct Auto 0.5 % (0.0-0.4); Lymphocytes Absolute Auto 0.9 X10*3/uL (1.2-4.9); Lymphocytes Percent Auto 14.9 % (20-40); Mean Corpuscular HGB Conc 33.2 g/dl (31.0-36.0); Mean Corpuscular Hemoglobin 28.9 pg (27.0-33.0); Mean Platelet Volume 11.4 fL (9.4-12.4); Monocytes Absolute Auto 0.5 X10*3/uL (0.1-1.2); Monocytes Percent Auto 8.8 % (2-11); Neutrophils Absolute Auto 4.5 x10*3/uL (2.0-8.3); Neutrophils Percent Auto 73.2 % (45-73); Platelet Count 154 X10*3/uL (160-400); Red Cell Distribution Width 14.3 % (11.0-16.0); White Blood Count 6.2 X10*3/uL (4.8-10.8)
--- OUTSIDE RECORDS SUMMARY | 2024-06-10 18:50 | XMS_ITS | Clinical Summary ---
Demographics Address [address] [place] [address] Home Phone Work Phone Mobile Phone Preferred Language es Marital Status Unknown Jew Affiliation Unknown Race Other Race Ethnic Group or Author Organization [employer] Address [address] [facility] [address] [place] [address] Care Team Providers Care Laundry Operator Name Role Phone Olga Paulino DO Primary Care Provider Allergies No known active allergies Medications amLODIPine (Norvasc) 5 MG tablet TOME JACKIE TABLETA TODOS LOS D 022 Active metoprolol tartrate (Lopressor) 50 MG tablet TOME JACKIE TABLETA DOS VECES AL D A 022 Active Blood Glucose Monitoring Suppl (FreeStyle [place] Lite) w/Device kit USE TO CHECK BLOOD [...] mellitus with other specified complication, unspecified whether penitentiary insulin use (CMS/HCC) TOME 1 TABLETA POR VIA ORAL TODOS LOS STINSON 90 tablet 1 025 Active warfarin (Coumadin) 5 MG tabletIndicatio ns:Paroxysmal atrial fibrillation (CMS/[facility]) TAKE 1 - 1 & 1/2 [...] 1:51 PM EDT): Audiology eval w/ b/l [id number] SN hearing loss JUN 2021 -his agrees [...] Data 06/02/2024 10:00 AM EDT Office Visit [facility] [address] [place] [phone] Ambrosio Byers MD Acute cough (Primary Dx); Acute non-recurrent sinusitis, unspecified location; Essential hypertension; Acute URI 05/17/2024 9:00 AM EDT Office Visit [facility] [address] [place] [phone] Olga Paulino DO Type 2 diabetes mellitus [...] Provider, Generic External Data 05/10/2024 Patient Outreach [facility] [address] [place], [place] [phone] Olga Paulino DO 05/10/2024 Patient Outreach [facility] [address] [place], [place] [phone] Olga Paulino DO Pre-visit Planning (SDOH screening negative and tobacco screening negative) 04/13/2024 Orders Only GENERIC EXTERNAL DATA DEPARTMENT Provider, Generic External Data 04/12/[address] [phone] Olga Paulino DO Essential hypertension; Type 2 diabetes mellitus with other specified complication, unspecified whether intermediate designer insulin use (CMS/[facility]); Paroxysmal atrial fibrillation ([facility]) 03/17/[address] [phone] Julia Driscoll RN Coumadin clinic renewal form [...] included. Protime 29.8(H) 11.1 - 13.5 sec [facility] 06/08/2024 9:31 AM EDT 06/08/2024 9:33 AM EDT us Generic External Data Provider LAB BLOOD ORDERAB LES Final Result [facility] [address] [place] [phone] * (ABNORMAL) ~PT, ~INR - ANTI COAG CLINIC (06/08/2024 9:31 AM EDT) Only the most recent of4 resultswithin the time period is included. [facility] Prothrombin Time INR 2.5(H) 0.9 - 1.1 [facility] Comment:METER #: [id number] TERNATIONAL NORMALIZED RATIO (INR) REFERENCE RANGES Reference [...] ORDERAB LES Final Result Performing Organization Address [facility]/ZIP Co de Phone Number [facility] [address] [place] [phone] * Influenza B (ID NOW Rapid Molecular) (06/02/2024 10:02 AM EDT) [facility] Influenza B Negative Negative, Indeterminate [facility] Swab 06/02/2024 10:0 2 AM EDT Ambrosio Byers MD POINT OF CARE TEST ENTER/EDIT OR DERABLES Final Result Performing Organization Address [facility] Co de Phone Number [facility] [address] [place] [address] [phone] * Influenza A (ID NOW Rapid Molecular) (06/02/2024 10:02 AM EDT) [facility] Influenza A Negative Negative, Indeterminate [facility] Swab 06/02/2024 10:0 2 AM EDT Ambrosio Byers MD POINT OF CARE TEST ENTER/EDIT OR DERABLES Final Result Performing Organization Address [facility]/ZIP Co de Phone Number [facility] [address] [place] [address] [phone] * POCT Rapid COVID Ag (06/02/2024 10:02 AM EDT) [facility] Rapid COVID Ag Negative [facility] Swab 06/02/2024 10:0 2 AM EDT Ambrosio Byers MD POINT OF CARE TEST ENTER/EDIT OR DERABLES Final Result Performing Organization Address [facility] Co de Phone Number [facility] [address] [place] [phone] * POCT rapid strep A manually resulted (06/02/2024 10:02 AM EDT) [facility] Rapid Strep A Screen Negative Negative, None Detected [facility] Swab 06/02/2024 10:0 2 AM EDT Ambrosio Byers MD POINT OF CARE TEST ENTER/EDIT OR DERABLES Final Result Performing Organization Address [facility] de Phone Number [facility] [address] [place] [phone] * (ABNORMAL) POCT HGB A1C (05/17/2024 10:43 AM EDT) [facility] Hemoglobin A1C 6.9(A) 4.0 - 6.0 % QC Media Lot # [id number] Lot# Expiration Date ,712 Blood 05/17/2024 10:4 3 AM EDT Olga Paulino DO POINT OF CARE TEST ENTER/PREETHI T ORDERABLES Final Result * (ABNORMAL) POCT Glucose (05/17/2024 10:35 AM EDT) Glucose Blood, POC 250(A) 60 - 200 mg/dL QC Media Lot # [id number] Lot# Expiration Date [id number] Blood Capillary blood specimen / Unknown 05/17/2024 [...] to 5OO mg/dL Cholesterol 113 <200 mg/dL [facility] Comment:Desirable Cholestero l: less than 200 mg/dLBorderline High Cholesterol: 200-239 mg/dLHigh Cholesterol: greater than 239 mg/dL LDL Cholesterol Calculated 57 <100 mg/dL [facility] Comment:Desirable LDL: less than 100 mg/dLNear Optimal/Above Optimal LDL: 110- 129 mg/dLBorderline High LDL: 130-159 mg/dLHigh LDL: 160-189 mg/dLVery High LDL: greater than or equal to 190 mg/dL HDL Cholesterol 35(L) >40 mg/dL [facility] Comment:Desirable HDL: great er than 40 mg/dL Note: This HDL assay may give artificially low results in patients with liver disease. Blood Venous blood specimen / Unknown 06/27/2023 8:40 AM EDT 06/27/2023 11:31 AM EDT us Olga Paulino DO LAB BLOOD ORDERABLES Final R esult [facility] [address] [place] [phone] from Last 3 Months or Most Recently Relevant to Health Maintenance Insurance [facility] Care Teams Laundry Operator Relationship Specialty Start Date End Date Olga Paulino DO [address] [place] [phone] PCP - General Family Medicine 03/03/18
--- OUTSIDE RECORDS SUMMARY | 2024-06-10 18:50 | XMS_ITS | Encounter Summary ---
Author Organization [employer] Address [address] [facility] [address] [place] [address] Care Team Providers Care Miner Name Role Phone Olga Paulino DO Primary Care Provider [phone] Encounter Details Date Type Department Care Team (Late st Contact Info) Description 06/28/2022 Orders Only [facility] [address] [place] [address] Olga Jaime LPN Social History Tobacco Use [...] on filedocumented in this encounter Care Teams Miner Relationship Specialty Start Date End Date Olga Paulino DO [address] [place] [address] PCP - General Family Medicine 03/03/18 documented as of this encounter
--- OUTSIDE RECORDS SUMMARY | 2024-06-10 18:50 | XMS_ITS | Encounter Summary ---
Author Organization [employer] Address [address] [facility] [address] [place] [address] Care Team Providers Care Financial Wellness Coach Name Role Phone Olga Paulino DO Primary Care Provider [phone] Encounter Details Date Type Department Care Team (Late st Contact Info) Description 04/26/2022 Orders Only [facility] [address] [place] [address] Olga Jaime LPN Social History Tobacco Use [...] on filedocumented in this encounter Care Teams Financial Wellness Coach Relationship Specialty Start Date End Date Olga Paulino DO [address] [place] [address] PCP - General Family Medicine 03/03/18 documented as of this encounter
--- OUTSIDE RECORDS SUMMARY | 2024-06-10 18:50 | XMS_ITS | Encounter Summary ---
Demographics Address [address] [facility] [address] [place] [address] Home Phone Work Phone Mobile Phone Preferred Language es Marital Status Unknown Baptist Affiliation Unknown Race Other Race Ethnic Group or Author Organization [employer] Address [address] [facility] [address] [place] [address] Care Team Providers Care Correctional Lieutenant Name Role Phone Olga Paulino DO Primary Care Provider [phone] Encounter Details Date Type Department Care Team [...] is your housing situation today? I have brina mccrary 10/06/[address] you [...] EDT) Protime 29.8(H) 11.1 - 13.5 sec [facility] 06/08/2024 9:31 AM EDT 06/08/2024 9:33 AM EDT us Generic External Data Provider LAB BLOOD ORDERAB LES Final Result [facility] [address] [place] [phone] * (ABNORMAL) ~PT, ~INR - ANTI COAG CLINIC (06/08/2024 9:31 AM EDT) Prothrombin Time INR 2.5(H) 0.9 - 1.1 [facility] Comment:METER #: [id number] TERNATIONAL NORMALIZED RATIO (INR) REFERENCE RANGES Reference [...] Provider LAB BLOOD ORDERAB LES Final Result [facility] [address] [place] [phone] documented in this encounter Visit Diagnoses Not on filedocumented in this encounter Additional Health Concerns Assessment Noted Time PHQ-9 Depression Total Score: 0 10/06/19 24 9:06 AM EDT documented as of this encounter Care Teams Correctional Lieutenant Relationship Specialty Start Date End Date Olga Paulino DO [address] [place] [address] PCP - General Family Medicine 03/03/18 documented as of this encounter
[2024-06-10 19:17] LABS: Alanine Aminotransferase 32 U/L (0-40); Albumin Level 3.7 g/dL (3.5-5.0); Alkaline Phosphatase 95 U/L (39-117); Anion Gap 14 (12-20); Aspartate Amino Transferase 30 U/L (5-37); Bilirubin Total 0.6 mg/dL (0.0-1.0); Blood Urea Nitrogen 21 mg/dL (9-16); Carbon Dioxide 26 mmol/L (22-29); Chloride 106 mmol/L (96-108); Creatinine Clr Calc Pharmacy 66.3; Estimated Glomerular Filt Rate > 60; Glucose Random 154 mg/dL (60-115); Potassium 4.6 mmol/L (3.3-5.1); Sodium 141 mmol/L (135-145); Total Protein 6.4 g/dL (6.5-8.0)
[2024-06-10 20:11] VITALS: BP 150/74; PULSE 71; RESP 16; TEMP 36.8; O2SAT 97
[2024-06-10 23:30] VITALS: BP 142/62; PULSE 69; RESP 15; TEMP 36.4; O2SAT 95
[2024-06-11] VITALS (11 sets, daily range): BP systolic 103–169; BP diastolic 62–83; PULSE 64–88; RESP 16–19; TEMP 36.1–36.7; O2SAT 97–99
--- NOTE | 2024-06-11 00:20 | ECG_ITS ---
Test Reason : DIZZINESS Blood Pressure : */* mmHG Vent. Rate : 58 BPM Atrial Rate : 58 BPM P-R Int : 192 ms QRS Dur : 100 ms QT Int : 482 ms P-R-T Axes : 74 20 38 degrees QTcB Int : 473 ms Sinus bradycardia Increased R/S ratio in V1, consider early transition or posterior infarct Abnormal ECG When compared with ECG of 10-Jun-2024 18:42, Sinus rhythm has replaced Atrial fibrillation Referred By: Wei Lynch Electronically Signed By: Kwasi Parrish
[2024-06-11 00:53] LABS: INTERNATIONAL NORM RATIO 2.3 (0.9-1.1); Prothrombin Time 26.3 SEC (10.9-12.4)
[2024-06-11 00:55] LABS: Partial Thromboplastin Time 39.4 SEC (26.0-36.8)
[2024-06-11 01:11] LABS: Troponin-I High Sensitivity 50.9 ng/L (<3.5-35.0)
[2024-06-11] MEDS: 0.9 % Sodium Chloride 1,000 ML 999 ML IV ×2 (01:13)
--- NOTE | 2024-06-11 01:47 | ED.GENADULT ---
HPI - General Adult General Chief complaint: General Medical Stated complaint: started new meds experiencing dizzyness Time Seen by Provider: 06/10/24 23:43 Source: patient Mode of arrival: ambulatory Limitations: no limitations History of Present Illness ED Provider: Wei Lynch HPI narrative: 83-year-old female with a past medical history of AFib type 2 diabetes, high cholesterol, hypertension presents to the ED for dizziness described as room spinning. Patient states feeling dizzy when he changes position of his head. Last night while sitting down he got up quickly and felt like the move was spinning and he had to sit down. Presently patient is asymptomatic. Patient denies any slurred speech, facial droop, paralysis of extremities, loss of vision, nausea Chris, or inability to walk. Patient denies any chest pain or shortness of breath. Patient denies passing out Related Data Home Medications ?Medication ?Instructions ?Recorded ?Confirmed albuterol sulfate 90 mcg/actuation 2 puff inhalation Q4H PRN 06/08/24 06/11/24 aerosol inhaler Shortness Of Breath Or Wheezing acetaminophen 500 mg tablet 1,000 mg PO Q6H PRN Pain, Moderate 06/11/24 06/11/24 Previous Rx's ?Medication ?Instructions ?Recorded metformin 500 mg tablet,extended 500 mg PO DAILY #30 tabs 04/18/21 release 24 hr rosuvastatin 20 mg tablet 20 mg PO DAILY #30 tabs 04/18/21 nitroglycerin 0.4 mg sublingual 0.4 mg sublingual Q5M #25 tabs 08/07/22 tablet warfarin 5 mg tablet 5 mg PO DAILY #90 tabs 05/27/23 lisinopril 2.5 mg tablet 2.5 mg PO QPM #90 tabs 06/12/24 tamsulosin 0.4 mg capsule 0.4 mg PO QPM #90 caps 06/12/24 Allergies Allergy/AdvReac Type Severity Reaction Status Date / Time No Known Allergies Allergy Verified 06/10/24 18:10 [No Known Allergies*] Review of Systems Review of Systems: dizziness Yes all other systems are reviewed and are negative [facility] Past Medical History Medical History Pulmonary nodules Tubular adenoma of colon (~2009) Hyperlipidemia Type 2 diabetes mellitus with polyneuropathy Paroxysmal atrial fibrillation (~01/2015) Essential hypertension Ascending aortic aneurysm Atherosclerotic cardiovascular disease Lumbar spondylolysis Inflammatory arthritis Surgical History History of cardiac cath (~2018) History of lung surgery (~03/2019) History of left inguinal hernia repair (~01/2019) History of colonoscopy (~02/2016) Hx of neck surgery Hx of appendectomy Family History Family History Mother Diabetes Social History Social History Household Members: Spouse Housing: Apartment Do you presently have visiting nurse or other home services: No Alcohol intake: former Patient Tobacco Use Status: Former Tobacco user Advance Directives Date on File: 04/18/21 Current occupational status: retired Hearing needs: Yes Physical Exam ED Vital Signs: Vital Signs - 24 hr 06/10/24 18:05 06/10/24 18:40 06/10/24 20:11 Temperature 97.7 F 98.3 F Pulse Rate 85 71 71 Respiratory Rate 18 18 16 Blood Pressure 147/78 H 144/71 H 150/74 H Pulse Oximetry 96 98 97 Oxygen Delivery Method Room Air Room Air Room Air 06/10/24 23:30 06/11/24 00:50 06/11/24 00:55 Temperature 97.6 F Pulse Rate 69 64 72 Respiratory Rate 15 Blood Pressure 142/62 H 143/69 H 131/70 Pulse Oximetry 95 Oxygen Delivery Method Room Air 06/11/24 00:55 06/11/24 04:59 06/11/24 06:35 Temperature 97.7 F Pulse Rate 76 66 72 Respiratory Rate 17 Blood Pressure 103/68 149/75 H 154/64 H Pulse Oximetry 97 Oxygen Delivery Method Room Air 06/11/24 06:37 06/11/24 06:39 Temperature Pulse Rate 79 88 Respiratory Rate Blood Pressure 154/62 H 117/67 Pulse Oximetry Oxygen Delivery Method BMI result Body Mass Index 26.9 Const General: cooperative, healthy appearing, comfortable, no acute distress, well developed, alert, awake and Physically active Orientation/consciousness: patient oriented x3 HENMT Head: Yes normal to inspection, Yes No palpable skull fracture present, Yes normocephalic, Yes atraumatic and No abrasion Eyes General: appearance normal, both eyes and all related structures Neck Neck: Yes normal visual inspection, Yes full ROM, Yes no lymphadenopathy, Yes no meningeal signs, Yes trachea midline, Yes supple, No anterior neck swelling and No tender Chest Chest palpation & inspection: normal inspection of the chest and normal palpation of entire chest wall Resp Effort & Inspection: normal respiratory effort and able to speak in complete sentences Auscultation: clear to auscultation bilaterally Cardio Jugular venous distension: no JVD Heart sounds: S1 normal heart sound present and S2 normal heart sound present GI Inspection: Yes normal to inspection Palpation (GI): Soft to palpation, not firm, nontender, no guarding and not rigid General: Yes no CVA tenderness Back/Spine/Pelvis Back: no CVA tenderness and No back tenderness Skin General skin exam: no rashes or lesions noted, elasticity normal and turgor normal Neuro General: patient oriented x3, gait normal, tone normal, moves all extremities, Normal light touch and pain sensation, no meningeal signs, no focal motor deficits, CN's II-XI intact bilaterally and normal sensation to monofilament Extrem General: Yes normal to inspection, Yes full ROM and Yes capillary refill normal Psych Appearance: grossly normal, well kempt and not disheveled NIH Stroke Scale Internal: Initial- Upon Arrival Level of Consciousness: Alert Level of Consciousness Questions: Answers both questions correctly Level of Consciousness Commands: Performs both tasks correctly Best Gaze: Normal Visual: No visual loss Facial Palsy: Normal Motor Arm (Right): No drift Motor Arm (Left): No drift Motor Leg (Right): No drift Motor Leg (Left): No drift Limb Ataxia: Absent Sensory: Normal Best Language: No aphasia Dysarthia: Normal Extinction and Inattention: No abnormality Score: 0 Medications Administered Discontinued Medications Generic Name Dose Route Start Last Admin Trade Name Freq PRN Reason Stop Dose Admin Acetaminophen 650 mg 06/11/24 09:53 06/12/24 08:12 Acetaminophen 325 Mg Tablet PO 650 mg Q6H PRN Administration Pain, Mild 1-3,fever,headache Atorvastatin Calcium 80 mg 06/11/24 10:15 06/12/24 08:12 Atorvastatin Calcium 80 Mg Tablet PO 80 mg DAILY REBECCA Administration Sodium Chloride 1,000 mls @ 999 mls/hr 06/11/24 00:55 06/11/24 03:19 Ns IV 06/11/24 01:55 Infused .Q1H1M STA Infusion Sodium Chloride 1,000 mls @ 999 mls/hr 06/11/24 00:57 06/11/24 03:19 Ns IV 06/11/24 01:57 Infused .Q1H1M STA Infusion Lactated Ringer's 1,000 mls @ 100 mls/hr 06/11/24 10:00 06/11/24 21:01 Lr IVCONT 06/11/24 19:59 Infused .Q10H REBECCA Infusion Insulin Human Lispro 0 unit 06/11/24 11:30 06/12/24 08:08 Insulin Lispro 100 Unit/Ml 3 Ml Vial SUBCUT Not Given QIDACHS [facility] Protocol Lisinopril 2.5 mg 06/12/24 09:00 06/12/24 08:12 Lisinopril 2.5 Mg Tablet PO 2.5 mg DAILY REBECCA Administration Protocol Sodium Chloride 3 ml 06/11/24 16:00 06/12/24 08:11 0.9 % Sodium Chloride Flush 3 Ml Syringe IVFLUSH 3 ml QSHIFT [facility] Administration Tamsulosin HCl 0.4 mg 06/12/24 09:00 06/12/24 08:12 Tamsulosin Hcl 0.4 Mg Capsule PO 0.4 mg DAILY REBECCA Administration Warfarin Sodium 5 mg 06/11/24 18:00 06/11/24 17:35 Warfarin Sodium 5 Mg Tablet PO 5 mg [id number] [facility] Administration Medical Decision Making Medical Decision Making MDM Narrative: 83-year-old male presents to the ED for episode of dizziness that occurred last night while trying to go from sitting to standing. patient fell like the room was spinning. Presently patient is symptomatic. Patient denies ever having loss of speech, slurred speech, facial droop, loss of vision, paralysis, or inability to walk. Negative for any neuro deficits. NIH score is 0. Patient's orthostatics positive. Patient given fluids head CT scan ordered. First troponin positive. Patient has history of chronically elevated troponin. Repeat troponin ordered. Repeat EKG shows sinus German. First EKG rate controlled AFib.. Second EKG states Sinus Bradycardia. Case signed out to Dr. Kevin I received sign-out from my colleague FIORELLA Lynch Patient's troponin x2 at baseline, chronic elevated troponin Head CT: No acute intracranial abnormality After 2 L of fluids, patient's blood pressure dropped from 155-117 systolic. I discussed the patient with Dr. Quintana, patient being admitted. Differential Diagnosis Differential Diagnoses: The differential diagnosis associated with the presentation includes ( Vertigo, GA, orthostatic) Admission/Observation Consideration of admission/observation: Escalation of care including admission/observation considered Consult Healthcare Provider Management of the patient was discussed with: Hospitalist Lab Data MDM Lab Attestation statement: I reviewed the patient's lab results. 06/10/24 18:39 06/10/24 18:39 Labs: Lab Results 06/10/24 06/11/24 06/11/24 Range/Units 18:39 00:41 03:18 WBC 6.2 (4.8-10.8) X10*3/uL RBC 4.40 L (4.60-5.80) X10*6/uL Hgb 12.7 L (14.0-18.0) g/dl Hct 38.3 L (42.0-52.0) % MCV 87.0 (80.0-98.0) fL MCH 28.9 (27.0-33.0) pg MCHC 33.2 (31.0-36.0) g/dl RDW 14.3 (11.0-16.0) % Plt Count 154 L (160-400) X10*3/uL MPV 11.4 (9.4-12.4) fL Immature Gran % (Auto) 0.5 H (0.0-0.4) % Neut % (Auto) 73.2 H (45-73) % Lymph % (Auto) 14.9 L (20-40) % Nobles % (Auto) 8.8 (2-11) % Eos % (Auto) 2.1 (0-4) % Baso % (Auto) 0.5 (0-2) % Lymph # (Auto) 0.9 L (1.2-4.9) X10*3/uL Nobles # (Auto) 0.5 (0.1-1.2) X10*3/uL Eos # (Auto) 0.1 (0.0-0.4) X10*3/uL Baso # (Auto) 0.0 (0.0-0.2) X10*3/uL Abs Immat Gran (auto) 0.03 (0.00-0.03) X10*3/uL Absolute Neuts (auto) 4.5 (2.0-8.3) x10*3/uL Absolute Nucleated RBC 0.000 (0.0-0.012) X10*3/uL Nucleated RBC % (auto) 0.0 (0.0-0.2) /100WBC PT 26.3 H (10.9-12.4) SEC INR 2.3 H (0.9-1.1) APTT 39.4 H (26.0-36.8) SEC Sodium 141 (135-145) mmol/L Potassium 4.6 (3.3-5.1) mmol/L Chloride 106 (96-108) mmol/L Carbon Dioxide 26 (22-29) mmol/L Anion Gap 14 (12-20) BUN 21 H (9-16) mg/dL Creatinine 0.84 (0.5-1.4) mg/dL Estim Creat Clear Calc 66.3 Estimated GFR > 60 Random Glucose 154 H (60-115) mg/dL Calcium 9.0 (8.4-10.2) mg/dL Magnesium 2.0 (1.6-2.6) mg/dL Total Bilirubin 0.6 (0.0-1.0) mg/dL AST 30 (5-37) U/L ALT 32 (0-40) U/L Alkaline Phosphatase 95 (39-117) U/L Troponin I High Sens 50.9 H 44.5 H (<3.5-35.0) ng/L Total Protein 6.4 L (6.5-8.0) g/dL Albumin 3.7 (3.5-5.0) g/dL Independent Interpretation I performed an independent interpretation of an: EKG (EKG 1 Afib, EKG Sinus Bradycardai) and CT Scan Radiology Impression Discussion of test interpretation with radiology: I have reviewed the radiologist's reading. Radiologist Impression: No intracranial mass, midline shift, hydrocephalus, or acute hemorrhage. There is generalized cerebral volume loss. Mild nonspecific periventricular and subcortical white matter changes are identified, which may be seen in the setting of chronic small vessel ischemic disease. Coarse calcifications identified along the falx. Visualized paranasal sinuses and mastoid air cells appear clear. No acute skull fracture. Independent Historian Clinical information obtained from an independent historian. History obtained from or confirmed by: Spouse () and Other Critical Care Time Critical Care Time Critical Care Time: Yes Total Critical Care Time: 45 Attestation: I have personally provided critical care time. Time includes review of lab data, radiology results, discussion with consultants, and monitoring for potential decompensation. Intervention performed as documented. Discharge Plan Discharge Clinical Impression: Orthostatic hypotension Patient Disposition: Admitted As Inpatient Interventions: Admission Worksheet (ED) Last Done: 06/11/24 13:22 Discharge Date/Time: 06/11/24 15:50
--- NOTE | 2024-06-11 02:15 | PC.NURSE ---
Arabella Kenyon, patient daughter can be reached at [phone]
[2024-06-11 03:42] LABS: Troponin-I High Sensitivity 44.5 ng/L (<3.5-35.0)
--- NOTE | 2024-06-11 08:22 | PM.IMHP ---
History of Present Illness Date of Service: 06/11/24 Attending physician on admission: José Miguel Mitchell Chief Complaint: Dizziness Pt is an 83-year-old Citizen [place]-speaking male with a PMH significant for?paroxysmal AFib on Coumadin, CAD, ascending aortic aneurysm (4.3cm), HTN, epi-caxylol-hqmobyzye type 2 diabetes, peripheral neuropathy, and BPH who presents to the ED with?dizziness since yesterday afternoon. Pt reports was sitting in his chair when he became dizzy which he describes as feeling like the room was spinning. Symptoms worsened with moving his head or standing up. No nausea or vomiting. Denies headache. No acute vision changes. Denies hemiparesis. Pt reports has had similar symptoms in the past, though not for many years. Previously took medications that alleviated symptoms though pt did not have any of those on hand. Reports dizziness stopped soon after arriving to the hospital. However, workup in the ED found pt to have positive orthostatics even after receiving 2 L IVF. Currently pt reports overall feels ?fine? without lightheadedness or dizziness. No chest pain/pressure, palpitations. Denies shortness or breath or difficulty breathing. No fever, chills, nausea, vomiting, abdominal pain. In the ED pt was primarily hypertensive to 154/64, and with positive orthostatics with SBP dropping from 154 --> 117. Labs were significant for chronically elevated troponins with initial 50.9 and repeat flat at 44.5. No leukocytosis. Chronic normocytic anemia. No significant electrolyte abnormalities. Renal function baseline. Hepatic function baseline. CT of head negative for acute intracranial abnormalities. EKG showed sinus bradycardia of 58 without evidence of significant ST elevations or depressions. Pt was treated with 2 L IVF. Pt admitted to the hospital under observation for treatment and further evaluation of orthostatic hypotension. Review of Systems Review of Systems: Negative except for that which is stated in the HPI. [facility] Medical History Pulmonary nodules Tubular adenoma of colon (~2009) Hyperlipidemia Type 2 diabetes mellitus with polyneuropathy Paroxysmal atrial fibrillation (~01/2015) Essential hypertension Ascending aortic aneurysm Atherosclerotic cardiovascular disease Lumbar spondylolysis Inflammatory arthritis Family History Mother Diabetes Surgical History History of cardiac cath (~2018) History of lung surgery (~03/2019) History of left inguinal hernia repair (~01/2019) History of colonoscopy (~02/2016) Hx of neck surgery Hx of appendectomy Social History Household Members: Spouse Alcohol intake: former Patient Tobacco Use Status: Former Tobacco user Smoked in Last 30 Days: No Use of substances other than those prescribed or required for medical reasons: No Advance Directives: Yes Advance Directives on File: Yes Advance Directives Date on File: 04/18/21 Current occupational status: retired Hearing needs: Yes Meds Allergies Allergy/AdvReac Type Severity Reaction Status Date / Time No Known Allergies Allergy Verified 06/10/24 18:10 [No Known Allergies*] Home Medications ?Medication ?Instructions ?Recorded ?Confirmed ?Last Taken ?Type tamsulosin 0.4 mg capsule 0.4 mg PO DAILY 06/05/21 06/11/24 Unknown History lisinopril 2.5 mg tablet 2.5 mg PO DAILY 02/03/24 06/11/24 Unknown History albuterol sulfate 90 mcg/actuation 2 puff inhalation Q4H PRN 06/08/24 06/11/24 Unknown History aerosol inhaler Shortness Of Breath Or Wheezing acetaminophen 500 mg tablet 1,000 mg PO Q6H PRN Pain, Moderate 06/11/24 06/11/24 Unknown History Physical Exam Vital Signs and Narrative: Vital Signs: Last Vital Signs Temp 97.7 F 06/11/24 04:59 Pulse 88 06/11/24 06:39 Resp 17 06/11/24 04:59 BP 117/67 06/11/24 06:39 Pulse Ox 97 06/11/24 04:59 O2 Del Method Room Air 06/11/24 04:59 BMI result Body Mass Index 26.9 General: AOx3, no acute distress Resp: CTA bilaterally CVS: Regularly irregular rhythm, no murmurs, rubs, or gallops GI: +BS, NT, no distention Skin: Warm, dry Neuro: Cranial nerves II-XII grossly intact bilaterally. Motor grossly intact bilaterally. No focal deficits noted. Extremities: No edema Psych: Appropriate affect Results Labs 06/10/24 18:39 04/10/25 18:39 Labs: Laboratory Results - last 24 hr 06/10/24 06/11/24 18:39 00:41 MCV 87.0 MCH 28.9 MCHC 33.2 RDW 14.3 Plt Count 154 L MPV 11.4 Immature Gran % (Auto) 0.5 H Neut % (Auto) 73.2 H Lymph % (Auto) 14.9 L [place] % (Auto) 8.8 Eos % (Auto) 2.1 Baso % (Auto) 0.5 Lymph # (Auto) 0.9 L [place] # (Auto) 0.5 Eos # (Auto) 0.1 Baso # (Auto) 0.0 Abs Immat Gran (auto) 0.03 Absolute Neuts (auto) 4.5 Absolute Nucleated RBC 0.000 Nucleated RBC % (auto) 0.0 PT 26.3 H INR 2.3 H APTT 39.4 H Anion Gap 14 Estim Creat Clear Calc 66.3 Estimated GFR > 60 Random Glucose 154 H Calcium 9.0 Magnesium 2.0 Total Bilirubin 0.6 AST 30 ALT 32 Alkaline Phosphatase 95 Total Protein 6.4 L Albumin 3.7 Assessment and Plan (1) Orthostatic hypotension: Status: Acute Plan Pt is an 83-year-old Citizen [place]-speaking male with a PMH significant for?paroxysmal AFib on Coumadin, CAD, ascending aortic aneurysm (4.3cm), HTN, pfd-vrukvqv-qwnfyluma type 2 diabetes, peripheral neuropathy, and BPH who presents to the ED with?dizziness since yesterday afternoon. Pt admitted to the hospital under observation for treatment and further evaluation of orthostatic hypotension. Orthostatic hypotension Pt with dizziness, initial SBP drop from 143-->103 and then 154--> 117 after 2L IVF Currently no longer dizzy Will give additional 1L maintenance fluids Repeat orthostatics Meclizine 25 mg p.r.n. for vertigo like symptoms Paroxysmal AFib INR therapeutic at 2.3 Continue Coumadin Monitor INR daily Aah-xlyxjqb-qnfgmgwox type [address] on sliding scale insulin Diabetic diet HTN Hold lisinopril today due to orthostatic hypotension Resume as warranted BPH Hold tamsulosin today due to orthostatic hypotension Resume as warranted Full Code Attending:?Dr. Mitchell DVT Prophylaxis: Lovenox Pt admitted to the hospital under observation for treatment and further evaluation of lightheadedness and dizziness in the setting of positive orthostatic hypotension. Pt require close monitoring of vitals, BP, and administration of additional IVF. Quality Stroke Does the patient have a stroke diagnosis?: No VTE Prior VTE?: No VTE Risk Level:: Medical - moderate - high VTE Device Contraindication: Treatment Not Indicated VTE Drug Contraindication: N/A - Med Ordered
--- NOTE | 2024-06-11 09:21 | PHA.MEDREC ---
Pharmacy Consult ? Medication Reconciliation Pharmacy has completed the medication reconciliation. Spoke to patient through internal investigator service to confirm med list. Patient is a poor historian. He states he doesn't know what medications he takes. He instructed me to call Edyta [phone]. Spoke to Edyta through internal investigator service (Donna), however she states she can't read and put her daughter Anai on the phone. Family could not confirm any of patients medications. Called [facility] and spoke to Lyn and Utilized list from [facility] to confirm med list. [facility] stated Warfarin directions are to take 1 to 1 and 1/2 tables daily UTD INR clinic. The ant
--- NOTE | 2024-06-11 09:36 | PHA.MEDREC ---
Pharmacy Consult ? Medication Reconciliation Pharmacy has completed the medication reconciliation. Spoke to patient through scale assembly set up worker service to confirm med list. Patient is a poor historian. He states he doesn't know what medications he takes. He instructed me to call Ed[facility] [phone]. Spoke to Edyta through scale assembly set up worker service (Donna), however she states she can't read and put her daughter Anai on the phone. Family could not confirm any of patients medications. Called [facility] and spoke to Lyn and Utilized list from [facility] to confirm med list. [facility] stated Warfarin directions are to take 1 to 1 and 1/2 tables daily UTD pet INR clinic. The Visit notes from the anticoagulation clinic Patients Warfarin dose was to (:decrease this week dose at end of week - Friday from 7.5mg to 5mg -( 5mg x 4 days this week ) then next week resume 5mg sun fri/ 7.5mg x 4 days F/U INR: 10 days). couldn't confirm when patient last took his dose
[2024-06-11] MEDS: Atorvastatin Calcium 80 MG TABLET PO (10:31)
[2024-06-11] MEDS: Lactated Ringers 1,000 ML 100 ML IVCONT (10:33)
--- NOTE | 2024-06-11 11:03 | PC.NURSE ---
Report recieved from PATI Carmona. Taken over care at this time.
[2024-06-11 13:28] LABS: Glucose, Whole Blood 151 mg/dL (60-115)
[2024-06-11] MEDS: Insulin Lispro 100 UNIT/ML 3 ML VIAL SUBCUT ×2 (13:31→20:10)
[2024-06-11] MEDS: 0.9 % Sodium Chloride Flush 3 ML SYRINGE IVFLUSH ×2 (15:59→20:11)
[2024-06-11 16:24] LABS: Glucose, Whole Blood 143 mg/dL (60-115)
[2024-06-11] MEDS: Warfarin Sodium 5 MG TABLET PO (17:35)
[2024-06-11 19:45] LABS: Glucose, Whole Blood 212 mg/dL (60-115)
[2024-06-12 03:53] VITALS: BP 145/75; PULSE 81; RESP 18; TEMP 36.1; O2SAT 96
[2024-06-12 06:50] LABS: INTERNATIONAL NORM RATIO 2.7 (0.9-1.1); Prothrombin Time 31.8 SEC (10.9-12.4)
[2024-06-12 07:05] LABS: Glucose, Whole Blood 132 mg/dL (60-115)
[2024-06-12 07:24] VITALS: BP 149/77; PULSE 69; RESP 14; TEMP 36.2; O2SAT 93
[2024-06-12 07:57] VITALS: BP 167/77; PULSE 68
[2024-06-12 07:59] VITALS: BP 160/74; PULSE 80
[2024-06-12 08:00] VITALS: BP 141/80; PULSE 87
--- NOTE | 2024-06-12 08:03 | PM.DS ---
DS: Providers Provider Date of Service: 06/12/24 Date of admission: 06/11/24 09:53 Date of discharge: 06/12/24 Primary care physician: Olga Paulino DO DS: Diagnosis Discharge Diagnosis (1) Orthostatic hypotension: Status: Acute DS: Summary Hospital Course Hospital Course: from initial hpi: 83-year-old Macedonian-speaking male with a PMH significant for?paroxysmal AFib on Coumadin, CAD, ascending aortic aneurysm (4.3cm), HTN, [id number] type 2 diabetes, peripheral neuropathy, and BPH who presents to the ED with?dizziness since yesterday afternoon. Pt reports was sitting in his chair when he became dizzy which he describes as feeling like the room was spinning. Symptoms worsened with moving his head or standing up. No nausea or vomiting. Denies headache. No acute vision changes. Denies hemiparesis. Pt reports has had similar symptoms in the past, though not for many years. Previously took medications that alleviated symptoms though pt did not have any of those on hand. Reports dizziness stopped soon after arriving to the hospital. However, workup in the ED found pt to have positive orthostatics even after receiving 2 L IVF. Currently pt reports overall feels ?fine? without lightheadedness or dizziness. No chest pain/pressure, palpitations. Denies shortness or breath or difficulty breathing. No fever, chills, nausea, vomiting, abdominal pain. In the ED pt was primarily hypertensive to 154/64, and with positive orthostatics with SBP dropping from 154 --> 117. Labs were significant for chronically elevated troponins with initial 50.9 and repeat flat at 44.5. No leukocytosis. Chronic normocytic anemia. No significant electrolyte abnormalities. Renal function baseline. Hepatic function baseline. CT of head negative for acute intracranial abnormalities. EKG showed sinus bradycardia of 58 without evidence of significant ST elevations or depressions. Pt was treated with 2 L IVF. Pt admitted to the hospital under observation for treatment and further evaluation of orthostatic hypotension. hospital course: Patient was admitted for symptoms of dizziness which was likely combination of orthostatic hypotension and benign peripheral vertigo. Was given IV fluids and orthostatic hypotension resolved. Dizziness also resolved. Patient should continue with orthostatic precautions. He will also continue with meclizine for vertigo symptoms. For paroxysmal AFib was continued on Coumadin. For diabetes was continued on insulin sliding scale. For hypertension we will continue with lisinopril. For BPH will continue with tamsulosin. these meds will be shifted to night to avoid daytime orthostasis. Patient is feeling better will be discharged home. Time Attestation Discharge Coordination Time (in mins): 34 Quality: Safe Use of Opioids Does Pt have an Active Cancer Diagnosis on the Problem List?: No Quality: Stroke Does the patient have a stroke diagnosis?: No Physical Exam Vital Signs: Vital Signs: Last Vital Signs Temp 97.2 F 06/12/24 07:24 Pulse 87 06/12/24 08:00 Resp 14 06/12/24 07:24 BP 141/80 H 06/12/24 08:00 Pulse Ox 93 06/12/24 07:24 O2 Del Method Room Air 06/12/24 07:24 BMI result Body Mass Index 26.9 General: AO X 3, no acute distress Resp: CTA bilateral, no accessory muscles used CVS: S1,S2,RRR GI: soft, non tender, non distended Neuro: motor grossly intact, alert Psych: appropriate affect, appropriate insight DS: Data Data Completed and Pending Labs on day of discharge: Laboratory Results - last 24 hr 06/11/24 06/11/24 06/11/24 13:22 16:19 19:42 Hold Purple Top PT INR POC Glucose 151 H 143 H 212 H 06/12/24 06/12/24 06:14 07:02 Hold Purple Top SEE NOTE PT 31.8 H D INR 2.7 H POC Glucose 132 H Discharge Plan Discharge Anticipated Discharge Date/Time: 06/12/24 08:02 Patient Disposition: Home, Self-Care Discharge Diagnosis: orthostatic hypotension, vertigo Referrals: Olga Paulino DO [Primary Care Provider] - 1 Week Discharge Medications: Continued nitroglycerin 0.4 mg tablet, sublingual 0.4 mg sublingual Q5M Qty: 25 0RF Rx Instructions: Dissolve 1 tab under tongue every 5 minutes times 3 doses for chest pain. OVERDUE FOR APPT. PLEASE CALL [phone] TO SCHEDULE FOLLOW UP FOR 2022 SO WE CAN CONTINUE REFILLING metformin 500 mg tablet extended release 24 hr 500 mg PO DAILY Qty: 30 0RF rosuvastatin 20 mg tablet 20 mg PO DAILY Qty: 30 0RF acetaminophen 500 mg tablet 1,000 mg PO Q6H PRN (Reason: Pain, Moderate) warfarin 5 mg tablet 5 mg PO DAILY Qty: 90 0RF Protocol: Dose Management Condition: Friday (Week One) Dose/Route: 5 mg Instruction: 1 x 5 mg tablet Condition: Friday Dose/Route: 7.5 mg Instruction: 1.5 x 5 mg tablets Condition: Friday Dose/Route: 7.5 mg Instruction: 1.5 x 5 mg tablets Condition: Friday Dose/Route: 5 mg Instruction: 1 x 5 mg tablet Condition: Dose/Route: 7.5 mg Instruction: 1.5 x 5 mg tablets Condition: Friday Dose/Route: 5 mg Instruction: 1 x 5 mg tablet Condition: Friday Dose/Route: 5 mg Instruction: 1 x 5 mg tablet Condition: Friday ( Two) Dose/Route: 5 mg Instruction: 1 x 5 mg tablet Condition: Friday Dose/Route: 7.5 mg Instruction: 1.5 x 5 mg tablets Condition: Friday Dose/Route: 7.5 mg Instruction: 1.5 x 5 mg tablets Condition: Friday Dose/Route: 5 mg Instruction: 1 x 5 mg tablet Condition: Dose/Route: 7.5 mg Instruction: 1.5 x 5 mg tablets Condition: Friday Dose/Route: 5 mg Instruction: 1 x 5 mg tablet Condition: Friday Dose/Route: 7.5 mg Instruction: 1.5 x 5 mg tablets Protocol Text: Adjustment Start Date: Friday06/08/24 INR Value: 2.5 INR Date: 06/08/24 Recheck Date: 06/18/24 Additional Instructions: REVIEW FOOD LIST WEEKLY.KEEP EATING YOUR USUAL DIET. MAKE SURE TO EAT 1 EXTRA SERVING OF GREENS OVER THE WEEKEND. THE ANTIBIOTIC CAN RAISE YOUR INR. YOUR WARFARIN DOSE IS GOING TO BE DECREASED THIS WEEK AND HAVE YOUR INR CHECKED AGAIN NEXT WEEK. REVISE MARTINEZ LISTA DE ALIMENTOS SEMANALMENTE. SIGA CON MARTINEZ DIETA HABITUAL. ASEG?RESE DE COMER JACKIE RACI?N EXTRA DE VERDURAS MARIO EL FIN DE SEMANA. El antibi?delmis puede aumentar martinez INR. Esta semana le reduciremos la dosis de warfarina y deber? volver a controlar martinez INR la pr?xima semana. Rx Instructions: 5MG X3, [id number] albuterol sulfate 90 mcg/actuation HFA aerosol inhaler 2 puff inhalation Q4H PRN (Reason: Shortness Of Breath Or Wheezing) Changed tamsulosin 0.4 mg capsule 0.4 mg PO QPM Qty: 90 0RF lisinopril 2.5 mg tablet 2.5 mg PO QPM Qty: 90 0RF Discharge Orders: Discharge Order (Routine); Ordered 06/12/24 Ordered By: José Miguel Mitchell Diet: Advance to usual diet Activity on Discharge: As tolerated Stand Alone Forms: Patient Portal Discharge page Print Language: Macedonian Care Plan Goals: recovery Health Concerns: vertigo Plan of Treatment: orthostatic precautions, meclizine as needed Assessment: see above Patient Instructions: Hypotension (ED)
[2024-06-12] MEDS: 0.9 % Sodium Chloride Flush 3 ML SYRINGE IVFLUSH (08:11)
[2024-06-12] MEDS: Tamsulosin HCL 0.4 MG CAPSULE PO (08:12)
[2024-06-12] MEDS: Acetaminophen 325 MG TABLET 650 MG PO (08:12)
[2024-06-12] MEDS: lisinopriL 2.5 MG TABLET PO (08:12)
[2024-06-12] MEDS: Atorvastatin Calcium 80 MG TABLET PO (08:12)
[2024-06-12 08:55] VITALS: BP 175/82; PULSE 85; RESP 14; TEMP 36.2; O2SAT 95
== END 2024-06-12 10:07 | disposition home or self-care (01) ==
LOC: HO.ED 06-11 06:49 → HO.EDOVER 06-11 10:39 → HO.S3 06-11 13:18
PROVIDERS: Physician Assistant; Physician Assistant Medical; Admitting Provider Student in an Organized Health Care Education/Training Program; Emergency Provider Emergency Medicine; PCP Family Medicine; Visit Provider Internal Medicine
DX: I95.1 Orthostatic hypotension (principal); R42 Dizziness and giddiness; E11.9 Type 2 diabetes mellitus without complications; I10 Essential (primary) hypertension; I48.0 Paroxysmal atrial fibrillation; I71.21 Aneurysm of the ascending aorta, without rupture; N40.0 Benign prostatic hyperplasia without lower urinary tract symptoms; Z79.899 Other long term (current) drug therapy; Z79.01 Long term (current) use of anticoagulants
CPT/HCPCS: 36415; 70450; 80053; 82947; 83735; 84484; 85025; 85610; 85730; 93005; 96360; 96361; 99221; 99285; J7120

== ENCOUNTER → 2024-06-10 18:23 | Outpatient (BNV) | payer OTHER, SELFPAY | PROVIDERS: Admitting Provider Student in an Organized Health Care Education/Training Program; Emergency Provider Emergency Medicine; PCP Family Medicine; Visit Provider Internal Medicine Cardiovascular Disease | DX: R00.1 Bradycardia, unspecified (principal) | CPT/HCPCS: 93010 ==

== ENCOUNTER → 2024-06-11 00:20 | Outpatient (BNV) | payer OTHER, SELFPAY | PROVIDERS: Admitting Provider Student in an Organized Health Care Education/Training Program; Emergency Provider Emergency Medicine; PCP Family Medicine; Visit Provider Internal Medicine Cardiovascular Disease | DX: R00.1 Bradycardia, unspecified (principal) | CPT/HCPCS: 93010 ==

== ENCOUNTER → 2024-06-11 00:58 | Outpatient (BNV) | payer OTHER, SELFPAY | PROVIDERS: Emergency Provider Emergency Medicine; PCP Family Medicine; Visit Provider Radiology Diagnostic Radiology | DX: R42 Dizziness and giddiness (principal) | CPT/HCPCS: 70450 ==

== ENCOUNTER → 2024-06-11 09:53 | Outpatient (BNV) | payer OTHER, SELFPAY | PROVIDERS: Admitting Provider Student in an Organized Health Care Education/Training Program; Emergency Provider Emergency Medicine; PCP Family Medicine; Visit Provider Student in an Organized Health Care Education/Training Program | DX: I95.1 Orthostatic hypotension (principal) | CPT/HCPCS: 99239 ==

== ENCOUNTER 2024-06-18 09:37 | Outpatient (AMB) | payer OTHER, SELFPAY ==
[2024-06-18 09:51] LABS: Prothrombin Time Whole Bld POC 35.2 sec (11.1-13.5); ~PT, ~INR - Anti Coag Clinic 2.9 (0.9-1.1)
--- NOTE | 2024-06-18 09:53 | MHC.OFFVISCO ---
Intake Intake Visit Reasons: Anticoagulation Allergies No Known Allergies [No Known Allergies*] Allergy (Verified 06/18/24 09:43) Medication List - Last Reconciled 06/18/24 by Madhuri Allen RN acetaminophen 1,000 mg PO Q6H PRN albuterol sulfate 90 mcg/actuation 2 puffs inhalation Q4H PRN lisinopril 2.5 mg PO QPM metformin ER 500 mg PO DAILY nitroglycerin 0.4 mg sublingual Q5M rosuvastatin 20 mg PO DAILY tamsulosin 0.4 mg PO QPM warfarin 5 mg See Protocol PO DAILY Nursing Note INR: 2.9 in therapeutic range Medications and supplements reviewed * s/p URI and antbx completion -warfarin dose was decreased x1 week - he is better now Denies any signs and symptoms of bleeding or bruising or clotting. Bleeding, bruising, clotting discussed Nutritional guidance given Dose: resume usual dose 5mg x 3 days/ 7.5mg x 4 days F/U INR: 1 month Patient verbalizes understanding of instructions given with read back Anti-Coag Initial Assessment Social Hx Patient Tobacco Use Status: Former Tobacco user alcohol intake: former Alcohol intake frequency: does not drink Coding Level of Care Code Est Patient Level 1 Diagnoses Current use of anticoagulant therapy Z79.01 Assessment & Plan Assessment & Plan (1) Current use of anticoagulant therapy: Onset Date: ~01/2015 Comment: (on Coumadin - for AFib dx 01/2015) Code(s): Z79.01 - intermediate (current) use of anticoagulants Category: Medical
--- OUTSIDE RECORDS SUMMARY | 2024-06-18 10:12 | XMS_ITS | Encounter Summary ---
Author Organization [employer] Address [address] [place] [address] Care Team Providers Care Lcsw Name Role Phone Olga Paulino DO Primary Care Provider [phone] Encounter Details Date Type Department Care Team (Late st Contact Info) Description 04/26/2022 Orders Only [facility] [address] [place] [address] Olga Jaime LPN Social History Tobacco Use [...] on filedocumented in this encounter Care Teams Lcsw Relationship Specialty Start Date End Date Olga Paulino DO [address] [place] [address] PCP - General Family Medicine 03/03/18 documented as of this encounter
--- OUTSIDE RECORDS SUMMARY | 2024-06-18 10:12 | XMS_ITS | Encounter Summary ---
Demographics Address [address] [place] [address] Home Phone Work Phone Mobile Phone Preferred Language es Marital Status Unknown Christianity Affiliation Unknown Race Other Race Ethnic Group or Author Organization [employer] Address [address] [place] [address] Care Team Providers Care Communications Intern Name Role Phone Olga Paulino DO Primary Care Provider [phone] Encounter Details Date Type Department Care Team (Late st Contact Info) Description 06/18/2024 Orders Only GENERIC EXTERNAL DATA DEPARTMENT Provider, [...] Comments PROTHROMBIN TIME WHOLE BLD POC Routine 06/18/2024 9:50 AM EDT ~PT, ~INR - ANTI COAG CLINIC Routine 06/18/2024 9:50 AM EDT documented in this encounter Results * (ABNORMAL) PROTHROMBIN TIME WHOLE BLD POC (06/18/2024 9:50 AM EDT) Protime 35.2(H) 11.1 - 13.5 sec [facility] 06/18/2024 9:50 AM EDT 06/18/2024 9:51 AM EDT us Generic External Data Provider LAB BLOOD ORDERAB LES Final Result [facility] [address] [place] [address] [phone] * (ABNORMAL) ~PT, ~INR - ANTI COAG CLINIC (06/18/2024 9:50 AM EDT) Prothrombin Time INR 2.9(H) 0.9 - 1.1 [facility] Comment:METER #: [id number] TERNATIONAL NORMALIZED RATIO (INR) REFERENCE RANGES Reference RangeFor patients not on anticoagulant therapy: 0.9 - 1.1INR ranges for oral anticoagulanttherapy:For prevention and treatment of venous thrombosis and pulmonary embolism: 2.0 - 3.0For acute myocardial infarction with aspirin therapy: 2.0 - 3.0For acute myocardial infarction without aspirin therapy: 3.0 - 4.0For patients with mechanical prosthetic heart valves: 2.5 - 3.5 06/18/2024 9:50 AM EDT 06/18/2024 9:51 AM EDT us Generic External Data Provider LAB BLOOD ORDERAB LES Final Result [facility] [address] [place] [address] [phone] documented in this encounter Visit Diagnoses Not on filedocumented in this encounter Additional Health Concerns Assessment Noted Time PHQ-9 Depression Total Score: 0 10/06/19 24 9:06 AM EDT documented as of this encounter Care Teams Communications Intern Relationship Specialty Start Date End Date Olga Paulino DO [address] [place] [address] PCP - General Family Medicine 03/03/18 documented as of this encounter
--- OUTSIDE RECORDS SUMMARY | 2024-06-18 10:12 | XMS_ITS | Clinical Summary ---
Demographics Address [address] [place] [address] Home Phone Work Phone Mobile Phone Preferred Language es Marital Status Unknown Evangelical Affiliation Unknown Race Other Race Ethnic Group or Author Organization [employer] Address [address] [place] [address] Care Team Providers Care Relish Blender Name Role Phone Olga Paulino DO Primary Care Provider Allergies No known active allergies Medications amLODIPine (Norvasc) 5 MG tablet TOME JACKIE TABLETA TODOS LOS D 2 Active metoprolol tartrate (Lopressor) 50 MG tablet TOME JACKIE TABLETA DOS VECES AL D A 2 Active Blood Glucose Monitoring Suppl (UsabilityTools.comStyle [place] Lite) w/Device kit USE TO CHECK BLOOD SUGAR TWICE A DAY 1 kit 3 Active Blood Glucose Monitoring Suppl (Accu-Chek Leslye Plus) w/Device kit 1 each 2 times daily. 1 kit 3 Active glucose blood (Accu-Chek Leslye Plus) test strip USE TO TEST BLOOD SUGAR DOS VECES AL SABIHA 100 strip 11 3 Active Calcium Carbonate-Vit D-Min (Calcium 600+D Plus Minerals) 600-400 MG-UNIT tabletIndications :Osteopenia, unspecified location Take 1 tablet by mouth daily 90 tablet 3 3 Active rosuvastatin (Crestor) 20 MG tablet TOME JACKIE TABLETA TODOS LOS STINSON 90 tablet 3 4 Active tamsulosin (Flomax) 0.4 MG 24 hr capsuleIndication s:Benign prostatic hyperplasia, unspecified whether lower urinary tract symptoms present TAKE 1 CAPSULE BY MOUTH EVERY DAY 1/2 HOUR FOLLOWING THE SAME MEAL EACH DAY 90 capsule 3 4 Active fluticasone (Flonase) 50 MCG/ACT nasal sprayIndications: Allergic rhinitis, unspecified seasonality, unspecified trigger SPRAY 2 SPRAYS INTO EACH NOSTRIL EVERY DAY IF NEEDED 48 mL 1 4 Active lisinopril 2.5 MG tabletIndications :Essential hypertension TOME JACKIE TABLETA TODOS LOS STINSON 90 tablet 3 5 Active metFORMIN XR (Glucophage-XR) 500 MG 24 hr tabletIndications :Type 2 diabetes mellitus with other specified complication, unspecified whether chcf insulin use (CMS/HCC) TOME 1 TABLETA POR VIA ORAL TODOS LOS STINSON 90 tablet 1 5 Active warfarin (Coumadin) 5 MG tabletIndications :Paroxysmal atrial fibrillation (CMS/HCC) TAKE 1 - 1 & 1/2 TABLETS POR VIA ORAL TODOS LOS STINSON AIDA LO INDICADO BY COUMADIN CLINIC 135 tablet 1 5 Active nitroglycerin (Nitrostat) 0.[address] 1 tablet (0.4 mg) under the tongue every 5 (five) minutes if needed for chest pain. X 3 doses. Call 911 if CP does not resolve 30 tablet 5 Active triamcinolone (Kenalog) 0.1 % ointmentIndicatio ns:Nummular dermatitis Apply topically 2 times daily. 80 g 5 Active albuterol 108 (90 Base) MCG/ACT inhaler Inhale 2 puffs every 4 (four) hours if needed for wheezing or shortness of breath. 18 g 1 5 06/03/19 26 Active Spacer/Aero-Holdi ng Chambers (OptiChamber Bernadette) misc 1 each every 4 (four) hours if needed (asthma). 1 each 5 Active amoxicillin-clavu lanate (Augmentin) 875-125 MG tablet Take 1 tablet by mouth 2 times daily. 14 tablet 5 Active acetaminophen (Tylenol) 500 MG tablet Take 2 tablets (1,000 mg) by mouth every 6 (six) hours if needed for moderate pain or fever. 30 tablet 5 Active Vitamin D3 Super Strength 50 MCG (2000 UT) tablet Take 2,000 Units by mouth in the morning. 30 tablet 11 4 06/03/19 25 meclizine (Antivert) 12.5 MG tablet Take 1 tablet (12.5 mg) by mouth if needed in the morning, at noon, and at bedtime for dizziness for up to 10 days. 30 tablet 5 05/28/19 25 Active Problems Problem Noted Date Diagnosed Date [...] 1:51 PM EDT): Audiology eval w/ b/l [id number] SN hearing loss JUN 2021 -his agrees [...] Encounters Date Type Department Care Team Description 06/18/2024 Orders Only [facility] EXTERNAL DATA DEPARTMENT Provider, Generic External Data 06/11/2024 Orders Only GENERIC EXTERNAL DATA DEPARTMENT Provider, Generic External Data 06/10/2024 Orders Only [facility] External Provider, [facility] 06/08/2024 Orders Only GENERIC EXTERNAL DATA DEPARTMENT Provider, Generic External Data 06/02/2024 10:00 AM EDT Office Visit [facility] [address] [place] [address] Ambrosio Byers MD Acute cough (Primary Dx); Acute non-recurrent sinusitis, unspecified location; Essential hypertension; Acute URI 05/17/2024 9:00 AM EDT Office Visit [facility] [address] [place] [phone] Olga Paulino DO Type 2 diabetes mellitus [...] Provider, Generic External Data 05/10/2024 Patient Outreach [facility] [address] [place] [address] Olga Paulino DO 05/10/2024 Patient Outreach [facility] [address] [place] [address] Olga Paulino DO Pre-visit Planning (SDOH screening negative and tobacco screening negative) 04/13/2024 Orders Only GENERIC EXTERNAL DATA DEPARTMENT Provider, Generic External Data 04/12/2024 Refill [facility] [address] [place] [address] Olga Paulino DO Essential hypertension; Type 2 diabetes mellitus with other specified complication, 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 I have briandamir mccrary 10/06/[address] you [...] history exists Depression Screening 10/05/2024 10/06/2023, 10/06/19 Diabetes: Hemoglobin A1C 11/17/2024 025, 10/06/2023, 06/27/2023, [...] [facility] Routine 06/18/2024 9:50 AM EDT HIGH SENSITIVITY TROPONIN I Routine 06/11/2024 3:[address] HEAD WO CONTRAST Routine 06/11/2024 2 :42 AM EDT HIGH SENSITIVITY TROPONIN I Routine 06/11/2024 12:41 AM EDT APTT Routine 06/11/2024 12:41 AM EDT PROTHROMBIN TIME-INR Routine 06/11/2024 12:41 AM EDT PROTHROMBIN TIME WHOLE BLD POC Routine 06/08/2024 [...] [facility] Routine 04/13/2024 9:23 AM EST LIPID PANEL, STANDARD Routine 06/27/2023 8:40 AM EDT 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) from Last 3 Months or Most Recently Relevant to Health Maintenance Results * (ABNORMAL) PROTHROMBIN TIME WHOLE BLD POC (06/18/2024 9:50 AM EDT) Only the most recent of4 resultswithin the time period is included. Protime 35.2(H) 11.1 - 13.5 sec [facility] 06/18/2024 9:50 AM EDT 06/18/2024 9:51 AM EDT us Generic External Data Provider LAB BLOOD ORDERAB LES Final Result [facility] [address] [place] [phone] * (ABNORMAL) ~PT, ~INR - ANTI COAG CLINIC (06/18/2024 9:50 AM EDT) Only the most recent of4 resultswithin the time period is included. Prothrombin Time INR 2.9(H) 0.9 - 1.1 [facility] Comment:METER #: [id number] TERNATIONAL NORMALIZED RATIO (INR) REFERENCE RANGES Reference [...] 9:50 AM EDT 06/18/2024 9:51 AM EDT Generic External Data Provider LAB BLOOD ORDERAB LES Final Result Performing Organization Address City/[facility]/ZIP Co de Phone Number [facility] [address] [place] [phone] * (ABNORMAL) High Sensitivity Troponin I (06/11/2024 3:18 AM EDT) Only the most recent of2 resultswithin the time period is included. Pathologist [facility] TROPONIN I HIGH SENSITIVITY 44.5(H) <3.5 - 35.0 ng/L [facility] Comment:The De Oliveira high sens itivity Troponin-I results should beused in conjunction with other diagnostic information suchas ECG, clinical observations and information, and patientsymptoms to aid in the diagnosis of MT. 06/11/2024 3:18 AM EDT 06/11/2024 3:20 AM EDT us Generic External Data Provider LAB BLOOD ORDERAB LES Final Result Performing Organization Address City/[facility]/ZIP Co de Phone Number [facility] [address] [place] [phone] * CT Head w/o Contrast (06/11/2024 2:42 AM EDT) Anatomical Region Laterality Modality Head, Neck Computed Tomogra phy 06/11/2024 2:42 AM EDT Narrative 06/11/2024 2:44 AM EDT ? [facility] ?[address] ?[place] [address] ? CT Scan Report ? Signed ? Patient: Chantale Saravia,Ramesh ?MR#: ?? [id number] ? : 1940 ?Acct:[id number] ? Age/Sex: 83 / M ?ADM Date: 06/10/24 ? Loc: HO.ED ? Attending Dr: ? Ordering Physician: Wei Lynch ?? Date of Service: 06/11/24 ?? Procedure(s): CT head/brain wo IV con ?? Accession Number(s): [id number] ? cc: Wei Lynch; Olga Paulino DO ? Report Number: ?? [id number]: Total DLP = ??657.00 mGy-cm ? CLINICAL HISTORY: dizziness ? CT head without contrast ? Comparison: MR/SR - MR HEAD/BRAIN WO/W CON - 02/13/22 16:45 EST ? Findings: ?? No intracranial mass, midline shift, hydrocephalus, or acute hemorrhage. ?? There is generalized cerebral volume loss. Mild nonspecific ?? periventricular and subcortical white matter changes are identified, which ?? may be seen in the setting of chronic small vessel ischemic disease. ?? Coarse calcifications identified along the falx. ?? Visualized paranasal sinuses and mastoid air cells appear clear. ?? No acute skull fracture. ? Impression: ?? 1. No acute intracranial abnormality. No acute intracranial hemorrhage. ? This document has been electronically signed by: Drake Galvez MD on ?? 06/11/2024 02:42:06 ? Dictated By: ?Drake Galvez MD ? Signed By: ?<Electronically signed by Drake Galvez MD in OV> ? 06/11/24 0243 ? DD/ 0242 ? TD/TT: 06/11/24 0242 ? Hospice Liaison: ? Procedure Note Jethro, Phuong - 06/11/2024 [facility] [address] [place] [address] CT Scan Report Signed Patient: Chantale Ramesh SaraviaMR#: [id number] : 9Acct:[id number] Age/Sex: 83 / MADM Date: 06/10/24 Loc: HO.ED Attending Dr: Ordering Physician: Wei Lynch Date of Service: 06/11/24 Procedure(s): CT head/brain wo IV con Accession Number(s): [id number] cc: Wei Lynch; Olga Paulino DO Report Number: [id number]: Total DLP = 657.00 mGy-cm CLINICAL HISTORY: dizziness CT head without contrast Comparison: MR/SR - MR HEAD/BRAIN WO/W CON - 02/13/22 16:45 EST Findings: No intracranial mass, midline shift, hydrocephalus, or acute hemorrhage. There is generalized cerebral volume loss. Mild nonspecific periventricular and subcortical white matter changes are identified, which may be seen in the setting of chronic small vessel ischemic disease. Coarse calcifications identified along the falx. Visualized paranasal sinuses and mastoid air cells appear clear. No acute skull fracture. Impression: 1. No acute intracranial abnormality. No acute intracranial hemorrhage. This document has been electronically signed by: Drake Galvez MD on 06/11/2024 02:42:06 Dictated By: Drake Galvez MD Signed By: <Electronically signed by Drake Galvez MD in OV> 06/11/24242 DD/ 1 TD/TT: 06/11/24241 Hospice Liaison: [facility] External Provider IMG CT PROCEDURES Final Result * (ABNORMAL) Partial Thromboplastin Time, Activated (APTT) (06/11/2024 12:41 AM EDT) Partial Thromboplastin Time 39.4(H) 26.0 - 36.8 SEC [facility] Comment:For information rega rding the monitoring of direct thrombininhibitors, please refer to Pharmacy. 06/11/2024 12:4 1 AM EDT 06/11/2024 12:43 AM EDT Generic External Data Provider LAB BLOOD ORDERAB LES Final Result Performing Organization Address City/State/[facility] Co de Phone Number [facility] [address] [place] [phone] * (ABNORMAL) Prothrombin Time-INR (06/11/2024 12:41 AM EDT) [facility] Prothrombin Time 26.3(H) 10.9 - 12.4 SEC [facility] INTERNATIONAL NORM RATIO 2.3(H) 0.9 - 1.1 [facility] Comment:INTERNATIONAL NORMAL IZED RATIO (INR) REFERENCE RANGES Reference RangeFor patients not on anticoagulant therapy: 0.9 - 1.1INR ranges for oral anticoagulanttherapy:For prevention and treatment of venous thrombosis and pulmonary embolism: 2.0 - 3.0For acute myocardial infarction with aspirin therapy: 2.0 - 3.0For acute myocardial infarction without aspirin therapy: 3.0 - 4.0For patients with mechanical prosthetic heart valves: 2.5 - 3.5 06/11/2024 12:4 1 AM EDT 06/11/2024 12:43 AM EDT Generic External Data Provider LAB BLOOD ORDERAB LES Final Result Performing Organization Address [facility] Co de Phone Number [facility] [address] [place] [phone] * Influenza B (ID NOW Rapid Molecular) (06/02/2024 10:02 AM EDT) [facility] Influenza B Negative Negative, Indeterminate [facility] Swab 06/02/2024 10:0 2 AM EDT Ambrosio Byers MD POINT OF CARE TEST ENTER/EDIT OR DERABLES Final Result Performing Organization Address [facility] Co de Phone Number [facility] [address] [place] [phone] * Influenza A (ID NOW Rapid Molecular) (06/02/2024 10:02 AM EDT) [facility] Influenza A Negative Negative, Indeterminate [facility] Swab 06/02/2024 10:0 2 AM EDT us Ambrosio Byers MD POINT OF CARE TEST ENTER/EDIT OR DERABLES Final Result Performing Organization Address [facility] Co de Phone Number [facility] [address] [place] [phone] * POCT Rapid COVID Ag (06/02/2024 10:02 AM EDT) Rapid COVID Ag Negative [facility] Swab 06/02/2024 10:0 2 AM EDT Ambrosio Byers MD POINT OF CARE TEST ENTER/EDIT OR DERABLES Final Result Performing Organization Address [facility] de Phone Number [facility] [address] [place] [phone] * POCT rapid strep A manually resulted (06/02/2024 10:02 AM EDT) Pathologist [facility] Rapid Strep A Screen Negative Negative, None Detected [facility] Swab 06/02/2024 10:0 2 AM EDT Ambrosio Byers MD POINT OF CARE TEST ENTER/EDIT OR DERABLES Final Result Performing Organization Address [facility] de Phone Number [facility] [address] [place] [phone] * (ABNORMAL) POCT HGB A1C (05/17/2024 10:43 AM EDT) [facility] Hemoglobin A1C 6.9(A) 4.0 - 6.0 % QC Media Lot # [id number] Lot# Expiration Date Blood 05/17/2024 10:4 3 AM EDT us Olga Paulino DO POINT OF CARE TEST ENTER/PREETHI T ORDERABLES Final Result * (ABNORMAL) POCT Glucose (05/17/2024 10:35 AM EDT) Glucose Blood, POC 250(A) 60 - 200 mg/dL QC Media Lot # [id number] Lot# Expiration Date [id number] Blood Capillary blood specimen / Unknown 05/17/2024 10:35 AM EDT Olga Paulino DO POINT OF CARE TEST ENTER/RPEETHI T ORDERABLES Final Result * (ABNORMAL) Lipid Panel, Standard (06/27/2023 8:40 AM EDT) Triglycerides 108 <150 mg/dL [facility] Comment:Desirable Triglyceri de: less than 150 mg/dLBorderline High Triglyceride 150-199 mg/dLHigh Triglyceride: 200-499 mg/dLVery High Triglyceride: greater than or equal to 5OO mg/dL Cholesterol 113 <200 mg/dL [facility] Comment:Desirable Cholestero l: less than 200 mg/dLBorderline High Cholesterol: 200-239 mg/dLHigh Cholesterol: greater than 239 mg/dL LDL Cholesterol Calculated 57 <100 mg/dL [facility] Comment:Desirable LDL: less than 100 mg/dLNear Optimal/Above Optimal LDL: 110- 129 mg/dLBorderline High LDL: 130-159 mg/dLHigh LDL: 160-189 mg/dLVery High LDL: greater than or equal to 190 mg/dL HDL Cholesterol 35(L) >40 mg/dL [facility] Comment:Desirable HDL: great er than 40 mg/dL Note: This HDL assay may give artificially low results in patients with liver disease. Blood Venous blood specimen / Unknown 06/27/2023 8:40 AM EDT 06/27/2023 11:31 AM EDT Olga Paulino DO LAB BLOOD ORDERABLES Final R esult [facility] [address] [place] [phone] from Last 3 Months or Most Recently Relevant to Health Maintenance Insurance [facility] Care Teams Relish Blender Relationship Specialty Start Date End Date Olga Paulino DO [address] [place] [phone] PCP - General Family Medicine 03/03/18
--- OUTSIDE RECORDS SUMMARY | 2024-06-18 10:12 | XMS_ITS | Encounter Summary ---
Author Organization [employer] Address [address] [place] [address] Care Team Providers Care Sourcing Internship Name Role Phone Olga Paulino DO Primary Care Provider [phone] Encounter Details Date Type Department Care Team (Late st Contact Info) Description 06/28/2022 Orders Only [facility] [address] [place] [address] Olga Jaime LPN Social History Tobacco Use [...] on filedocumented in this encounter Care Teams Sourcing Internship Relationship Specialty Start Date End Date Olga Paulino DO [address] [place] [address] PCP - General Family Medicine 03/03/18 documented as of this encounter
== END 2024-06-18 09:58 | disposition home or self-care (01) ==
LOC: HO.ACS 09:37
PROVIDERS: PCP Family Medicine; Visit Provider Internal Medicine Medical Oncology
DX: Z79.01 Long term (current) use of anticoagulants (principal)

== ENCOUNTER → 2024-06-18 09:37 | Outpatient (BNVA) | payer OTHER, SELFPAY | PROVIDERS: PCP Family Medicine; Visit Provider Internal Medicine Medical Oncology | DX: I48.0 Paroxysmal atrial fibrillation (principal); Z79.01 Long term (current) use of anticoagulants; Z51.81 Encounter for therapeutic drug level monitoring | CPT/HCPCS: 85610; 99211 ==

== ENCOUNTER 2024-07-15 08:55 | Outpatient (AMB) | payer OTHER, SELFPAY ==
--- NOTE | 2024-07-15 08:58 | MHC.OFFVISCO ---
Intake Intake Visit Reasons: Anticoagulation Allergies No Known Allergies [No Known Allergies*] Allergy (Verified 07/15/24 08:57) Medication List - Last Reconciled 07/15/24 by Mary Trevino RN acetaminophen 1,000 mg PO Q6H PRN albuterol sulfate 90 mcg/actuation 2 puffs inhalation Q4H PRN lisinopril 2.5 mg PO QPM metformin ER 500 mg PO DAILY nitroglycerin 0.4 mg sublingual Q5M rosuvastatin 20 mg PO DAILY tamsulosin 0.4 mg PO QPM warfarin 5 mg See Protocol PO DAILY Nursing Note INR: 2.6- in therapeutic range of 2-3 Medications and supplements reviewed- no changes No changes in health, diet, medications, or supplements, Denies any signs and symptoms of bleeding or bruising or clotting. Bleeding, bruising, clotting discussed Nutritional guidance given Dose: 5mg x 3, 7.5mg x 4 F/U INR: 4 weeks Patient verbalizes understanding of instructions given Anti-Coag Initial Assessment Social Hx Patient Tobacco Use Status: Former Tobacco user alcohol intake: former Alcohol intake frequency: does not drink Coding Level of Care Code Est Patient Level 1 Diagnoses Current use of anticoagulant therapy Z79.01 Results AMB INR Fingerstick AMB INR Fingerstick 2.6 Last Edit by Mary Trevino RN on 07/15/24 09:03 interface delay Assessment & Plan Assessment & Plan (1) Current use of anticoagulant therapy: Onset Date: ~01/2015 Comment: (on Coumadin - for AFib dx 01/2015) Code(s): Z79.01 - middle or intermediate school principal (current) use of anticoagulants Category: Medical
--- OUTSIDE RECORDS SUMMARY | 2024-07-15 09:21 | XMS_ITS | Encounter Summary ---
Author Organization [employer] Address [address] [facility] [address] [place] [address] Care Team Providers Care Lens Mold Setter Name Role Phone Olga Paulino DO Primary Care Provider [phone]- [phone] Encounter Details Date Type Department Care Team (Late st Contact Info) Description 04/26/2022 Orders Only [facility] [address] [place] [address] Olga Jaime LPN Social History Tobacco Use [...] Care Team (Late st Contact Info) Description 10/08/2024 9:00 AM EDT Office Visit [facility] [address] [place] [address] Oneal Wilder MD [address] [place] [address] documented as of this encounter Visit Diagnoses Not on filedocumented in this encounter Care Teams Lens Mold Setter Relationship Specialty Start Date End Date Olga Paulino DO [address] [place] [address] PCP - General Family Medicine 03/03/18 documented as of this encounter
--- OUTSIDE RECORDS SUMMARY | 2024-07-15 09:21 | XMS_ITS | Encounter Summary ---
Author Organization [employer] Address [address] [facility] [address] [place] [address] Care Team Providers Care Manager Electronic Name Role Phone Olga Paulino DO Primary Care Provider [phone]- [phone] Encounter Details Date Type Department Care Team (Late st Contact Info) Description 06/28/2022 Orders Only [facility] [address] [place] [address] Olga Jaime LPN Social History Tobacco Use [...] Description 10/08/2024 9:00 AM EDT Office Visit [facility] [address] [place] [address] Oneal Wilder MD [address] [place] [address] documented as of this encounter Visit Diagnoses Not on filedocumented in this encounter Care Teams Manager Electronic Relationship Specialty Start Date End Date Olga Paulino DO [address] [place] [address] PCP - General Family Medicine 03/03/18 documented as of this encounter
--- OUTSIDE RECORDS SUMMARY | 2024-07-15 09:21 | XMS_ITS | Clinical Summary ---
Author Organization [employer] Address [address] [facility] 7t [place] [address] Care Team Providers Care Library Services Dean Name Role Phone TomerOlga apodaca Primary Care Provider Allergies No known active allergies Medications Blood Glucose Monitoring Suppl (FreeStyle Mchenry Lite) w/Device kit USE TO CHECK BLOOD SUGAR TWICE A DAY 1 kit 07/12/19 23 Active Blood Glucose Monitoring Suppl (Accu-Chek Lselye Plus) w/Device kit 1 each 2 times daily. 1 kit 08/09/19 23 Active glucose blood (Accu-Chek Leslye Plus) test strip USE TO TEST BLOOD SUGAR DOS VECES AL SABIHA 100 strip 11 08/09/19 23 Active tamsulosin (Flomax) 0.4 MG 24 hr [...] mellitus with other specified complication, unspecified whether detention insulin use (CMS/HCC) TOME 1 TABLETA POR VIA ORAL TODOS LOS STINSON 90 tablet 1 04/14/19 25 Active warfarin (Coumadin) 5 MG tabletIndicatio ns:Paroxysmal atrial fibrillation (CMS/HCC) TAKE 1 - 1 & 1/2 TABLETS POR VIA ORAL TODOS LOS STINSON AIDA LO INDICADO BY COUMADIN CLINIC 135 tablet 1 04/14/19 25 Active nitroglycerin (Nitrostat) 0.[address] 1 tablet (0.4 mg) under the tongue every 5 (five) minutes if needed for chest pain. X 3 doses. Call 911 if CP does not resolve 30 tablet 05/18/19 25 Active triamcinolone (Kenalog) 0.1 % ointmentIndicat ions:Nummular dermatitis Apply topically 2 times daily. 80 g 05/18/19 25 Active albuterol 108 (90 Base) MCG/ACT inhaler Inhale 2 puffs every 4 (four) hours if needed for wheezing or shortness of breath. 18 g 1 06/03/19 25 026 Active Spacer/Aero-Hol ding Chambers (OptiChamber Bernadette) misc 1 each every 4 (four) hours if needed (asthma). 1 each 06/03/19 25 Active acetaminophen (Tylenol) 500 MG tablet Take 2 tablets (1,000 mg) by mouth every 6 (six) hours if needed for moderate pain or fever. 30 tablet 06/03/19 25 Active rosuvastatin (Crestor) 20 MG tablet TAKE 1 TABLET BY MOUTH EVERY DAY 90 tablet 3 07/08/19 25 Active amLODIPine (Norvasc) 5 MG tablet TOME JACKIE TABLETA TOS LOS D 03/01/20 22 025 Discontinued(Me d list cleanup (will not trigger notification to Pharmacy)) metoprolol tartrate (Lopressor) 50 MG tablet TOME JACKIE TABLETA DOS VECES AL D A 12/06/19 22 025 Discontinued(Me d list cleanup (will not trigger notification to Pharmacy)) Calcium Carbonate-Vit D-Min (Calcium 600+D Plus Minerals) 600-400 MG-UNIT tabletIndicatio ns:Osteopenia, unspecified location Take 1 tablet by mouth daily 90 tablet 3 02/20/20 23 025 Discontinued(Me d list cleanup (will not trigger notification to Pharmacy)) rosuvastatin (Crestor) 20 MG tablet TOME JACKIE TABLETA TOS LOS STINSON 90 tablet 3 09/10/19 24 025 Discontinued amoxicillin-cla vulanate (Augmentin) 875-125 MG tablet Take 1 tablet by mouth 2 times daily. 14 tablet 06/03/19 25 025 Discontinued(Me d list cleanup (will not trigger notification to Pharmacy)) Active Problems Problem Noted Date Diagnosed Date [...] 1:51 PM EDT): Audiology eval w/ b/l [id number] SN hearing loss JUN 2021 -his agrees [...] Encounters Date Type Department Care Team Description 07/13/2024 9:15 AM EDT Office Visit [facility] [address] [place] [address] Olga Paulino DO Type 2 diabetes mellitus with other diabetic kidney complication ([facility]) 07/13/2024 Travel 07/08/2024 Telephone [facility] [address] [place] [address] Olga Paulino DO Chart Prep 07/07/2024 Refill [facility] [address] [place] [address] Olga Paulino DO 06/18/2024 Patient Outreach [facility] [address] [place] [address] Olga Paulino DO Transition Of Care (Tcm) (HDF unscheduled.) 06/18/2024 Telephone [facility] [address] [place] [address] Olga Paulino DO Hospital Follow-up 06/18/2024 Orders Only GENERIC EXTERNAL DATA DEPARTMENT Provider, Generic External Data 06/11/2024 Orders Only GENERIC EXTERNAL DATA DEPARTMENT Provider, Generic External Data 06/10/2024 Orders Only [facility] External Provider, [facility] 06/08/2024 Orders Only GENERIC EXTERNAL DATA DEPARTMENT Provider, Generic External Data 06/02/2024 10:00 AM EDT Office Visit [facility] [address] [place] [phone] Ambrosio Byers MD Acute cough (Primary Dx); Acute non-recurrent sinusitis, unspecified location; Essential hypertension; Acute URI 05/17/2024 9:00 AM EDT Office Visit [facility] [address] [place] [phone] Olga Paulino DO Type 2 diabetes mellitus [...] Provider, Generic External Data 05/10/2024 Patient Outreach [facility] [address] [place] [address] Olga Paulino DO 05/10/2024 Patient Outreach [facility] [address] [place] [phone] Olga Paulino DO Pre-visit Planning (SDOH screening negative and tobacco screening negative) from Last 3 Months Immunizations Immunization Administration Dates Next Due Influenza High-dose Quadriva [...] Sign Reading Time Taken Comments Blood Pressure 130/70 07/13/2024 9:32 AM EDT Pulse 66 07/13/2024 9:32 AM EDT Temperature 36.2 ??C (97.1 ??F) 07/13/2024 9:32 AM ED T Respiratory Rate 19 07/13/2024 9:32 AM EDT Oxygen Saturation 98% 07/13/2024 9:32 AM EDT Inhaled Oxygen Concentration - - Weight 85.3 kg (188 lb) 07/13/2024 9:32 AM EDT Height 167.6 cm (5' 6 ) 07/13/2024 9:32 AM EDT Body Mass Index 30.34 07/13/2024 9:32 AM EDT Plan of Treatment Upcoming Encounters Date Type Department Care Team (Late st Contact Info) Description 10/08/2024 9:00 AM EDT Office Visit [facility] [address] [place] [address] Oneal Wilder MD [address] [place] [address] Health Maintenance Due Date Last Done Comments Eye Exam 1948 Zoster Vaccines (1 of 2) 1988 RSV Patients and Patients Aged 60 years or older (1 - 1-dose 75+ series) 2013 Diabetes: Foot Exam 06/02/2024 06/03/2023, 06/03/2023, 06/03/2023, Additional history exists Lipid Panel 06/26/2024 06/27/2023, 09/2 03/2022, 06/07/2021, Additional history exists Depression Screening 10/05/2024 10/06/2023, 08/05/20 24 Diabetes: Hemoglobin A1C 10/13/2024 025, 05/17/2024, 10/06/2023, Additional history exists COVID-19 Vaccine ( season) 2024 05/17/2024, 06/03/2023, 01/15/2022, Additional history exists SDOH Screening 05/10/2025 05/10/2024 Alcohol/Substance Use Screening 07/13/2025 07/13/2024 Tobacco Screening 07/13/2025 07/13/2024 DTaP/Tdap/Td Vaccines (3 - Td or Tdap) [...] patient's age to complete this topic Meningococcal B Vaccine Aged Out No l onger eligible based on patient's age to complete [...] Name Priority Date/Time Associated Diagnosis Comments POCT GLYCATED HEMOGLOBIN, TOTAL Routine 07/13/2024 9:35 AM EDT 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) POCT GLUCOSE Routine 07/13/2024 9:34 AM EDT 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) PROTHROMBIN TIME WHOLE BLD POC Routine 06/18/2024 [...] [facility] Routine 05/11/2024 9:33 AM EDT LIPID PANEL, STANDARD Routine 06/27/2023 8:40 AM EDT 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) from Last 3 Months or Most Recently Relevant to Health Maintenance Results * (ABNORMAL) POCT HGB A1C (07/13/2024 9:35 AM EDT) Only the most recent of2 resultswithin the time period is included. Hemoglobin A1C 7.3(A) 4.0 - 6.0 % QC Media Lot # [id number] Lot# Expiration Date , Blood 07/13/2024 9:35 AM EDT Olga [employer] DO POINT OF CARE TEST ENTER/PREETHI T ORDERABLES Final Result * (ABNORMAL) POCT Glucose (07/13/2024 9:34 AM EDT) Only the most recent of2 resultswithin the time period is included. Pathologist [facility] Glucose Blood, POC 214(A) 60 - 200 mg/dL QC Media Lot # [id number] Lot# Expiration Date Blood Capillary blood specimen / Unknown 07/13/2024 9:34 AM EDT [employer] DO POINT OF CARE TEST ENTER/PREETHI T ORDERABLES Final Result * (ABNORMAL) PROTHROMBIN TIME WHOLE BLD POC (06/18/2024 9:50 AM EDT) Only the most recent of3 resultswithin the time period is included. Pathologist [facility] Protime 35.2(H) 11.1 - 13.5 sec [facility] 06/18/2024 9:50 AM EDT 06/18/2024 9:51 AM EDT us Generic External Data Provider LAB BLOOD ORDERAB LES Final Result Performing Organization Address [facility] Co de Phone Number [facility] [address] [place] [phone] * (ABNORMAL) ~PT, ~INR - ANTI COAG CLINIC (06/18/2024 9:50 AM EDT) Only the most recent of3 resultswithin the time period is included. Prothrombin Time INR 2.9(H) 0.9 - 1.1 [facility] Comment:METER #: [id number] TERNATIONAL NORMALIZED RATIO (INR) REFERENCE RANGES Reference [...] ORDERAB LES Final Result Performing Organization Address [facility] de Phone Number [facility] [address] [place] [phone] * (ABNORMAL) High Sensitivity Troponin I (06/11/2024 3:18 AM EDT) Only the most recent of2 resultswithin the time period is included. TROPONIN I HIGH SENSITIVITY 44.5(H) <3.5 - 35.0 ng/L [facility] Comment:The De Oliveira high sens itivity Troponin-I results should beused in conjunction with other diagnostic information suchas ECG, clinical observations and information, and patientsymptoms to aid in the diagnosis of CO. 06/11/2024 3:18 AM EDT 06/11/2024 3:20 AM EDT us Generic External Data Provider LAB BLOOD ORDERAB LES Final Result [facility] [address] [place] [phone] * CT Head w/o Contrast (06/11/2024 2:42 AM EDT) Anatomical Region Laterality Modality Head, Neck Computed Tomogra phy 06/11/2024 2:42 AM EDT Narrative 06/11/2024 2:44 AM EDT ? [facility] ?[address] ?[place] [address] ? CT Scan Report ? Signed ? Patient: Chantale Saravia,Ramesh ?MR#: ?? [id number] ? : 1940 ?Acct:[id number] ? Age/Sex: 83 / M ?ADM Date: 06/10/24 ? Loc: HO.ED ? Attending Dr: ? Ordering Physician: Wei Lynch ?? Date of Service: 06/11/24 ?? Procedure(s): CT head/brain wo IV con ?? Accession Number(s): [id number] ? cc: Wei Lynch; Olga Paulino DO ? Report Number: ?? [id number]: Total DLP = ??657.00 mGy-cm ? CLINICAL [...] by Drake Galvez MD in OV> ? 06/11/24242 ? DD/ 1 ? TD/TT: 06/11/24 ? Priming Mixture Carrier: ? Procedure Note Donottainterpreter, Image - 06/11/[address] [place] [address] [address] Scan Report Signed Patient: Ramesh BlankMR#: [id number] : 9Acct:[id number] Age/Sex: 83 / MADM Date: 06/10/24 Loc: HO.ED Attending Dr: Ordering Physician: Wei Lynch Date of Service: 06/11/24 Procedure(s): CT head/brain wo IV con Accession Number(s): [id number] cc: Wei Lynch; Olga Paulino DO Report Number: [id number]: Total DLP = 657.00 mGy-cm CLINICAL HISTORY: [...] in OV> 06/11/24242 DD/ 1 TD/TT: 06/11/24241 Priming Mixture Carrier: [facility] External Provider IMG CT PROCEDURES Final Result * (ABNORMAL) Partial Thromboplastin Time, Activated (APTT) (06/11/2024 12:41 AM EDT) Partial Thromboplastin Time 39.4(H) 26.0 - 36.8 SEC [facility] Comment:For information rega rding the monitoring of direct thrombininhibitors, please refer to Pharmacy. 06/11/2024 12:4 1 AM EDT 06/11/2024 12:43 AM EDT Generic External Data Provider LAB BLOOD ORDERAB LES Final Result Performing Organization Address City/[facility]/ZIP Co de Phone Number [facility] [address] [place] [phone] * (ABNORMAL) Prothrombin Time-INR (06/11/2024 12:41 AM EDT) [facility] Prothrombin Time 26.3(H) 10.9 - 12.4 SEC [facility] INTERNATIONAL NORM RATIO 2.3(H) 0.9 - 1.1 [facility] Comment:INTERNATIONAL NORMAL IZED RATIO (INR) REFERENCE [...] ORDERAB LES Final Result Performing Organization Address [facility]/ZIP Co de Phone Number [facility] [address] [place] [phone] * Influenza B (ID NOW Rapid Molecular) (06/02/2024 10:02 AM EDT) [facility] Influenza B Negative Negative, Indeterminate [facility] Swab 06/02/2024 10:0 2 AM EDT us Ambrosio Byers MD POINT OF CARE TEST ENTER/EDIT OR DERABLES Final Result Performing Organization Address [facility] Co de Phone Number [facility] [address] [place] [phone] * Influenza A (ID NOW Rapid Molecular) (06/02/2024 10:02 AM EDT) Influenza A Negative Negative, Indeterminate [facility] Swab 06/02/2024 10:0 2 AM EDT us Ambrosio Byers MD POINT OF CARE TEST ENTER/EDIT OR DERABLES Final Result Performing Organization Address [facility] Co de Phone Number [facility] [address] [place] [phone] * POCT Rapid COVID Ag (06/02/2024 10:02 AM EDT) Rapid COVID Ag Negative [facility] Swab 06/02/2024 10:0 2 AM EDT us Ambrosio Byers MD POINT OF CARE TEST ENTER/EDIT OR DERABLES Final Result Performing Organization Address [facility] Co de Phone Number [facility] [address] [place] [phone] * POCT rapid strep A manually resulted (06/02/2024 10:02 AM EDT) Pathologist [facility] Rapid Strep A Screen Negative Negative, None Detected [facility] Swab 06/02/2024 10:0 2 AM EDT us Ambrosio Byers MD POINT OF CARE TEST ENTER/EDIT OR DERABLES Final Result Performing Organization Address [facility] Co de Phone Number [facility] [address] [place] [phone] * (ABNORMAL) Lipid Panel, Standard (06/27/2023 8:40 AM EDT) Triglycerides 108 <150 mg/dL [facility] Comment:Desirable Triglyceri de: less than 150 mg/dLBorderline High Triglyceride 150-199 mg/dLHigh Triglyceride: 200-499 mg/dLVery High Triglyceride: greater than or equal to 5OO mg/dL Cholesterol 113 <200 mg/dL [facility] Comment:Desirable Cholestero l: less than 200 mg/dLBorderline High Cholesterol: 200-239 mg/dLHigh Cholesterol: greater than 239 mg/dL LDL Cholesterol Calculated 57 <100 mg/dL [facility] Comment:Desirable LDL: less than 100 mg/dLNear Optimal/Above Optimal LDL: 110- 129 mg/dLBorderline High LDL: 130-159 mg/dLHigh LDL: 160-189 mg/dLVery High LDL: greater than or equal to 190 mg/dL HDL Cholesterol 35(L) >40 mg/dL [facility] Comment:Desirable HDL: great er than 40 mg/dL Note: This HDL assay may give artificially low results in patients with liver disease. Blood Venous blood specimen / Unknown 06/27/2023 8:40 AM EDT 06/27/2023 11:31 AM EDT us Olga Paulino DO LAB BLOOD ORDERABLES Final R esult [facility] [address] [place], [place] [phone] from Last 3 Months or Most Recently Relevant to Health Maintenance Insurance [facility] STANDARD [facility] [employer] OPTIONS (HMO D-SNP) Care Teams Library Services Dean Relationship Specialty Start Date End Date Olga Paulino DO [address] [place] [phone] PCP - General Family Medicine 03/03/18
--- OUTSIDE RECORDS SUMMARY | 2024-07-15 09:21 | XMS_ITS | Encounter Summary ---
Author Organization [employer] Address [address] [facility] [address] [place] [address] Care Team Providers Care Rotary Filter Operator Name Role Phone Olga Paulino DO Primary Care Provider [phone] Encounter Details Date Type Department Care Team ([facility] st Contact Info) Description 07/13/2024 9:15 AM EDT Office Visit [facility] [address] [place] [address] Olga Paulino DO [address] [place] [address] 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) Social History Tobacco Use Types Packs/Day Years [...] Mass Index 30.34 07/13/2024 9:32 AM EDT documented in this encounter Plan of Treatment Upcoming Encounters Date Type Department Care Team (Late st Contact Info) Description 10/08/2024 9:00 AM EDT Office Visit [facility] [address] [place], [place] [phone] Oneal Wilder MD [address] [place] [address] documented as of this encounter Procedures Procedure Name Priority Date/Time Associated Diagnosis Comments POCT GLYCATED HEMOGLOBIN, TOTAL Routine 07/13/2024 9:35 AM EDT 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) POCT GLUCOSE Routine 07/13/2024 9:34 AM EDT 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) documented in this encounter Results * (ABNORMAL) POCT HGB A1C (07/13/2024 9:35 AM EDT) Hemoglobin A1C 7.3(A) 4.0 - 6.0 % QC Media Lot # [id number] Lot# Expiration Date Blood 07/13/2024 9:35 AM EDT Olga Paulino DO POINT OF CARE TEST ENTER/PREETHI T ORDERABLES Final Result * (ABNORMAL) POCT Glucose (07/13/2024 9:34 AM EDT) Glucose Blood, POC 214(A) 60 - 200 mg/dL QC Media Lot # [id number] Lot# Expiration Date Blood Capillary blood specimen / Unknown 07/13/2024 9:34 AM EDT Olga Paulino DO POINT OF CARE TEST ENTER/PREETHI T ORDERABLES Final Result documented in this encounter Visit Diagnoses Diagnosis Type 2 diabetes mellitus with other diabetic kidney complication ([facility]/HCC) documented in this encounter Additional Health Concerns Assessment Noted Time PHQ-9 Depression Total Score: 0 10/06/19 24 9:06 AM EDT documented as of this encounter Care Teams Rotary Filter Operator Relationship Specialty Start Date End Date Olga Paulino DO [address] [place] [address] PCP - General Family Medicine 03/03/18 documented as of this encounter
--- OUTSIDE RECORDS SUMMARY | 2024-07-15 09:21 | XMS_ITS | Encounter Summary ---
Demographics Address [address] [place] [address] Home Phone Work Phone Mobile Phone Preferred Language es Marital Status Unknown Mandaeism Affiliation Unknown Race Other Race Ethnic Group Unknown Author Organization [employer] Address [address] [facility] [address] [place] [address] Care Team Providers Care Electrical Solderer Name Role Phone TomerOlga apodaca Primary Care Provider [phone] Encounter Details Date Type Department Care Team (Latest Contact Info) Description 07/13/2024 Travel Social History Tobacco Use Types Packs/Day Years [...] the past 12 months, has t he [employer] gas, oil or water company threatened to [...] Description 10/08/2024 9:00 AM EDT Office Visit [facility] [address] [place] [address] Oneal Wilder MD [address] [place] [address] documented as of this encounter Visit Diagnoses Not on filedocumented in this encounter Additional Health Concerns Assessment Noted Time PHQ-9 Depression Total Score: 0 10/06/19 24 9:06 AM EDT documented as of this encounter Care Teams Electrical Solderer Relationship Specialty Start Date End Date Olga Paulino DO [address] [place] [address] PCP - General Family Medicine 03/03/18 documented as of this encounter
--- OUTSIDE RECORDS SUMMARY | 2024-07-15 09:21 | XMS_ITS | Encounter Summary ---
Author Organization [employer] Address [address] [facility] [address] [place] [address] Care Team Providers Care Outsole Cementer Name Role Phone Olga Paulino DO Primary Care Provider [phone] Reason for Visit * Reason Onset Date Comments Hospital Follow-up 06/18/2024 Encounter Details Date Type Department Care Team ([facility] st Contact Info) Description 06/18/2024 Telephone [facility] [address] [place] [address] Olga Paulino DO [address] [place], [place] [phone] Hospital Follow-up Social History Tobacco Use Types Packs/Day Years [...] is your housing situation today? I have rbian mccrary 10/06/[address] you [...] AM EDT documented as of this encounter Miscellaneous Notes * Telephone Encounter - Anish Navarro - 06/18/2024 10:58 AM EDT Tc from pt requesting a HDF appt. Hospital: [facility] Date of admission: 06/11/24 Discharge date: 06/12/24 Diagnosed: HTN *Send message to [facility] Clinical Care Coordinators Contact pt at [phone] documented in this encounter Plan of Treatment Upcoming Encounters Date Type Department Care Team ([facility] st Contact Info) Description 10/08/2024 9:00 AM EDT Office Visit [facility] [address] [place] [address] Oneal Wilder MD [address] [place] [address] documented as of this encounter Visit Diagnoses Not on filedocumented in this encounter Additional Health Concerns Assessment Noted Time PHQ-9 Depression Total Score: 0 10/06/19 24 9:06 AM EDT documented as of this encounter Care Teams Outsole Cementer Relationship Specialty Start Date End Date Olga Paulino DO [address] [place] [phone] PCP - General Family Medicine 03/03/18 documented as of this encounter
[2024-07-16 08:04] LABS: Prothrombin Time Whole Bld POC 30.6 sec (11.1-13.5); ~PT, ~INR - Anti Coag Clinic 2.6 (0.9-1.1)
== END 2024-07-15 09:11 | disposition home or self-care (01) ==
LOC: HO.ACS 08:55
PROVIDERS: PCP Family Medicine; Visit Provider Internal Medicine Medical Oncology
DX: Z79.01 Long term (current) use of anticoagulants (principal)

== ENCOUNTER → 2024-07-15 08:55 | Outpatient (BNVA) | payer OTHER, SELFPAY | PROVIDERS: PCP Family Medicine; Visit Provider Internal Medicine Medical Oncology | DX: I48.0 Paroxysmal atrial fibrillation (principal); Z79.01 Long term (current) use of anticoagulants; Z51.81 Encounter for therapeutic drug level monitoring | CPT/HCPCS: 85610; 99211 ==

== ENCOUNTER 2024-07-25 09:50 | Emergency (ER) | payer OTHER, SELFPAY ==
[2024-07-25 10:07] VITALS: BP 112/84; PULSE 77; RESP 18; TEMP 37; O2SAT 97; BMI 30.1
--- NOTE | 2024-07-25 10:53 | ED_ITS ---
HPI - Skin/Abscess/Foreign Bdy General Chief complaint: Skin/Abscess/Foreign Body Stated complaint: abcess Time Seen by Provider: 07/25/24 10:52 Source: patient, RN notes reviewed and old records reviewed Mode of arrival: ambulatory History of Present Illness ED Provider: Rubi Rojas PA-C HPI narrative: 83-year-old Guamanian-speaking male with a past medical history of HLD, diabetes, proximal AFib on Coumadin, HTN, AAA, CAD, presenting to the ED complaining of painful lesions noted to right low back/buttock region radiating down RLE. States symptoms initially began as right knee pain, progressed to right leg pain described as burning than patient noted rash/lesions. Denies new exposures, fever, chills, abdominal pain, numbness/tingling Related Data Home Medications ?Medication ?Instructions ?Recorded ?Confirmed albuterol sulfate 90 mcg/actuation 2 puff inhalation Q4H PRN 06/08/24 06/18/24 aerosol inhaler Shortness Of Breath Or Wheezing acetaminophen 500 mg tablet 1,000 mg PO Q6H PRN Pain, Moderate 06/11/24 06/18/24 Previous Rx's ?Medication ?Instructions ?Recorded metformin 500 mg tablet,extended 500 mg PO DAILY #30 tabs 04/18/21 release 24 hr rosuvastatin 20 mg tablet 20 mg PO DAILY #30 tabs 04/18/21 nitroglycerin 0.4 mg sublingual 0.4 mg sublingual Q5M #25 tabs 08/07/22 tablet warfarin 5 mg tablet 5 mg PO DAILY #90 tabs 05/27/23 lisinopril 2.5 mg tablet 2.5 mg PO QPM #90 tabs 06/12/24 tamsulosin 0.4 mg capsule 0.4 mg PO QPM #90 caps 06/12/24 gabapentin 300 mg capsule 300 mg PO BID PRN pain (scale 07/25/24 score 4-6) #10 caps valacyclovir 1 gram tablet 1,000 mg PO TID 7 days #21 tabs 07/25/24 (Valtrex) Allergies Allergy/AdvReac Type Severity Reaction Status Date / Time No Known Allergies Allergy Verified 07/25/24 10:10 [No Known Allergies*] Review of Systems 2 Review of Systems: Yes all other systems are reviewed and are negative Constitutional: Constitutional: Reports as per HPI [facility] Past Medical History Attestation statement: The following information was validated with the patient. Source: old records reviewed Medical History Pulmonary nodules Tubular adenoma of colon (~2009) Hyperlipidemia Type 2 diabetes mellitus with polyneuropathy Paroxysmal atrial fibrillation (~01/2015) Essential hypertension Ascending aortic aneurysm Atherosclerotic cardiovascular disease Lumbar spondylolysis Inflammatory arthritis Surgical History History of cardiac cath (~2018) History of lung surgery (~03/2019) History of left inguinal hernia repair (~01/2019) History of colonoscopy (~02/2016) Hx of neck surgery Hx of appendectomy Family History Family History Mother Diabetes Social History Social History Household Members: Spouse Housing: Apartment Do you presently have visiting nurse or other home services: No Alcohol intake: former Patient Tobacco Use Status: Former Tobacco user Advance Directives: Yes Advance Directives on File: Yes Advance Directives Date on File: 04/18/21 Current occupational status: retired Hearing needs: Yes Physical Exam 2 Vital Signs: Vital Signs: Last Vital Signs Temp 98.6 F 07/25/24 11:24 Pulse 77 07/25/24 11:24 Resp 18 07/25/24 11:24 BP 112/84 07/25/24 11:24 Pulse Ox 97 07/25/24 11:24 O2 Del Method Room Air 07/25/24 11:24 BMI result Body Mass Index 30.1 Const: General: cooperative, healthy appearing and no acute distress O rientation/consciousness: patient oriented x3 Limitations: no limitations HEENT: Head: Yes normal to inspection and Yes atraumatic Ears: hearing grossly normal bilaterally General nose exam: Normal external nose present Face and sinus: Yes normal facial exam Eyes: General: appearance normal, both eyes and all related structures EOM: EOMs intact bilaterally Neck: Neck: Yes normal visual inspection and Yes no meningeal signs Resp: Effort & Inspection: normal respiratory effort and no respiratory distress Cardio: Rate: regular rate Skin: Other: Please refer to images above. Vesicular rash in dermatomal pattern appreciated to RLE. No appreciable overlying cellulitis. No crusting. Wounds: no wounds Neuro: General: patient oriented x3, gait normal, tone normal and no meningeal signs Cranial nerves: Yes CN's II-XII intact bilaterally Gait exam (Neuro): Normal gait present Extrem: General: Yes normal to inspection Medical Decision Making Medical Decision Making MDM Narrative: 83-year-old Guamanian-speaking male with a past medical history of HLD, diabetes, proximal AFib on Coumadin, HTN, AAA, CAD, presenting to the ED complaining of painful lesions noted to right low back/buttock region radiating down RLE. On exam vital signs stable, NAD, nontoxic appearing, physical exam as noted above, please refer to images. Rash/lesions consistent with shingles. No overlying cellulitis. No drainable collection. Plan: P.o. acyclovir, gabapentin, PCP follow-up Please refer to course for remaining clinical decision making, interpretation of labs/imaging results, and discussions with consultants and/or family members. Results discussed with patient including worrisome signs and symptoms and strict return precautions, and when to return to the emergency department. They verbalized understanding and feel safe for discharge at this time. Differential Diagnosis Differential Diagnoses: The differential diagnosis associated with the presentation includes As above External Record Review External record reviewed: Inpatient record, Office record, Outpatient record, Prior outpatient labs, Prior outpatient radiology, Primary care record and Outside ED record Tests considered The following testing was considered but not selected: As above Prescription Management I considered prescription management with: Antiviral Chronic Conditions Patient?s care impacted by: Other Social Determinants Patient?s care significantly limited by Social Determinants of Health including: Other Social Determinant of Health Discharge Plan Discharge Clinical Impression: Herpes zoster Patient Disposition: Home, Self-Care Instructions: Shingles (ED) Additional Instructions: You have shingles Valtrex is an anti viral medication, please take as prescribed until completion Gabapentin will help with pain You may also take Tylenol YOU ARE CONTAGIOUS UNTIL ALL LESIONS ARE CRUSTED OVER. AVOID TOUCHING AREA. STAY AWAY FROM ELDERLY PEOPLE, CHILDREN, BABY'S, AND PEOPLE PLEASE HAVE CLOSE FOLLOW UP WITH YOUR PRIMARY CARE DOCTOR If symptoms persist or worsen her pain is unbearable return to the ED Prescriptions: New valacyclovir [Valtrex] 1 gram tablet 1,000 mg PO TID 7 Days Qty: 21 0RF gabapentin 300 mg capsule 300 mg PO BID PRN (Reason: pain (scale score 4-6)) Qty: 10 0RF No Action nitroglycerin 0.4 mg tablet, sublingual 0.4 mg sublingual Q5M Qty: 25 0RF Rx Instructions: Dissolve 1 tab under tongue every 5 minutes times 3 doses for chest pain. OVERDUE FOR APPT. PLEASE CALL [phone] TO SCHEDULE FOLLOW UP FOR 2022 SO WE CAN CONTINUE REFILLING metformin 500 mg tablet extended release 24 hr 500 mg PO DAILY Qty: 30 0RF rosuvastatin 20 mg tablet 20 mg PO DAILY Qty: 30 0RF acetaminophen 500 mg tablet 1,000 mg PO Q6H PRN (Reason: Pain, Moderate) tamsulosin 0.4 mg capsule 0.4 mg PO QPM Qty: 90 0RF lisinopril 2.5 mg tablet 2.5 mg PO QPM Qty: 90 0RF warfarin 5 mg tablet 5 mg PO DAILY Qty: 90 0RF Protocol: Dose Management Condition: Friday (Week One) Dose/Route: 5 mg Instruction: 1 x 5 mg tablet Condition: Friday Dose/Route: 7.5 mg Instruction: 1.5 x 5 mg tablets Condition: Friday Dose/Route: 7.5 mg Instruction: 1.5 x 5 mg tablets Condition: Friday Dose/Route: 5 mg Instruction: 1 x 5 mg tablet Condition: Dose/Route: 7.5 mg Instruction: 1.5 x 5 mg tablets Condition: Friday Dose/Route: 5 mg Instruction: 1 x 5 mg tablet Condition: Friday Dose/Route: 7.5 mg Instruction: 1.5 x 5 mg tablets Condition: Friday (Week Two) Dose/Route: 5 mg Instruction: 1 x 5 mg tablet Condition: Friday Dose/Route: 7.5 mg Instruction: 1.5 x 5 mg tablets Condition: Friday Dose/Route: 7.5 mg Instruction: 1.5 x 5 mg tablets Condition: Friday Dose/Route: 5 mg Instruction: 1 x 5 mg tablet Condition: Dose/Route: 7.5 mg Instruction: 1.5 x 5 mg tablets Condition: Friday Dose/Route: 5 mg Instruction: 1 x 5 mg tablet Condition: Friday Dose/Route: 7.5 mg Instruction: 1.5 x 5 mg tablets Protocol Text: Adjustment Start Date: 07/15/24 INR Value: 2.6 INR Date: 07/15/24 Recheck Date: 08/12/24 Additional Instructions: cont same dosing Rx Instructions: 5MG X3, [id number] albuterol sulfate 90 mcg/actuation HFA aerosol inhaler 2 puff inhalation Q4H PRN (Reason: Shortness Of Breath Or Wheezing) Referrals: Olga Paulino DO [Primary Care Provider] - 1 week Interventions: ED Discharge Assessment Last Done: 07/25/24 11:24 Discharge Date/Time: 07/25/24 11:24 Print Language: Guamanian
[2024-07-25 11:24] VITALS: BP 112/84; PULSE 77; RESP 18; TEMP 37; O2SAT 97
== END 2024-07-25 11:24 | disposition home or self-care (01) ==
PROVIDERS: Emergency Provider Emergency Medicine; PCP Family Medicine
DX: B00.89 Other herpesviral infection (principal); Z79.899 Other long term (current) drug therapy
CPT/HCPCS: 99282; 99283

== ENCOUNTER 2024-08-02 12:53 | Emergency (ER) | payer OTHER, SELFPAY ==
[2024-08-02 13:05] VITALS: BP 146/73; PULSE 89; O2SAT 99
[2024-08-02 13:33] VITALS: BP 103/58; PULSE 76; RESP 18; TEMP 36.6; O2SAT 96; BMI 30.3
--- NOTE | 2024-08-02 13:38 | ED.GENADULT ---
HPI - General Adult General Chief complaint: General Medical Stated complaint: RLE X4W PER EMS Time Seen by Provider: 08/02/24 17:44 Source: patient and immigration guard Mode of arrival: ambulatory Limitations: language barrier History of Present Illness ED Provider: Dr. Bess HPI narrative: p/w right LE numbness for the past 5 days, was recently dx with shingles from buttock down his leg, s/p valacyclovir and gabapentin, he is a diabetic.no fevers and chills no numbness in the groin. Related Data Home Medications ?Medication ?Instructions ?Recorded ?Confirmed albuterol sulfate 90 mcg/actuation 2 puff inhalation Q4H PRN 06/08/24 06/18/24 aerosol inhaler Shortness Of Breath Or Wheezing acetaminophen 500 mg tablet 1,000 mg PO Q6H PRN Pain, Moderate 06/11/24 06/18/24 Previous Rx's ?Medication ?Instructions ?Recorded metformin 500 mg tablet,extended 500 mg PO DAILY #30 tabs 04/18/21 release 24 hr rosuvastatin 20 mg tablet 20 mg PO DAILY #30 tabs 04/18/21 nitroglycerin 0.4 mg sublingual 0.4 mg sublingual Q5M #25 tabs 08/07/22 tablet warfarin 5 mg tablet 5 mg PO DAILY #90 tabs 05/27/23 lisinopril 2.5 mg tablet 2.5 mg PO QPM #90 tabs 06/12/24 tamsulosin 0.4 mg capsule 0.4 mg PO QPM #90 caps 06/12/24 gabapentin 300 mg capsule 300 mg PO BID PRN pain (scale 07/25/24 score 4-6) #10 caps valacyclovir 1 gram tablet 1,000 mg PO TID 7 days #21 tabs 07/25/24 (Valtrex) gabapentin 100 mg capsule 100 mg PO TID 10 days #30 caps 08/02/24 Allergies Allergy/AdvReac Type Severity Reaction Status Date / Time No Known Allergies Allergy Verified 08/02/24 13:34 [No Known Allergies*] Review of Systems Constitutional: Constitutional: Reports as per HPI [facility] Past Medical History Medical History Pulmonary nodules Tubular adenoma of colon (~2009) Hyperlipidemia Type 2 diabetes mellitus with polyneuropathy Paroxysmal atrial fibrillation (~01/2015) Essential hypertension Ascending aortic aneurysm Atherosclerotic cardiovascular disease Lumbar spondylolysis Inflammatory arthritis Surgical History History of cardiac cath (~2018) History of lung surgery (~03/2019) History of left inguinal hernia repair (~01/2019) History of colonoscopy (~02/2016) Hx of neck surgery Hx of appendectomy Family History Family History Mother Diabetes Social History Social History Household Members: Spouse Housing: Apartment Do you presently have visiting nurse or other home services: No Alcohol intake: former Patient Tobacco Use Status: Former Tobacco user Smoked in Last 30 Days: No Use of substances other than those prescribed or required for medical reasons: No Advance Directives: Yes Advance Directives on File: Yes Advance Directives Date on File: 04/18/21 Current occupational status: retired Hearing needs: Yes Physical Exam ED Vital Signs: Vital Signs - 24 hr 08/02/24 13:33 08/02/24 17:19 08/02/24 18:00 Temperature 97.8 F 97.8 F 98.7 F Pulse Rate 76 66 68 Respiratory Rate 18 20 15 Blood Pressure 103/58 L 154/71 H 152/75 H Pulse Oximetry 96 97 95 Oxygen Delivery Method Room Air Room Air Room Air 08/02/24 19:09 Temperature 98.7 F Pulse Rate 68 Respiratory Rate 15 Blood Pressure 152/75 H Pulse Oximetry 95 Oxygen Delivery Method Room Air BMI result Body Mass Index 30.3 Const Other: pt is overall well appearing has drying up rash from right buttock down his leg to the calf, with distal pulses intact, soft compartments, no effusion of the knee or ankle, - SLR test Course Course Course Narrative: This is an RME: Additional HPI, ROS, PE not included below will be deferred to primary provider. RME assessment and note performed by: Vannesa Herrera PA-C This is a 83-year-old male who presents emergency department with complaints of left leg pain. He was seen on 07/25 shingles, rash on left leg visible in triage. Also reporting shingles on back. He is on valacyclovir and gabapentin. plan: Labs, further ER eval needed Medications Administered Discontinued Medications Generic Name Dose Route Start Last Admin Trade Name Radha PRN Reason Stop Dose Admin Dexamethasone 10 mg 08/02/24 18:16 08/02/24 18:20 Dexamethasone 2 Mg Tablet PO 08/02/24 18:17 10 mg ONCE ONE Administration Gabapentin 300 mg 08/02/24 18:16 08/02/24 18:20 Gabapentin 300 Mg Capsule PO 08/02/24 18:17 300 mg ONCE ONE Administration Medical Decision Making Medical Decision Making [facility] Narrative: Presenting with post zoster neuropathy, finished a course of antivirals and gabapentin, we will give a dose of dexamethasone but will not do more as he is a diabetic, and then we will continue gabapentin and he will follow up with his PCP no evidence for differential diagnosis considerations as below Differential Diagnosis Differential Diagnoses: The differential diagnosis associated with the presentation includes Compartment syndrome, deep space infection of the leg, arterial insufficiency, venous insufficiency, septic joint Admission/Observation Consideration of admission/observation: Escalation of care including admission/observation considered Lab Data 08/02/24 15:03 08/02/24 15:03 Labs: Lab Results 08/02/24 Range/Units 15:03 WBC 6.6 (4.8-10.8) X10*3/uL RBC 4.41 L (4.60-5.80) X10*6/uL Hgb 12.7 L (14.0-18.0) g/dl Hct 39.8 L (42.0-52.0) % MCV 90.2 (80.0-98.0) fL MCH 28.8 (27.0-33.0) pg MCHC 31.9 (31.0-36.0) g/dl RDW 14.5 (11.0-16.0) % Plt Count 156 L (160-400) X10*3/uL MPV 11.7 (9.4-12.4) fL Immature Gran % (Auto) 0.3 (0.0-0.4) % Neut % (Auto) 74.8 H (45-73) % Lymph % (Auto) 15.6 L (20-40) % [place] % (Auto) 7.3 (2-11) % Eos % (Auto) 1.5 (0-4) % Baso % (Auto) 0.5 (0-2) % Lymph # (Auto) 1.0 L (1.2-4.9) X10*3/uL [place] # (Auto) 0.5 (0.1-1.2) X10*3/uL Eos # (Auto) 0.1 (0.0-0.4) X10*3/uL Baso # (Auto) 0.0 (0.0-0.2) X10*3/uL Abs Immat Gran (auto) 0.02 (0.00-0.03) X10*3/uL Absolute Neuts (auto) 5.0 (2.0-8.3) x10*3/uL Absolute Nucleated RBC 0.000 (0.0-0.012) X10*3/uL Nucleated RBC % (auto) 0.0 (0.0-0.2) /100WBC Sodium 141 (135-145) mmol/L Potassium 4.1 (3.3-5.1) mmol/L Chloride 107 (96-108) mmol/L Carbon Dioxide 27 (22-29) mmol/L Anion Gap 11 L (12-20) BUN 18 H (9-16) mg/dL Creatinine 0.85 (0.5-1.4) mg/dL Estim Creat Clear Calc 65.0 Estimated GFR > 60 Random Glucose 165 H (60-115) mg/dL Calcium 9.1 (8.4-10.2) mg/dL Total Bilirubin 0.6 (0.0-1.0) mg/dL Direct Bilirubin 0.2 (0.0-0.5) mg/dL AST 29 (5-37) U/L ALT 41 H (0-40) U/L Alkaline Phosphatase 77 (39-117) U/L Total Protein 6.3 L (6.5-8.0) g/dL Albumin 3.7 (3.5-5.0) g/dL Discharge Plan Discharge Clinical Impression: Neuropathic pain of right lower extremity Patient Disposition: Home, Self-Care Additional Instructions: Please follow up with the primary care physician, I did give you a dose of steroids I am hoping that is going to expedite relief of ER nerve inflammation and continue using gabapentin 100 mg 3 times a day, but this medication needs to be adjusted for pain symptoms and that needs to be done on outpatient basis by your PCP. Other issues or concerns come back to the ER. Your rash has improved and your symptoms should continue to improve as well. Prescriptions: New gabapentin 100 mg capsule 100 mg PO TID 10 Days Qty: 30 0RF No Action nitroglycerin 0.4 mg tablet, sublingual 0.4 mg sublingual Q5M Qty: 25 0RF Rx Instructions: Dissolve 1 tab under tongue every 5 minutes times 3 doses for chest pain. OVERDUE FOR APPT. PLEASE CALL [phone] TO SCHEDULE FOLLOW UP FOR 2022 SO WE CAN CONTINUE REFILLING metformin 500 mg tablet extended release 24 hr 500 mg PO DAILY Qty: 30 0RF rosuvastatin 20 mg tablet 20 mg PO DAILY Qty: 30 0RF acetaminophen 500 mg tablet 1,000 mg PO Q6H PRN (Reason: Pain, Moderate) tamsulosin 0.4 mg capsule 0.4 mg PO QPM Qty: 90 0RF lisinopril 2.5 mg tablet 2.5 mg PO QPM Qty: 90 0RF valacyclovir [Valtrex] 1 gram tablet 1,000 mg PO TID 7 Days Qty: 21 0RF gabapentin 300 mg capsule 300 mg PO BID PRN (Reason: pain (scale score 4-6)) Qty: 10 0RF warfarin 5 mg tablet 5 mg PO DAILY Qty: 90 0RF Protocol: Dose Management Condition: Friday (Week One) Dose/Route: 5 mg Instruction: 1 x 5 mg tablet Condition: Friday Dose/Route: 7.5 mg Instruction: 1.5 x 5 mg tablets Condition: Friday Dose/Route: 7.5 mg Instruction: 1.5 x 5 mg tablets Condition: Friday Dose/Route: 5 mg Instruction: 1 x 5 mg tablet Condition: Dose/Route: 7.5 mg Instruction: 1.5 x 5 mg tablets Condition: Friday Dose/Route: 5 mg Instruction: 1 x 5 mg tablet Condition: Friday Dose/Route: 7.5 mg Instruction: 1.5 x 5 mg tablets Condition: Friday (Week Two) Dose/Route: 5 mg Instruction: 1 x 5 mg tablet Condition: Friday Dose/Route: 7.5 mg Instruction: 1.5 x 5 mg tablets Condition: Friday Dose/Route: 7.5 mg Instruction: 1.5 x 5 mg tablets Condition: Friday Dose/Route: 5 mg Instruction: 1 x 5 mg tablet Condition: Dose/Route: 7.5 mg Instruction: 1.5 x 5 mg tablets Condition: Friday Dose/Route: 5 mg Instruction: 1 x 5 mg tablet Condition: Friday Dose/Route: 7.5 mg Instruction: 1.5 x 5 mg tablets Protocol Text: Adjustment Start Date: 07/15/24 INR Value: 2.6 INR Date: 07/15/24 Recheck Date: 08/12/24 Additional Instructions: cont same dosing Rx Instructions: 5MG X3, 7.9INR1iohs albuterol sulfate 90 mcg/actuation HFA aerosol inhaler 2 puff inhalation Q4H PRN (Reason: Shortness Of Breath Or Wheezing) Interventions: ED Discharge Assessment Last Done: 08/02/24 19:09 Discharge Date/Time: 08/02/24 19:10 Print Language: German
[2024-08-02 15:08] LABS: MANUAL DIFF FLAG NO
[2024-08-02 15:09] LABS: Basophils Percent Auto 0.5 % (0-2); Eosinophils Absolute Auto 0.1 X10*3/uL (0.0-0.4); Eosinophils Percent Auto 1.5 % (0-4); Hematocrit 39.8 % (42.0-52.0); Hemoglobin 12.7 g/dl (14.0-18.0); Imm Gran Abs Auto 0.02 X10*3/uL (0.00-0.03); Imm Gran Pct Auto 0.3 % (0.0-0.4); Lymphocytes Percent Auto 15.6 % (20-40); Mean Corpuscular HGB Conc 31.9 g/dl (31.0-36.0); Mean Corpuscular Hemoglobin 28.8 pg (27.0-33.0); Mean Corpuscular Volume 90.2 fL (80.0-98.0); Mean Platelet Volume 11.7 fL (9.4-12.4); Monocytes Absolute Auto 0.5 X10*3/uL (0.1-1.2); Monocytes Percent Auto 7.3 % (2-11); Neutrophils Percent Auto 74.8 % (45-73); Platelet Count 156 X10*3/uL (160-400); Red Blood Count 4.41 X10*6/uL (4.60-5.80); Red Cell Distribution Width 14.5 % (11.0-16.0); White Blood Count 6.6 X10*3/uL (4.8-10.8)
[2024-08-02 15:58] LABS: Alanine Aminotransferase 41 U/L (0-40); Albumin Level 3.7 g/dL (3.5-5.0); Anion Gap 11 (12-20); Aspartate Amino Transferase 29 U/L (5-37); Bilirubin Direct 0.2 mg/dL (0.0-0.5); Bilirubin Total 0.6 mg/dL (0.0-1.0); Blood Urea Nitrogen 18 mg/dL (9-16); Calcium 9.1 mg/dL (8.4-10.2); Carbon Dioxide 27 mmol/L (22-29); Chloride 107 mmol/L (96-108); Estimated Glomerular Filt Rate > 60; Glucose Random 165 mg/dL (60-115); Potassium 4.1 mmol/L (3.3-5.1); Sodium 141 mmol/L (135-145); Total Protein 6.3 g/dL (6.5-8.0)
[2024-08-02 17:19] VITALS: BP 154/71; PULSE 66; RESP 20; TEMP 36.6; O2SAT 97
[2024-08-02 17:41] LABS: Alkaline Phosphatase 77 U/L (39-117)
[2024-08-02 18:00] VITALS: BP 152/75; PULSE 68; RESP 15; TEMP 37.1; O2SAT 95
[2024-08-02] MEDS: dexAMETHasone 2 MG TABLET 10 MG PO (18:20)
[2024-08-02] MEDS: Gabapentin 300 MG CAPSULE PO (18:20)
[2024-08-02 19:09] VITALS: BP 152/75; PULSE 68; RESP 15; TEMP 37.1; O2SAT 95
== END 2024-08-02 19:10 | disposition home or self-care (01) ==
PROVIDERS: Physician Assistant Medical; Emergency Provider Emergency Medicine
DX: G57.91 Unspecified mononeuropathy of right lower limb (principal); R60.0 Localized edema; R20.0 Anesthesia of skin; E11.9 Type 2 diabetes mellitus without complications; I10 Essential (primary) hypertension; Z79.899 Other long term (current) drug therapy; Z79.84 Long term (current) use of oral hypoglycemic drugs
CPT/HCPCS: 36415; 80048; 80076; 85025; 99283; 99284; J8540

== ENCOUNTER 2024-08-10 20:22 | Emergency (ER) | payer OTHER, SELFPAY ==
[2024-08-10 20:28] VITALS: BP 138/82; BP 149/73; PULSE 76; PULSE 80; RESP 16; TEMP 37.1; O2SAT 95; O2SAT 98; BMI 31.3
--- NOTE | 2024-08-10 21:16 | ED.GENADULT ---
HPI - General Adult General Chief complaint: Weakness Stated complaint: worsening shingles Time Seen by Provider: 08/10/24 20:57 Source: patient and family Mode of arrival: ambulatory Limitations: no limitations History of Present Illness ED Provider: Dr. Erna Kevin HPI narrative: patient comes to the emergency room complaining of shingles pain. According to the patient, he was diagnosed with shingles couple of weeks ago. Patient came here about a week and a half ago complaining of ongoing pain. He was started on gabapentin 100 mg t.i.d., patient states that he still in pain. Patient states that all of the vesicles in his extremity have crusted. Patient denies any fever or chills. Related Data Home Medications ?Medication ?Instructions ?Recorded ?Confirmed albuterol sulfate 90 mcg/actuation 2 puff inhalation Q4H PRN 06/08/24 06/18/24 aerosol inhaler Shortness Of Breath Or Wheezing acetaminophen 500 mg tablet 1,000 mg PO Q6H PRN Pain, Moderate 06/11/24 06/18/24 Previous Rx's ?Medication ?Instructions ?Recorded metformin 500 mg tablet,extended 500 mg PO DAILY #30 tabs 04/18/21 release 24 hr rosuvastatin 20 mg tablet 20 mg PO DAILY #30 tabs 04/18/21 nitroglycerin 0.4 mg sublingual 0.4 mg sublingual Q5M #25 tabs 08/07/22 tablet warfarin 5 mg tablet 5 mg PO DAILY #90 tabs 05/27/23 lisinopril 2.5 mg tablet 2.5 mg PO QPM #90 tabs 06/12/24 tamsulosin 0.4 mg capsule 0.4 mg PO QPM #90 caps 06/12/24 gabapentin 300 mg capsule 300 mg PO BID PRN pain (scale 07/25/24 score 4-6) #10 caps valacyclovir 1 gram tablet 1,000 mg PO TID 7 days #21 tabs 07/25/24 (Valtrex) gabapentin 100 mg capsule 100 mg PO TID 10 days #30 caps 08/02/24 gabapentin 300 mg capsule 300 mg PO TID 14 days #42 caps 08/10/24 Allergies Allergy/AdvReac Type Severity Reaction Status Date / Time No Known Allergies Allergy Verified 08/10/24 20:35 [No Known Allergies*] Review of Systems Review of Systems: Constitutional : No Weight loss, No Fever, No Chills, No Night Sweats, No Fatigue, No Malaise ENT/Mouth : No Hearing loss, No Ear Pain, No Nasal Congestion, No Sinus Pain, No Hoarseness, No sore throat, No Rhinorrhea, No Swallowing Difficulty Eyes: No Eye Pain, No Swelling, No Redness, No Foreign Body, No Discharge, No Vision Changes Cardiovascular : No Chest Pain, No SOB, No Dyspnea on Exertion, No Orthopnea, No Edema, No Palpitations Respiratory : No Cough, No Sputum, No Wheezing, No Smoke Exposure, No Dyspnea Gastrointestinal : No Nausea, No Vomiting, No Diarrhea, No Constipation, No abdominal Pain, No Hematochezia, No Melena Genitourinary : no irregular bleeding, No Dysuria, No Urinary Frequency, No Hematuria, No Urinary Incontinence, No Urgency, No Flank Pain, No Urinary Flow Changes, No Hesitancy Musculoskeletal : No joint pain, No Myalgias, No Joint Swelling Skin : No Skin Lesions, No rash Neuro : Complaining of ongoing pain at the site of the shingles lesions, No Weakness, No Numbness, No Paresthesias, No Loss of Consciousness, No Dizziness, No Headache Psych : No Anxiety/Panic, No Depression, No SI/HI/AH/VH, No Social Issues, Heme/Lymph: No Bruising, No Bleeding,No Lymphadenopathy Endocrine : No Polyuria, No Polydipsia, No Temperature Intolerance [facility]LY [facility] Past Medical History Medical History Pulmonary nodules Tubular adenoma of colon (~2009) Hyperlipidemia Type 2 diabetes mellitus with polyneuropathy Paroxysmal atrial fibrillation (~01/2015) Essential hypertension Ascending aortic aneurysm Atherosclerotic cardiovascular disease Lumbar spondylolysis Inflammatory arthritis Surgical History History of cardiac cath (~2018) History of lung surgery (~03/2019) History of left inguinal hernia repair (~01/2019) History of colonoscopy (~02/2016) Hx of neck surgery Hx of appendectomy Family History Family History Mother Diabetes Social History Social History Household Members: Spouse Housing: Apartment Do you presently have visiting nurse or other home services: No Alcohol intake: never Patient Tobacco Use Status: Former Tobacco user Smoked in Last 30 Days: No Use of substances other than those prescribed or required for medical reasons: No Advance Directives: Yes Advance Directives on File: Yes Advance Directives Date on File: 04/18/21 Do you have a plan to hurt others: No Plan Current occupational status: retired Hearing needs: Yes Physical Exam ED Vital Signs: Vital Signs - 24 hr 08/10/24 20:28 Temperature 98.7 F Pulse Rate 80 Respiratory Rate 16 Blood Pressure 149/73 H Pulse Oximetry 95 Oxygen Delivery Method Room Air BMI result Body Mass Index 31.3 Const Other: Appearance: Alert. Oriented X3. No acute distress. Eyes: Pupils equal, round and reactive to light. ENT: Pharynx normal. Neck: Normal inspection. Neck supple. No lymph nodes noted. No crepitus CVS: Normal heart rate and rhythm. Pulses normal. Normal S1 and S2 Respiratory: No respiratory distress. Breath sounds normal. No Wheezing. No rales Abdomen: Soft and nontender. No rigidity. No distention. Skin: patient has crusted lesions in the right lower extremity, no new vesicles Extremities: No lower extremity edema. No Lacerations. No Rash Neuro: Oriented X 3. No motor deficit. No sensory deficit. Moving all extremities. No slurred speech. CN 2 through 12 grossly intact Psych: calm, cooperative, normal affect Medical Decision Making Medical Decision Making MDM Narrative: I discussed with the patient that he has post herpetic neuralgia. Fortunately, it is very painful and will not resolve any time soon patient was seen here on 08/02/2024, started on gabapentin 100 mg t.i.d.. At this time, we will increase his gabapentin to 300 mg t.i.d.. I discussed with the patient that this medication has a potential of causing drowsiness, dizziness and may cause the patient to fall, therefore he should be sitting down or in bed when he takes this medication. Patient agrees with plan. Patient has an appointment tomorrow with his PCP. Discharge Plan Discharge Clinical Impression: Post herpetic neuralgia Patient Disposition: Home, Self-Care Instructions: Curtis (ED) Additional Instructions: Please follow-up with your primary care physician tomorrow. If you have any worsening or new symptoms, please return to the emergency room or call 911 Prescriptions: New gabapentin 300 mg capsule 300 mg PO TID 14 Days Qty: 42 0RF No Action nitroglycerin 0.4 mg tablet, sublingual 0.4 mg sublingual Q5M Qty: 25 0RF Rx Instructions: Dissolve 1 tab under tongue every 5 minutes times 3 doses for chest pain. OVERDUE FOR APPT. PLEASE CALL [phone] TO SCHEDULE FOLLOW UP FOR 2022 SO WE CAN CONTINUE REFILLING metformin 500 mg tablet extended release 24 hr 500 mg PO DAILY Qty: 30 0RF rosuvastatin 20 mg tablet 20 mg PO DAILY Qty: 30 0RF acetaminophen 500 mg tablet 1,000 mg PO Q6H PRN (Reason: Pain, Moderate) tamsulosin 0.4 mg capsule 0.4 mg PO QPM Qty: 90 0RF lisinopril 2.5 mg tablet 2.5 mg PO QPM Qty: 90 0RF valacyclovir [Valtrex] 1 gram tablet 1,000 mg PO TID 7 Days Qty: 21 0RF gabapentin 300 mg capsule 300 mg PO BID PRN (Reason: pain (scale score 4-6)) Qty: 10 0RF gabapentin 100 mg capsule 100 mg PO TID 10 Days Qty: 30 0RF warfarin 5 mg tablet 5 mg PO DAILY Qty: 90 0RF Protocol: Dose Management Condition: Friday (Week One) Dose/Route: 5 mg Instruction: 1 x 5 mg tablet Condition: Friday Dose/Route: 7.5 mg Instruction: 1.5 x 5 mg tablets Condition: Friday Dose/Route: 7.5 mg Instruction: 1.5 x 5 mg tablets Condition: Friday Dose/Route: 5 mg Instruction: 1 x 5 mg tablet Condition: Dose/Route: 7.5 mg Instruction: 1.5 x 5 mg tablets Condition: Friday Dose/Route: 5 mg Instruction: 1 x 5 mg tablet Condition: Friday Dose/Route: 7.5 mg Instruction: 1.5 x 5 mg tablets Condition: Friday (Week Two) Dose/Route: 5 mg Instruction: 1 x 5 mg tablet Condition: Friday Dose/Route: 7.5 mg Instruction: 1.5 x 5 mg tablets Condition: Friday Dose/Route: 7.5 mg Instruction: 1.5 x 5 mg tablets Condition: Friday Dose/Route: 5 mg Instruction: 1 x 5 mg tablet Condition: Dose/Route: 7.5 mg Instruction: 1.5 x 5 mg tablets Condition: Friday Dose/Route: 5 mg Instruction: 1 x 5 mg tablet Condition: Friday Dose/Route: 7.5 mg Instruction: 1.5 x 5 mg tablets Protocol Text: Adjustment Start Date: 07/15/24 INR Value: 2.6 INR Date: 07/15/24 Recheck Date: 08/12/24 Additional Instructions: cont same dosing Rx Instructions: 5MG X3, [id number] albuterol sulfate 90 mcg/actuation HFA aerosol inhaler 2 puff inhalation Q4H PRN (Reason: Shortness Of Breath Or Wheezing) Print Language: Iranian
[2024-08-10] MEDS: Gabapentin 300 MG CAPSULE PO (21:50)
[2024-08-10 21:55] VITALS: BP 139/61; PULSE 71; RESP 16; TEMP 37; O2SAT 96
[2024-08-10 21:56] VITALS: BP 139/61; PULSE 71; RESP 16; TEMP 37; O2SAT 96
== END 2024-08-10 21:58 | disposition home or self-care (01) ==
PROVIDERS: Emergency Provider Emergency Medicine
DX: B02.29 Other postherpetic nervous system involvement (principal); B02.8 Zoster with other complications; Z79.899 Other long term (current) drug therapy; Z87.891 Personal history of nicotine dependence
CPT/HCPCS: 99283; 99284

== ENCOUNTER 2024-08-12 09:19 | Outpatient (AMB) | payer OTHER, SELFPAY ==
[2024-08-12 09:37] LABS: ~PT, ~INR - Anti Coag Clinic 2.4 (0.9-1.1)
--- NOTE | 2024-08-12 09:40 | MHC.OFFVISCO ---
Intake Intake Visit Reasons: Anticoagulation Allergies No Known Allergies [No Known Allergies*] Allergy (Verified 08/10/24 20:35) Medication List - Last Reconciled 08/12/24 by Aniyah Kern RN acetaminophen 1,000 mg PO Q6H PRN albuterol sulfate 90 mcg/actuation 2 puffs inhalation Q4H PRN gabapentin 300 mg PO TID 14 days lisinopril 2.5 mg PO QPM metformin ER 500 mg PO DAILY nitroglycerin 0.4 mg sublingual Q5M rosuvastatin 20 mg PO DAILY tamsulosin 0.4 mg PO QPM warfarin 5 mg See Protocol PO DAILY Nursing Note INR: 2.4 in therapeutic range of 2-3 Medications and supplements reviewed Gabapentin changed from bid to tid and valacyclovir has finished No changes in health, diet, or supplements, Denies any signs and symptoms of bleeding or bruising or clotting. Bleeding, bruising, clotting discussed Nutritional guidance given Dose: 7.5mg X 4 days and 5mg X 3 days F/U INR: 4 weeks Patient verbalizes understanding of instructions given Anti-Coag Initial Assessment Social Hx Patient Tobacco Use Status: Former Tobacco user alcohol intake: never Alcohol intake frequency: former alcohol drinker Coding Level of Care Code Est Patient Level 1 Diagnoses Current use of anticoagulant therapy Z79.01 Results AMB INR Fingerstick AMB INR Fingerstick 2.4 Last Edit by Aniyah Kern RN on 08/12/24 09:37 interface delay Assessment & Plan Assessment & Plan (1) Current use of anticoagulant therapy: Onset Date: ~01/2015 Comment: (on Coumadin - for AFib dx 01/2015) Code(s): Z79.01 - extermination inspector (current) use of anticoagulants Category: Medical Medications: Discontinued gabapentin Discontinued Reason: Patient no longer taking 300 mg PO BID PRN 10 caps 0RF pain (scale score 4-6) valacyclovir (Valtrex) Discontinued Reason: Patient no longer taking 1,000 mg PO TID 7 days 21 tabs 0RF gabapentin Discontinued Reason: Patient no longer taking 100 mg PO TID 10 days 30 caps 0RF
== END 2024-08-12 09:48 | disposition home or self-care (01) ==
LOC: HO.ACS 09:19
PROVIDERS: Visit Provider Internal Medicine Medical Oncology
DX: Z79.01 Long term (current) use of anticoagulants (principal)

== ENCOUNTER → 2024-08-12 09:19 | Outpatient (BNVA) | payer OTHER, SELFPAY | PROVIDERS: Visit Provider Internal Medicine Medical Oncology | DX: I48.0 Paroxysmal atrial fibrillation (principal); Z79.01 Long term (current) use of anticoagulants; Z51.81 Encounter for therapeutic drug level monitoring | CPT/HCPCS: 85610; 99211 ==

== ENCOUNTER 2024-08-24 09:43 | Emergency (ER) | payer OTHER, SELFPAY ==
[2024-08-24 09:52] VITALS: BP 150/87; PULSE 55; RESP 16; TEMP 36.6; O2SAT 98; BMI 29.4
[2024-08-24 12:20] VITALS: BP 136/75; PULSE 68; RESP 18; TEMP 36.1; O2SAT 98
--- NOTE | 2024-08-24 13:00 | ED.GENADULT ---
HPI - General Adult General Chief complaint: Extremity Problem Stated complaint: R foot numbness Time Seen by Provider: 08/24/24 13:00 History of Present Illness ED Provider: Edmar PENA narrative: The patient is an 83-year-old male who was diagnosed 1 month ago with shingles in the S1 distribution of the right leg. The patient has had a lot of persistent symptoms despite being treated with a course of valacyclovir and also with gabapentin. He has returned to the emergency room 2 times since July 25, his original diagnosis date. He returned on August 02 and August 10. On each visit the patient was reassured and was prescribed gabapentin. He is also followed up with his regular doctor who also prescribed gabapentin. He comes to the emergency room today because he is frustrated that he continues to have a sense of discomfort and numbness in the leg in the distribution of the original rash. He does not have any new symptoms. Related Data Home Medications ?Medication ?Instructions ?Recorded ?Confirmed albuterol sulfate 90 mcg/actuation 2 puff inhalation Q4H PRN 06/08/24 08/12/24 aerosol inhaler Shortness Of Breath Or Wheezing acetaminophen 500 mg tablet 1,000 mg PO Q6H PRN Pain, Moderate 06/11/24 08/12/24 Previous Rx's ?Medication ?Instructions ?Recorded metformin 500 mg tablet,extended 500 mg PO DAILY #30 tabs 04/18/21 release 24 hr rosuvastatin 20 mg tablet 20 mg PO DAILY #30 tabs 04/18/21 nitroglycerin 0.4 mg sublingual 0.4 mg sublingual Q5M #25 tabs 08/07/22 tablet warfarin 5 mg tablet 5 mg PO DAILY #90 tabs 05/27/23 lisinopril 2.5 mg tablet 2.5 mg PO QPM #90 tabs 06/12/24 tamsulosin 0.4 mg capsule 0.4 mg PO QPM #90 caps 06/12/24 gabapentin 300 mg capsule 300 mg PO TID 14 days #42 caps 08/10/24 acetaminophen 500 mg capsule 1,000 mg (2 x 500 mg) PO Q8H PRN 08/24/24 fever or pain #20 caps Allergies Allergy/AdvReac Type Severity Reaction Status Date / Time No Known Allergies (No Known Allergy Verified 08/24/24 09:57 Allergies*) Review of Systems Review of Systems: Yes all other systems are reviewed and are negative [facility] Past Medical History Medical History Pulmonary nodules Tubular adenoma of colon (~2009) Hyperlipidemia Type 2 diabetes mellitus with polyneuropathy Paroxysmal atrial fibrillation (~01/2015) Essential hypertension Ascending aortic aneurysm Atherosclerotic cardiovascular disease Lumbar spondylolysis Inflammatory arthritis Surgical History History of cardiac cath (~2018) History of lung surgery (~03/2019) History of left inguinal hernia repair (~01/2019) History of colonoscopy (~02/2016) Hx of neck surgery Hx of appendectomy Family History Family History Mother Diabetes Social History Social History Household Members: Spouse Housing: Apartment Do you presently have visiting nurse or other home services: No Alcohol intake: never Patient Tobacco Use Status: Former Tobacco user Advance Directives: Yes Advance Directives on File: Yes Advance Directives Date on File: 04/18/21 Current occupational status: retired Hearing needs: Yes Physical Exam ED Vital Signs: Vital Signs - 24 hr 08/24/24 09:52 08/24/24 12:20 Temperature 97.8 F 97.0 F Pulse Rate 55 68 Respiratory Rate 16 18 Blood Pressure 150/87 H 136/75 Pulse Oximetry 98 98 Oxygen Delivery Method Room Air Room Air BMI result Body Mass Index 29.4 Const Other: The patient is an 83-year-old male who was awake and alert, pleasant cooperative. He does not appear toxic or in distress. HENMT Other: The face is symmetrical. ?Mucous membranes moist. Eyes Other: Pupils are round equal, conjunctivae are clear, extraocular movements intact Neck Neck: Yes full ROM and Yes no JVD Resp Effort & Inspection: normal respiratory effort Auscultation: clear to auscultation bilaterally Cardio Rate: regular rate Rhythm: regular rhythm Heart sounds: S1 normal heart sound present and S2 normal heart sound present Skin Other: The patient has some residual crusty, healing lesions in the skin of the right leg between the right hip and the lateral aspect of the right foot. No lesions that appear acute. Neuro Other: The patient is awake and alert with a normal mental status. Cranial nerves are grossly intact. He moves his extremities symmetrically and appropriately. He walks steadily and without a footdrop. Extrem Other: No peripheral edema. He has some crusted over lesions on the lateral aspect of the right leg and the right foot. Medical Decision Making Medical Decision Making [facility] Narrative: The patient is an 83-year-old male who was approximately 1 month status post a case of shingles in his right leg. He is on gabapentin. He is frustrated that he continues to have symptoms related to the shingles. Clinically he looks well. I explained I did not have any other remarkable treatment for him. He I will send a prescription for acetaminophen that he may use in addition to the gabapentin he has already taking. He should follow up with his PCP. Discharge Plan Discharge Clinical Impression: Post herpetic neuralgia Patient Disposition: Home, Self-Care Instructions: Shingles (ED) Additional Instructions: Please continue the gabapentin you has been prescribed. I have sent a prescription for acetaminophen (Tylenol) that you may use in addition to the gabapentin. Make another follow up appointment with your regular doctor's office for ongoing management of your symptoms. Return to the emergency room if significantly worse. Prescriptions: New acetaminophen 500 mg capsule 1,000 mg PO Q8H PRN (Reason: fever or pain) Qty: 20 0RF No Action nitroglycerin 0.4 mg tablet, sublingual 0.4 mg sublingual Q5M Qty: 25 0RF Rx Instructions: Dissolve 1 tab under tongue every 5 minutes times 3 doses for chest pain. OVERDUE FOR APPT. PLEASE CALL [phone] TO SCHEDULE FOLLOW UP FOR 2022 SO WE CAN CONTINUE REFILLING metformin 500 mg tablet extended release 24 hr 500 mg PO DAILY Qty: 30 0RF rosuvastatin 20 mg tablet 20 mg PO DAILY Qty: 30 0RF acetaminophen 500 mg tablet 1,000 mg PO Q6H PRN (Reason: Pain, Moderate) tamsulosin 0.4 mg capsule 0.4 mg PO QPM Qty: 90 0RF lisinopril 2.5 mg tablet 2.5 mg PO QPM Qty: 90 0RF gabapentin 300 mg capsule 300 mg PO TID 14 Days Qty: 42 0RF warfarin 5 mg tablet 5 mg PO DAILY Qty: 90 0RF Protocol: Dose Management Condition: Friday (Week One) Dose/Route: 5 mg Instruction: 1 x 5 mg tablet Condition: Friday Dose/Route: 7.5 mg Instruction: 1.5 x 5 mg tablets Condition: Friday Dose/Route: 7.5 mg Instruction: 1.5 x 5 mg tablets Condition: Friday Dose/Route: 5 mg Instruction: 1 x 5 mg tablet Condition: Dose/Route: 7.5 mg Instruction: 1.5 x 5 mg tablets Condition: Friday Dose/Route: 5 mg Instruction: 1 x 5 mg tablet Condition: Friday Dose/Route: 7.5 mg Instruction: 1.5 x 5 mg tablets Condition: Friday (Week Two) Dose/Route: 5 mg Instruction: 1 x 5 mg tablet Condition: Friday Dose/Route: 7.5 mg Instruction: 1.5 x 5 mg tablets Condition: Friday Dose/Route: 7.5 mg Instruction: 1.5 x 5 mg tablets Condition: Friday Dose/Route: 5 mg Instruction: 1 x 5 mg tablet Condition: Dose/Route: 7.5 mg Instruction: 1.5 x 5 mg tablets Condition: Friday Dose/Route: 5 mg Instruction: 1 x 5 mg tablet Condition: Friday Dose/Route: 7.5 mg Instruction: 1.5 x 5 mg tablets Protocol Text: Adjustment Start Date: 08/12/24 INR Value: 2.4 INR Date: 08/12/24 Recheck Date: 09/09/24 Rx Instructions: 5MG X3, [id number] albuterol sulfate 90 mcg/actuation HFA aerosol inhaler 2 puff inhalation Q4H PRN (Reason: Shortness Of Breath Or Wheezing) Referrals: Olga Paulino DO [Primary Care Provider, Internal Medicine] Interventions: ED Discharge Assessment Last Done: 08/24/24 14:18 Discharge Date/Time: 08/24/24 14:19 Print Language: Malay
[2024-08-24 14:18] VITALS: BP 136/75; PULSE 68; RESP 18; TEMP 36.1; O2SAT 98
--- OUTSIDE RECORDS SUMMARY | 2024-08-24 15:12 | XMS_ITS | Encounter Summary ---
Author Organization [employer] Address [address] [address] [place] [address] Care Team Providers Care Skiver Machine Operator Name Role Phone Olga Paulino DO Primary Care Provider [phone] Encounter Details Date Type Department Care Team (Late st Contact Info) Description 06/28/2022 Orders Only [facility] [address] [place] [address] Olga Jaime LPN Social History Tobacco Use [...] 9:00 AM EDT Office Visit [facility] [address] [place] [address] Oneal Wilder MD [address] [place] [address] documented as of this encounter Visit Diagnoses Not on filedocumented in this encounter Care Teams Skiver Machine Operator Relationship Specialty Start Date End Date Olga Paulino DO [address] [place] [address] PCP - General Family Medicine 03/03/18 documented as of this encounter
== END 2024-08-24 14:19 | disposition home or self-care (01) ==
PROVIDERS: Emergency Provider Emergency Medicine; PCP Family Medicine
DX: B02.29 Other postherpetic nervous system involvement (principal); R20.0 Anesthesia of skin; R21 Rash and other nonspecific skin eruption; Z79.899 Other long term (current) drug therapy
CPT/HCPCS: 99283

== ENCOUNTER 2024-08-27 09:15 | Outpatient (AMB) | payer OTHER, SELFPAY ==
[2024-08-27 09:27] VITALS: BP 110/66; PULSE 76; TEMP 36.7; O2SAT 97; BMI 29.4
--- NOTE | 2024-08-27 09:27 | AM.OFFWIN_ITS ---
Intake Vital Signs 08/27/24 09:27 Height 5 ft 6 in Weight 182 lb 2 oz BMI 29.4 BP 110/66 Blood Pressure Location Lt brachial Position Sitting Pulse 76 Pulse Source Pulse Oximeter Temp 98.1 F Temp Source Oral Pulse Oximetry (%) 97 Oxygen Delivery Method Room Air Intake Visit Reasons: EP RT leg/hip numbness/pain Patient Tobacco Use Status: Former Tobacco user Mammography Supervisor Required: Yes Allergies No Known Allergies (No Known Allergies*) Allergy (Verified 08/27/24 09:31) Do you need a note to return to daycare/school/sports/work: No HPI HPI Comments History of Present Illness Details Chinese video frame maker used for this visit. History of Present Illness - The patient is an 83-year-old male pre senting with numbness and tingling in the right leg. - Symptoms began a few days ago, startin g in the low back and radiating down the right buttock into the right leg. - Described as numbness and tingling rat her than pain. - Tried Tylenol without relief; cannot t brie NSAIDs due to warfarin use. - Recent shingles infection on the right leg with residual scabs. - Denies any weakness in the right leg. Physical Exam General: Cooperative, healthy appearing, comfortable, no acute distress and well developed Orientation: Patient oriented x3 Limitations: No limitations Head: Normal to inspection Ears: Hearing grossly normal bilaterally Nose: Normal External nose present Face and sinus: Normal facial exam Eyes: Appearance normal, both eyes and all related structures Neck: Normal visual inspection and Yes full ROM Respiratory: Normal respiratory effort and able to speak in complete sentences. Skin: No rashes or lesions noted, but scabs on right ankle Neuro: Patient oriented x3, normal gait Extremities: Normal to inspection, 5/5 strength bilateral lower extremities, positive straight leg on right side, left side negative straight leg. [facility] Medical History Pulmonary nodules Tubular adenoma of colon (~2009) Hyperlipidemia Type 2 diabetes mellitus with polyneuropathy Paroxysmal atrial fibrillation (~01/2015) Essential hypertension Ascending aortic aneurysm Atherosclerotic cardiovascular disease Lumbar spondylolysis Inflammatory arthritis Surgical History History of cardiac cath (~2018) History of lung surgery (~03/2019) History of left inguinal hernia repair (~01/2019) History of colonoscopy (~02/2016) Hx of neck surgery Hx of appendectomy Family History Mother Diabetes Social History Household Members: Spouse Housing: Apartment Do you presently have visiting nurse or other home services: No Alcohol intake: never Patient Tobacco Use Status: Former Tobacco user Advance Directives Date on File: 04/18/21 Current occupational status: retired Hearing needs: Yes Review of Systems Const All systems reviewed & are unremarkable except as noted in HPI and below Physical Exam Vital Signs: Last Vital Signs Temp 98.1 F 08/27/24 09:27 Pulse 76 08/27/24 09:27 BP 110/66 08/27/24 09:27 Pulse Ox 97 08/27/24 09:27 Oxygen Delivery Method Room Air 08/27/24 09:27 BMI result Body Mass Index 29.4 Assessment & Plan Assessment & Plan (1) Sciatica of right side: Code(s): M54.31 - Sciatica, right side Plan: - possibly 2/2 recent shingles on the right leg - Prescribe a 5-day burst of prednisone to manage symptoms, to be taken in the morning. - Discuss risks and benefits of prednisone with the patient. - Use a Chinese video frame maker for clear communication during the visit. Patient was informed and verbally consented to the use of an ambient scribe for clinic note documentation during this visit. Medications: New prednisone 40 mg (2 x 20 mg) PO QAM 10 tabs 0RF Coding Level of Care Code New Pt Level 4 (51218) Diagnoses Sciatica of right side M54.31
--- OUTSIDE RECORDS SUMMARY | 2024-08-27 09:36 | XMS_ITS | Encounter Summary ---
Author Organization [employer] Address [address] [facility] [address] [place] [address] Care Team Providers Care Chocolate Maker Name Role Phone Olga Paulino DO Primary Care Provider [phone] Encounter Details Date Type Department Care Team (Late st Contact Info) Description 06/28/2022 Orders Only [facility] [address] [place] [address] Olga Jaime LPN Social History Tobacco Use [...] Description 10/08/2024 9:00 AM EDT Office Visit [facility] [address] [place] [address] Oneal Wilder MD [address] [place] [address] documented as of this encounter Visit Diagnoses Not on filedocumented in this encounter Care Teams Chocolate Maker Relationship Specialty Start Date End Date Olga Paulino DO [address] [place] [address] PCP - General Family Medicine 03/03/18 documented as of this encounter
== END 2024-08-27 11:16 | disposition home or self-care (01) ==
PROVIDERS: PCP Family Medicine; Visit Provider Physician Assistant
DX: M54.31 Sciatica, right side (principal)

== ENCOUNTER → 2024-08-27 09:15 | Outpatient (BNVA) | payer OTHER, SELFPAY | PROVIDERS: PCP Family Medicine; Visit Provider Physician Assistant | DX: M54.31 Sciatica, right side (principal) | CPT/HCPCS: 99202 ==

== ENCOUNTER 2024-09-09 09:21 | Outpatient (AMB) | payer OTHER, SELFPAY ==
[2024-09-09 09:25] LABS: Prothrombin Time Whole Bld POC 31.6 sec (11.1-13.5); ~PT, ~INR - Anti Coag Clinic 2.6 (0.9-1.1)
--- NOTE | 2024-09-09 09:28 | MHC.OFFVISCO ---
Intake Intake Visit Reasons: Anticoagulation Allergies No Known Allergies (No Known Allergies*) Allergy (Verified 09/09/24 09:21) Medication List - Last Reconciled 09/09/24 by Grace Haynes RN acetaminophen 1,000 mg PO Q6H PRN acetaminophen 1,000 mg (2 x 500 mg) PO Q8H PRN albuterol sulfate 90 mcg/actuation 2 puffs inhalation Q4H PRN gabapentin 300 mg PO TID 14 days lisinopril 2.5 mg PO QPM metformin ER 500 mg PO DAILY nitroglycerin 0.4 mg sublingual Q5M prednisone 40 mg (2 x 20 mg) PO QAM rosuvastatin 20 mg PO DAILY tamsulosin 0.4 mg PO QPM warfarin 5 mg See Protocol PO DAILY Nursing Note NO CP,SOB,DIET/MED CHANGES,FALLS OR SX OF BLEEDING. CONTINUE PRESERNT DOSE AND FOLLOW-UP IN 4 WEEKS GOOD UNDERSTANDING OF DOSING INSTR. Anti-Coag Initial Assessment Social Hx Patient Tobacco Use Status: Former Tobacco user alcohol intake: never Alcohol intake frequency: former alcohol drinker Coding Level of Care Code Est Patient Level 1 Diagnoses Current use of anticoagulant therapy Z79.01 Assessment & Plan Assessment & Plan (1) Current use of anticoagulant therapy: Onset Date: ~01/2015 Comment: (on Coumadin - for AFib dx 01/2015) Code(s): Z79.01 - FPC (current) use of anticoagulants Category: Medical
--- OUTSIDE RECORDS SUMMARY | 2024-09-09 09:47 | XMS_ITS | Encounter Summary ---
Demographics Address [address] [place] [address] Home Phone Work Phone Mobile Phone Preferred Language es Marital Status Unknown Uatsdin Affiliation Unknown Race Other Race Ethnic Group Unknown Author Organization [employer] Address [address] [facility] [facility] [address] [place] [address] Care Team Providers Care Manager French Name Role Phone Olga Paulino DO Primary Care Provider + [phone] Encounter Details Date Type Department Care Team (Late st Contact Info) Description 09/09/2024 Orders Only GENERIC EXTERNAL DATA DEPARTMENT Provider, [...] Upcoming Encounters Date Type Department Care Team ([facility] st Contact Info) Description 10/08/2024 9:00 AM EDT Office Visit [facility] MEDICINE [address] [place] [phone] Oneal Wilder MD [address] [place] [address] documented as of this encounter Procedures Procedure Name Priority Date/Time Associated Diagnosis Comments PROTHROMBIN TIME WHOLE BLD POC Routine 09/09/2024 9:24 AM EDT ~PT, ~INR - ANTI COAG CLINIC Routine 09/09/2024 9:24 AM EDT documented in this encounter Results * (ABNORMAL) PROTHROMBIN TIME WHOLE BLD POC (09/09/2024 9:24 AM EDT) Protime 31.6(H) 11.1 - 13.5 sec [facility] 09/09/2024 9:24 AM EDT 09/09/2024 9:25 AM EDT us Generic External Data Provider LAB BLOOD ORDERAB LES Final Result [facility] [address] [place] [address] [phone] * (ABNORMAL) ~PT, ~INR - ANTI COAG CLINIC (09/09/2024 9:24 AM EDT) Prothrombin Time INR 2.6(H) 0.9 - 1.1 [facility] Comment:METER #: [id number] TERNATIONAL NORMALIZED RATIO (INR) REFERENCE RANGES Reference RangeFor patients not on anticoagulant therapy: 0.9 - 1.1INR ranges for oral anticoagulanttherapy:For prevention and treatment of venous thrombosis and pulmonary embolism: 2.0 - 3.0For acute myocardial infarction with aspirin therapy: 2.0 - 3.0For acute myocardial infarction without aspirin therapy: 3.0 - 4.0For patients with mechanical prosthetic heart valves: 2.5 - 3.5 09/09/2024 9:24 AM EDT 09/09/2024 9:25 AM EDT us Generic External Data Provider LAB BLOOD ORDERAB LES Final Result Performing Organization Address City/State/[facility] Co de Phone Number [facility] [address] [place] [phone] documented in this encounter Visit Diagnoses Not on filedocumented in this encounter Additional Health Concerns Assessment Noted Time PHQ-9 Depression Total Score: 0 10/06/19 24 9:06 AM EDT documented as of this encounter Care Teams Manager French Relationship Specialty Start Date End Date Olga Paulino DO [address] [place] [address] PCP - General Family Medicine 03/03/18 documented as of this encounter
== END 2024-09-09 09:30 | disposition home or self-care (01) ==
LOC: HO.ACS 09:21
PROVIDERS: PCP Family Medicine; Visit Provider Internal Medicine Medical Oncology
DX: Z79.01 Long term (current) use of anticoagulants (principal)

== ENCOUNTER → 2024-09-09 09:21 | Outpatient (BNVA) | payer OTHER, SELFPAY | PROVIDERS: PCP Family Medicine; Visit Provider Internal Medicine Medical Oncology | DX: I48.0 Paroxysmal atrial fibrillation (principal); Z79.01 Long term (current) use of anticoagulants; Z51.81 Encounter for therapeutic drug level monitoring | CPT/HCPCS: 85610; 99211 ==

== ENCOUNTER 2024-10-04 10:42 | Outpatient (AMB) | payer OTHER, SELFPAY ==
--- OUTSIDE RECORDS SUMMARY | 2024-10-04 11:32 | XMS_ITS | Encounter Summary ---
Author Organization [employer] Address [address] [facility] [address] [place] [address] Care Team Providers Care Agricultural Chemist Name Role Phone Olga Paulino DO Primary Care Provider [phone] Encounter Details Date Type Department Care Team (Late st Contact Info) Description 06/28/2022 Orders Only [facility] MED & PEDS [address] [place] [address] Olga Jaime LPN Social History Tobacco Use [...] Description 10/08/2024 9:00 AM EDT Office Visit [facility] MEDICINE [address] [place] [address] Oneal Wilder MD [address] [place] [address] documented as of this encounter Visit Diagnoses Not on filedocumented in this encounter Care Teams Agricultural Chemist Relationship Specialty Start Date End Date Olga Paulino DO [address] [place] [address] PCP - General Family Medicine 03/03/18 documented as of this encounter
[2024-10-04 12:33] VITALS: BP 114/62; PULSE 70; TEMP 37.2; O2SAT 97; BMI 28.8
--- NOTE | 2024-10-04 12:33 | AM.OFFWIN_ITS ---
Intake Vital Signs 10/04/24 12:33 Height 5 ft 6 in Weight 178 lb 6 oz BMI 28.8 BP 114/62 Blood Pressure Location Rt brachial Position Sitting Pulse 70 Pulse Source Pulse Oximeter Temp 98.9 F Temp Source Oral Pulse Oximetry (%) 97 Oxygen Delivery Method Room Air Intake Visit Reasons: EP-sore throat, phlegm Patient Tobacco Use Status: Former Tobacco user Agriculture Teacher Required: Yes Allergies No Known Allergies (No Known Allergies*) Allergy (Verified 10/04/24 12:37) HPI HPI Comments History of Present Illness Details History - The patient is an 83-year-old Luxembourgish speaking male presenting with difficulty swallowing and a persistent cough with sputum production. - The difficulty swallowing began two we eks ago, necessitating a soft diet due to the inability to swallow solid foods. - The cough, productive of phlegm, occur s mainly at night and has persisted for the same duration. - Gjci-ucj-bnjtkea medications have been ineffective, and home remedies such as gargling with salt and lemon have been attempted without success. - He denies fever, chills, CP, SOB, abd pain, n/v/d, AMAYA, sick contacts, or travel. Physical Exam General: Cooperative, healthy appearing, comfortable and no acute distress Orientation/consciousness: Patient oriented x3 Limitations: No limitations Head: Normal to inspection Ears: Hearing grossly normal bilaterally, external ears normal and TM's normal bilaterally Nose: Normal external nose present, normal nares present, and no nasal discharge present. Face and sinus: Sinuses nontender to palpation. Mouth: Normal oral and palatal mucosa present and moist mucous membranes noted. Throat: Tonsils normal. Uvula is midline. Posterior oropharynx with erythema and no exudates. Eyes: Appearance normal, both eyes and all related structures Neck: Normal visual inspection, full ROM. No lymphadenopathy noted. Respiratory: Clear to auscultation bilaterally. Normal respiratory effort, able to speak in complete sentences. No respiratory distress, not tachypneic, no tripod positioning and no use of accessory muscles. Cardiovascular: Regular rate and rhythm. Normal S1 and S2 Skin: No rashes or lesions noted Patient was informed and verbally consented to the use of an ambient scribe for clinic note documentation during this visit [facility] Medical History Pulmonary nodules Tubular adenoma of colon (~2009) Hyperlipidemia Type 2 diabetes mellitus with polyneuropathy Paroxysmal atrial fibrillation (~01/2015) Essential hypertension Ascending aortic aneurysm Atherosclerotic cardiovascular disease Lumbar spondylolysis Inflammatory arthritis Surgical History History of cardiac cath (~2018) History of lung surgery (~03/2019) History of left inguinal hernia repair (~01/2019) History of colonoscopy (~02/2016) Hx of neck surgery Hx of appendectomy Family History Mother Diabetes Social History Household Members: Spouse Housing: Apartment Do you presently have visiting nurse or other home services: No Alcohol intake: never Patient Tobacco Use Status: Former Tobacco user Advance Directives Date on File: 04/18/21 Current occupational status: retired Hearing needs: Yes Review of Systems Const All systems reviewed & are unremarkable except as noted in HPI and below Physical Exam Vital Signs: Last Vital Signs Temp 98.9 F 10/04/24 12:33 Pulse 70 10/04/24 12:33 BP 114/62 10/04/24 12:33 Pulse Ox 97 10/04/24 12:33 Oxygen Delivery Method Room Air 10/04/24 12:33 BMI result Body Mass Index 28.8 Results AMB Rapid Strep AMB Rapid Strep Negative Last Edit by Mana Rizzo MA on 10/04/24 11:44 Results Reviewed Results Reviewed: Laboratory Last Values Strep Scn Rapid Clinic Negative 10/04/24 11:42 Assessment & Plan Assessment & Plan (1) URI with cough and congestion: Code(s): J06.9 - Acute upper respiratory infection, unspecified Plan Most likely URI vs covid vs flu vs rsv Rapid was negative in the office Plan - Cough medicine has been prescribed to manage symptoms. - Antibiotics have been prescribed to treat a possible bacterial infection. - A COVID-19 test will be conducted to exclude viral infection. - VSS, pt well appearing - tylenol or motrin as needed - follow up with PCP Orders: Orders SARS-CoV2/FLU/RSV Today R09.89 - Other specified symptoms and signs involving the circulatory and respiratory systems AMB Rapid Strep Screen Today Z13.9 - Encounter for screening, unspecified Medications: New benzonatate 100 mg PO bid-tid PRN 21 caps 0RF Cough 7 days azithromycin For 250 mg dose pack: take 500 mg today (day 1), then 250 mg for 4 days (days 2-5) PO 6 tabs 0RF Coding Level of Care Code Est Pt Level 3 (86578) Diagnoses URI with cough and congestion J06.9
== END 2024-10-04 13:55 | disposition home or self-care (01) ==
PROVIDERS: PCP Family Medicine; Visit Provider Physician Assistant Medical
DX: J06.9 Acute upper respiratory infection, unspecified (principal); Z13.9 Encounter for screening, unspecified

== ENCOUNTER 2024-10-04 10:42 | Outpatient (REF) | payer OTHER, SELFPAY ==
[2024-10-04 17:31] LABS: Resp Syncy Virus RNA Qual PCR NEGATIVE (Negative); SARS COV2 PCR INHOUSE NEGATIVE (Negative)
== END 2024-10-04 10:43 | disposition home or self-care (01) ==
LOC: HO.LNP 10:42
PROVIDERS: PCP Family Medicine; Visit Provider Physician Assistant Medical
DX: J06.9 Acute upper respiratory infection, unspecified (principal); J02.9 Acute pharyngitis, unspecified; R05.9 Cough, unspecified; R09.89 Other specified symptoms and signs involving the circulatory and respiratory systems; Z13.89 Encounter for screening for other disorder; Z87.891 Personal history of nicotine dependence; Z11.52 Encounter for screening for COVID-19
CPT/HCPCS: 87637; 87880; 99212

== ENCOUNTER 2024-10-07 09:13 | Outpatient (AMB) | payer OTHER, SELFPAY ==
--- NOTE | 2024-10-07 09:22 | MHC.OFFVISCO ---
Intake Intake Visit Reasons: Anticoagulation Allergies No Known Allergies (No Known Allergies*) Allergy (Verified 10/07/24 09:17) Medication List - Last Reconciled 10/07/24 by Mary Trevino RN acetaminophen 1,000 mg (2 x 500 mg) PO Q8H PRN albuterol sulfate 90 mcg/actuation 2 puffs inhalation Q4H PRN azithromycin For 250 mg dose pack: take 500 mg today (day 1), then 250 mg for 4 days (days 2-5) PO benzonatate 100 mg PO bid-tid PRN 7 days gabapentin 300 mg PO TID 14 days lisinopril 2.5 mg PO QPM metformin ER 500 mg PO DAILY nitroglycerin 0.4 mg sublingual Q5M rosuvastatin 20 mg PO DAILY tamsulosin 0.4 mg PO QPM warfarin 5 mg See Protocol PO DAILY Nursing Note INR: 2.7- in therapeutic range of 2-3 Medications and supplements reviewed- pt brought meds in- now taking benzonatate- no interaction with warfarin per micromedex and azithromycin- which can raise inr. pt states last dose tomm No changes in health, diet, medications, or supplements, Denies any signs and symptoms of bleeding or bruising or clotting. Bleeding, bruising, clotting discussed Nutritional guidance given - eat greens while on antibiotics Dose: reduce dose warfarin sl on sat due to antibiotics/delayed response then cont reg dosing 5mg x 3, 7.5mg x 4 F/U INR: 1 week Patient verbalizes understanding of instructions given Anti-Coag Initial Assessment Social Hx Patient Tobacco Use Status: Former Tobacco user alcohol intake: never Alcohol intake frequency: former alcohol drinker Coding Level of Care Code Est Patient Level 1 Diagnoses Current use of anticoagulant therapy Z79.01 Assessment & Plan Assessment & Plan (1) Current use of anticoagulant therapy: Onset Date: ~01/2015 Comment: (on Coumadin - for AFib dx 01/2015) Code(s): 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
[2024-10-07 09:23] LABS: Prothrombin Time Whole Bld POC 32.0 sec (11.1-13.5); ~PT, ~INR - Anti Coag Clinic 2.7 (0.9-1.1)
--- OUTSIDE RECORDS SUMMARY | 2024-10-07 09:35 | XMS_ITS | Encounter Summary ---
Author Organization [employer] Address [address] [facility] [address] [place] [address] Care Team Providers Care Agile Scrum Coach Name Role Phone Olga Paulino DO Primary Care Provider [phone]- [phone] Encounter Details Date Type Department Care Team (Late st Contact Info) Description 06/28/2022 Orders Only [facility] MED & PEDS [address] [place] [address] Olga Jaime LPN Social History Tobacco Use [...] AM EDT Office Visit [facility] MEDICINE [address] [place] [address] Oneal Wilder MD [address] [place] [address] documented as of this encounter Visit Diagnoses Not on filedocumented in this encounter Care Teams Agile Scrum Coach Relationship Specialty Start Date End Date Olga Paulino DO [address] [place] [address] PCP - General Family Medicine 03/03/18 documented as of this encounter
== END 2024-10-07 09:38 | disposition home or self-care (01) ==
LOC: HO.ACS 09:13
PROVIDERS: PCP Family Medicine; Visit Provider Internal Medicine Medical Oncology
DX: Z79.01 Long term (current) use of anticoagulants (principal)

== ENCOUNTER → 2024-10-07 09:13 | Outpatient (BNVA) | payer OTHER, SELFPAY | PROVIDERS: PCP Family Medicine; Visit Provider Internal Medicine Medical Oncology | DX: Z79.01 Long term (current) use of anticoagulants (principal) | CPT/HCPCS: 85610; 99211 ==

== ENCOUNTER 2024-10-15 09:05 | Outpatient (AMB) | payer OTHER, SELFPAY ==
[2024-10-15 09:17] LABS: Prothrombin Time Whole Bld POC 29.4 sec (11.1-13.5); ~PT, ~INR - Anti Coag Clinic 2.5 (0.9-1.1)
--- OUTSIDE RECORDS SUMMARY | 2024-10-15 09:20 | XMS_ITS | Encounter Summary ---
Author Organization [employer] Address [address] [facility] [address] [place] [address] Care Team Providers Care Em Physician Name Role Phone Olga Paulino DO Primary Care Provider [phone] Encounter Details Date Type Department Care Team (Late st Contact Info) Description 06/28/2022 Orders Only [facility] MED & PEDS [address] [place] [address] Olga Jaime LPN Social History Tobacco Use [...] on filedocumented in this encounter Care Teams Em Physician Relationship Specialty Start Date End Date Olga Paulino DO [address] [place] [address] PCP - General Family Medicine 03/03/18 documented as of this encounter
--- NOTE | 2024-10-15 09:21 | MHC.OFFVISCO ---
Intake Intake Visit Reasons: Anticoagulation Allergies No Known Allergies (No Known Allergies*) Allergy (Verified 10/15/24 09:13) Medication List - Last Reconciled 10/15/24 by Grace Haynes RN acetaminophen 1,000 mg (2 x 500 mg) PO Q8H PRN albuterol sulfate 90 mcg/actuation 2 puffs inhalation Q4H PRN azithromycin For 250 mg dose pack: take 500 mg today (day 1), then 250 mg for 4 days (days 2-5) PO benzonatate 100 mg PO bid-tid PRN 7 days gabapentin 300 mg PO TID 14 days lisinopril 2.5 mg PO QPM metformin ER 500 mg PO DAILY nitroglycerin 0.4 mg sublingual Q5M rosuvastatin 20 mg PO DAILY tamsulosin 0.4 mg PO QPM warfarin 5 mg See Protocol PO DAILY Nursing Note NO CP,SOB,DIET/MED CHANGES,FALLS OR SX OF BLEEDING. CONTINUE PRESENT DPOSING AND FOLLOW-UP IN 4 WEEKS GOOD UNDERSTANDING OF DOSING INSTR. Anti-Coag Initial Assessment Social Hx Patient Tobacco Use Status: Former Tobacco user alcohol intake: never Alcohol intake frequency: former alcohol drinker Coding Level of Care Code Est Patient Level 1 Diagnoses Current use of anticoagulant therapy Z79.01 Assessment & Plan Assessment & Plan (1) Current use of anticoagulant therapy: Onset Date: ~01/2015 Comment: (on Coumadin - for AFib dx 01/2015) Code(s): Z79.01 - intermediate teacher (current) use of anticoagulants Category: Medical
== END 2024-10-15 09:22 | disposition home or self-care (01) ==
LOC: HO.ACS 09:05
PROVIDERS: PCP Family Medicine; Visit Provider Internal Medicine Medical Oncology
DX: Z79.01 Long term (current) use of anticoagulants (principal)

== ENCOUNTER → 2024-10-15 09:05 | Outpatient (BNVA) | payer OTHER, SELFPAY | PROVIDERS: PCP Family Medicine; Visit Provider Internal Medicine Medical Oncology | DX: Z79.01 Long term (current) use of anticoagulants (principal) | CPT/HCPCS: 85610; 99211 ==

== ENCOUNTER → 2024-11-02 10:03 | Outpatient (BNV) | payer OTHER, SELFPAY | PROVIDERS: PCP Family Medicine; Visit Provider Psychiatry & Neurology Neurology | DX: G62.89 Other specified polyneuropathies (principal) | CPT/HCPCS: 95886; 95909 ==

== ENCOUNTER 2024-11-02 10:07 | Outpatient (REF) | payer OTHER, SELFPAY ==
--- NOTE | 2024-11-02 10:03 | EMG_ITS ---
Right tibial and peroneal motor studies were performed right superficial peroneal and sural sensory studies were performed tibial H-reflex was obtained and EMG needle examination was performed. 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
--- OUTSIDE RECORDS SUMMARY | 2024-11-02 11:31 | XMS_ITS | Encounter Summary ---
Author Organization [email or web address] Address [address] [facility] [address] [place] [address] Care Team Providers Care Straightedge Man Name Role Phone Olga Paulino DO Primary Care Provider [phone]- [phone] Encounter Details Date Type Department Care Team (Late st Contact Info) Description 06/28/2022 Orders Only [facility] MED & PEDS [address] [place] [address] Olga Jaime LPN Social History Tobacco Use [...] on filedocumented in this encounter Care Teams Straightedge Man Relationship Specialty Start Date End Date Olga Paulino DO [address] [place] [address] PCP - General Family Medicine 03/03/18 documented as of this encounter
--- OUTSIDE RECORDS SUMMARY | 2024-11-02 11:31 | XMS_ITS | Encounter Summary ---
Author Organization [employer] Address [address] [facility] [address] [place] [address] Care Team Providers Care Certifier Name Role Phone Olga Paulino DO Primary Care Provider [phone]- [phone] Encounter Details Date Type Department Care Team (Late st Contact Info) Description 04/26/2022 Orders Only [facility] CH[facility] MED & PEDS [address] [place] [address] Olga Jaime LPN Social History Tobacco Use [...] on filedocumented in this encounter Care Teams Certifier Relationship Specialty Start Date End Date Olga Paulino DO [address] [place] [address] PCP - General Family Medicine 03/03/18 documented as of this encounter
--- OUTSIDE RECORDS SUMMARY | 2024-11-02 11:31 | XMS_ITS | Encounter Summary ---
Author Organization [employer] Address [address] [facility] [address] [place] [address] Care Team Providers Care Human Resource Intern Name Role Phone Olga Paulino DO Primary Care Provider [phone] Reason for Visit * Reason Onset Date Comments Hospital Follow-up 06/18/2024 Encounter Details Date Type Department Care Team ([facility] st Contact Info) Description 06/18/2024 Telephone [facility]INE [address] [place] [address] Olga Paulino DO [address] [place], [place] [phone] Hospital Follow-up Social History Tobacco Use Types [...] your housing situation today? I have brian hermann 10/06/[address] you li [...] from pt requesting a HDF appt. [place] [facility] of admission: 06/11/24 Discharge date: 06/12/24 Diagnosed: HTN *Send message to [facility] Contact pt at [phone] documented in this encounter Plan of Treatment Not on file documented as of this encounter Visit Diagnoses Not on filedocumented in this encounter Additional Health Concerns Assessment Noted Time PHQ-9 Depression Total Score: 0 10/06/19 24 9:06 AM EDT documented as of this encounter Care Teams Human Resource Intern Relationship Specialty Start Date End Date Olga Paulino DO [address] [place] [id number] PCP - General Family Medicine 03/03/18 documented as of this encounter
--- OUTSIDE RECORDS SUMMARY | 2024-11-02 11:31 | XMS_ITS | Clinical Summary ---
Author Organization [employer] Address [address] [facility] [address] [place] [address] Care Team Providers Care Wax Molder Name Role Phone Olga Paulino DO Primary Care Provider Allergies No known active allergies Medications Blood Glucose Monitoring Suppl (PowerSmartyle [place] Lite) w/Device kit USE TO CHECK BLOOD SUGAR TWICE A DAY 1 kit 07/12/19 23 Active Blood Glucose Monitoring Suppl (Accu-Chek Leslye Plus) w/Device kit 1 each 2 times daily. 1 kit 08/09/19 23 Active glucose blood (Accu-Chek Leslye Plus) test strip USE TO TEST BLOOD SUGAR DOS VECES AL SABIHA 100 strip 11 08/09/19 23 Active fluticasone (Flonase) 50 MCG/ACT nasal sprayIndications: Allergic rhinitis, unspecified seasonality, unspecified trigger SPRAY 2 SPRAYS INTO EACH NOSTRIL EVERY DAY IF NEEDED 48 mL 1 10/30/19 24 Active lisinopril 2.5 MG tabletIndications :Essential hypertension TOME JACKIE TABLETA TODOS [place] STIN[place] 90 tablet 3 04/14/19 25 Active nitroglycerin (Nitrostat) 0.[address] 1 tablet (0.4 mg) under the tongue every 5 (five) minutes if needed for chest pain. X 3 doses. Call 911 if CP does not resolve 30 tablet 05/18/19 25 Active triamcinolone (Kenalog) 0.1 % ointmentIndicatio ns:Nummular dermatitis Apply topically 2 times daily. 80 g 05/18/19 25 Active albuterol 108 (90 Base) MCG/ACT inhaler Inhale 2 puffs every 4 (four) hours if needed for wheezing or shortness of breath. 18 g 1 06/03/19 25 026 Active Spacer/Aero-Holdi ng Chambers (OptiChamber Bernadette) misc [...] DAY 90 tablet 3 07/08/19 25 Active capsaicin (Zostrix) 0.025 % creamIndications: Shingles (herpes zoster) polyneuropathy Apply topically 2 times daily. 56.6 g 1 09/09/19 25 026 Active pregabalin (Lyrica) 25 MG capsuleIndication s:Postherpetic neuralgia Take 1 capsule (25 mg) by mouth 3 times daily. 90 capsule 3 09/17/19 25 026 Active tamsulosin (Flomax) 0.4 MG 24 hr capsuleIndication s:Benign prostatic hyperplasia, unspecified whether lower urinary tract symptoms present TAKE 1 CAPSULE BY MOUTH EVERY DAY 1/2 HOUR FOLLOWING THE SAME MEAL EACH DAY 90 capsule 3 10/09/19 25 Active warfarin (Coumadin) 5 MG tabletIndications :Paroxysmal atrial fibrillation (CMS/HCC) TAKE 1 - 1 & 1/2 TABLETS POR VIA ORAL TODOS [place] STINSON AIDA LO INDICADO BY COUMADIN CLINIC 135 tablet 1 10/09/19 25 Active metFORMIN XR (Glucophage-XR) 500 MG 24 hr tabletIndications :Type 2 diabetes mellitus with other specified complication, unspecified whether prison insulin use (CMS/HCC) TOME 1 TABLETA POR VIA ORAL TODOS [place] STINSON 90 tablet 1 10/09/19 25 Active tamsulosin (Flomax) 0.4 MG 24 hr capsuleIndication s:Benign prostatic hyperplasia, unspecified whether lower urinary tract symptoms present TAKE 1 CAPSULE BY MOUTH EVERY DAY 1/2 HOUR FOLLOWING THE SAME MEAL EACH DAY 90 capsule 3 10/21/19 24 025 Discontinued metFORMIN XR (Glucophage-XR) 500 MG 24 hr tabletIndications :Type 2 diabetes mellitus with other specified complication, unspecified whether prison insulin use (CMS/HCC) TOME 1 TABLETA POR VIA ORAL TODOS [place]INSON 90 tablet 1 04/14/19 25 025 Discontinued warfarin (Coumadin) 5 MG tabletIndications :Paroxysmal atrial fibrillation (CMS/HCC) TAKE 1 - 1 & 1/2 TABLETS POR VIA ORAL TODOS [place] AIDA LO INDICADO BY COUMADIN CLINIC 135 tablet 1 04/14/19 25 025 Discontinued Active Problems Problem Noted Date Diagnosed Date Postherpetic neuralgia 08/11/2024 Assessment & Plan (08/11/2024 3:34 PM EDT): Gabapentin increased yesterday to 300 mg 3 times daily at the ED, advised to start taking the medication today, caution with somnolence, lightheadedness. Advised to avoid scratching of crusted lesions, I told him that he is extremely contagious and he can can transmit chickenpox if someone get in touch with those. Follow-up with PCP in 3 to 4 weeks, advised to get zoster immunization if lesions are completely resolved by then Healthcare maintenance 06/03/2023 Assessment & Plan (06/03/2023 [...] 1:51 PM EDT): Audiology eval w/ b/l [id number] SN hearing loss JUN 2021 -his agrees [...] Encounters Date Type Department Care Team Description 10/15/2024 Orders Only GENERIC EXTERNAL DATA DEPARTMENT Provider, Generic External Data 10/08/2024 9:00 AM EDT Office Visit [facility] [address] [place] [phone] Oneal Wilder MD History of shingles (Primary Dx) 10/08/2024 Travel 10/08/2024 Refill [facility] [address] [place] [address] Olga Paulino DO Benign prostatic hyperplasia, unspecified whether lower urinary tract symptoms present; Paroxysmal atrial fibrillation (CMS/HCC); Type 2 diabetes mellitus with other specified complication, unspecified whether continuous churn buttermaker insulin use (CMS/HCC) 10/07/2024 Orders Only GENERIC EXTERNAL DATA DEPARTMENT Provider, Generic External Data 10/04/2024 Orders Only GENERIC EXTERNAL DATA DEPARTMENT Provider, Generic External Data 09/16/2024 10:00 AM EDT [facility] [address] [address] Olga Paulino DO Paresthesia of right lower extremity (Primary Dx); Postherpetic neuralgia 09/16/2024 Travel 09/10/[address] [phone] Olga Paulino DO Medication Question 09/10/2024 Travel 09/09/2024 Orders Only GENERIC EXTERNAL DATA DEPARTMENT Provider, Generic External Data 09/08/2024 2:40 PM EDT Office Visit [facility] [address] [address] Kristine Baum MD Shingles (herpes zoster) polyneuropathy (Primary Dx) 09/08/2024 Travel 09/07/[address] [address] Olga Paulino DO Nurse Triage 08/20/[address] [address] Olga Paulino DO 08/12/2024 Orders Only GENERIC EXTERNAL DATA DEPARTMENT Provider, Generic External Data 08/11/2024 11:00 AM EDT Office Visit [address] [phone] Olinda Vo MD Postherpetic neuralgia (Primary Dx) 08/11/2024 Travel 08/10/[address] [address] Olga Paulino DO Chart prep 08/06/[address] [phone] Maria Elena Logan ANP No Show 08/05/[address] [address] Olga Paulino DO chartprep 08/04/[address] [address] Olga Paulino DO telephone call from Last 3 Months Immunizations Immunization Administration [...] Sign Reading Time Taken Comments Blood Pressure 150/84 10/08/2024 9:05 AM EDT Pulse 68 10/08/2024 9:05 AM EDT Temperature 37.1 C (98.7 F) 10/08/2024 9:05 AM EDT Respiratory Rate 18 10/08/2024 9:05 AM EDT Oxygen Saturation 96% 09/16/2024 9:51 AM EDT Inhaled Oxygen Concentration - - Weight 80.8 kg (178 lb 3.2 oz) 10/08/2024 9:05 A M EDT Height 167.5 cm (5' 5.95 ) 10/08/2024 9:05 AM ED T Body Mass Index 28.81 10/08/2024 9:05 AM EDT Plan of Treatment Health Maintenance Due Date Last Done Comments Eye Exam 1950 Hepatitis A Vaccines (1 of 2 - Risk 2-dose series) 1957 Hepatitis B Vaccines (1 of 3 - Risk 3-dose series) 1998 Diabetes: Foot Exam 06/02/2024 06/03/2023, 06/03/2023, 06/03/2023, Additional history exists Lipid Panel 06/26/2024 06/27/2023, 11/02, 06/07/2021, Additional history exists Depression Screening 10/05/2024 10/06/2023, 10/06/19 Diabetes: Hemoglobin A1C 10/13/2024 025, 05/17/2024, 10/06/2023, Additional history exists Influenza Vaccine (#1) 2024 , 11/07/2022, 11/20/2021, Additional history exists Zoster Vaccines (2 of 2) 11/13/2024 09/18/2024 COVID-19 Vaccine ( season) 2024 05/17/2024, 06/03/2023, 01/15/2022, Additional history exists SDOH Screening 05/10/2025 05/10/2024 Alcohol/Substance Use Screening 07/13/2025 07/13/2024 Tobacco Screening 09/16/2025 09/16/2024 DTaP/Tdap/Td Vaccines (3 - Td or Tdap) 05/15/2032 05/15/2022, 10/19/2015, 07/11/2005 Pneumococcal Vaccine: 50+ Years Completed 06/03/2023, 01/16/2015, 08/17/2014, Additional history exists RSV Patients and Patients Aged 60 years or older Completed 09/18/2024 HIB Vaccines Aged Out No longer eligi [...] Comments PROTHROMBIN TIME WHOLE BLD POC Routine 10/15/2024 9:15 AM EDT ~PT, ~INR - ANTI COAG CLINIC Routine 10/15/2024 9:15 AM EDT PROTHROMBIN TIME WHOLE BLD POC Routine 10/07/2024 9:21 AM EDT ~PT, ~INR - ANTI COAG CLINIC Routine 10/07/2024 9:21 AM EDT SARS COV2/INFLUENZA A/B AND RSV RNA QL NAAT Routine 10/04/2024 10:42 AM EDT PROTHROMBIN TIME WHOLE BLD POC Routine 09/09/2024 9:24 AM EDT ~PT, ~INR - ANTI COAG CLINIC Routine 09/09/2024 9:24 AM EDT PROTHROMBIN TIME WHOLE BLD POC Routine 08/12/2024 9:35 AM EDT ~PT, ~INR - ANTI COAG CLINIC Routine 08/12/2024 9:35 AM EDT POCT GLYCATED HEMOGLOBIN, TOTAL Routine 07/13/2024 9:35 AM EDT 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 Protime 29.4(H) 11.1 - 13.5 sec [facility] 10/15/2024 9:15 AM EDT 10/15/2024 9:17 AM EDT us Generic External Data Provider LAB BLOOD ORDERAB LES Final Result Performing Organization Address [facility] Co de Phone Number [facility] [address] [place] [phone] * (ABNORMAL) ~PT, ~INR - ANTI COAG CLINIC (10/15/2024 9:15 AM EDT) Only the most recent of4 resultswithin the time period is included. Prothrombin Time INR 2.5(H) 0.9 - 1.1 [facility] Comment:METER #: [id number] TERNATIONAL NORMALIZED RATIO (INR) REFERENCE RANGES Reference RangeFor patients not on anticoagulant therapy: 0.9 - 1.1INR ranges for oral anticoagulanttherapy:For prevention and treatment of venous thrombosis and pulmonary embolism: 2.0 - 3.0For acute myocardial infarction with aspirin therapy: 2.0 - 3.0For acute myocardial infarction without aspirin therapy: 3.0 - 4.0For patients with mechanical prosthetic heart valves: 2.5 - 3.5 10/15/2024 9:15 AM EDT 10/15/2024 9:17 AM EDT us Generic External Data Provider LAB BLOOD ORDERAB LES Final Result Performing Organization Address [facility] Co de Phone Number [facility] [address] [place] [phone] * SARS-CoV-2 RNA, Influenza A/B, and RSV RNA, Ql NAAT (10/04/2024 10:42 AM EDT) Pathologist [facility] Influenza A PCR NEGATIVE Negative [facility] Influenza B PCR NEGATIVE Negative [facility] Resp Syncy Virus RNA Qual PCR NEGATIVE Negative [facility] SARS COV2 PCR NEGATIVE Negative [facility] Comment:All test results mus t be correlated with clinical findings.Negative results do not preclude SARS-CoV2, influenza Avirus, influenza B virus and/or RSV infectionand should not be used as the sole basis for treatment orother patient management decisions. Negative results must becombined with clinical observations, patient history, andepidemiological information.This test has not been evaluated for monitoring treatment ofinfection.This test has been authorized by the FDA under an EmergencyUse Authorization (EUA) for use by authorized laboratories.Testing performed on the [employer] GeneXpert utilizingreal-time RT-PCR.All SARS CoV2 and positive influenza A/B results arereported to [facility]. 10/04/2024 10:4 2 AM EDT 10/04/2024 4:23 PM EDT Generic External Data Provider LAB MICROBIOLOGY - GENERAL ORDERABLES Final Result [facility] [address] [place] [phone] * (ABNORMAL) POCT HGB A1C (07/13/2024 9:35 AM EDT) Hemoglobin A1C 7.3(A) 4.0 - 6.0 % QC Media Lot # [id number] Lot# Expiration Date Blood 07/13/2024 9:35 AM EDT Olga Paulino DO POINT OF CARE TEST ENTER/PREETHI T ORDERABLES Final Result * (ABNORMAL) Lipid Panel, Standard (06/27/2023 8:40 AM EDT) Triglycerides 108 <150 mg/dL [facility] Comment:Desirable Triglyceri de: less than 150 mg/dLBorderline High Triglyceride 150-199 mg/dLHigh Triglyceride: 200-499 mg/dLVery High Triglyceride: greater than or equal to 5OO mg/dL Cholesterol 113 <200 mg/dL [facility] Comment:Desirable Cholestero l: less than 200 mg/dLBorderline High Cholesterol: 200-239 mg/dLHigh Cholesterol: greater than 239 mg/dL LDL Cholesterol Calculated 57 <100 mg/dL [facility] Comment:Desirable LDL: less than 100 mg/dLNear Optimal/Above Optimal LDL: 110- 129 mg/dLBorderline High LDL: 130-159 mg/dLHigh LDL: 160-189 mg/dLVery High LDL: greater than or equal to 190 mg/dL HDL Cholesterol 35(L) >40 mg/dL [facility] Comment:Desirable HDL: great er than 40 mg/dL Note: This HDL assay may give artificially low results in patients with liver disease. Blood Venous blood specimen / Unknown 06/27/2023 8:40 AM EDT 06/27/2023 11:31 AM EDT us Olga Paulino DO LAB BLOOD ORDERABLES Final R esult [facility] [address] [place] [phone] from Last 3 Months or Most Recently Relevant to Health Maintenance Insurance [facility] [employer] (O D-SNP) FIORELLA MONTGOM[place] [id number] Care Teams Wax Molder Relationship Specialty Start Date End Date Olga Paulino DO [address] [place] [phone] PCP - General Family Medicine 03/03/18
== END 2024-11-02 10:08 | disposition home or self-care (01) ==
LOC: HO.NEURO 10:07
PROVIDERS: PCP Family Medicine; Visit Provider Family Medicine
DX: R20.2 Paresthesia of skin (principal)
CPT/HCPCS: 95886; 95909

== ENCOUNTER 2024-11-12 09:00 | Outpatient (AMB) | payer OTHER, SELFPAY ==
--- NOTE | 2024-11-12 09:07 | MHC.OFFVISCO ---
Intake Intake Visit Reasons: Anticoagulation Allergies No Known Allergies (No Known Allergies*) Allergy (Verified 10/15/24 09:13) Nursing Note INR: 2.4 in therapeutic range Medications and supplements reviewed No changes in health, diet, medications, or supplements, Denies any signs and symptoms of bleeding or bruising or clotting. Bleeding, bruising, clotting discussed Nutritional guidance given Dose: 5mg sun fri/ 7.5mg x 4 days F/U INR: 4 weeks Patient verbalizes understanding of instructions given Anti-Coag Initial Assessment Social Hx Patient Tobacco Use Status: Former Tobacco user alcohol intake: never Alcohol intake frequency: former alcohol drinker Coding Level of Care Code Est Patient Level 1 Diagnoses Current use of anticoagulant therapy Z79.01 Assessment & Plan Assessment & Plan (1) Current use of anticoagulant therapy: Onset Date: ~01/2015 Comment: (on Coumadin - for AFib dx 01/2015) Code(s): Z79.01 - snf (current) use of anticoagulants Category: Medical
[2024-11-12 09:08] LABS: Prothrombin Time Whole Bld POC 28.9 sec (11.1-13.5); ~PT, ~INR - Anti Coag Clinic 2.4 (0.9-1.1)
== END 2024-11-12 09:18 | disposition home or self-care (01) ==
LOC: HO.ACS 09:00
PROVIDERS: PCP Family Medicine; Visit Provider Internal Medicine Medical Oncology
DX: Z79.01 Long term (current) use of anticoagulants (principal)

== ENCOUNTER → 2024-11-12 09:00 | Outpatient (BNVA) | payer OTHER, SELFPAY | PROVIDERS: PCP Family Medicine; Visit Provider Internal Medicine Medical Oncology | DX: I48.0 Paroxysmal atrial fibrillation (principal); Z79.01 Long term (current) use of anticoagulants; Z51.81 Encounter for therapeutic drug level monitoring | CPT/HCPCS: 85610; 99211 ==

== ENCOUNTER 2024-12-10 09:22 | Outpatient (AMB) | payer OTHER, SELFPAY ==
--- NOTE | 2024-12-10 09:26 | MHC.OFFVISCO ---
Intake Intake Visit Reasons: Anticoagulation Allergies No Known Allergies (No Known Allergies*) Allergy (Verified 12/10/24 09:21) Medication List - Last Reconciled 12/10/24 by Mary Trevino RN acetaminophen 1,000 mg (2 x 500 mg) PO Q8H PRN albuterol sulfate 90 mcg/actuation 2 puffs inhalation Q4H PRN azithromycin For 250 mg dose pack: take 500 mg today (day 1), then 250 mg for 4 days (days 2-5) PO benzonatate 100 mg PO bid-tid PRN 7 days gabapentin 300 mg PO TID 14 days lisinopril 2.5 mg PO QPM metformin ER 500 mg PO DAILY nitroglycerin 0.4 mg sublingual Q5M rosuvastatin 20 mg PO DAILY tamsulosin 0.4 mg PO QPM warfarin 5 mg See Protocol PO DAILY Nursing Note INR: 2.3- in therapeutic range 2-3 Medications and supplements reviewed- no changes No changes in health, diet, medications, or supplements, Denies any signs and symptoms of bleeding or bruising or clotting. Bleeding, bruising, clotting discussed Nutritional guidance given Dose: 5mg x 2, 7.5mg x 4 F/U INR: 4 weeks Patient verbalizes understanding of instructions given Anti-Coag Initial Assessment Social Hx Patient Tobacco Use Status: Former Tobacco user alcohol intake: never Alcohol intake frequency: former alcohol drinker Coding Level of Care Code Est Patient Level 1 Diagnoses Current use of anticoagulant therapy Z79.01 Results AMB INR Fingerstick AMB INR Fingerstick 2.3 Last Edit by Mary Trevino RN on 12/10/24 09:28 interface delay Assessment & Plan Assessment & Plan (1) Current use of anticoagulant therapy: Onset Date: ~01/2015 Comment: (on Coumadin - for AFib dx 01/2015) Code(s): Z79.01 - FPC (current) use of anticoagulants Category: Medical
[2024-12-10 14:01] LABS: Prothrombin Time Whole Bld POC 27.8 sec (11.1-13.5); ~PT, ~INR - Anti Coag Clinic 2.3 (0.9-1.1)
== END 2024-12-10 09:32 | disposition home or self-care (01) ==
LOC: HO.ACS 09:22
PROVIDERS: PCP Family Medicine; Visit Provider Internal Medicine Medical Oncology
DX: Z79.01 Long term (current) use of anticoagulants (principal)

== ENCOUNTER → 2024-12-10 09:22 | Outpatient (BNVA) | payer OTHER, SELFPAY | PROVIDERS: PCP Family Medicine; Visit Provider Internal Medicine Medical Oncology | DX: I48.0 Paroxysmal atrial fibrillation (principal); Z79.01 Long term (current) use of anticoagulants; Z51.81 Encounter for therapeutic drug level monitoring | CPT/HCPCS: 85610; 99211 ==

== ENCOUNTER 2024-12-28 09:44 | Outpatient (REF) | payer OTHER, SELFPAY ==
--- OUTSIDE RECORDS SUMMARY | 2024-12-28 09:00 | XMS_ITS | Encounter Summary ---
Author Organization [employer] Address [address] [facility] [address] [place] [address] Care Team Providers Care Cooler Deliverer Name Role Phone Olga Paulino DO Primary Care Provider [phone] Encounter Details Date Type Department Care Team (Latest Contact Info) Description 12/28/2024 9:00 AM EDT Office Visit [facility] [address] [place], [place] [phone] Olga Paulino DO [address] [place], [place] [phone] Type 2 diabetes mellitus with diabetic microalbuminuria, without long-term current use of insulin (HCC) (Primary Dx); Essential hypertension; Other hyperlipidemia; Paroxysmal atrial fibrillation (CMS/HCC) (HCC); Aneurysm of ascending aorta without rupture (CMS/HCC); Diabetic polyneuropathy associated with type 2 diabetes mellitus (HCC); Anemia, unspecified type; Multiple pulmonary nodules; Inflammatory arthritis; Cervical radiculopathy; Chronic bilateral low back pain without sciatica; Sensorineural hearing loss, bilateral; Varicose veins of both lower extremities with pain; Unintentional weight loss; Healthcare maintenance Social History Tobacco Use Types Packs/Day Years [...] Sign Reading Time Taken Comments Blood Pressure 150/70 12/28/2024 9:07 AM EDT Pulse 80 12/28/2024 9:07 AM EDT Temperature 36.6 C (97.9 F) 12/28/2024 9:07 AM EDT Respiratory Rate 20 12/28/2024 9:07 AM EDT Oxygen Saturation 100% 12/28/2024 9:07 AM EDT Inhaled Oxygen Concentration - - Weight 80.9 kg (178 lb 6 oz) 12/28/2024 9:07 AM EDT Height 167.6 cm (5' 6 ) 12/28/2024 9:07 AM EDT Body Mass Index 28.79 12/28/2024 9:07 AM EDT documented in this encounter Plan of Treatment Pending Results Name Type Priority Associated Diagnoses Date /Time Urinalysis Complete Lab Routine Unintentional weight loss 12/28/2024 9:54 AM EDT Scheduled Orders Name Type Priority Associated Diagnoses Orde r Schedule T4, Free Lab Routine Type 2 diabetes mellitus with diabetic microalbuminuria, without long-term current use of insulin (HCC) Expected: 12/28/2024 (Approximate), Expires: 12/28/2025 Vitamin D, 25-Hydroxy, Total, Immunoassay Lab Routine Type 2 diabetes mellitus with diabetic microalbuminuria, without long-term current use of insulin (HCC) Expected: 12/28/2024 (Approximate), Expires: 12/28/2025 Lipid Panel, Standard Lab Routine Type 2 diabetes mellitus with diabetic microalbuminuria, without long-term current use of insulin (HCC) Expected: 12/28/2024 (Approximate), Expires: 12/28/2025 TSH Lab Routine Type 2 diabetes mellitus with diabetic microalbuminuria, without long-term current use of insulin (HCC) Expected: 12/28/2024 (Approximate), Expires: 12/28/2025 Hepatic Function Panel Lab Routine Type 2 diabetes mellitus with diabetic microalbuminuria, without long-term current use of insulin (HCC) Expected: 12/28/2024 (Approximate), Expires: 12/28/2025 Hemoglobin A1c Lab Routine Type 2 diabetes mellitus with diabetic microalbuminuria, without long-term current use of insulin (HCC) Expected: 12/28/2024 (Approximate), Expires: 12/28/2025 Basic Metabolic Panel Lab Routine Type 2 diabetes mellitus with diabetic microalbuminuria, without long-term current use of insulin (HCC) Expected: 12/28/2024 (Approximate), Expires: 12/28/2025 Albumin, Random Urine W/Creatinine Lab Routine Type 2 diabetes mellitus with diabetic microalbuminuria, without long-term current use of insulin (HCC) Expected: 12/28/2024 (Approximate), Expires: 12/28/2025 Prealbumin Lab Routine Unintentional weight loss Expected: 12/28/2024, Expires: 12/28/2025 Sed Rate by Modified [place] Lab Routine Unintentional weight loss Expected: 12/28/2024, Expires: 12/28/2025 HIV-1/2 Antigen and Antibodies, Fourth Generation, with Reflexes Lab Routine Unintentional weight loss Expected: 12/28/2024 (Approximate), Expires: 12/28/2025 T-SPOT .TB Lab Routine Unintentional weight loss Expected: 12/28/2024 (Approximate), Expires: 12/28/2025 PSA,Total Lab Routine Unintentional weight loss Expected: 12/28/2024, Expires: 12/28/2025 C-reactive Protein Lab Routine Unintentional weight loss Expected: 12/28/2024 (Approximate), Expires: 12/28/2025 Hepatitis C Antibody with Reflex to HCV, RNA, Quantitative, Real-Time PCR Lab Routine Unintentional weight loss Expected: 12/28/2024, Expires: 12/28/2025 documented as of this encounter Procedures Procedure Name Priority Date/Time Associated Diagnosis Comments CBC WITH AUTO DIFFERENTIAL Routine 12/28/2024 9:54 AM EDT Unintentional weight loss URINALYSIS, COMPLETE Routine 12/28/2024 9:54 AM EDT Unintentional weight loss POCT GLYCATED HEMOGLOBIN, TOTAL Routine 12/28/2024 9:10 AM EDT Type 2 diabetes mellitus with diabetic microalbuminuria, without long-term current use of insulin (HCC) POCT GLUCOSE Routine 12/28/2024 9:10 AM EDT Type 2 diabetes mellitus with diabetic microalbuminuria, without long-term current use of insulin (HCC) documented in this encounter Results * (ABNORMAL) CBC auto differential (12/28/2024 9:54 AM EDT) White Blood Count 5.1 4.8 - 10.8 X10*3/uL [facility] Red Blood Count 4.41(L) 4.60 - 5.80 X10*6/uL [facility] Hemoglobin 12.6(L) 14.0 - 18.0 g/dl [facility] Hematocrit 40.3(L) 42.0 - 52.0 % [facility] Mean Corpuscular Volume 91.4 80.0 - 98.0 fL [facility] Mean Corpuscular Hemoglobin 28.6 27.0 - 33.0 pg [facility] Mean Corpuscular HGB Conc 31.3 31.0 - 36.0 g/dl [facility] Red Cell Distribution Width 13.9 11.0 - 16.0 % [facility] Platelet Count 135(L) 160 - 400 X10*3/uL [facility] Mean Platelet Volume 12.5(H) 9.4 - 12.4 fL [facility] Neutrophils Percent Auto 63.0 45 - 73 % [facility] Imm Gran Pct Auto 0.2 0.0 - 0.4 % [facility] Lymphocytes Percent Auto 21.3 20 - 40 % [facility] Monocytes Percent Auto 10.0 2 - 11 % [facility] Eosinophils Percent Auto 4.3(H) 0 - 4 % [facility] Basophils Percent Auto 1.2 0 - 2 % [facility] NRBC Pct Auto 0.0 0.0 - 0.2 /100WBC [facility] Neutrophils Absolute Auto 3.2 2.0 - 8.3 x10*3/uL [facility] Imm Gran Abs Auto 0.01 0.00 - 0.03 X10*3/uL [facility] Lymphocytes Absolute Auto 1.1(L) 1.2 - 4.9 X10*3/uL [facility] Monocytes Absolute Auto 0.5 0.1 - 1.2 X10*3/uL [facility] Eosinophils Absolute Auto 0.2 0.0 - 0.4 X10*3/uL [facility] Basophils Absolute Auto 0.1 0.0 - 0.2 X10*3/uL [facility] NRBC Abs Auto 0.000 0.0 - 0.012 X10*3/uL [facility] Blood Venous blood specimen / Unknown 12/28/2024 9:54 AM EDT 12/28/2024 11:02 AM EDT us Olga Paulino DO LAB BLOOD ORDERABLES Final R esult [facility] [address] [place] [address] [phone] * (ABNORMAL) POCT Hgb A1c (12/28/2024 9:10 AM EDT) Hemoglobin A1C 6.4(A) 4.0 - 5.7 % QC Media Lot # [id number] Lot# Expiration Date ,027 Blood 12/28/2024 9:10 AM EDT Olga Paulnio DO POINT OF CARE TEST ENTER/PREETHI T ORDERABLES Final Result * (ABNORMAL) POCT Glucose (12/28/2024 9:10 AM EDT) Glucose Blood, POC 239(A) 60 - 200 mg/dL QC Media Lot # [id number] Lot# Expiration Date 3,026 Blood Capillary blood specimen / Unknown 12/28/2024 9:10 AM EDT Olga Paulino DO POINT OF CARE TEST ENTER/PREETHI T ORDERABLES Final Result documented in this encounter Visit Diagnoses Diagnosis Type 2 diabetes mellitus with diabetic microalbuminuria, without long-term current use of insulin (HCC)- Primary Essential hypertension Unspecified essential hypertension Other hyperlipidemia Paroxysmal atrial fibrillation (CMS/HCC) (HCC) Atrial fibrillation Aneurysm of ascending aorta without rupture (CMS/HCC) Diabetic polyneuropathy associated with type 2 diabetes mellitus (HCC) Anemia, unspecified type Multiple pulmonary nodules Other diseases of lung, not elsewhere classified Inflammatory arthritis Unspecified inflammatory polyarthropathy Cervical radiculopathy Brachial neuritis or radiculitis nos Chronic bilateral low back pain without sciatica Sensorineural hearing loss, bilateral Varicose veins of both lower extremities with pain Unintentional weight loss Loss of weight Healthcare maintenance documented in this encounter Additional Health Concerns Assessment Noted Time PHQ-9 Depression Total Score: 0 10/06/19 24 9:06 AM EDT documented as of this encounter Care Teams Cooler Deliverer Relationship Specialty Start Date End Date Olga Paulino DO [address] [place] [id number] PCP - General Family Medicine 03/03/18 documented as of this encounter
[2024-12-28 11:09] LABS: MANUAL DIFF FLAG NO
[2024-12-28 11:14] LABS: Appearance Urine Clear; Glucose Urine UA Negative (Negative); PH 5.5 (5.0-9.0); Specific Gravity - Urine 1.015 (1.005-1.025); UMIC TRIGGER UA YES
[2024-12-28 11:16] LABS: Hematocrit 40.3 % (42.0-52.0); Hemoglobin 12.6 g/dl (14.0-18.0); Imm Gran Abs Auto 0.01 X10*3/uL (0.00-0.03); Imm Gran Pct Auto 0.2 % (0.0-0.4); Lymphocytes Absolute Auto 1.1 X10*3/uL (1.2-4.9); Mean Corpuscular HGB Conc 31.3 g/dl (31.0-36.0); Mean Corpuscular Hemoglobin 28.6 pg (27.0-33.0); Mean Corpuscular Volume 91.4 fL (80.0-98.0); NRBC Abs Auto 0.000 X10*3/uL (0.0-0.012); NRBC Pct Auto 0.0 /100WBC (0.0-0.2); Platelet Count 135 X10*3/uL (160-400); Red Blood Count 4.41 X10*6/uL (4.60-5.80); White Blood Count 5.1 X10*3/uL (4.8-10.8)
--- OUTSIDE RECORDS SUMMARY | 2024-12-28 11:19 | XMS_ITS | Encounter Summary ---
Author Organization [employer] Address [address] [facility] [address] [place] [address] Care Team Providers Care Cutter Machine Tender Name Role Phone Olga Paulino DO Primary Care Provider [phone] Reason for Visit * Reason Onset Date Comments Hospital Follow-up 06/18/2024 Encounter Details Date Type Department Care Team ([facility] st Contact Info) Description 06/18/[address] [facility] [address] [place] [address] Olga Paulino DO [address] [place], [place] [phone] Hospital Follow-up Social History Tobacco Use Types [...] from pt requesting a HDF appt. [place] [facility] [place] of admission: 06/11/24 Discharge date: 06/12/24 Diagnosed: HTN *Send message to [facility] Contact pt at [phone] documented in this encounter Plan of Treatment Not on file documented as of this encounter Visit Diagnoses Not on filedocumented in this encounter Additional Health Concerns Assessment Noted Time PHQ-9 Depression Total Score: 0 10/06/19 24 9:06 AM EDT documented as of this encounter Care Teams Cutter Machine Tender Relationship Specialty Start Date End Date Olga Paulino DO [address] [place] [phone] PCP - General Family Medicine 03/03/18 documented as of this encounter
--- OUTSIDE RECORDS SUMMARY | 2024-12-28 11:19 | XMS_ITS | Encounter Summary ---
Author Organization [employer] Address [address] [facility] [address] [place] [address] Care Team Providers Care Mushroom Cutter Name Role Phone Olga Paulino DO Primary Care Provider [phone]- [phone] Encounter Details Date Type Department Care Team (Late st Contact Info) Description 06/28/2022 Orders Only [facility] PEDS [address] [place] [address] Olga Jaime LPN Social History Tobacco Use [...] on filedocumented in this encounter Care Teams Mushroom Cutter Relationship Specialty Start Date End Date Olga Paulino DO [address] [place] [address] PCP - General Family Medicine 03/03/18 documented as of this encounter
--- OUTSIDE RECORDS SUMMARY | 2024-12-28 11:19 | XMS_ITS | Encounter Summary ---
Author Organization [employer] Address [address] [facility] [address] [place] [address] Care Team Providers Care Kiln Puller Name Role Phone Olga Paulino DO Primary Care Provider [phone]- [phone] Encounter Details Date Type Department Care Team (Late st Contact Info) Description 04/26/2022 Orders Only [facility] MED & PEDS [address] [place] [address] Olga Jaime LPN Social History Tobacco Use [...] on filedocumented in this encounter Care Teams Kiln Puller Relationship Specialty Start Date End Date Olga Paulino DO [address] [place] [address] PCP - General Family Medicine 03/03/18 documented as of this encounter
--- OUTSIDE RECORDS SUMMARY | 2024-12-28 11:19 | XMS_ITS | Encounter Summary ---
Demographics Address [address] [facility] [address] [place] [address] Home Phone Work Phone Mobile Phone Preferred Language es Marital Status Unknown Episcopalian Affiliation Unknown Race Other Race Ethnic Group Unknown Author Organization [employer] Address [address] [facility] [address] [place] [address] Care Team Providers Care Electric Gas Appliances Demonstrator Name Role Phone Jefferson Olga Primary Care Provider + [phone] Encounter Details Date Type Department Care Team (Latest Contact Info) Description 12/28/2024 Travel Social History Tobacco Use Types Packs/Day [...] t he electric, gas, oil or water [employer] threatened to shut off services in your [...] documented as of this encounter Care Teams Electric Gas Appliances Demonstrator Relationship Specialty Start Date End Date Olga Paulino DO [address] [place] [id number] PCP - General Family Medicine 03/03/18 documented as of this encounter
--- OUTSIDE RECORDS SUMMARY | 2024-12-28 11:20 | XMS_ITS | Clinical Summary ---
Author Organization [employer] Address [address] [facility] [address] [place] [address] Care Team Providers Care Stock Plan Administrator Name Role Phone Olga Paulino DO Primary Care Provider Allergies No known active allergies Medications Blood Glucose Monitoring Suppl (Locuyle [place] Lite) w/Device kit USE TO CHECK BLOOD [...] of breath. 18 g 1 06/03/19 25 2025 Active Spacer/Aero-Holdi ng Chambers (OptiChamber Bernadette) misc [...] times daily. 56.6 g 1 09/09/19 25 2025 Active tamsulosin (Flomax) 0.4 MG 24 hr capsuleIndication s:Benign prostatic hyperplasia, unspecified whether lower urinary tract symptoms present TAKE 1 CAPSULE BY MOUTH EVERY DAY 1/2 HOUR FOLLOWING THE SAME MEAL EACH DAY 90 capsule 3 10/09/19 25 Active warfarin (Coumadin) 5 MG tabletIndications :Paroxysmal atrial fibrillation (CMS/HCC) ([facility]) TAKE 1 - 1 & 1/2 TABLETS POR VIA ORAL [facility] [place] AIDA LO INDICADO BY COUMADIN CLINIC 135 tablet 1 10/09/19 25 Active metFORMIN XR (Glucophage-XR) 500 MG 24 hr tabletIndications :Type 2 diabetes mellitus with other specified complication, unspecified whether penitentiary insulin use ([facility]) TOME 1 TABLETA POR VIA ORAL [place]OS [place] 90 tablet 1 10/09/19 25 Active pregabalin (Lyrica) 50 MG capsuleIndication s:Postherpetic neuralgia Take 1 capsule (50 mg) by mouth 3 times daily. 270 capsule 3 12/01/19 25 2025 Active celecoxib (CeleBREX) 50 MG capsule Take 1 capsule (50 mg) by mouth Once per day. 30 capsule 2 12/18/19 25 2024 Active pregabalin (Lyrica) 25 MG capsuleIndication s:Postherpetic neuralgia Take 1 capsule (25 mg) by mouth 3 times daily. 90 capsule 3 09/17/19 25 2024 Discontinued(R eorder (will not trigger notification to Pharmacy)) Active Problems Problem Noted Date Diagnosed Date Chronic bilateral low back pain 12/28/2024 Varicose veins of both lower extremities with pa in 12/28/2024 Diabetic polyneuropathy 12/28/2024 Postherpetic neuralgia 08/11/2024 Assessment & Plan (08/11/2024 [...] 1:51 PM EDT): Audiology eval w/ b/l [id number] SN hearing loss JUN 2021 -his agrees [...] for repeat per GI Paroxysmal atrial fibrillation (CMS/HCC) 016 Assessment & Plan (06/03/2023 1:52 PM EDT): [...] Encounters Date Type Department Care Team Description 12/28/2024 9:00 AM EDT Office Visit [facility] [address] [place] [address] Olga Paulino DO Type 2 diabetes mellitus with diabetic microalbuminuria, [...] with pain; Unintentional weight loss; Healthcare maintenance 12/28/2024 Travel 12/21/2024 Patient Outreach [facility] [address] [place], [place] [phone] Olga Paulino DO Pre-visit Planning (SDOH was already completed.) 12/21/2024 Telephone [facility] [address] [place] [address] Olga Paulino DO Chart Prep 12/17/2024 11:00 AM EDT Office Visit [facility] [address] [place] [address] Mary Bhagat MD Right foot pain (Primary Dx) 12/17/2024 Travel 12/10/2024 Orders Only GENERIC EXTERNAL DATA DEPARTMENT Provider, Generic External Data 12/01/2024 Telephone [facility] [address] [place] [address] Olga Paulino DO telephone call; Prior Authorization ([facility] PA: Lyrica 50 MG cap) 11/17/2024 Refill [facility] [address] [place] [address] Olga Paulino DO Postherpetic neuralgia 11/12/2024 Orders Only GENERIC EXTERNAL DATA DEPARTMENT Provider, Generic External Data 10/15/2024 Orders Only GENERIC EXTERNAL DATA DEPARTMENT Provider, Generic External Data 10/08/2024 9:00 AM EDT Office Visit [facility] [address] [place], [place] [phone] Oneal Wilder MD History of shingles (Primary Dx) 10/08/2024 Travel 10/08/2024 Refill [facility] [address] [place], [place] [phone] Olga Paulino DO Benign prostatic hyperplasia, unspecified whether lower urinary tract symptoms present; Paroxysmal atrial fibrillation (CMS/[facility]); Type 2 diabetes mellitus with other specified complication, unspecified whether penitentiary insulin use (CMS/HCC) 10/07/2024 Orders Only GENERIC EXTERNAL DATA DEPARTMENT Provider, Generic External Data 10/04/2024 Orders Only GENERIC EXTERNAL DATA DEPARTMENT Provider, Generic External Data from Last 3 Months Immunizations Immunization Administration Dates Next Due Influenza High-dose Quadriva lent Preservative Free 11/20/2021 Influenza Quadrivalent Adjuvanted 11/07/2022,,11/10/2019 Influenza injectable quadriv alent IIV4 with preservative 02/22/2016 Influenza injectable quadriv alent preservative free 12/02/2014 Influenza, High Dose Seasona l, Preservative Free 11/23/2024,12/09/2023,11/26/2017,12/03 Influenza, IIV3, injectable 11/08/2013,1 ,11/10/2009,12/15,12/25/2007,12/24/2006 Influenza, Split (incl. tommy fied surface antigen) 01/01/2014,11/03/2012,03/19/2012,11/26 Influenza, trivalent, adjuvanted 11/08/2018 Moderna Covid-19 Vaccine 12+ 08/13/2021, 03/05/2021,05/11/2020,04/13 Pfizer Covid-19 Vaccine 12+ 05/17/2024, Pfizer Covid-19 Vaccine 12+ Bivalent 01/15/2022 Pneumococcal Conjugate PCV 13 08/17/2014 Pneumococcal Conjugate PCV 20 06/03/2023 Pneumococcal Polysaccharide PPSV23 01/16/2015, RSV Bivalent 09/18/2024 TD (adult), 2 Lf tetanus tox oid, preservative free, adsorbed 07/11/2005 Tdap 05/15/2022,10/19/2015 Zoster, Recombinant 11/23/2024,09/18/2024 Social History Tobacco Use Types Packs/Day Years [...] Mass Index 28.79 12/28/2024 9:07 AM EDT Plan of Treatment Health Maintenance Due Date Last Done Comments Eye Exam 1950 Hepatitis A Vaccines (1 of 2 - Risk 2-dose series) 1957 Hepatitis B Vaccines (1 of 3 - Risk 3-dose series) 1998 Diabetes: Foot Exam 06/02/2024 06/03/2023, 06/03/2023, 06/03/2023, Additional history exists Lipid Panel 06/26/2024 06/27/2023, 11/02, 06/07/2021, Additional history exists Depression Screening 10/05/2024 10/06/2023, 10/06/19 24 COVID-19 Vaccine ( season) 2024 05/17/2024, 06/03/2023, 01/15/2022, Additional history exists SDOH Screening 05/10/2025 05/10/2024 Diabetes: Hemoglobin A1C 06/28/2025 025, 07/13/2024, 05/17/2024, Additional history exists Alcohol/Substance Use Screening 07/13/2025 07/13/2024 Tobacco Screening 12/28/2025 12/28/2024 DTaP/Tdap/Td Vaccines (3 - Td or Tdap) 05/15/2032 05/15/2022, 10/19/2015, 07/11/2005 Pneumococcal Vaccine: 50+ Years Completed 06/03/2023, 01/16/2015, 08/17/2014, Additional history exists RSV Patients and Patients Aged 60 years or older Completed 09/18/2024 Influenza Vaccine Completed 11/23/2024, , 11/07/2022, Additional history exists Zoster Vaccines Completed 11/23/2024, 09/18/2024 HIB Vaccines Aged Out No longer [...] microalbuminuria, without long-term current use of insulin ([facility]) POCT GLUCOSE Routine 12/28/2024 9:10 AM EDT Type 2 diabetes mellitus with diabetic microalbuminuria, without long-term current use of insulin ([facility]) PROTHROMBIN TIME WHOLE BLD POC Routine 12/10/2024 9:24 AM EDT ~PT, ~INR - ANTI COAG CLINIC Routine 12/10/2024 9:24 AM EDT PROTHROMBIN TIME WHOLE BLD POC Routine 11/12/2024 9:06 AM EDT ~PT, ~INR - ANTI COAG CLINIC Routine 11/12/2024 9:06 AM EDT PROTHROMBIN TIME WHOLE BLD POC Routine 10/15/2024 9:15 AM EDT ~PT, ~INR - ANTI COAG CLINIC Routine 10/15/2024 9:15 AM EDT PROTHROMBIN TIME WHOLE BLD POC Routine 10/07/2024 9:21 AM EDT ~PT, ~INR - ANTI COAG CLINIC Routine 10/07/2024 9:21 AM EDT SARS COV2/INFLUENZA A/B AND RSV RNA QL NAAT Routine 10/04/2024 10:42 AM EDT LIPID PANEL, STANDARD Routine 06/27/2023 8:40 AM EDT Type 2 diabetes mellitus with other diabetic kidney complication ([facility]/HCC) from Last 3 Months or Most Recently Relevant to Health Maintenance Results * (ABNORMAL) CBC auto differential (12/28/2024 9:54 AM EDT) [facility] White Blood Count 5.1 4.8 - 10.8 X10*3/uL [facility] Red Blood Count 4.41(L) 4.60 - 5.80 X10*6/uL [facility] Hemoglobin 12.6(L) 14.0 - 18.0 g/dl [facility] Hematocrit 40.3(L) 42.0 - 52.0 % [facility] Mean Corpuscular Volume 91.4 80.0 - 98.0 fL [facility] Mean Corpuscular Hemoglobin 28.6 27.0 - 33.0 pg [facility] Mean Corpuscular HGB Conc 31.3 31.0 - 36.0 g/dl [facility] Red Cell Distribution Width 13.9 11.0 - 16.0 % [facility] Platelet Count 135(L) 160 - 400 X10*3/uL [facility] Mean Platelet Volume 12.5(H) 9.4 - 12.4 fL [facility] Neutrophils Percent Auto 63.0 45 - 73 % [facility] Imm Gran Pct Auto 0.2 0.0 - 0.4 % [facility] Lymphocytes Percent Auto 21.3 20 - 40 % [facility] Monocytes Percent Auto 10.0 2 - 11 % [facility] Eosinophils Percent Auto 4.3(H) 0 - 4 % [facility] Basophils Percent Auto 1.2 0 - 2 % [facility] NRBC Pct Auto 0.0 0.0 - 0.2 /100WBC [facility] Neutrophils Absolute Auto 3.2 2.0 - 8.3 x10*3/uL [facility] Imm Gran Abs Auto 0.01 0.00 - 0.03 X10*3/uL [facility] Lymphocytes Absolute Auto 1.1(L) 1.2 - 4.9 X10*3/uL [facility] Monocytes Absolute Auto 0.5 0.1 - 1.2 X10*3/uL [facility] Eosinophils Absolute Auto 0.2 0.0 - 0.4 X10*3/uL [facility] Basophils Absolute Auto 0.1 0.0 - 0.2 X10*3/uL [facility] NRBC Abs Auto 0.000 0.0 - 0.012 X10*3/uL [facility] Blood Venous blood specimen / Unknown 12/28/2024 9:54 AM EDT 12/28/2024 11:02 AM EDT Olga Paulino DO LAB BLOOD ORDERABLES Final R esult [facility] [address] [place] [phone] * (ABNORMAL) POCT Hgb A1c (12/28/2024 9:10 AM EDT) [facility] Hemoglobin A1C 6.4(A) 4.0 - 5.7 % [employer] Media Lot # [id number] Lot# Expiration Date [id number] Blood 12/28/2024 9:10 AM EDT Olga Jeffnoryadrian DO POINT OF CARE TEST ENTER/PREETHI T ORDERABLES Final Result * (ABNORMAL) POCT Glucose (12/28/2024 9:10 AM EDT) [facility] Glucose Blood, POC 239(A) 60 - 200 mg/dL [employer] Lot # [id number] Lot# Expiration Date [id number] Blood Capillary blood specimen / Unknown 12/28/2024 9:10 AM EDT Olga Jeffnoryadrian DO POINT OF CARE TEST ENTER/PREETHI T ORDERABLES Final Result * (ABNORMAL) PROTHROMBIN TIME WHOLE BLD POC (12/10/2024 9:24 AM EDT) Only the most recent of4 resultswithin the time period is included. [facility] Protime 27.8(H) 11.1 - 13.5 sec [facility] 12/10/2024 9:24 AM EDT 12/10/2024 2:00 PM EDT us Generic External Data Provider LAB BLOOD ORDERAB LES Final Result Performing Organization Address [facility] Co de Phone Number [facility] [address] [place] [phone] * (ABNORMAL) ~PT, ~INR - ANTI COAG CLINIC (12/10/2024 9:24 AM EDT) Only the most recent of4 resultswithin the time period is included. Prothrombin Time INR 2.3(H) 0.9 - 1.1 [facility] Comment:METER #: [id number] TERNATIONAL NORMALIZED RATIO (INR) REFERENCE RANGES Reference RangeFor patients not on anticoagulant therapy: 0.9 - 1.1INR ranges for oral anticoagulanttherapy:For prevention and treatment of venous thrombosis and pulmonary embolism: 2.0 - 3.0For acute myocardial infarction with aspirin therapy: 2.0 - 3.0For acute myocardial infarction without aspirin therapy: 3.0 - 4.0For patients with mechanical prosthetic heart valves: 2.5 - 3.5 12/10/2024 9:24 AM EDT 12/10/2024 2:00 PM EDT Generic External Data Provider LAB BLOOD ORDERAB LES Final Result Performing Organization Address [facility] Co de Phone Number [facility] [address] [place] [phone] * SARS-CoV-2 RNA, Influenza A/B, and RSV RNA, Ql NAAT (10/04/2024 10:42 AM EDT) Influenza A PCR NEGATIVE Negative [facility] Influenza B PCR NEGATIVE Negative [facility] Resp Syncy Virus RNA Qual PCR NEGATIVE Negative [facility] SARS COV2 PCR NEGATIVE Negative [facility] Comment:All test results mus [...] use by authorized laboratories.Testing performed on the PAX Streamline GeneXpert utilizingreal-time RT-PCR.All SARS CoV2 and positive influenza A/B results arereported to [facility]. 10/04/2024 10:4 2 AM EDT 10/04/2024 4:23 PM EDT us Generic External Data Provider LAB MICROBIOLOGY - GENERAL ORDERABLES Final Result [facility] [address] [place] [phone] * (ABNORMAL) Lipid Panel, Standard (06/27/2023 8:40 AM EDT) Triglycerides 108 <150 mg/dL [facility] Comment:Desirable Triglyceri de: less than 150 mg/dLBorderline High Triglyceride 150-199 mg/dLHigh Triglyceride: 200-499 mg/dLVery High Triglyceride: greater than or equal to 5OO mg/dL Cholesterol 113 <200 mg/dL [facility] Comment:Desirable Cholestero l: less than 200 mg/dLBorderline High Cholesterol: 200-239 mg/dLHigh Cholesterol: greater than 239 mg/dL LDL Cholesterol Calculated 57 <100 mg/dL [facility] Comment:Desirable LDL: less than 100 mg/dLNear Optimal/Above Optimal LDL: 110- 129 mg/dLBorderline High LDL: 130-159 mg/dLHigh LDL: 160-189 mg/dLVery High LDL: greater than or equal to 190 mg/dL HDL Cholesterol 35(L) >40 mg/dL [facility] Comment:Desirable HDL: great er than 40 mg/dL Note: This HDL assay may give artificially low results in patients with liver disease. Blood Venous blood specimen / Unknown 06/27/2023 8:40 AM EDT 06/27/2023 11:31 AM EDT Olga Paulino DO LAB BLOOD ORDERABLES Final R esult [facility] [address] [place] [phone] from Last 3 Months or Most Recently Relevant to Health Maintenance Insurance [facility] [employer] (HMO D-SNP) FIORELLA MONTGOMERY [id number] * Guarantor: Ramesh Kenyon Account Type Relation to Patient Date of Phone Billing Address Personal/Family Self [address] [place] [address] Care Teams Stock Plan Administrator Relationship Specialty Start Date End Date Olga Paulino DO [address] [place] [phone] PCP - General Family Medicine 03/03/18
[2024-12-28 11:38] LABS: Alanine Aminotransferase 41 U/L (0-40); Albumin Level 4.3 g/dL (3.5-5.0); Alkaline Phosphatase 88 U/L (39-117); Anion Gap 8 (12-20); Aspartate Amino Transferase 33 U/L (5-37); Blood Urea Nitrogen 20 mg/dL (9-16); Calcium 9.6 mg/dL (8.4-10.2); Carbon Dioxide 31 mmol/L (22-29); Chloride 107 mmol/L (96-108); Cholesterol 126 mg/dL (<200); Estimated Glomerular Filt Rate > 60; HDL Cholesterol 40 mg/dL (>40); Iron 76 mcg/dL (45-160); Percent Iron Saturation 24 % (15-50); Potassium 4.4 mmol/L (3.3-5.1); Sodium 142 mmol/L (135-145); Total Iron Binding Capacity 311 mcg/dL (228-428); Total Protein 6.7 g/dL (6.5-8.0); Triglycerides 110 mg/dL (<150); Unsaturated Iron Binding 235 ug/dL
[2024-12-28 11:54] LABS: HIV Num 1 0.06 S/CO (0.00-0.99); Prealbumin 27.0 mg/dL (20-40); ~HepC Num1 0.11 S/CO (0.00-0.79); ~Hepatitis C Antibody Nonreactive (Nonreactive)
[2024-12-28 11:57] LABS: Ferritin 80 ng/mL (20-250); Free T4 (Free Thyroxine) 0.83 ng/dL (0.71-1.85); Thyroid Stimulating Hormone 1.61 uIU/mL (0.32-4.0)
[2024-12-28 12:09] LABS: Folate 8.2 ng/mL (> or = 4.0); Prostate Specific Antigen 2.61 ng/mL (<0.05-4.0); Vitamin B12 492 pg/mL (200-900)
[2024-12-28 12:27] LABS: Microalbum/Creatinine Ratio Ur 464.5 ug/mg cr (<30)
[2024-12-31 07:04] LABS: TS Negative Control Passed; TS Panel A 0; TS Panel B 0; TS Positive Control Passed; TSpotTB Negative (Negative)
== END 2024-12-28 09:45 | disposition home or self-care (01) ==
LOC: HO.HHCL 09:44
PROVIDERS: PCP Family Medicine; Visit Provider Family Medicine
DX: Z00.00 Encounter for general adult medical examination without abnormal findings (principal); Z11.1 Encounter for screening for respiratory tuberculosis; Z11.59 Encounter for screening for other viral diseases; Z11.4 Encounter for screening for human immunodeficiency virus [HIV]; Z12.5 Encounter for screening for malignant neoplasm of prostate; E11.29 Type 2 diabetes mellitus with other diabetic kidney complication; I10 Essential (primary) hypertension; E78.49 Other hyperlipidemia; D64.9 Anemia, unspecified; H91.93 Unspecified hearing loss, bilateral; I71.21 Aneurysm of the ascending aorta, without rupture; I48.0 Paroxysmal atrial fibrillation; M19.90 Unspecified osteoarthritis, unspecified site; M54.12 Radiculopathy, cervical region; M54.50 Low back pain, unspecified; G89.29 Other chronic pain; I83.813 Varicose veins of bilateral lower extremities with pain; R21 Rash and other nonspecific skin eruption; R91.8 Other nonspecific abnormal finding of lung field; L30.0 Nummular dermatitis; R80.9 Proteinuria, unspecified; R63.4 Abnormal weight loss
CPT/HCPCS: 36415; 80048; 80061; 80076; 81001; 82043; 82306; 82570; 82607; 82728; 82746; 83036; 83540; 84134; 84153; 84439; 84443; 85025; 85652; 86140; 86481; 86803; 87389

== ENCOUNTER 2025-01-05 06:54 | Outpatient (REF) | payer OTHER, SELFPAY ==
--- NOTE | ~2025-01-05 | CT_ITS ---
EXAMINATION: CT ABDOMEN AND PELVIS WITH CONTRAST CLINICAL INFORMATION: Unintentional weight loss. COMPARISON: April 18, 2021. TECHNIQUE: Multidetector volumetric images were obtained from the superior aspect of the liver through the pubic symphysis following administration 85 mL of Omnipaque 350 intravenous contrast. Sagittal and coronal reformatted images were obtained on the technologist's workstation. Oral contrast: Yes This CT examination was performed using dose optimization techniques as appropriate, variously including the following: *Automated exposure control *Adjustment of mA and/or kV according to patient size (this includes techniques or standardized protocols for targeted exams where dose is matched to indication/reason for exam; i.e. extremities or head) *Use of iterative reconstruction technique DLP: 359.8 mGy-cm FINDINGS: LUNG BASES: Linear and patchy pulmonary groundglass, lingula and left lung base. LIVER, GALLBLADDER, AND BILIARY TREE: Liver measures 16 cm. There is a 14 mm peripheral discontinuous and patulous enhancing lesion, peripheral lower right hepatic lobe.. Main portal veins, hepatic veins and intrahepatic portion of the IVC are patent. Gallbladder is contracted without pericholecystic fluid collection or gallbladder wall thickening. No intrahepatic or extrahepatic biliary ductal dilatation. PANCREAS: No focal mass. No peripancreatic fluid collection. No main pancreatic ductal dilatation. Volume loss. SPLEEN: 11 cm. No solid or cystic lesion. ADRENAL GLANDS: No nodular lesions. KIDNEYS AND URETERS: Normal enhancement pattern of the renal cortex without enhancing renal mass. Bilateral multifocal, different sizes, exophytic and cortical medullary junction and renal cortex fluid density lesions in both kidneys, the largest measures 4 cm in the right kidney and 2 cm in the left kidney. No hydronephrosis. No gross nephrolithiasis. No dilatation of the ureters. BLADDER: Fluid-filled nearly collapsed. GASTROINTESTINAL TRACT: Abundant stool, large intestine. No intestinal obstruction pattern. No gross intestinal wall thickening. Terminal ileum is normal. I do not see the appendix. No ascites. No pneumoperitoneum. No peripheral enhancing fluid collection, peritoneal cavity. No pneumatosis intestinalis. ABDOMINAL WALL: No gross umbilical hernia. LYMPH NODES: No mesenteric or retroperitoneal lymphadenopathy. VASCULAR: Mixed plaques throughout the abdominal aorta wall, iliac arteries, the origin of the mesenteric arteries, right main renal artery, splenic artery and coronary arteries. No aneurysm or dissection, aorta. The heart is enlarged, all 4 chambers.. PELVIC VISCERA: There is a 6 cm there is using is enlarged prostate gland protruding upon the urinary bladder floor. OSSEOUS STRUCTURES: There is calcification of the anterior longitudinal ligament with multilevel decreased intervertebral disc height throughout the lower thoracic spine. Multilevel marginal osteophyte formation and syndesmophyte formation throughout the lumbar spine. Decreased intervertebral disc height at L5-S1. Chondrocalcinosis in the intervertebral discs, L4-5 and L5-S1. There is sclerosis along the articular surface of the posterior spinous processes from L3 to L5 S1. There is fatty atrophy of the lower lumbar muscles likely denervation. CT/CT abdomen pelvis w IV con IMPRESSION: Probable benign prostate hyperplasia. Malignancy cannot be excluded. 14 mm hemangioma, right hepatic lobe. Atherosclerosis disease and coronary artery disease. Bilateral renal cysts. 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 Multilevel spondylosis, lumbar spine. Consider Baastruo disease. Fleischner guidelines were followed. Electronically signed by: Haim Kim MD 01/05/2025 10:28 AM [facility]
--- NOTE | ~2025-01-05 | CT_ITS ---
EXAMINATION: CT CHEST WITH IV CONTRAST INDICATION: unintentional weight loss, h/o lung nodules COMPARISON: Previous chest CT scans most recent January 2022 TECHNIQUE: Helical CT scan of the chest was performed following administration of intravenous contrast. Coronal and sagittal reformatted images were generated and reviewed. This CT exam was performed with one or more of the following dose reduction techniques: automated exposure control, adjustment of the mA and/or kV according to patient size, use of iterative reconstruction technique. DLP: 92 mGy-cm CHEST: THYROID: The thyroid is unremarkable. LUNGS: Biapical pleural and parenchymal scarring. Mild paraseptal and centrilobular emphysema. Stable small pulmonary nodules. Largest pulmonary nodules measure 4 mm in the peripheral or subpleural right upper lobe near the major fissure axial image 46 series 6 and left lower lobe near the diaphragmatic pleural surface axial image 94 series 6. There is a linear scarring or chronic subsegmental atelectasis at the lung bases. No new or enlarging pulmonary nodule. The central airways are clear. MEDIASTINUM: There is no mediastinal lymphadenopathy. ILANA: There is no hilar lymphadenopathy. CARDIOVASCULATURE: The heart is normal in size. The left atrium appears prominent. There is no pericardial effusion. Upper normal size descending thoracic aorta measuring 4 cm. DEGREE OF CORONARY CALCIFICATION: moderate-severe PLEURA: There is no pleural effusion. No pneumothorax. MAIN AIRWAYS: The mainstem bronchi and proximal branches are patent. AXILLA: There is no axillary lymphadenopathy. No chest wall mass. BONES AND SOFT TISSUES: Degenerative changes of the spine. UPPER ABDOMEN: See abdominal and pelvic CT report from the same day. CT/CT chest w IV con IMPRESSION: Stable pulmonary nodules, largest measuring 4 mm. Emphysema and biapical pleural and parenchymal scarring. Consider chest CT follow-up in lung cancer screening program if patient meets eligibility requirements. Moderate to severe coronary artery calcification. Electronically signed by: Grace Cosby MD 01/05/2025 10:59 AM [facility]
--- OUTSIDE RECORDS SUMMARY | 2025-01-05 06:57 | XMS_ITS | Encounter Summary ---
Author Organization [employer] Address [address] [facility] 7[address] [place] [address] Care Team Providers Care Care Transition Coordinator Name Role Phone Olga Paulino DO Primary Care Provider [phone] Reason for Visit * Reason Onset Date Comments Hospital Follow-up 06/18/2024 Encounter Details Date Type Department Care Team ([facility] st Contact Info) Description 06/18/2024 Telephone [facility] [address] [place] [address] Olga Paulino DO [address] [place], [place] [phone] Hospital Follow-up Social History Tobacco Use Types [...] from pt requesting a HDF appt. Hospital: [facility] Date of admission: 06/11/24 Discharge date: 06/12/24 Diagnosed: HTN *Send message to [facility] Care Coordinators Contact pt at [phone] documented in this encounter Plan of Treatment Not on file documented as of this encounter Visit Diagnoses Not on filedocumented in this encounter Additional Health Concerns Assessment Noted Time PHQ-9 Depression Total Score: 0 10/06/19 24 9:06 AM EDT documented as of this encounter Care Teams Care Transition Coordinator Relationship Specialty Start Date End Date Olga Paulino DO [address] [place] [phone] PCP - General Family Medicine 03/03/18 documented as of this encounter
--- OUTSIDE RECORDS SUMMARY | 2025-01-05 06:57 | XMS_ITS | Encounter Summary ---
Author Organization [employer] Address [address] [facility] 7t [place] [address] Care Team Providers Care Tax Compliance Agent Name Role Phone Olga Paulino DO Primary Care Provider [phone]- [phone] Encounter Details Date Type Department Care Team (Late st Contact Info) Description 06/28/2022 Orders Only [facility] [address] [place] [address] Olga Jaime LPN Social History Tobacco Use [...] on filedocumented in this encounter Care Teams Tax Compliance Agent Relationship Specialty Start Date End Date Olga Paulino DO [address] [place] [address] PCP - General Family Medicine 03/03/18 documented as of this encounter
--- OUTSIDE RECORDS SUMMARY | 2025-01-05 06:57 | XMS_ITS | Encounter Summary ---
Author Organization [employer] Address [address] [facility] 7[address] [place] [address] Care Team Providers Care Fire Boss Name Role Phone Olga Paulino DO Primary Care Provider [phone]- [phone] Encounter Details Date Type Department Care Team (Late st Contact Info) Description 04/26/2022 Orders Only [facility]S [address] [place] [address] Olga Jaime LPN Social History Tobacco Use [...] on filedocumented in this encounter Care Teams Fire Boss Relationship Specialty Start Date End Date Olga Paulino DO [address] [place] [address] PCP - General Family Medicine 03/03/18 documented as of this encounter
--- OUTSIDE RECORDS SUMMARY | 2025-01-05 06:57 | XMS_ITS | Clinical Summary ---
Author Organization [employer] Address [address] [facility] [address] [place] [address] Care Team Providers Care Director Human Services Name Role Phone Olga Paulino DO Primary Care Provider [phone] Allergies No known active allergies Medications Blood Glucose Monitoring Suppl (ShareNotes.comyle Ballantine Lite) w/Device kit USE TO CHECK BLOOD [...] 56.6 g 1 09/09/19 25 026 Active tamsulosin (Flomax) 0.4 MG 24 hr capsuleIndication s:Benign prostatic hyperplasia, unspecified whether lower urinary tract symptoms present TAKE 1 CAPSULE BY MOUTH EVERY DAY 1/2 HOUR FOLLOWING THE SAME MEAL EACH DAY 90 capsule 3 10/09/19 25 Active warfarin (Coumadin) 5 MG tabletIndications :Paroxysmal atrial fibrillation (CMS/HCC) ([facility]) TAKE 1 - 1 & 1/2 TABLETS POR VIA ORAL [facility] [place] [facility] AIDA LO INDICADO BY COUMADIN CLINIC 135 tablet 1 10/09/19 25 Active metFORMIN XR (Glucophage-XR) 500 MG 24 hr tabletIndications :Type 2 diabetes mellitus with other specified complication, unspecified whether care home insulin use ([facility]) TOME 1 TABLETA POR VIA ORAL [facility]OS [place] 90 tablet 1 10/09/19 25 Active celecoxib (CeleBREX) 50 MG capsule Take 1 capsule (50 mg) by mouth Once per day. 30 capsule 2 12/18/19 25 025 Active docusate sodium (Colace) 100 MG capsule Take 1 capsule (100 mg) by mouth 2 times daily. 180 capsule 3 12/29/19 25 026 Active polycarbophil (Fibercon) 625 MG tablet Take 1 tablet (625 mg) by mouth 2 times daily. 180 tablet 3 12/29/19 25 10/28/2 026 Active pregabalin (Lyrica) 25 MG capsuleIndication s:Diabetic polyneuropathy associated with type 2 diabetes mellitus (HCC) Take 1 capsule (25 mg) by mouth 3 times daily. 90 capsule 3 12/29/19 25 026 Active cholecalciferol (Vitamin D-3) 50 MCG (2000 UT) capsule Take 1 capsule (50 mcg) by mouth Once per day. 90 capsule 3 12/30/19 25 Active pregabalin (Lyrica) 50 MG capsuleIndication s:Postherpetic neuralgia Take 1 capsule (50 mg) by mouth 3 times daily. 270 capsule 3 12/01/19 25 025 Discontinued Active Problems Problem Noted [...] 1:51 PM EDT): Audiology eval w/ b/l [id number] SN hearing loss JUN 2021 -his agrees [...] Encounters Date Type Department Care Team Description 12/29/2024 Telephone [facility] [address] [place] [address] Olga Paulino DO Results 12/28/2024 9:00 AM EDT Office Visit [facility] [address] [place] [address] Olga Paulino DO Type 2 diabetes mellitus [...] veins of both lower extremities with pain; Chronic constipation; Unintentional weight loss; Healthcare maintenance 12/28/2024 Travel 12/21/2024 Patient Outreach [facility] [address] [place] [address] Olga Paulino DO Pre-visit Planning (SDOH was already completed.) 12/21/2024 Telephone [facility] [address] [place] [phone] Olga Paulino DO Chart Prep 12/17/2024 11:00 AM EDT Office Visit [facility] [address] [place] [phone] Mary Bhagat MD Right foot pain (Primary Dx) 12/17/2024 Travel 12/10/2024 Orders Only GENERIC EXTERNAL DATA DEPARTMENT Provider, Generic External Data 12/01/2024 Telephone [facility] [address] [place] [phone] Olga Paulino DO telephone call; Prior Authorization ([facility] PA: Lyrica 50 MG cap) 11/17/2024 Refill [facility] [address] [place] [phone] Olga Paulino DO Postherpetic neuralgia 11/12/2024 Orders Only GENERIC EXTERNAL DATA DEPARTMENT Provider, Generic External Data 10/15/2024 Orders Only GENERIC EXTERNAL DATA DEPARTMENT Provider, Generic External Data 10/08/2024 9:00 AM EDT Office Visit [facility] [address] [place] [phone] Oneal Wilder MD History of shingles (Primary Dx) 10/08/2024 Travel 10/08/2024 Refill [facility] [address] [place] [address] [phone] Olga Paulino DO Benign prostatic hyperplasia, unspecified whether lower urinary tract symptoms present; Paroxysmal atrial fibrillation ([facility]); Type 2 diabetes mellitus with other specified complication, unspecified whether ferry terminal supervisor insulin use ([facility]) 10/07/2024 Orders Only GENERIC EXTERNAL DATA DEPARTMENT [...] Sign Reading Time Taken Comments Blood Pressure 140/84 12/28/2024 2:39 PM EDT Pulse 80 12/28/2024 9:07 AM EDT [...] 06/02/2024 06/03/2023, 06/03/2023, 06/03/2023, Additional history exists Depression Screening 10/05/2024 10/06/2023, 10/06/19 COVID-19 Vaccine ( season) 2024 05/17/2024, 06/03/2023, 01/15/2022, Additional history exists SDOH Screening 05/10/2025 05/10/2024 Diabetes: Hemoglobin A1C 06/28/2025 025, 12/28/2024, 07/13/2024, Additional history exists Alcohol/Substance Use Screening 07/13/2025 07/13/2024 Lipid Panel 12/28/2025 12/28/2024, 06/02, 11/21/2022, Additional history exists Tobacco Screening 12/28/2025 12/28/2024 DTaP/Tdap/Td Vaccines (3 [...] Procedure Name Priority Date/Time Associated Diagnosis Comments HEPATITIS C AB W/REFL TO HCV RNA, QN, PCR Routine 12/28/2024 9:54 AM EDT Unintentional weight loss CBC WITH AUTO DIFFERENTIAL Routine 12/28/2024 9:54 AM EDT Unintentional weight loss C-REACTIVE PROTEIN Routine 12/28/2024 9: 54 AM EDT Unintentional weight loss PSA, TOTAL Routine 12/28/2024 9:54 AM EDT Unintentional weight loss T-SPOT(R).TB Routine 12/28/2024 9:54 AM EDT Unintentional weight loss HIV 1/2 ANTIGEN/ANTIBODY, FOURTH GENERATION W/RFL Routine 12/28/2024 9:54 AM EDT Unintentional weight loss URINALYSIS, COMPLETE Routine 12/28/2024 9:54 AM EDT Unintentional weight loss SED RATE BY MODIFIED WESTERGREN Routine 12/28/2024 9:54 AM EDT Unintentional weight loss PREALBUMIN Routine 12/28/2024 9:54 AM EDT Unintentional weight loss ALBUMIN, RANDOM URINE W/CREATININE Routine 12/28/2024 9:54 AM EDT Type 2 diabetes mellitus with diabetic microalbuminuria, without long-term current use of insulin (HCC) IRON AND TOTAL IRON BINDING CAPACITY Routine 12/28/2024 9:54 AM EDT Anemia, unspecified type FERRITIN Routine 12/28/2024 9:54 AM EDT Anemia, unspecified type VITAMIN B12/FOLATE, SERUM PANEL Routine 12/28/2024 9:54 AM EDT Anemia, unspecified type BASIC METABOLIC PANEL Routine 12/28/2024 9:54 AM EDT Type 2 diabetes mellitus with other diabetic kidney complication (HCC) Essential hypertension Other hyperlipidemia Anemia, unspecified type Bilateral hearing loss, unspecified hearing loss type Ascending aortic aneurysm, unspecified whether ruptured (CMS/HCC) Paroxysmal atrial fibrillation (CMS/HCC) (HCC) Inflammatory arthritis Cervical radiculopathy Multiple pulmonary nodules Chronic bilateral low back pain without sciatica Varicose veins of bilateral lower extremities with pain Rash Healthcare maintenance Nummular dermatitis Need for vaccination HEMOGLOBIN A1C Routine 12/28/2024 9:54 AM EDT Type 2 diabetes mellitus with other diabetic kidney complication (HCC) Essential hypertension Other hyperlipidemia Anemia, unspecified type Bilateral hearing loss, unspecified hearing loss type Ascending aortic aneurysm, unspecified whether ruptured (CMS/HCC) Paroxysmal atrial fibrillation (CMS/HCC) (HCC) Inflammatory arthritis Cervical radiculopathy Multiple pulmonary nodules Chronic bilateral low back pain without sciatica Varicose veins of bilateral lower extremities with pain Rash Healthcare maintenance Nummular dermatitis Need for vaccination HEPATIC FUNCTION PANEL Routine 12/28/2024 9:54 AM EDT Type 2 diabetes mellitus with other diabetic kidney complication (HCC) Essential hypertension Other hyperlipidemia Anemia, unspecified type Bilateral hearing loss, unspecified hearing loss type Ascending aortic aneurysm, unspecified whether ruptured (CMS/HCC) Paroxysmal atrial fibrillation (CMS/HCC) (HCC) Inflammatory arthritis Cervical radiculopathy Multiple pulmonary nodules Chronic bilateral low back pain without sciatica Varicose veins of bilateral lower extremities with pain Rash Healthcare maintenance Nummular dermatitis Need for vaccination TSH Routine 12/28/2024 9:54 AM EDT Type 2 diabetes mellitus with other diabetic kidney complication (HCC) Essential hypertension Other hyperlipidemia Anemia, unspecified type Bilateral hearing loss, unspecified hearing loss type Ascending aortic aneurysm, unspecified whether ruptured (CMS/HCC) Paroxysmal atrial fibrillation (CMS/HCC) (HCC) Inflammatory arthritis Cervical radiculopathy Multiple pulmonary nodules Chronic bilateral low back pain without sciatica Varicose veins of bilateral lower extremities with pain Rash Healthcare maintenance Nummular dermatitis Need for vaccination LIPID PANEL, STANDARD Routine 12/28/2024 9:54 AM EDT Type 2 diabetes mellitus with other diabetic kidney complication (HCC) Essential hypertension Other hyperlipidemia Anemia, unspecified type Bilateral hearing loss, unspecified hearing loss type Ascending aortic aneurysm, unspecified whether ruptured (CMS/HCC) Paroxysmal atrial fibrillation (CMS/HCC) (HCC) Inflammatory arthritis Cervical radiculopathy Multiple pulmonary nodules Chronic bilateral low back pain without sciatica Varicose veins of bilateral lower extremities with pain Rash Healthcare maintenance Nummular dermatitis Need for vaccination VITAMIN D,25-OH,TOTAL,IA Routine 12/28/2024 9:54 AM EDT Type 2 diabetes mellitus with other diabetic kidney complication (HCC) Essential hypertension Other hyperlipidemia Anemia, unspecified type Bilateral hearing loss, unspecified hearing loss type Ascending aortic aneurysm, unspecified whether ruptured (CMS/HCC) Paroxysmal atrial fibrillation (CMS/HCC) (HCC) Inflammatory arthritis Cervical radiculopathy Multiple pulmonary nodules Chronic bilateral low back pain without sciatica Varicose veins of bilateral lower extremities with pain Rash Healthcare maintenance Nummular dermatitis Need for vaccination T4, FREE Routine 12/28/2024 9:54 AM EDT Type 2 diabetes mellitus with other diabetic kidney complication (HCC) Essential hypertension Other hyperlipidemia Anemia, unspecified type Bilateral hearing loss, unspecified hearing loss type Ascending aortic aneurysm, unspecified whether ruptured (CMS/HCC) Paroxysmal atrial fibrillation (CMS/HCC) (HCC) Inflammatory arthritis Cervical radiculopathy Multiple pulmonary nodules Chronic bilateral low back pain without sciatica Varicose veins of bilateral lower extremities with pain Rash Healthcare maintenance Nummular dermatitis Need for vaccination POCT GLYCATED HEMOGLOBIN, TOTAL Routine 12/28/2024 9:10 AM EDT Type 2 diabetes mellitus with diabetic microalbuminuria, without long-term current use of insulin (HCC) POCT GLUCOSE Routine 12/28/2024 9:10 AM EDT Type 2 diabetes mellitus with diabetic microalbuminuria, without long-term current use of insulin (HCC) PROTHROMBIN TIME WHOLE BLD POC Routine 12/10/2024 [...] [facility] Routine 10/07/2024 9:21 AM EDT from Last 3 Months Results * (ABNORMAL) Vitamin D, 25-Hydroxy, Total, Immunoassay (12/28/2024 9:54 AM EDT) [facility] Vitamin D 25-OH Total 21.3(L) >30 ng/mL [facility] Comment: Health Based Reference Values*< 20 ng/mL Sfqymhbvo45-36 ng/mL Insufficient> 30 ng/mL Sufficient*Vanessa MULLIGAN. N Engl J Med. 2007;357:266-280There is no well-established upper level of normal vitamin Dlevels. Some laboratories use 50 ng/mL as an upper limit ofnormal. However, toxicity is patient-dependent and may occurat any level. Careful correlation with the patient'spresentation is necessary and, if there is concern forvitamin D toxicity, treatment should be consideredirrespective of the serum level.Care must be taken in interpreting Vitamin D results fromdifferent laboratories and methodologies. Published datademonstrated that results from patients undergoinghemodialysis may show a negative bias when tested withvarious automated 25-OH vitamin D assays when compared toLC-MS/MS.When testing samples from patients whose predominant form ofVitamin D is Vitamin D2, such as patients receiving VitaminD2 supplementation, results that are subtherapeutic shouldbe confirmed with another method such as LC-MS/MS. Blood Venous blood specimen / Unknown 12/28/2024 9:54 AM EDT 12/28/2024 11:02 AM EDT Olga Paulino DO LAB BLOOD ORDERABLES Final R esult Performing Organization Address [facility] Co de Phone Number [facility] [address] [place] [phone] * Vitamin B12 (Cobalamin) and Folate Panel, Serum (12/28/2024 9:54 AM EDT) [facility] Vitamin B12 492 200 - 900 pg/mL [facility] Comment:NORMAL 200-900 PG/ML INDETERMINATE 160-199 PG/ML DEFICIENT < 160 PG/ML Folate 8.2 > or = 4.0 ng/mL [facility] Comment:Reference Values:> o r = 4.0 ng/mL< 4.0 ng/mL suggests folate deficiency Methotrexate, aminopterin and folinic acid(leucovorin) are chemotherapeutic agents whose molecularstructures are similar to folate; therefore, the Architectfolate assay cannot be used for patients using these drugs. Blood 12/28/2024 9:54 AM EDT 12/28/2024 11:02 AM EDT Olga Paulino DO LAB BLOOD ORDERABLES Final R esult Performing Organization Address [facility] Co de Phone Number [facility] [address] [place] [phone] * T-SPOT??.TB (12/28/2024 9:54 AM EDT) [facility] T Spot TB Negative Negative [facility] Comment:A negative test resu lt does not exclude the possibilityof exposure to or infection with Mycobacteriumtuberculosis (M. tuberculosis). Patients with recentexposure to TB infected individuals exhibiting anegative T-SPOT.TB result should be considered forretesting within 6 weeks or if other relevant clinicalsymptoms indicate. Results from T-SPOT.TB testing mustbe used in conjunction with each individual'sepidemiological history, current medical status,and results of other diagnostic evaluations.The T-SPOT.TB test is qualitative and results arereported as positive, borderline, or negative, giventhat the test controls perform as expected. In linewith the Centers for Disease Control and Prevention's2010 recommendation to report quantitative measurementsalongside the qualitative result, the laboratoryprovides spot counts for informational purposes only.The T-SPOT.TB test should not be interpreted as aquantitative test. TS PANEL A 0 [facility] TS PANEL B 0 [facility] Negative Control Passed [facility] Positive Control Passed [facility] Comment:For additional infor srikanth, please refer tohttp://education.Palamida/faq/WQH804(This link is being provided for informational/educational purposes only.)THIS TEST WAS PERFORMED AT:[id number] [place] [address]ZUIGDCKMARIEL IRVING MD,PHD 12/28/2024 9:54 AM EDT 12/28/2024 11:02 AM EDT us Olga Paulino DO LAB BLOOD ORDERABLES Final R esult [facility] [address] [place] [phone] * (ABNORMAL) Albumin, Random Urine W/Creatinine (12/28/2024 9:54 AM EDT) Creatinine, Urine 57.26 mg/dL [facility] Microalbumin Urine 266.0 mg/L [facility] Microalbum Creatinine Ratio Ur 464.5(H) <30 ug/mg cr [facility] Comment:Albumin/Creatinine R atio Reference Ranges: Normal: < 30 ug/mg creatinine Microalbuminuria: 30 - 300 ug/mg creatinineClinical Albuminuria: > 300 ug/mg creatinine Urine (Urine, Random) 12/28/2024 9:54 AM EDT 12/28/2024 11:02 AM EDT Olga Paulino DO LAB URINE ORDERABLES Final R esult [facility] [address] [place] [phone] * (ABNORMAL) CBC auto differential (12/28/2024 9:54 AM EDT) White Blood Count 5.1 4.8 - 10.8 X10*3/uL [facility] Red Blood Count 4.41(L) 4.60 - 5.80 X10*6/uL [facility] Hemoglobin 12.6(L) 14.0 - 18.0 g/dl [facility] Hematocrit 40.3(L) 42.0 - 52.0 % [facility] Mean Corpuscular Volume 91.4 80.0 - 98.0 fL [facility] Mean Corpuscular Hemoglobin 28.6 27.0 - 33.0 pg [facility] Mean Corpuscular HGB Conc 31.3 31.0 - 36.0 g/dl [facility] Red Cell Distribution Width 13.9 11.0 - 16.0 % [facility] Platelet Count 135(L) 160 - 400 X10*3/uL [facility] Mean Platelet Volume 12.5(H) 9.4 - 12.4 fL [facility] Neutrophils Percent Auto 63.0 45 - 73 % [facility] Imm Gran Pct Auto 0.2 0.0 - 0.4 % [facility] Lymphocytes Percent Auto 21.3 20 - 40 % [facility] Monocytes Percent Auto 10.0 2 - 11 % [facility] Eosinophils Percent Auto 4.3(H) 0 - 4 % [facility] Basophils Percent Auto 1.2 0 - 2 % [facility] NRBC Pct Auto 0.0 0.0 - 0.2 /100WBC [facility] Neutrophils Absolute Auto 3.2 2.0 - 8.3 x10*3/uL [facility] Imm Gran Abs Auto 0.01 0.00 - 0.03 X10*3/uL [facility] Lymphocytes Absolute Auto 1.1(L) 1.2 - 4.9 X10*3/uL [facility] Monocytes Absolute Auto 0.5 0.1 - 1.2 X10*3/uL [facility] Eosinophils Absolute Auto 0.2 0.0 - 0.4 X10*3/uL [facility] Basophils Absolute Auto 0.1 0.0 - 0.2 X10*3/uL [facility] NRBC Abs Auto 0.000 0.0 - 0.012 X10*3/uL [facility] Blood Venous blood specimen / Unknown 12/28/2024 9:54 AM EDT 12/28/2024 11:02 AM EDT Olga Paulino DO LAB BLOOD ORDERABLES Final R esult Performing Organization Address [facility] de Phone Number [facility] [address] [place] [phone] * Hepatitis C Antibody with Reflex to HCV, RNA, Quantitative, Real-Time PCR (12/28/2024 9:54 AM EDT) Hepatitis C Antibody Nonreactive Nonreactive [facility] Comment:Antibodies to HCV no t detected; does not exclude early acuteHCV infection. Blood Venous blood specimen / Unknown 12/28/2024 9:54 AM EDT 12/28/2024 11:02 AM EDT Olga Paulino DO LAB BLOOD ORDERABLES Final R esult Performing Organization Address City/[facility] Co de Phone Number [facility] [address] [place] [phone] * Iron And Total Iron Binding Capacity (12/28/2024 9:54 AM EDT) Iron 76 45 - 160 mcg/dL [facility] Total Iron Binding Capacity 311 228 - 428 mcg/dL [facility] Percent Iron Saturation 24 15 - 50 % [facility] Unsaturated Iron Binding 235 ug/dL [facility] Blood Venous blood specimen / Unknown 12/28/2024 9:54 AM EDT 12/28/2024 11:02 AM EDT us Olga Paulino DO LAB BLOOD ORDERABLES Final R esult [facility] [address] [place] [phone] * HIV-1/2 Antigen and Antibodies, Fourth Generation, with Reflexes (12/28/2024 9:54 AM EDT) Pathologist [facility] HIV AB/AG Nonreactive Nonreactive [facility] Comment:HIV-1 p24 Ag and/or HIV-1/HIV-2 Ab not detected.A test result that is nonreactive does not exclude thepossibility of exposure to or infection with HIV-1 and/orHIV-2. Nonreactive results in this assay for individualswith prior exposure to HIV-1 and/or HIV-2 may be due toantigen and antibody levels that are below the limit ofdetection of this assay.The [employer] HIV Ag/Ab Combo assay result andsupplemental assay results should be interpreted inconjunction with the patient's clinical presentation,history and other laboratory results. If the results areinconsistent with clinical evidence, additional testing issuggested to confirm the result. Blood Venous blood specimen / Unknown 12/28/2024 9:54 AM EDT 12/28/2024 11:02 AM EDT us Olga Paulino DO LAB BLOOD ORDERABLES Final R esult Performing Organization Address [facility] Co de Phone Number [facility] [address], [place] [phone] * (ABNORMAL) Urinalysis Complete (12/28/2024 9:54 AM EDT) Color Urine Yellow [facility] Appearance Urine Clear [facility] PH 5.5 5.0 - 9.0 [facility] Glucose Urine UA Negative Negative mg/dL [facility] Urine Blood Negative Negative [facility] Specific [place] - Urine 1.015 1.005 - 1.025 [facility] Urine Protein 30 (1+)(A) Neg-Trace mg/dL [facility] Urine Ketones Negative Negative mg/dL [facility] Nitrite Urine Negative Negative [facility] Leukocyte Esterase Urine Negative Negative [facility] RBC Urine 0-2 0 - 2 /HPF [facility] Urine WBC 0-5 0 - 5 /HPF [facility] Urine Squamous Epithelial Cell 0-2 0 - 2 /HPF [facility] Urine Bacteria None Seen None Seen [facility] Hyaline Casts, Urine 0-2 0 - 2 /LPF [facility] Urine (Urine, Random) 12/28/2024 9:54 AM EDT 12/28/2024 11:02 AM EDT Olga Paulino DO LAB URINE ORDERABLES Final R esult Performing Organization Address [facility] Co de Phone Number [facility] [address] [place] [phone] * Sed Rate by Courtney Braga (12/28/2024 9:54 AM EDT) Erythrocyte Sedimentation Rate 8 0 - 15 MM/HR [facility] Comment:Patients with polycy themia and many hemoglobin abnormalitiesmay have depressed sed rates whereas patients with anemiamay have elevated sed rates. Blood Venous blood specimen / Unknown 12/28/2024 9:54 AM EDT 12/28/2024 11:02 AM EDT Olga Jeffnoryadrian DO LAB BLOOD ORDERABLES Final R esult Performing Organization Address City/[facility]/ZIP Co de Phone Number [facility] [address] [place] [phone] * C-reactive Protein (12/28/2024 9:54 AM EDT) C Reactive Protein <0.04 < or = 0.50 mg/dL [facility] Blood Venous blood specimen / Unknown 12/28/2024 9:54 AM EDT 12/28/2024 11:02 AM EDT Olga Jefferson DO LAB BLOOD ORDERABLES Final R esult Performing Organization Address City/[facility]/ZIP Co de Phone Number [facility] [address] [place] [phone] * TSH (12/28/2024 9:54 AM EDT) Thyroid Stimulating Hormone 1.61 0.32 - 4.0 uIU/mL [facility] Comment:TSH 3rd Generation ( [facility]) Blood Venous blood specimen / Unknown 12/28/2024 9:54 AM EDT 12/28/2024 11:02 AM EDT Olga Jeffconstanza DO LAB BLOOD ORDERABLES Final R esult Performing Organization Address City/[facility]/ZIP Co de Phone Number [facility] [address] [place] [phone] * T4, Free (12/28/2024 9:54 AM EDT) Free T4 (Free Thyroxine) 0.83 0.71 - 1.85 ng/dL [facility] Blood Venous blood specimen / Unknown 12/28/2024 9:54 AM EDT 12/28/2024 11:02 AM EDT Olga Paulino LAB BLOOD ORDERABLES Final R esult Performing Organization Address [facility] Co de Phone Number [facility] [address] [place] [phone] PSA,Total (12/28/2024 9:54 AM EDT) Prostate Specific Antigen 2.61 <0.05 - 4.0 ng/mL [facility] Comment:PSA methodology: Linda Levi i ChemiluminescentMicroparticle Immunoassay (CMIA) Blood Venous blood specimen / Unknown 12/28/2024 9:54 AM EDT 12/28/2024 11:02 AM EDT Olga Paulino LAB BLOOD ORDERABLES Final R esult Performing Organization Address [facility] Co de Phone Number [facility] [address] [place] [phone] * Prealbumin (12/28/2024 9:54 AM EDT) [facility] Prealbumin 27.0 20 - 40 mg/dL [facility] Blood Venous blood specimen / Unknown 12/28/2024 9:54 AM EDT 12/28/2024 11:02 AM EDT Olga Paulino LAB BLOOD ORDERABLES Final R esult Performing Organization Address [facility] Co de Phone Number [facility] [address] [place] [phone] * (ABNORMAL) Hemoglobin A1c (12/28/2024 9:54 AM EDT) Hemoglobin A1c 6.6(H) <6.0 % [facility] Comment:Hemoglobin A1C Refer ence Range Adults: 4.8 - 6.0 % Non diabetic: < 6.0 % Goal: < 7.0 %Additional Action Suggested: > 8.0 %Note: Hemoglobin A1c results are invalid for patients with abnormal amounts of HbF. Blood transfusions may impact the HbA1c concentration in the patient sample. Estimated Average Glucose 143 mg/dL [facility] Comment:eAG = Estimated ave rage glucose which is %A1C expressed asaverage glucose, using the formula of the R1L-UwdigtwQoelvfe Glucose study (ADAG), Diabetes Care, Vol.31,#8,Oct. 2007 Blood Venous blood specimen / Unknown 12/28/2024 9:54 AM EDT 12/28/2024 11:02 AM EDT Olga Paulino DO LAB BLOOD ORDERABLES Final R esult Performing Organization Address [facility]/ZIP Co de Phone Number [facility] [address] [place] [phone] * Ferritin (12/28/2024 9:54 AM EDT) Ferritin 80 20 - 250 ng/mL [facility] Blood Venous blood specimen / Unknown 12/28/2024 9:54 AM EDT 12/28/2024 11:02 AM EDT us Olga Paulino DO LAB BLOOD ORDERABLES Final R esult Performing Organization Address City/[facility] Co de Phone Number [facility] [address] [place] [phone] * (ABNORMAL) Hepatic Function Panel (12/28/2024 9:54 AM EDT) Bilirubin, Total 0.6 0.0 - 1.0 mg/dL [facility] Bilirubin, Direct 0.2 0.0 - 0.5 mg/dL [facility] Aspartate Amino Transferase 33 5 - 37 U/L [facility] Alanine Aminotransferase 41(H) 0 - 40 U/L [facility] Total Protein 6.7 6.5 - 8.0 g/dL [facility] Albumin Level 4.3 3.5 - 5.0 g/dL [facility] Alkaline Phosphatase 88 39 - 117 U/L [facility] Blood Venous blood specimen / Unknown 12/28/2024 9:54 AM EDT 12/28/2024 11:02 AM EDT Olga Paulino DO LAB BLOOD ORDERABLES Final R esult Performing Organization Address [facility] Co de Phone Number [facility] [address] [place] [phone] * (ABNORMAL) Lipid Panel, Standard (12/28/2024 9:54 AM EDT) Triglycerides 110 <150 mg/dL [facility] Comment:Desirable Triglyceri de: less than 150 mg/dLBorderline High Triglyceride 150-199 mg/dLHigh Triglyceride: 200-499 mg/dLVery High Triglyceride: greater than or equal to 5OO mg/dL Cholesterol 126 <200 mg/dL [facility] Comment:Desirable Cholestero l: less than 200 mg/dLBorderline High Cholesterol: 200-239 mg/dLHigh Cholesterol: greater than 239 mg/dL LDL Cholesterol Calculated 64 <100 mg/dL [facility] Comment:Desirable LDL: less than 100 mg/dLNear Optimal/Above Optimal LDL: 110- 129 mg/dLBorderline High LDL: 130-159 mg/dLHigh LDL: 160-189 mg/dLVery High LDL: greater than or equal to 190 mg/dL HDL Cholesterol 40(L) >40 mg/dL [facility] Comment:Desirable HDL: great er than 40 mg/dL Note: This HDL assay may give artificially low results in patients with liver disease. Blood Venous blood specimen / Unknown 12/28/2024 9:54 AM EDT 12/28/2024 11:02 AM EDT us Olga Paulino DO LAB BLOOD ORDERABLES Final R esult Performing Organization Address City/[facility]/ZIP Co de Phone Number [facility] [address] [place] [phone] * (ABNORMAL) Basic Metabolic Panel (12/28/2024 9:54 AM EDT) Sodium 142 135 - 145 mmol/L [facility] Potassium 4.4 3.3 - 5.1 mmol/L [facility] Chloride 107 96 - 108 mmol/L [facility] Carbon Dioxide 31(H) 22 - 29 mmol/L [facility] Anion Gap 8(L) 12 - 20 [facility] Urea Nitrogen (BUN) 20(H) 9 - 16 mg/dL [facility] Creatinine, Serum 0.86 0.5 - 1.4 mg/dL [facility] Estimated Glomerular Filt Rate >60 [facility] Comment:Chronic Kidney Disea se: Estimated GFR < 60 mL/min/1.10t2Vdnlml Kidney Disease: Estimated GFR < 15 mL/min/1.73m2 Glucose 131(H) 60 - 115 mg/dL [facility] Calcium 9.6 8.4 - 10.2 mg/dL [facility] Blood Venous blood specimen / Unknown 12/28/2024 9:54 AM EDT 12/28/2024 11:02 AM EDT us Olga Paulino DO LAB BLOOD ORDERABLES Final R esult [facility] [address] [place] [phone] * (ABNORMAL) POCT Hgb A1c (12/28/2024 9:10 AM EDT) Hemoglobin A1C 6.4(A) 4.0 - 5.7 % QC Media Lot # [id number] Lot# Expiration Date ,181,294 Blood 12/28/2024 9:10 AM EDT us Olga Paulino DO POINT OF CARE TEST ENTER/PREETHI T ORDERABLES Final Result * (ABNORMAL) POCT Glucose (12/28/2024 9:10 AM EDT) Glucose Blood, POC 239(A) 60 - 200 mg/dL QC Media Lot # [id number] Lot# Expiration Date Blood Capillary blood specimen / Unknown 12/28/2024 9:10 AM EDT Olga Paulino DO POINT OF CARE TEST ENTER/PREETHI T ORDERABLES Final Result * (ABNORMAL) PROTHROMBIN TIME WHOLE BLD POC (12/10/2024 9:24 AM EDT) Only the most recent of4 resultswithin the time period is included. Pathologist [facility] Protime 27.8(H) 11.1 - 13.5 sec [facility] 12/10/2024 9:24 AM EDT 12/10/2024 2:00 PM EDT us Generic External Data Provider LAB BLOOD ORDERAB LES Final Result [facility] [address] [place] [phone] * (ABNORMAL) ~PT, ~INR - ANTI COAG CLINIC (12/10/2024 9:24 AM EDT) Only the most recent of4 resultswithin the time period is included. [facility] Prothrombin Time INR 2.3(H) 0.9 - 1.1 [facility] Comment:METER #: [id number] TERNATIONAL NORMALIZED RATIO (INR) REFERENCE RANGES Reference [...] Provider LAB BLOOD ORDERAB LES Final Result [facility] [address] [place] [phone] from Last 3 Months Insurance [employer] [employer] (HMO D-SNP) FIORELLA MONTGOMERY [id number] * Guarantor: Ramesh Kenyon Account Type Relation to Patient Date of Phone Billing Address Personal/Family Self [address] [place] [address] Care Teams Director Human Services Relationship Specialty Start Date End Date Olga Paulino DO [address] [place] [address] PCP - General Family Medicine 03/03/18
[2025-01-05] MEDS: iohexoL 350 MG/ML 100 ML INFUS..BTL IV (10:02)
[2025-01-05] MEDS: Barium Sulfate Oral (Berry) 450 ML ORAL.SUSP 900 ML PO (10:03)
== END 2025-01-05 06:55 | disposition home or self-care (01) ==
LOC: HO.CT 06:54
PROVIDERS: PCP Family Medicine; Visit Provider Family Medicine
DX: R63.4 Abnormal weight loss (principal); R91.8 Other nonspecific abnormal finding of lung field
CPT/HCPCS: 71260; 74177; Q9967

== ENCOUNTER → 2025-01-05 06:56 | Outpatient (BNV) | payer OTHER, SELFPAY | PROVIDERS: PCP Family Medicine; Visit Provider Radiology Diagnostic Radiology | DX: N28.1 Cyst of kidney, acquired (principal); J43.9 Emphysema, unspecified; I25.10 Atherosclerotic heart disease of native coronary artery without angina pectoris; M47.817 Spondylosis without myelopathy or radiculopathy, lumbosacral region; R91.8 Other nonspecific abnormal finding of lung field | CPT/HCPCS: 71260; 74177 ==

== ENCOUNTER 2025-01-07 08:49 | Outpatient (AMB) | payer OTHER, SELFPAY ==
--- NOTE | 2025-01-07 09:09 | MHC.OFFVISCO ---
Intake Intake Visit Reasons: Anticoagulation Allergies No Known Allergies (No Known Allergies*) Allergy (Verified 01/07/25 09:00) Medication List - Last Reconciled 01/07/25 by Aniyah Kern RN acetaminophen 1,000 mg (2 x 500 mg) PO Q8H PRN albuterol sulfate 90 mcg/actuation 2 puffs inhalation Q4H PRN azithromycin For 250 mg dose pack: take 500 mg today (day 1), then 250 mg for 4 days (days 2-5) PO benzonatate 100 mg PO bid-tid PRN 7 days gabapentin 300 mg PO TID 14 days lisinopril 2.5 mg PO QPM metformin ER 500 mg PO DAILY nitroglycerin 0.4 mg sublingual Q5M rosuvastatin 20 mg PO DAILY tamsulosin 0.4 mg PO QPM warfarin 5 mg See Protocol PO DAILY Nursing Note INR: 2.7 in therapeutic range of 2-3 Medications and supplements reviewed No changes in health, diet, medications, or supplements, Denies any signs and symptoms of bleeding or bruising or clotting. Bleeding, bruising, clotting discussed Nutritional guidance given Dose: 7.5mg X 4 days and 5mg X 3 days (Fri, Fri & Fri) F/U INR: 02/04/25 Patient verbalizes understanding of instructions given Anti-Coag Initial Assessment Social Hx Patient Tobacco Use Status: Former Tobacco user alcohol intake: never Alcohol intake frequency: former alcohol drinker Coding Level of Care Code Est Patient Level 1 Diagnoses Current use of anticoagulant therapy Z79.01 Results AMB INR Fingerstick AMB INR Fingerstick 2.7 Last Edit by Aniyah Kern RN on 01/07/25 09:09 interface delay Assessment & Plan Assessment & Plan (1) Current use of anticoagulant therapy: Onset Date: ~01/2015 Comment: (on Coumadin - for AFib dx 01/2015) Code(s): Z79.01 - prison (current) use of anticoagulants Category: Medical
--- OUTSIDE RECORDS SUMMARY | 2025-01-07 09:31 | XMS_ITS | Encounter Summary ---
Author Organization [employer] Address [address] [facility] [address] [place] [address] Care Team Providers Care Chiropractic Teacher Name Role Phone Olga Paulino DO Primary Care Provider [phone]- [phone] Encounter Details Date Type Department Care Team (Late st Contact Info) Description 06/28/2022 Orders Only [facility] MED & PEDS [address] [place] [address] Olga Jaime LPN Social History Tobacco Use [...] on filedocumented in this encounter Care Teams Chiropractic Teacher Relationship Specialty Start Date End Date Olga Paulino DO [address] [place] [address] PCP - General Family Medicine 03/03/18 documented as of this encounter
--- OUTSIDE RECORDS SUMMARY | 2025-01-07 09:31 | XMS_ITS | Encounter Summary ---
Author Organization [employer] Address [address] [facility] [address] [place] [address] Care Team Providers Care Gauger Chief Name Role Phone Olga Paulino DO Primary Care Provider [phone] Reason for Visit * Reason Onset Date Comments Hospital Follow-up 06/18/2024 Encounter Details Date Type Department Care Team ([facility] st Contact Info) Description 06/18/2024 Telephone [facility] MEDICINE [address] [place] [phone] Olga Paulino DO [address] [place], [place] [phone] Hospital Follow-up Social History Tobacco Use Types [...] from pt requesting a HDF appt. [facility]: [facility] Date of admission: 06/11/24 Discharge date: 06/12/24 Diagnosed: HTN *Send message to [facility] Coordinators Contact pt at [phone] documented in this encounter Plan of Treatment Not on file documented as of this encounter Visit Diagnoses Not on filedocumented in this encounter Additional Health Concerns Assessment Noted Time PHQ-9 Depression Total Score: 0 10/06/19 24 9:06 AM EDT documented as of this encounter Care Teams Gauger Chief Relationship Specialty Start Date End Date Olga Paulino DO [address] [place] [phone] PCP - General Family Medicine 03/03/18 documented as of this encounter
--- OUTSIDE RECORDS SUMMARY | 2025-01-07 09:32 | XMS_ITS | Encounter Summary ---
Author Organization [employer] Address [address] [facility] [address] [place] [address] Care Team Providers Care Plug Paster Name Role Phone Olga Paulino DO Primary Care Provider [phone]- [phone] Reason for Visit * Reason Onset Date Comments Results 01/06/2025 Encounter Details Date Type Department Care Team ([facility] st Contact Info) Description 01/06/2025 Telephone [facility] MEDICINE [address] [place] [address] Olga Paulino DO [address] [place], [place] [phone] Results Social History Tobacco Use Types Packs/Day Years [...] encounter Miscellaneous Notes * Telephone Encounter - Julia Driscoll RN - 01/06/2025 12:45 PM EST RN reviewed CT chest and CT abdomen/pelvis with PCP which returned showing stable lung nodules which PCP will f/u in 1 year with repeat imaging and enlarged prostate in which PCP will refer patient to urology for further evaluation. TC placed to patient [phone] to inform of above message however no answer, RN left VM requesting CB to red team nurses. RN will re-attempt in AM. documented in this encounter Plan of Treatment Not on file documented as of this encounter Visit Diagnoses Not on filedocumented in this encounter Additional Health Concerns Assessment Noted Time PHQ-9 Depression Total Score: 0 10/06/19 24 9:06 AM EDT documented as of this encounter Care Teams Plug Paster Relationship Specialty Start Date End Date Olga Paulino DO [address] [place] [address] PCP - General Family Medicine 03/03/18 documented as of this encounter
--- OUTSIDE RECORDS SUMMARY | 2025-01-07 09:32 | XMS_ITS | Encounter Summary ---
Author Organization [employer] Address [address] [facility] [address] [place] [address] Care Team Providers Care Director Of Search Engine Optimization Name Role Phone Olga Paulino DO Primary Care Provider [phone]- [phone] Encounter Details Date Type Department Care Team (Late st Contact Info) Description 04/26/2022 Orders Only [facility] CHC MED & PEDS [address] [place] [address] Olga Jaime LPN Social History Tobacco Use [...] on filedocumented in this encounter Care Teams Director Of Search Engine Optimization Relationship Specialty Start Date End Date Olga Paulino DO [address] [place] [address] PCP - General Family Medicine 03/03/18 documented as of this encounter
--- OUTSIDE RECORDS SUMMARY | 2025-01-07 09:33 | XMS_ITS | Clinical Summary ---
Author Organization [employer] Address [address] [facility] [address] [place] [address] Care Team Providers Care Range Feeder Name Role Phone Olga Paulino DO Primary Care Provider Allergies No known active allergies Medications Blood Glucose Monitoring Suppl (Portafareyle Erie Lite) w/Device kit USE TO CHECK BLOOD [...] 5 MG tabletIndications :Paroxysmal atrial fibrillation (CMS/HCC) ([facility]) TAKE 1 - 1 & 1/2 TABLETS POR VIA ORAL TODOS LOS [place] AIDA LO INDICADO BY [facility] 135 tablet 1 10/09/19 25 Active metFORMIN XR (Glucophage-XR) 500 MG 24 hr tabletIndications :Type 2 diabetes mellitus with other specified complication, unspecified whether usp insulin use ([facility]) TOME 1 TABLETA POR VIA ORAL TODOS [...] 1:51 PM EDT): Audiology eval w/ b/l [id number] SN hearing loss JUN 2021 -his agrees [...] Encounters Date Type Department Care Team Description 01/06/2025 Telephone [facility] [address] [place] [phone] Olga Paulino, Results 12/29/2024 Telephone [facility] [address] [place] [address] Olga Paulino, Results 12/28/2024 9:00 AM EDT Office Visit [facility] [address] [place] [address] Olga Paulino DO Type 2 diabetes mellitus [...] Healthcare maintenance 12/28/2024 Travel 12/21/2024 Patient Outreach [facility] [address] [place] [address] Olga Paulino DO Pre-visit Planning (SDOH was already completed.) 12/21/2024 Telephone [facility] [address] [place] [phone] Olga Paulino DO Chart Prep 12/17/2024 11:00 AM EDT Office Visit [facility] [address] [place] [address] Mary Bhagat MD Right foot pain (Primary Dx) 12/17/2024 Travel 12/10/2024 Orders Only GENERIC EXTERNAL DATA DEPARTMENT Provider, Generic External Data 12/01/[address] [address] Olga Paulino DO telephone call; Prior Authorization (CCA PA: Lyrica 50 MG cap) 11/17/2024 Refill [facility] [address] [place] [address] Olga Paulino DO Postherpetic neuralgia 11/12/2024 Orders Only GENERIC EXTERNAL DATA DEPARTMENT Provider, Generic External Data 10/15/2024 Orders Only GENERIC EXTERNAL DATA DEPARTMENT Provider, Generic External Data 10/08/2024 9:00 AM EDT Office Visit [address] [address] Oneal Wilder MD History of shingles (Primary Dx) 10/08/2024 Travel 10/08/2024 Refill [facility] [address] [place] [address] Olga Paulino DO Benign prostatic hyperplasia, unspecified whether lower urinary tract symptoms present; Paroxysmal atrial fibrillation ([facility]); Type 2 diabetes mellitus with other specified complication, unspecified whether terminologist insulin use ([facility]) 10/07/2024 Orders Only GENERIC EXTERNAL DATA DEPARTMENT [...] Screening 07/13/2025 07/13/2024 Lipid Panel 12/28/2025 12/28/2024, 0408/2023, 11/21/2022, Additional history exists Tobacco Screening 12/28/2025 [...] Procedure Name Priority Date/Time Associated Diagnosis Comments CT ABDOMEN PELVIS W CONTRAST Urgent 01/05/2025 9:40 AM EST Unintentional weight loss CT CHEST W CONTRAST Urgent 01/05/2025 9 :40 AM EST Unintentional weight loss HEPATITIS C AB W/REFL TO HCV RNA, [...] EDT from Last 3 Months Results * CT Abdomen Pelvis w/ Contrast (01/05/2025 9:40 AM EST) Anatomical Region Laterality Modality Body, Pelvis, Abdomen Computed T omography 01/05/2025 9:40 AM EST Narrative 01/05/2025 10:31 AM EST [address] [address] [address] Scan Report Signed Patient: Ramesh Blank MR#: [id number] : 1940 Acct:[id number] Age/Sex: 84 / M ADM Date: 01/05/25 Loc: HO.CT Attending Dr: Olga Paulino DO Ordering Physician: Olga Paulino DO Date of Service: 01/05/25 Procedure(s): CT abdomen pelvis w IV con Accession Number(s): [id number] cc: Olga Paulino DO Report Number: [id number]: Total DLP = 0.00 mGy-cm Reason for Exam: unintentional weight loss with constipation EXAMINATION: CT ABDOMEN AND PELVIS WITH CONTRAST CLINICAL INFORMATION: Unintentional weight loss. COMPARISON: April 18, 2021. TECHNIQUE: Multidetector volumetric images were obtained from the superior aspect of the liver through the pubic symphysis following administration 85 mL of Omnipaque 350 intravenous contrast. Sagittal and coronal reformatted images were obtained on the technologist's workstation. Oral contrast: Yes This CT examination was performed using dose optimization techniques as appropriate, variously including the following: *Automated exposure control *Adjustment of mA and/or kV according to patient size (this includes techniques or standardized protocols for targeted exams where dose is matched to indication/reason for exam; i.e. extremities or head) *Use of iterative reconstruction technique DLP: 359.8 mGy-cm FINDINGS: LUNG BASES: Linear and patchy pulmonary groundglass, lingula and left lung base. LIVER, GALLBLADDER, AND BILIARY TREE: Liver measures 16 cm. There is a 14 mm peripheral discontinuous and patulous enhancing lesion, peripheral lower right hepatic lobe.. Main portal veins, hepatic veins and intrahepatic portion of the IVC are patent. Gallbladder is contracted without pericholecystic fluid collection or gallbladder wall thickening. No intrahepatic or extrahepatic biliary ductal dilatation. PANCREAS: No focal mass. No peripancreatic fluid collection. No main pancreatic ductal dilatation. Volume loss. SPLEEN: 11 cm. No solid or cystic lesion. ADRENAL GLANDS: No nodular lesions. KIDNEYS AND URETERS: Normal enhancement pattern of the renal cortex without enhancing renal mass. Bilateral multifocal, different sizes, exophytic and cortical medullary junction and renal cortex fluid density lesions in both kidneys, the largest measures 4 cm in the right kidney and 2 cm in the left kidney. No hydronephrosis. No gross nephrolithiasis. No dilatation of the ureters. BLADDER: Fluid-filled nearly collapsed. GASTROINTESTINAL TRACT: Abundant stool, large intestine. No intestinal obstruction pattern. No gross intestinal wall thickening. Terminal ileum is normal. I do not see the appendix. No ascites. No pneumoperitoneum. No peripheral enhancing fluid collection, peritoneal cavity. No pneumatosis intestinalis. ABDOMINAL WALL: No gross umbilical hernia. LYMPH NODES: No mesenteric or retroperitoneal lymphadenopathy. VASCULAR: Mixed plaques throughout the abdominal aorta wall, iliac arteries, the origin of the mesenteric arteries, right main renal artery, splenic artery and coronary arteries. No aneurysm or dissection, aorta. The heart is enlarged, all 4 chambers.. PELVIC VISCERA: There is a 6 cm there is using is enlarged prostate gland protruding upon the urinary bladder floor. OSSEOUS STRUCTURES: There is calcification of the anterior longitudinal ligament with multilevel decreased intervertebral disc height throughout the lower thoracic spine. Multilevel marginal osteophyte formation and syndesmophyte formation throughout the lumbar spine. Decreased intervertebral disc height at L5-S1. Chondrocalcinosis in the intervertebral discs, L4-5 and L5-S1. There is sclerosis along the articular surface of the posterior spinous processes from L3 to L5 S1. There is fatty atrophy of the lower lumbar muscles likely denervation. CT/CT abdomen pelvis w IV con IMPRESSION: Probable benign prostate hyperplasia. Malignancy cannot be excluded. 14 mm hemangioma, right hepatic lobe. Atherosclerosis disease and coronary artery disease. Bilateral renal cysts. 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 Multilevel spondylosis, lumbar spine. Consider Baastruo disease. Fleischner guidelines were followed. Electronically signed by: Haim Kim MD 01/05/2025 10:28 AM [facility] [place]ict[place] By: Haim Cunha MD Signed By: <Electronically signed by Haim Silver MD in OV> 01/05/25 1028 DD/ 0940 TD/TT: 01/05/25 [employer] Room Operator: Procedure Note Donotuseinterpreter, Image - 01/05/[address] [address] [address] Scan Report Signed Patient: Ramesh BlankMR#: [id number] : 1940cct:[id number] Age/Sex: 84 / MADM Date: 01/05/25 Loc: HO.CT Attending Dr: Olga Paulino DO Ordering Physician: Olga Paulino DO Date of Service: 01/05/25 Procedure(s): CT abdomen pelvis w IV con Accession Number(s): [id number] cc: Olga Paulino DO Report Number: [id number]: Total DLP = 0.00 mGy-cm Reason for Exam: unintentional weight loss with constipation EXAMINATION: CT ABDOMEN AND PELVIS WITH CONTRAST CLINICAL INFORMATION: Unintentional weight loss. COMPARISON: April 18, 2021. TECHNIQUE: Multidetector volumetric images were obtained from the superior aspect of the liver through the pubic symphysis following administration 85 mL of Omnipaque 350 intravenous contrast. Sagittal and coronal reformatted images were obtained on the technologist's workstation. Oral contrast: Yes This CT examination was performed using dose optimization techniques as appropriate, variously including the following: *Automated exposure control *Adjustment of mA and/or kV according to patient size (this includes techniques or standardized protocols for targeted exams where dose is matched to indication/reason for exam; i.e. extremities or head) *Use of iterative reconstruction technique DLP: 359.8 mGy-cm FINDINGS: LUNG BASES: Linear and patchy pulmonary groundglass, lingula and left lung base. LIVER, GALLBLADDER, AND BILIARY TREE: Liver measures 16 cm. There is a 14 mm peripheral discontinuous and patulous enhancing lesion, peripheral lower right hepatic lobe.. Main portal veins, hepatic veins and intrahepatic portion of the IVC are patent. Gallbladder is contracted without pericholecystic fluid collection or gallbladder wall thickening. No intrahepatic or extrahepatic biliary ductal dilatation. PANCREAS: No focal mass. No peripancreatic fluid collection. No main pancreatic ductal dilatation. Volume loss. SPLEEN: 11 cm. No solid or cystic lesion. ADRENAL GLANDS: No nodular lesions. KIDNEYS AND URETERS: Normal enhancement pattern of the renal cortex without enhancing renal mass. Bilateral multifocal, different sizes, exophytic and cortical medullary junction and renal cortex fluid density lesions in both kidneys, the largest measures 4 cm in the right kidney and 2 cm in the left kidney. No hydronephrosis. No gross nephrolithiasis. No dilatation of the ureters. BLADDER: Fluid-filled nearly collapsed. GASTROINTESTINAL TRACT: Abundant stool, large intestine. No intestinal obstruction pattern. No gross intestinal wall thickening. Terminal ileum is normal. I do not see the appendix. No ascites. No pneumoperitoneum. No peripheral enhancing fluid collection, peritoneal cavity. No pneumatosis intestinalis. ABDOMINAL WALL: No gross umbilical hernia. LYMPH NODES: No mesenteric or retroperitoneal lymphadenopathy. VASCULAR: Mixed plaques throughout the abdominal aorta wall, iliac arteries, the origin of the mesenteric arteries, right main renal artery, splenic artery and coronary arteries. No aneurysm or dissection, aorta. The heart is enlarged, all 4 chambers.. PELVIC VISCERA: There is a 6 cm there is using is enlarged prostate gland protruding upon the urinary bladder floor. OSSEOUS STRUCTURES: There is calcification of the anterior longitudinal ligament with multilevel decreased intervertebral disc height throughout the lower thoracic spine. Multilevel marginal osteophyte formation and syndesmophyte formation throughout the lumbar spine. Decreased intervertebral disc height at L5-S1. Chondrocalcinosis in the intervertebral discs, L4-5 and L5-S1. There is sclerosis along the articular surface of the posterior spinous processes from L3 to L5 S1. There is fatty atrophy of the lower lumbar muscles likely denervation. CT/CT abdomen pelvis w IV con IMPRESSION: Probable benign prostate hyperplasia. Malignancy cannot be excluded. 14 mm hemangioma, right hepatic lobe. Atherosclerosis disease and coronary artery disease. Bilateral renal cysts. 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 Multilevel spondylosis, lumbar spine. Consider Baastruo disease. Fleischner guidelines were followed. Electronically signed by: Haim Kim MD 01/05/2025 10:28 AM EST Dictated By: Haim Cunha MD Signed By: <Electronically signed by Haim Silver MDin OV> 01/05/25 1028 DD/ 0940 TD/TT: 01/05/25 [employer] Room Operator: Olga Paulino DO IMG CT PROCEDURES Final Resu lt * CT Chest w/ Contrast (01/05/2025 9:40 AM EST) Anatomical Region Laterality Modality Body, Chest Computed Tomogra phy 01/05/2025 9:40 AM EST Narrative 01/05/2025 11:[address] [address] [address] Scan Report Signed Patient: Ramesh Blank MR#: [id number] : 1940 Acct:[id number] Age/Sex: 84 / M ADM Date: 01/05/25 Loc: HO.CT Attending Dr: Olga Paulino DO Ordering Physician: Olga Paulino DO Date of Service: 01/05/25 Procedure(s): CT chest w IV con Accession Number(s): [id number] cc: Olga Paulino DO Report Number: [id number]: Total DLP = 470.00 mGy-cm Reason for Exam: unintentional weight loss, h/o lung nodules EXAMINATION: CT CHEST WITH IV CONTRAST INDICATION: unintentional weight loss, h/o lung nodules COMPARISON: Previous chest CT scans most recent January 2022 TECHNIQUE: Helical CT scan of the chest was performed following administration of intravenous contrast. Coronal and sagittal reformatted images were generated and reviewed. This CT exam was performed with one or more of the following dose reduction techniques: automated exposure control, adjustment of the mA and/or kV according to patient size, use of iterative reconstruction technique. DLP: 92 mGy-cm CHEST: THYROID: The thyroid is unremarkable. LUNGS: Biapical pleural and parenchymal scarring. Mild paraseptal and centrilobular emphysema. Stable small pulmonary nodules. Largest pulmonary nodules measure 4 mm in the peripheral or subpleural right upper lobe near the major fissure axial image 46 series 6 and left lower lobe near the diaphragmatic pleural surface axial image 94 series 6. There is a linear scarring or chronic subsegmental atelectasis at the lung bases. No new or enlarging pulmonary nodule. The central airways are clear. MEDIASTINUM: There is no mediastinal lymphadenopathy. ILANA: There is no hilar lymphadenopathy. CARDIOVASCULATURE: The heart is normal in size. The left atrium appears prominent. There is no pericardial effusion. Upper normal size descending thoracic aorta measuring 4 cm. DEGREE OF CORONARY CALCIFICATION: moderate-severe PLEURA: There is no pleural effusion. No pneumothorax. MAIN AIRWAYS: The mainstem bronchi and proximal branches are patent. AXILLA: There is no axillary lymphadenopathy. No chest wall mass. BONES AND SOFT TISSUES: Degenerative changes of the spine. UPPER ABDOMEN: See abdominal and pelvic CT report from the same day. CT/CT chest w IV con IMPRESSION: Stable pulmonary nodules, largest measuring 4 mm. Emphysema and biapical pleural and parenchymal scarring. Consider chest CT follow-up in lung cancer screening program if patient meets eligibility requirements. Moderate to severe coronary artery calcification. Electronically signed by: Grace Cosby MD 01/05/2025 10:59 AM EST Dictated By: Grace Cosby MD Signed By: <Electronically signed by Grace Cosby MD in OV> 01/05/25 1059 DD/ 0940 TD/TT: 01/05/25 [employer] Room Operator: LUIZ Procedure Note Donotuseinterpreter, Image - 01/05/[address] [address] [address] Scan Report Signed Patient: Ramesh BlankMR#: [id number] : 1940cct:[id number] Age/Sex: 84 / MADM Date: 01/05/25 Loc: .CT Attending Dr: Olga Paulino DO Ordering Physician: Olga Paulino DO Date of Service: 01/05/25 Procedure(s): CT chest w IV con Accession Number(s): [id number] cc: Olga Paulino DO Report Number: [id number]: Total DLP = 470.00 mGy-cm Reason for Exam: unintentional weight loss, h/o lung nodules EXAMINATION: CT CHEST WITH IV CONTRAST INDICATION: unintentional weight loss, h/o lung nodules COMPARISON: Previous chest CT scans most recent January 2022 TECHNIQUE: Helical CT scan of the chest was performed following administration of intravenous contrast. Coronal and sagittal reformatted images were generated and reviewed. This CT exam was performed with one or more of the following dose reduction techniques: automated exposure control, adjustment of the mA and/or kV according to patient size, use of iterative reconstruction technique. DLP: 92 mGy-cm CHEST: THYROID: The thyroid is unremarkable. LUNGS: Biapical pleural and parenchymal scarring. Mild paraseptal and centrilobular emphysema. Stable small pulmonary nodules. Largest pulmonary nodules measure 4 mm in the peripheral or subpleural right upper lobe near the major fissure axial image 46 series 6 and left lower lobe near the diaphragmatic pleural surface axial image 94 series 6. There is a linear scarring or chronic subsegmental atelectasis at the lung bases. No new or enlarging pulmonary nodule. The central airways are clear. MEDIASTINUM: There is no mediastinal lymphadenopathy. ILANA: There is no hilar lymphadenopathy. CARDIOVASCULATURE: The heart is normal in size. The left atrium appears prominent. There is no pericardial effusion. Upper normal size descending thoracic aorta measuring 4 cm. DEGREE OF CORONARY CALCIFICATION: moderate-severe PLEURA: There is no pleural effusion. No pneumothorax. MAIN AIRWAYS: The mainstem bronchi and proximal branches are patent. AXILLA: There is no axillary lymphadenopathy. No chest wall mass. BONES AND SOFT TISSUES: Degenerative changes of the spine. UPPER ABDOMEN: See abdominal and pelvic CT report from the same day. CT/CT chest w IV con IMPRESSION: Stable pulmonary nodules, largest measuring 4 mm. Emphysema and biapical pleural and parenchymal scarring. Consider chest CT follow-up in lung cancer screening program if patient meets eligibility requirements. Moderate to severe coronary artery calcification. Electronically signed by: Grace Cosby MD 01/05/2025 10:59 AM EST Dictated By: Grace Cosby MD Signed By: <Electronically signed by Grace Cosby MD in OV> 01/05/25 1059 DD/ 0940 TD/TT: 01/05/25 101[employer] Room Operator: LUIZ Olga Paulino DO IMG CT PROCEDURES Final Resu lt * (ABNORMAL) Vitamin D, 25-Hydroxy, Total, Immunoassay (12/28/2024 9:54 AM EDT) Vitamin D 25-OH Total 21.3(L) >30 ng/mL [facility] Comment: Health Based Reference Values*< 20 ng/mL Joglhuovu12-92 ng/mL Insufficient> 30 ng/mL Sufficient*Vanessa MULLIGAN. N [...] DO LAB BLOOD ORDERABLES Final R esult [facility] [address] [place] [phone] * Vitamin B12 (Cobalamin) and Folate Panel, Serum (12/28/2024 9:54 AM EDT) Vitamin B12 492 200 - 900 pg/mL [facility] Comment:NORMAL 200-900 PG/ML INDETERMINATE 160-199 PG/ML DEFICIENT < 160 PG/ML Folate 8.2 > or = 4.0 ng/mL [facility] Comment:Reference Values:> o r = 4.0 ng/mL< 4.0 ng/mL suggests folate deficiency Methotrexate, aminopterin and folinic acid(leucovorin) are chemotherapeutic agents whose molecularstructures are similar to folate; therefore, the Architectfolate assay cannot be used for patients using these drugs. Blood 12/28/2024 9:54 AM EDT 12/28/2024 11:02 AM EDT Olga Paulino DO LAB BLOOD ORDERABLES Final R esult [facility] [address] [place] [address] [phone] * T-SPOT??.TB (12/28/2024 9:54 AM EDT) [facility] T Spot TB Negative Negative [facility] Comment:A negative test resu lt does [...] as aquantitative test. TS PANEL A 0 [facility] TS PANEL B 0 [facility] Negative Control Passed [facility] Positive Control Passed [facility] Comment:For additional infor mation, please refer tohttp://education.GlassesOff/faq/OGS939(This link is being provided for informational/educational purposes only.)THIS TEST WAS PERFORMED AT:[employer] [id number] [place] [address]HMEDSVVMARIEL IRVING MD,PHD 12/28/2024 9:54 AM EDT 12/28/2024 11:02 AM EDT Olga Paulino DO LAB BLOOD ORDERABLES Final R esult Performing Organization Address [facility] Co de Phone Number [facility] [address] [place] [phone] * (ABNORMAL) Albumin, Random Urine W/Creatinine (12/28/2024 9:54 AM EDT) Creatinine, Urine 57.26 mg/dL [facility] Microalbumin Urine 266.0 mg/L [facility] Microalbum Creatinine Ratio Ur 464.5(H) <30 ug/mg cr [facility] Comment:Albumin/Creatinine R atio Reference Ranges: Normal: < 30 ug/mg creatinine Microalbuminuria: 30 - 300 ug/mg creatinineClinical Albuminuria: > 300 ug/mg creatinine Urine (Urine, Random) 12/28/2024 9:54 AM EDT 12/28/2024 11:02 AM EDT Olga Paulino DO LAB URINE ORDERABLES Final R esult Performing Organization Address City/[facility] Co de Phone Number [facility] [address] [place] [phone] * (ABNORMAL) CBC auto differential (12/28/2024 9:54 AM EDT) White Blood Count 5.1 4.8 - 10.8 X10*3/uL [facility] Red Blood Count 4.41(L) 4.60 - 5.80 X10*6/uL [facility] Hemoglobin 12.6(L) 14.0 - 18.0 g/dl [facility] Hematocrit 40.3(L) 42.0 - 52.0 % [facility] Mean Corpuscular Volume 91.4 80.0 - 98.0 fL [facility] Mean Corpuscular Hemoglobin 28.6 27.0 - 33.0 pg [facility] Mean Corpuscular HGB Conc 31.3 31.0 - 36.0 g/dl [facility] Red Cell Distribution Width 13.9 11.0 - 16.0 % [facility] Platelet Count 135(L) 160 - 400 X10*3/uL [facility] Mean Platelet Volume 12.5(H) 9.4 - 12.4 fL [facility] Neutrophils Percent Auto 63.0 45 - 73 % [facility] Imm Gran Pct Auto 0.2 0.0 - 0.4 % [facility] Lymphocytes Percent Auto 21.3 20 - 40 % [facility] Monocytes Percent Auto 10.0 2 - 11 % [facility] Eosinophils Percent Auto 4.3(H) 0 - 4 % [facility] Basophils Percent Auto 1.2 0 - 2 % [facility] NRBC Pct Auto 0.0 0.0 - 0.2 /100WBC [facility] Neutrophils Absolute Auto 3.2 2.0 - 8.3 x10*3/uL [facility] Imm Gran Abs Auto 0.01 0.00 - 0.03 X10*3/uL [facility] Lymphocytes Absolute Auto 1.1(L) 1.2 - 4.9 X10*3/uL [facility] Monocytes Absolute Auto 0.5 0.1 - 1.2 X10*3/uL [facility] Eosinophils Absolute Auto 0.2 0.0 - 0.4 X10*3/uL [facility] Basophils Absolute Auto 0.1 0.0 - 0.2 X10*3/uL [facility] NRBC Abs Auto 0.000 0.0 - 0.012 X10*3/uL [facility] Blood Venous blood specimen / Unknown 12/28/2024 9:54 AM EDT 12/28/2024 11:02 AM EDT us Olga Paulino DO LAB BLOOD ORDERABLES Final R esult [facility] [address] [place] [phone] * Hepatitis C Antibody with Reflex to HCV, RNA, Quantitative, Real-Time PCR (12/28/2024 9:54 AM EDT) [facility] Hepatitis C Antibody Nonreactive Nonreactive [facility] Comment:Antibodies to HCV no t detected; does not exclude early acuteHCV infection. Blood Venous blood specimen / Unknown 12/28/2024 9:54 AM EDT 12/28/2024 11:02 AM EDT Olga Paulino LAB BLOOD ORDERABLES Final R esult Performing Organization Address [facility] Co de Phone Number [facility] [address] [place] [phone] * Iron And Total Iron Binding Capacity (12/28/2024 9:54 AM EDT) [facility] Iron 76 45 - 160 mcg/dL [facility] Total Iron Binding Capacity 311 228 - 428 mcg/dL [facility] Percent Iron Saturation 24 15 - 50 % [facility] Unsaturated Iron Binding 235 ug/dL [facility] Blood Venous blood specimen / Unknown 12/28/2024 9:54 AM EDT 12/28/2024 11:02 AM EDT Olga Paulino DO LAB BLOOD ORDERABLES Final R esult Performing Organization Address City/[facility] Co de Phone Number [facility] [address] [place] [phone] * HIV-1/2 Antigen and Antibodies, Fourth Generation, with Reflexes (12/28/2024 9:54 AM EDT) [facility] HIV AB/AG Nonreactive Nonreactive [facility] Comment:HIV-1 p24 Ag and/or HIV-1/HIV-2 Ab not detected.A test result that is nonreactive does not exclude thepossibility of exposure to or infection with HIV-1 and/orHIV-2. Nonreactive results in this assay for individualswith prior exposure to HIV-1 and/or HIV-2 may be due toantigen and antibody levels that are below the limit ofdetection of this assay.The [employer] Oil HIV Ag/Ab Combo assay result andsupplemental assay results should be interpreted inconjunction with the patient's clinical presentation,history and other laboratory results. If the results areinconsistent with clinical evidence, additional testing issuggested to confirm the result. Blood Venous blood specimen / Unknown 12/28/2024 9:54 AM EDT 12/28/2024 11:02 AM EDT us Olga Paulino DO LAB BLOOD ORDERABLES Final R esult [facility] [address] [place] [phone] * (ABNORMAL) Urinalysis Complete (12/28/2024 9:54 AM EDT) Color Urine Yellow [facility] Appearance Urine Clear [facility] PH 5.5 5.0 - 9.0 [facility] Glucose Urine UA Negative Negative mg/dL [facility] Urine Blood Negative Negative [facility] Specific Hawley - Urine 1.015 1.005 - 1.025 [facility] Urine Protein 30 (1+)(A) Neg-Trace mg/dL [facility] Urine Ketones Negative Negative mg/dL [facility] Nitrite Urine Negative Negative [facility] Leukocyte Esterase Urine Negative Negative [facility] RBC Urine 0-2 0 - 2 /HPF [facility] Urine WBC 0-5 0 - 5 /HPF [facility] Urine Squamous Epithelial Cell 0-2 0 - 2 /HPF [facility] Urine Bacteria None Seen None Seen [facility] Hyaline Casts, Urine 0-2 0 - 2 /LPF [facility] Urine (Urine, Random) 12/28/2024 9:54 AM EDT 12/28/2024 11:02 AM EDT Olga Jefferson DO LAB URINE ORDERABLES Final R esult Performing Organization Address City/[facility] Co de Phone Number [facility] [address] [place] [phone] * Sed Rate by Modified Westergren (12/28/2024 9:54 AM EDT) Erythrocyte Sedimentation Rate 8 0 - 15 MM/HR [facility] Comment:Patients with polycy themia and many hemoglobin abnormalitiesmay have depressed sed rates whereas patients with anemiamay have elevated sed rates. Blood Venous blood specimen / Unknown 12/28/2024 9:54 AM EDT 12/28/2024 11:02 AM EDT Olga Jefferson PADILLA LAB BLOOD ORDERABLES Final R esult Performing Organization Address [facility] Co de Phone Number [facility] [address] [place] [phone] * C-reactive Protein (12/28/2024 9:54 AM EDT) C Reactive Protein <0.04 < or = 0.50 mg/dL [facility] Blood Venous blood specimen / Unknown 12/28/2024 9:54 AM EDT 12/28/2024 11:02 AM EDT Olga Jefferson DO LAB BLOOD ORDERABLES Final R esult Performing Organization Address [facility] Co de Phone Number [facility] [address] [place] [phone] * TSH (12/28/2024 9:54 AM EDT) Thyroid Stimulating Hormone 1.61 0.32 - 4.0 uIU/mL [facility] Comment:TSH 3rd Generation ( [facility]) Blood Venous blood specimen / Unknown 12/28/2024 9:54 AM EDT 12/28/2024 11:02 AM EDT lOga Paulino DO LAB BLOOD ORDERABLES Final R esult [facility] [address] [place] [phone] * T4, Free (12/28/2024 9:54 AM EDT) Free T4 (Free Thyroxine) 0.83 0.71 - 1.85 ng/dL [facility] Blood Venous blood specimen / Unknown 12/28/2024 9:54 AM EDT 12/28/2024 11:02 AM EDT Olga Paulino LAB BLOOD ORDERABLES Final R esult Performing Organization Address [facility] Co de Phone Number [facility] [address] [place] [phone] * PSA,Total (12/28/2024 9:54 AM EDT) Prostate Specific Antigen 2.61 <0.05 - 4.0 ng/mL [facility] Comment:PSA methodology: Linda Levi i ChemiluminescentMicroparticle Immunoassay (CMIA) Blood Venous blood specimen / Unknown 12/28/2024 9:54 AM EDT 12/28/2024 11:02 AM EDT Olga Paulino DO LAB BLOOD ORDERABLES Final R esult Performing Organization Address [facility]/ZIP Co de Phone Number [facility] [address] [place] [phone] * Prealbumin (12/28/2024 9:54 AM EDT) Prealbumin 27.0 20 - 40 mg/dL [facility] Blood Venous blood specimen / Unknown 12/28/2024 9:54 AM EDT 12/28/2024 11:02 AM EDT Olga Jefferson DO LAB BLOOD ORDERABLES Final R esult Performing Organization Address [facility] Co de Phone Number [facility] [address] [place] [phone] * (ABNORMAL) Hemoglobin A1c (12/28/2024 9:54 AM EDT) Hemoglobin A1c 6.6(H) <6.0 % [facility] Comment:Hemoglobin A1C Refer ence Range Adults: 4.8 - 6.0 % Non diabetic: < 6.0 % Goal: < 7.0 %Additional Action Suggested: > 8.0 %Note: Hemoglobin A1c results are invalid for patients with abnormal amounts of HbF. Blood transfusions may impact the HbA1c concentration in the patient sample. Estimated Average Glucose 143 mg/dL [facility] Comment:eAG = Estimated ave rage glucose which is %A1C expressed asaverage glucose, using the formula of the [id number] Glucose study (ADAG), Diabetes Care, Vol.31,#8,2007 Blood Venous blood specimen / Unknown 12/28/2024 9:54 AM EDT 12/28/2024 11:02 AM EDT us Olga Paulino DO LAB BLOOD ORDERABLES Final R esult Performing Organization Address City/[facility]/ZIP Co de Phone Number [facility] [address] [place] [phone] * Ferritin (12/28/2024 9:54 AM EDT) Ferritin 80 20 - 250 ng/mL [facility] Blood Venous blood specimen / Unknown 12/28/2024 9:54 AM EDT 12/28/2024 11:02 AM EDT Olga Jefferson DO LAB BLOOD ORDERABLES Final R esult [facility] [address] [place] [phone] * (ABNORMAL) Hepatic Function Panel (12/28/2024 9:54 AM EDT) Bilirubin, Total 0.6 0.0 - 1.0 mg/dL [facility] Bilirubin, Direct 0.2 0.0 - 0.5 mg/dL [facility] Aspartate Amino Transferase 33 5 - 37 U/L [facility] Alanine Aminotransferase 41(H) 0 - 40 U/L [facility] Total Protein 6.7 6.5 - 8.0 g/dL [facility] Albumin Level 4.3 3.5 - 5.0 g/dL [facility] Alkaline Phosphatase 88 39 - 117 U/L [facility] Blood Venous blood specimen / Unknown 12/28/2024 9:54 AM EDT 12/28/2024 11:02 AM EDT Olga Kemaradrian DO LAB BLOOD ORDERABLES Final R esult Performing Organization Address City/[facility]/ZIP Co de Phone Number [facility] [address] [place] [phone] * (ABNORMAL) Lipid Panel, Standard (12/28/2024 9:54 AM EDT) Triglycerides 110 <150 mg/dL [facility] Comment:Desirable Triglyceri de: less than 150 mg/dLBorderline High Triglyceride 150-199 mg/dLHigh Triglyceride: 200-499 mg/dLVery High Triglyceride: greater than or equal to 5OO mg/dL Cholesterol 126 <200 mg/dL [facility] Comment:Desirable Cholestero l: less than 200 mg/dLBorderline High Cholesterol: 200-239 mg/dLHigh Cholesterol: greater than 239 mg/dL LDL Cholesterol Calculated 64 <100 mg/dL [facility] Comment:Desirable LDL: less than 100 mg/dLNear Optimal/Above Optimal LDL: 110- 129 mg/dLBorderline High LDL: 130-159 mg/dLHigh LDL: 160-189 mg/dLVery High LDL: greater than or equal to 190 mg/dL HDL Cholesterol 40(L) >40 mg/dL [facility] Comment:Desirable HDL: great er than 40 mg/dL Note: This HDL assay may give artificially low results in patients with liver disease. Blood Venous blood specimen / Unknown 12/28/2024 9:54 AM EDT 12/28/2024 11:02 AM EDT us Olga Paulino DO LAB BLOOD ORDERABLES Final R esult [facility] [address] [place] [phone] * (ABNORMAL) Basic Metabolic Panel (12/28/2024 9:54 AM EDT) Sodium 142 135 - 145 mmol/L [facility] Potassium 4.4 3.3 - 5.1 mmol/L [facility] Chloride 107 96 - 108 mmol/L [facility] Carbon Dioxide 31(H) 22 - 29 mmol/L [facility] Anion Gap 8(L) 12 - 20 [facility] Urea Nitrogen (BUN) 20(H) 9 - 16 mg/dL [facility] Creatinine, Serum 0.86 0.5 - 1.4 mg/dL [facility] Estimated Glomerular Filt Rate >60 [facility] Comment:Chronic Kidney Disea se: Estimated GFR < 60 mL/min/1.38t8Gtpewt Kidney Disease: Estimated GFR < 15 mL/min/1.73m2 Glucose 131(H) 60 - 115 mg/dL [facility] Calcium 9.6 8.4 - 10.2 mg/dL [facility] Blood Venous blood specimen / Unknown 12/28/2024 9:54 AM EDT 12/28/2024 11:02 AM EDT Olga Paulino DO LAB BLOOD ORDERABLES Final R esult Performing Organization Address City/[facility]/ZIP Co de Phone Number [facility] [address] [place] [phone] * (ABNORMAL) POCT Hgb A1c (12/28/2024 9:10 AM EDT) Hemoglobin A1C 6.4(A) 4.0 - 5.7 % QC Media Lot # [id number] Lot# Expiration Date , Blood 12/28/2024 9:10 AM EDT Olga Paulino DO POINT OF CARE TEST ENTER/PREETHI T ORDERABLES Final Result * (ABNORMAL) POCT Glucose (12/28/2024 9:10 AM EDT) Pathologist [facility] Glucose Blood, POC 239(A) 60 - 200 mg/dL QC Media Lot # [id number] Lot# Expiration Date 3,026 Blood Capillary blood specimen / Unknown 12/28/2024 9:10 AM EDT Olga Paulino DO POINT OF CARE TEST ENTER/PREETHI T ORDERABLES Final Result * (ABNORMAL) PROTHROMBIN TIME WHOLE BLD POC (12/10/2024 9:24 AM EDT) Only the most recent of4 resultswithin the time period is included. Protime 27.8(H) 11.1 - 13.5 sec [facility] 12/10/2024 9:24 AM EDT 12/10/2024 2:00 PM EDT Generic External Data Provider LAB BLOOD ORDERAB LES Final Result [facility] [address] [place] [phone] * (ABNORMAL) ~PT, ~INR - ANTI COAG CLINIC (12/10/2024 9:24 AM EDT) Only the most recent of4 resultswithin the time period is included. Prothrombin Time INR 2.3(H) 0.9 - 1.1 [facility] Comment:METER #: [id number] TERNATIONAL NORMALIZED RATIO (INR) REFERENCE RANGES Reference [...] ORDERAB LES Final Result Performing Organization Address City/State/[facility] Co de Phone Number [facility] [address] [place] [phone] from Last 3 Months Insurance [facility] [employer] (O D-SNP) FIORELLA MONTGOMERY [id number] * Guarantor: Ramesh Kenyon Account Type Relation to Patient Date of Phone Billing Address Personal/Family Self [address] [place] [address] Care Teams Range Feeder Relationship Specialty Start Date End Date Olga Paulino DO [address] [place] [phone] PCP - General Family Medicine 03/03/18
[2025-01-07 09:37] LABS: Prothrombin Time Whole Bld POC 32.1 sec (11.1-13.5); ~PT, ~INR - Anti Coag Clinic 2.7 (0.9-1.1)
== END 2025-01-07 09:13 | disposition home or self-care (01) ==
LOC: HO.ACS 08:49
PROVIDERS: PCP Family Medicine; Visit Provider Internal Medicine Medical Oncology
DX: Z79.01 Long term (current) use of anticoagulants (principal)

== ENCOUNTER → 2025-01-07 08:49 | Outpatient (BNVA) | payer OTHER, SELFPAY | PROVIDERS: PCP Family Medicine; Visit Provider Internal Medicine Medical Oncology | DX: I48.0 Paroxysmal atrial fibrillation (principal); Z51.81 Encounter for therapeutic drug level monitoring; Z79.01 Long term (current) use of anticoagulants | CPT/HCPCS: 85610; 99211 ==

== ENCOUNTER → 2025-01-24 09:25 | Outpatient (REF) | payer OTHER, SELFPAY ==
--- NOTE | 2025-01-24 09:29 | CA_ITS ---
Transthoracic Echocardiogram Patient (Last, First, Middle): Ramesh Balnk, Gender: M Date of : 1940 Age: 84 Procedure Date: 01/24/2025 Procedure Type: Transthoracic Echocardiogram Location: OP Height: 167.64 cm Weight: 80.74 kg BSA: 1.90 m2 Heart Rate: 76 bpm BP: 114 / 62 mmHg Delivery Engineer: SB Referring MD: Rodolfo Martin MD Symptoms: I71.2 - Thoracic aortic aneurysm, without rupture Study Quality: Adequate ECG Rhythm: Sinus arrhythmia Conclusions: - The left ventricular systolic function is moderately decreased. The visually estimated ejection fraction is between 35-40%. - The inferoseptal wall is hypokinetic. - The basal inferior and mid inferior segments are akinetic. - No obvious valvular pathology seen on this study. - There is mild dilatation of the sinuses of Valsalva measuring 4.20 cm and mild dilatation of the ascending aorta measuring 4.20 cm. Findings Left Ventricle Normal left ventricular cavity size. The left ventricular systolic function is moderately decreased. The visually estimated ejection fraction is between 35-40%. There is evidence of regional wall motion abnormalities. Diastolic function is normal for age. There is moderate septal asymmetric hypertrophy. Wall Motion Rest Echo Findings The inferoseptal wall is hypokinetic. The basal inferior and mid inferior segments are akinetic. Right Ventricle Normal right ventricular cavity size and systolic function. Atria Both atria are normal in size. Aortic Valve There is a normal trileaflet aortic valve. There is no aortic valve stenosis. Trace to mild aortic regurgitation. Mitral Valve There is mild anterior mitral leaflet thickening. There is trace mitral valve regurgitation. There is no mitral valve stenosis. Pulmonic Valve The pulmonic valve is likely normal. Tricuspid Valve There is trace tricuspid valve regurgitation. There is no evidence of pulmonary hypertension. Great Vessels There is mild dilatation of the sinuses of Valsalva measuring 4.20 cm and mild dilatation of the ascending aorta measuring 4.20 cm. Venous The inferior vena cava is normal in size and collapses greater than 50% with inspiration. Pericardium/Pleural There is no evidence of pericardial effusion. Prior Study Comparison No significant change compared to prior study dated: 06/17/2023. LVEF lower than prior study, but visually no significant change. Recommendations, Care & Conclusions No obvious valvular pathology seen on this study. Measurements 2D Linear Measurements IVSd: 1.49 0.6-0.9/0.6-1.0 cm LVIDd: 4.77 3.9-5.3/4.2-5.9 cm LVIDd Index: 2.51 2.4-3.2/2.2-3.1 cm/m2 LVIDs: 4.06 2.0-3.6 cm LVPWd: 0.78 0.7-1.1 cm LA Diam: 3.50 2.7-3.8/3.0-4.0 cm LAIDs Index: 1.84 1.5-2.3 cm/m2 LV Mass: 249.69 67-162/88-224 g LV Mass Index: 131.41 43-95/49-115 g/m2 LVOT Diam: 2.60 3.0+(-)1.3 cm 2D Systolic Function EF 4C: 35.60 >55% EF 2C: 33.10 >55% EF BiP: 33.80 >55% Mitral Valve MV Pk E: 0.57 MV PK A: 0.45 MV Decel Time: 329.00 E/A: 1.30 E'Lateral: 7.94 E'Medial: 5.22 E/E' Med: 10.90 E/E' Lat: 7.20 PHT: 96.00 MVA PHT: 2.29 Decel [place]: 1.73 Aortic Valve AoV Pk [place]: 0.99 AoV Pk Grad: 4.00 LANA: 4.28 AI Pk [place]: 4.15 AI [place]: 2.90 LVOT LVOT Pk [place]: 0.80 LVOT Mn [place]: 0.55 LVOT VTI: 0.17 LVOT Pk Grad: 3.00 LVOT Mn Grad: 1.00 LVOT Diam: 2.60 LVOT Area: 5.31 Diastolic Function MV Pk E: 0.57 MV Pk A: 0.45 E/A: 1.30 E'Medial: 5.22 E/E' Med: 10.90 E' Laterial: 7.94 E/E' Lat: 7.20 Right Ventricle TAPSE (mm): 19.40 TVS' [place]: 12.10 Tricuspid Valve RA Press: 3.00 Great Vessels Aorta Sinus of Valsalva: 4.20 2.0-3.5 cm Ao Asc: 4.20 2.1-3.4 cm Pulmonary Valve PV Pk [place]: 0.65 Peak PV Grad: 2.00 Updated in Other Vendor System with Status of Final Rodolfo Martin MD electronically signed on 01/24/2025 1:17:35 PM with status of Final
--- OUTSIDE RECORDS SUMMARY | 2025-01-24 10:48 | XMS_ITS | Encounter Summary ---
Author Organization [employer] Address [address] [facility] [address] [facility] [address] [place] [address] Care Team Providers Care Food Service Substitute Name Role Phone Olga Paulino DO Primary Care Provider [phone] Encounter Details Date Type Department Care Team (Late st Contact Info) Description 04/26/2022 Orders Only [facility] [address] [place] [address] Olga Jaime LPN Social History Tobacco Use [...] on filedocumented in this encounter Care Teams Food Service Substitute Relationship Specialty Start Date End Date Olga Paulino DO [address] [place] [address] PCP - General Family Medicine 03/03/18 documented as of this encounter
--- OUTSIDE RECORDS SUMMARY | 2025-01-24 10:48 | XMS_ITS | Clinical Summary ---
Author Organization [employer] Address [address] [place] [address] Care Team Providers Care Faucets Assembler Name Role Phone Olga Paulino DO Primary Care Provider Allergies No known active allergies Medications Blood Glucose Monitoring Suppl (Carezone.comyle Gibson Lite) w/Device kit USE TO CHECK BLOOD [...] 5 MG tabletIndications :Paroxysmal atrial fibrillation (CMS/HCC) ([facility]) TAKE 1 - 1 & 1/2 TABLETS POR VIA ORAL TODOS [place] AIDA LO INDICADO BY COUMADIN CLINIC 135 tablet 1 10/09/19 25 Active metFORMIN XR (Glucophage-XR) 500 MG 24 hr tabletIndications :Type 2 diabetes mellitus with other specified complication, unspecified whether marine oil terminal superintendent insulin use ([facility]) TOME 1 TABLETA POR VIA ORAL TODOS [place] 90 tablet 1 10/09/19 25 Active docusate sodium (Colace) 100 MG capsule Take 1 capsule (100 mg) by mouth 2 times daily. 180 capsule 3 12/29/19 25 026 Active polycarbophil (Fibercon) 625 MG tablet Take 1 tablet (625 mg) by mouth 2 times daily. 180 tablet 3 12/29/19 25 026 Active pregabalin (Lyrica) 25 MG [...] 270 capsule 3 12/01/19 25 025 Discontinued celecoxib (CeleBREX) 50 MG capsule Take 1 capsule (50 mg) by mouth Once per day. 30 capsule 2 12/18/19 25 025 Active Problems Problem Noted Date Diagnosed Date [...] 1:51 PM EDT): Audiology eval w/ b/l [id number] SN hearing loss JUN 2021 -his agrees [...] Encounters Date Type Department Care Team Description 01/11/2025 Orders Only [facility] [address] [place] [address] Olga Paulino DO Unintentional weight loss (Primary Dx); Abnormal CT scan, pelvis 01/10/2025 Telephone [facility] [address] [place] [address] Olga Paulino DO Care Coordination 01/09/2025 Orders Only [facility] [address] [place] [phone] Olga Paulino DO Unintentional weight loss (Primary Dx); Abnormal CT scan, pelvis 01/07/2025 Orders Only GENERIC EXTERNAL DATA DEPARTMENT Provider, Generic External Data 01/06/[address] [address] Olga Paulino DO Results 12/29/[address] [address] Olga Paulino DO Results 12/28/2024 9:00 AM EDT Office Visit [address] [address] Olga Paulino DO Type 2 diabetes mellitus [...] Healthcare maintenance 12/28/2024 Travel 12/21/2024 Patient Outreach [facility] [address] [place] [address] Olga Paulino DO Pre-visit Planning (SDOH was already completed.) 12/21/[address] [address] Olga Paulino DO Chart Prep 12/17/2024 11:00 AM EDT Office Visit [facility] [address] [place] [phone] Mary Bhagat MD Right foot pain (Primary Dx) 12/17/2024 Travel 12/10/2024 Orders Only GENERIC EXTERNAL DATA DEPARTMENT Provider, Generic External Data 12/01/[address] [address] Olga Paulino DO telephone call; Prior Authorization ([facility] PA: Lyrica 50 MG cap) 11/17/2024 Refill [facility] [address] [place] [phone] Olga Paulino DO Postherpetic neuralgia 11/12/2024 Orders [...] on patient's age to complete this topic Goals Goal Patient Goal Type Associated Problems Recent Progress Patient-Stated? Author Help patients manage their type 2 diabetes Care Plan Help patients manage their type 2 diabetes No Abhinav Wooten Weekly blood pressure task Care Plan Weekly blood pressure task No Abhinav Wooten Help patients manage their type 2 diabetes Care Plan Help patients manage their type 2 diabetes No Abhinav Wooten Patient has chronic kidney disease Care Plan Patient has chronic kidney disease No Abhinav Wooten Help patients manage their type 2 diabetes Care Plan Help patients manage their type 2 diabetes No Abhinav Wooten Patient has diabetic neuropathy Care Plan Patient has diabetic neuropathy No Abhinav Wooten Weekly blood pressure task Care Plan Weekly blood pressure task No Abhinav Wooten Weekly blood pressure task Care Plan Weekly blood pressure task No Abhinav Wooten Patient has chronic kidney disease Care Plan Patient has chronic kidney disease No Abhinav Wooten Patient has chronic kidney disease Care Plan Patient has chronic kidney disease No Abhinav Wooten Patient has diabetic neuropathy Care Plan Patient has diabetic neuropathy No Abhinav Wooten Patient has diabetic neuropathy Care Plan Patient has diabetic neuropathy No Abhinav Wooten Weekly blood pressure task Care Plan Weekly blood pressure task No Chen Lainez Weekly blood pressure task Care Plan Weekly blood pressure task No Chen Lainez Weekly blood pressure task Care Plan Weekly blood pressure task No Chen Lainez Patient has chronic kidney disease Care Plan Patient has chronic kidney disease No Chen Lainez Patient has chronic kidney disease Care Plan Patient has chronic kidney disease No Chen Lainez Patient has chronic kidney disease Care Plan Patient has chronic kidney disease No Chen Lainez Patient has diabetic neuropathy Care Plan Patient has diabetic neuropathy No Chen Lainez Patient has diabetic neuropathy Care Plan Patient has diabetic neuropathy No Chen Lainez Patient has diabetic neuropathy Care Plan Patient has diabetic neuropathy No Chen Lainez Weekly blood pressure task Care Plan Weekly blood pressure task No Julia Driscoll RN Weekly blood pressure task Care Plan Weekly blood pressure task No Julia Driscoll RN Weekly blood pressure task Care Plan Weekly blood pressure task No Julia Driscoll RN Patient has chronic kidney disease Care Plan Patient has chronic kidney disease No Julia Driscoll RN Patient has chronic kidney disease Care Plan Patient has chronic kidney disease No Julia Driscoll RN Patient has chronic kidney disease Care Plan Patient has chronic kidney disease No Julia Driscoll RN Patient has diabetic neuropathy Care Plan Patient has diabetic neuropathy No Julia Driscoll RN Patient has diabetic neuropathy Care Plan Patient has diabetic neuropathy No Julia Driscoll RN Patient has diabetic neuropathy Care Plan Patient has diabetic neuropathy No Julia Driscoll RN Weekly blood pressure task Care Plan Weekly blood pressure task No Julia Driscoll RN Weekly blood pressure task Care Plan Weekly blood pressure task No Julia Driscoll RN Weekly blood pressure task Care Plan Weekly blood pressure task No Julia Driscoll RN Patient has chronic kidney disease Care Plan Patient has chronic kidney disease No Julia Driscoll RN Patient has chronic kidney disease Care Plan Patient has chronic kidney disease No Julia Driscoll RN Patient has chronic kidney disease Care Plan Patient has chronic kidney disease No Julia Driscoll RN Patient has diabetic neuropathy Care Plan Patient has diabetic neuropathy No Julia Driscoll RN Patient has diabetic neuropathy Care Plan Patient has diabetic neuropathy No Julia Driscoll RN Patient has diabetic neuropathy Care Plan Patient has diabetic neuropathy No Julia Driscoll RN Procedures Procedure Name Priority Date/Time Associated Diagnosis Comments PROTHROMBIN TIME WHOLE BLD POC Routine 01/07/2025 9:05 AM EST ~PT, ~INR - ANTI COAG CLINIC Routine 01/07/2025 9:[address] ABDOMEN PELVIS W CONTRAST Urgent 01/05/2025 [...] microalbuminuria, without long-term current use of insulin ([facility]) POCT GLUCOSE Routine 12/28/2024 9:10 AM EDT Type 2 diabetes mellitus with diabetic microalbuminuria, without long-term current use of insulin ([facility]) PROTHROMBIN TIME WHOLE BLD POC Routine 12/10/2024 9:24 AM EDT ~PT, ~INR - ANTI COAG CLINIC Routine 12/10/2024 9:24 AM EDT PROTHROMBIN TIME WHOLE BLD POC Routine 11/12/2024 9:06 AM EDT ~PT, ~INR - ANTI COAG CLINIC Routine 11/12/2024 9:06 AM EDT from Last 3 Months Results * (ABNORMAL) PROTHROMBIN TIME WHOLE BLD POC (01/07/2025 9:05 AM EST) Only the most recent of3 resultswithin the time period is included. Protime 32.1(H) 11.1 - 13.5 sec [facility] 01/07/2025 9:05 AM EST 01/07/2025 9:37 AM EST us Generic External Data Provider LAB BLOOD ORDERAB LES Final Result Performing Organization Address [facility] Co de Phone Number [facility] [address] [place] [phone] * (ABNORMAL) ~PT, ~INR - ANTI COAG CLINIC (01/07/2025 9:05 AM EST) Only the most recent of3 resultswithin the time period is included. Prothrombin Time INR 2.7(H) 0.9 - 1.1 [facility] Comment:METER #: [id number] TERNATIONAL NORMALIZED RATIO (INR) REFERENCE RANGES Reference RangeFor patients not on anticoagulant therapy: 0.9 - 1.1INR ranges for oral anticoagulanttherapy:For prevention and treatment of venous thrombosis and pulmonary embolism: 2.0 - 3.0For acute myocardial infarction with aspirin therapy: 2.0 - 3.0For acute myocardial infarction without aspirin therapy: 3.0 - 4.0For patients with mechanical prosthetic heart valves: 2.5 - 3.5 01/07/2025 9:05 AM EST 01/07/2025 9:37 AM EST us Generic External Data Provider LAB BLOOD ORDERAB LES Final Result Performing Organization Address City/[facility]/ZIP Co de Phone Number [facility] [address] [place] [phone] * CT Abdomen Pelvis w/ Contrast (01/05/2025 9:40 AM EST) Anatomical Region Laterality Modality Body, Pelvis, Abdomen Computed T omography 01/05/2025 9:40 AM EST Narrative 01/05/2025 10:31 AM EST [address] [address] [address] Scan Report Signed Patient: Ramesh Blank MR#: [id number] : 1940 Acct:[id number] Age/Sex: 84 / M ADM Date: 01/05/25 Loc: HO.CT Attending Dr: Olga Paulino DO Ordering Physician: Olga Paulino DO Date of Service: 01/05/25 Procedure(s): CT abdomen pelvis w IV con Accession Number(s): [id number] cc: Olga Paulino DO Report Number: [id number]: Total DLP = 0.00 mGy-cm Reason for [...] by: Haim Kim MD 01/05/2025 10:28 AM [facility] Dictated By: Haim Cunha MD Signed By: <Electronically signed by Haim Silver MD in OV> 01/05/25 1028 DD/ 0940 TD/TT: 01/05/25 1013 Police Inspector: Procedure Note Gloriater, Image - 01/05/[address] [place] [address] [address] Scan Report Signed Patient: Ramesh BlankMR#: [id number] : 9Acct:[id number] Age/Sex: 84 / MADM Date: 01/05/25 Loc: HO.CT Attending Dr: Olga Paulino DO Ordering Physician: Olga Paulino DO Date of Service: 01/05/25 Procedure(s): CT abdomen pelvis w IV con Accession Number(s): [id number] cc: Olga Paulino DO Report Number: [id number]: Total DLP = 0.00 mGy-cm Reason for [...] by: Haim Kim MD 01/05/2025 10:28 AM [facility] Dictated By: Haim Cunha MD Signed By: <Electronically signed by Haim Silver MDin OV> 01/05/25 1028 DD/ 0940 TD/TT: 01/05/25 1013 Police Inspector: Olga Paulino DO IMG CT PROCEDURES Final Resu lt * CT Chest w/ Contrast (01/05/2025 9:40 AM EST) Anatomical Region Laterality Modality Body, Chest Computed Tomogra phy 01/05/2025 9:40 AM EST Narrative 01/05/2025 11:02 AM EST [place] [address] CT Scan Report Signed Patient: Ramesh Blank MR#: [id number] : 1940 Acct:[id number] Age/Sex: 84 / M ADM Date: 01/05/25 Loc: HO.CT Attending Dr: Olga Paulino DO Ordering Physician: Olga Paulino DO Date of Service: 01/05/25 Procedure(s): CT chest w IV con Accession Number(s): [id number] cc: Olga Paulino DO Report Number: [id number]: Total DLP = 470.00 mGy-cm Reason for [...] 01/05/25 1059 DD/ 0940 TD/TT: 01/05/25 1013 Police Inspector: LUIZ Procedure Note Donotuseinterpreter, Image - 01/05/[address] [address] [address] Scan Report Signed Patient: Ramesh BlankMR#: [id number] : 1940cct:[id number] Age/Sex: 84 / MADM Date: 01/05/25 Loc: HO.CT Attending Dr: Olga Paulino DO Ordering Physician: Olga Paulino DO Date of Service: 01/05/25 Procedure(s): CT chest w IV con Accession Number(s): [id number] cc: Olga Paulino Report Number: [id number]: Total DLP = 470.00 mGy-cm Reason for [...] Grace Cosby MD 01/05/2025 10:59 AM EST RP Dictated By: Grace Cosby MD Signed By: <Electronically signed by Grace Cosby MD in OV> 01/05/25 1059 DD/ 0940 TD/TT: 01/05/25 1013 Police Inspector: LUIZ Olga Paulino DO IMG CT PROCEDURES Final Resu lt * (ABNORMAL) Vitamin D, 25-Hydroxy, Total, Immunoassay (12/28/2024 9:54 AM EDT) Vitamin D 25-OH Total 21.3(L) >30 ng/mL [facility] Comment: Health Based Reference Values*< 20 ng/mL Vzoagmbjh77-95 ng/mL Insufficient> 30 ng/mL Sufficient*Vanessa MULLIGAN. N [...] DO LAB BLOOD ORDERABLES Final R esult [facility] [address] [place] [phone] * Vitamin B12 (Cobalamin) and Folate Panel, Serum (12/28/2024 9:54 AM EDT) Vitamin B12 492 200 - 900 pg/mL [facility] Comment:NORMAL 200-900 PG/ML INDETERMINATE 160-199 PG/ML DEFICIENT < 160 PG/ML Folate 8.2 > or = 4.0 ng/mL [facility] Comment:Reference Values:> o r = 4.0 ng/mL< 4.0 ng/mL suggests folate deficiency Methotrexate, aminopterin and folinic acid(leucovorin) are chemotherapeutic agents whose molecularstructures are similar to folate; therefore, the Architectfolate assay cannot be used for patients using these drugs. Blood 12/28/2024 9:54 AM EDT 12/28/2024 11:02 AM EDT Olga Paulino DO LAB BLOOD ORDERABLES Final R esult [facility] [address] [place] [phone] * T-SPOT??.TB (12/28/2024 9:54 AM EDT) [facility] T Spot TB Negative Negative [facility] Comment:A negative test resu lt [...] as aquantitative test. TS PANEL A 0 [facility] TS PANEL B 0 [facility] Negative Control Passed [facility] Positive Control Passed [facility] Comment:For additional infor srikanth, please refer tohttp://education.Synedgen/faq/[email or web address](This link is being provided for informational/educational purposes only.)THIS TEST WAS PERFORMED AT:[employer] [id number] [place] [id number] IRVING MD,PHD 12/28/2024 9:54 AM EDT 12/28/2024 11:02 AM EDT us Olga Paulino DO LAB BLOOD ORDERABLES Final R esult Performing Organization Address [facility] de Phone Number [facility] [address] [place] [phone] * (ABNORMAL) Albumin, Random Urine W/Creatinine (12/28/2024 9:54 AM EDT) Creatinine, Urine 57.26 mg/dL [facility] Microalbumin Urine 266.0 mg/L [facility] Microalbum Creatinine Ratio Ur 464.5(H) <30 ug/mg cr [facility] Comment:Albumin/Creatinine R atio Reference Ranges: Normal: < 30 ug/mg creatinine Microalbuminuria: 30 - 300 ug/mg creatinineClinical Albuminuria: > 300 ug/mg creatinine Urine (Urine, Random) 12/28/2024 9:54 AM EDT 12/28/2024 11:02 AM EDT us Olga Paulino DO LAB URINE ORDERABLES Final R esult Performing Organization Address [facility] Co de Phone Number [facility] [address] [place] [phone] * (ABNORMAL) CBC auto differential (12/28/2024 9:54 AM EDT) White Blood Count 5.1 4.8 - 10.8 X10*3/uL [facility] Red Blood Count 4.41(L) 4.60 - 5.80 X10*6/uL [facility] Hemoglobin 12.6(L) 14.0 - 18.0 g/dl [facility] Hematocrit 40.3(L) 42.0 - 52.0 % [facility] Mean Corpuscular Volume 91.4 80.0 - 98.0 fL [facility] Mean Corpuscular Hemoglobin 28.6 27.0 - 33.0 pg [facility] Mean Corpuscular HGB Conc 31.3 31.0 - 36.0 g/dl [facility] Red Cell Distribution Width 13.9 11.0 - 16.0 % [facility] Platelet Count 135(L) 160 - 400 X10*3/uL [facility] Mean Platelet Volume 12.5(H) 9.4 - 12.4 fL [facility] Neutrophils Percent Auto 63.0 45 - 73 % [facility] Imm Gran Pct Auto 0.2 0.0 - 0.4 % [facility] Lymphocytes Percent Auto 21.3 20 - 40 % [facility] Monocytes Percent Auto 10.0 2 - 11 % [facility] Eosinophils Percent Auto 4.3(H) 0 - 4 % [facility] Basophils Percent Auto 1.2 0 - 2 % [facility] NRBC Pct Auto 0.0 0.0 - 0.2 /100WBC [facility] Neutrophils Absolute Auto 3.2 2.0 - 8.3 x10*3/uL [facility] Imm Gran Abs Auto 0.01 0.00 - 0.03 X10*3/uL [facility] Lymphocytes Absolute Auto 1.1(L) 1.2 - 4.9 X10*3/uL [facility] Monocytes Absolute Auto 0.5 0.1 - 1.2 X10*3/uL [facility] Eosinophils Absolute Auto 0.2 0.0 - 0.4 X10*3/uL [facility] Basophils Absolute Auto 0.1 0.0 - 0.2 X10*3/uL [facility] NRBC Abs Auto 0.000 0.0 - 0.012 X10*3/uL [facility] Blood Venous blood specimen / Unknown 12/28/2024 9:54 AM EDT 12/28/2024 11:02 AM EDT us Olga Paulino DO LAB BLOOD ORDERABLES Final R esult Performing Organization Address City/[facility]/ZIP Co de Phone Number [facility] [address] [place] [phone] * Hepatitis C Antibody with Reflex to HCV, RNA, Quantitative, Real-Time PCR (12/28/2024 9:54 AM EDT) Hepatitis C Antibody Nonreactive Nonreactive [facility] Comment:Antibodies to HCV no t detected; does not exclude early acuteHCV infection. Blood Venous blood specimen / Unknown 12/28/2024 9:54 AM EDT 12/28/2024 11:02 AM EDT us Olga Paulino DO LAB BLOOD ORDERABLES Final R esult Performing Organization Address City/[facility] Co de Phone Number [facility] [address] [place] [phone] * Iron And Total Iron Binding Capacity (12/28/2024 9:54 AM EDT) Iron 76 45 - 160 mcg/dL [facility] Total Iron Binding Capacity 311 228 - 428 mcg/dL [facility] Percent Iron Saturation 24 15 - 50 % [facility] Unsaturated Iron Binding 235 ug/dL [facility] Blood Venous blood specimen / Unknown 12/28/2024 9:54 AM EDT 12/28/2024 11:02 AM EDT Olga Paulino DO LAB BLOOD ORDERABLES Final R esult Performing Organization Address [facility]/ZIP Co de Phone Number [facility] [address] [place] [phone] * HIV-1/2 Antigen and Antibodies, Fourth Generation, with Reflexes (12/28/2024 9:54 AM EDT) HIV AB/AG Nonreactive Nonreactive [facility] Comment:HIV-1 p24 Ag and/or HIV-1/HIV-2 Ab not detected.A test result that is nonreactive does not exclude thepossibility of exposure to or infection with HIV-1 and/orHIV-2. Nonreactive results in this assay for individualswith prior exposure to HIV-1 and/or HIV-2 may be due toantigen and antibody levels that are below the limit ofdetection of this assay.The [employer] HIV Ag/Ab Combo assay result andsupplemental assay results should be interpreted inconjunction with the patient's clinical presentation,history and other laboratory results. If the results areinconsistent with clinical evidence, additional testing issuggested to confirm the result. Blood Venous blood specimen / Unknown 12/28/2024 9:54 AM EDT 12/28/2024 11:02 AM EDT us Olga Paulino DO LAB BLOOD ORDERABLES Final R esult Performing Organization Address [facility]/ZIP Co de Phone Number [facility] [address] [place] [phone] * (ABNORMAL) Urinalysis Complete (12/28/2024 9:54 AM EDT) Color Urine Yellow [facility] Appearance Urine Clear [facility] PH 5.5 5.0 - 9.0 [facility] Glucose Urine UA Negative Negative mg/dL [facility] Urine Blood Negative Negative [facility] Specific [place] - Urine 1.015 1.005 - 1.025 [facility] Urine Protein 30 (1+)(A) Neg-Trace mg/dL [facility] Urine Ketones Negative Negative mg/dL [facility] Nitrite Urine Negative Negative [facility] Leukocyte Esterase Urine Negative Negative [facility] RBC Urine 0-2 0 - 2 /HPF [facility] Urine WBC 0-5 0 - 5 /HPF [facility] Urine Squamous Epithelial Cell 0-2 0 - 2 /HPF [facility] Urine Bacteria None Seen None Seen [facility] Hyaline Casts, Urine 0-2 0 - 2 /LPF [facility] Urine (Urine, Random) 12/28/2024 9:54 AM EDT 12/28/2024 11:02 AM EDT Olga Paulino DO LAB URINE ORDERABLES Final R esult Performing Organization Address City/[facility]/ZIP Co de Phone Number [facility] [address] [place] [phone] * Sed Rate by Modified Kennethergren (12/28/2024 9:54 AM EDT) Erythrocyte Sedimentation Rate 8 0 - 15 MM/HR [facility] Comment:Patients with polycy themia and many hemoglobin abnormalitiesmay have depressed sed rates whereas patients with anemiamay have elevated sed rates. Blood Venous blood specimen / Unknown 12/28/2024 9:54 AM EDT 12/28/2024 11:02 AM EDT us Olga Paulino DO LAB BLOOD ORDERABLES Final R esult [facility] [address] [place] [phone] * C-reactive Protein (12/28/2024 9:54 AM EDT) C Reactive Protein <0.04 < or = 0.50 mg/dL [facility] Blood Venous blood specimen / Unknown 12/28/2024 9:54 AM EDT 12/28/2024 11:02 AM EDT Olga Paulino DO LAB BLOOD ORDERABLES Final R esult Performing Organization Address [facility] Co de Phone Number [facility] [address] [place] [phone] * TSH (12/28/2024 9:54 AM EDT) Thyroid Stimulating Hormone 1.61 0.32 - 4.0 uIU/mL [facility] Comment:TSH 3rd Generation ( [facility]) Blood Venous blood specimen / Unknown 12/28/2024 9:54 AM EDT 12/28/2024 11:02 AM EDT Olga Paulino DO LAB BLOOD ORDERABLES Final R esult Performing Organization Address [facility] Co de Phone Number [facility] [address] [place] [phone] * T4, Free (12/28/2024 9:54 AM EDT) Free T4 (Free Thyroxine) 0.83 0.71 - 1.85 ng/dL [facility] Blood Venous blood specimen / Unknown 12/28/2024 9:54 AM EDT 12/28/2024 11:02 AM EDT Olga Paulino DO LAB BLOOD ORDERABLES Final R esult Performing Organization Address [facility] Co de Phone Number [facility] [address] [place] [phone] * PSA,Total (12/28/2024 9:54 AM EDT) Prostate Specific Antigen 2.61 <0.05 - 4.0 ng/mL [facility] Comment:PSA methodology: Abb maurizio Alinity i ChemiluminescentMicroparticle Immunoassay (CMIA) Blood Venous blood specimen / Unknown 12/28/2024 9:54 AM EDT 12/28/2024 11:02 AM EDT Olga Paulino DO LAB BLOOD ORDERABLES Final R esult [facility] [address] [place] [phone] * Prealbumin (12/28/2024 9:54 AM EDT) Prealbumin 27.0 20 - 40 mg/dL [facility] Blood Venous blood specimen / Unknown 12/28/2024 9:54 AM EDT 12/28/2024 11:02 AM EDT Olga Paulino DO LAB BLOOD ORDERABLES Final R esult Performing Organization Address [facility] Co de Phone Number [facility] [address] [place] [phone] * (ABNORMAL) Hemoglobin A1c (12/28/2024 9:54 AM EDT) Hemoglobin A1c 6.6(H) <6.0 % [facility] Comment:Hemoglobin A1C Refer ence Range Adults: 4.8 - 6.0 % Non diabetic: < 6.0 % Goal: < 7.0 %Additional Action Suggested: > 8.0 %Note: Hemoglobin A1c results are invalid for patients with abnormal amounts of HbF. Blood transfusions may impact the HbA1c concentration in the patient sample. Estimated Average Glucose 143 mg/dL [facility] Comment:eAG = Estimated ave rage glucose which is %A1C expressed asaverage glucose, using the formula of the G7O-AundabrNinrnel Glucose study (ADAG), Diabetes Care, Vol.31,#8,Oct. 2007 Blood Venous blood specimen / Unknown 12/28/2024 9:54 AM EDT 12/28/2024 11:02 AM EDT Olga Paulino DO LAB BLOOD ORDERABLES Final R esult [facility] [address] [place] [phone] * Ferritin (12/28/2024 9:54 AM EDT) Pathologist [facility] Ferritin 80 20 - 250 ng/mL [facility] Blood Venous blood specimen / Unknown 12/28/2024 9:54 AM EDT 12/28/2024 11:02 AM EDT Olga Paulino DO LAB BLOOD ORDERABLES Final R esult Performing Organization Address [facility] Co de Phone Number [facility] [address] [place] [phone] * (ABNORMAL) Hepatic Function Panel (12/28/2024 9:54 AM EDT) [facility] Bilirubin, Total 0.6 0.0 - 1.0 mg/dL [facility] Bilirubin, Direct 0.2 0.0 - 0.5 mg/dL [facility] Aspartate Amino Transferase 33 5 - 37 U/L [facility] Alanine Aminotransferase 41(H) 0 - 40 U/L [facility] Total Protein 6.7 6.5 - 8.0 g/dL [facility] Albumin Level 4.3 3.5 - 5.0 g/dL [facility] Alkaline Phosphatase 88 39 - 117 U/L [facility] Blood Venous blood specimen / Unknown 12/28/2024 9:54 AM EDT 12/28/2024 11:02 AM EDT Olga Paulino DO LAB BLOOD ORDERABLES Final R esult Performing Organization Address City/[facility] Co de Phone Number [facility] [address] [place] [phone] * (ABNORMAL) Lipid Panel, Standard (12/28/2024 9:54 AM EDT) [facility] Triglycerides 110 <150 mg/dL [facility] Comment:Desirable Triglyceri de: less than 150 mg/dLBorderline High Triglyceride 150-199 mg/dLHigh Triglyceride: 200-499 mg/dLVery High Triglyceride: greater than or equal to 5OO mg/dL Cholesterol 126 <200 mg/dL [facility] Comment:Desirable Cholestero l: less than 200 mg/dLBorderline High Cholesterol: 200-239 mg/dLHigh Cholesterol: greater than 239 mg/dL LDL Cholesterol Calculated 64 <100 mg/dL [facility] Comment:Desirable LDL: less than 100 mg/dLNear Optimal/Above Optimal LDL: 110- 129 mg/dLBorderline High LDL: 130-159 mg/dLHigh LDL: 160-189 mg/dLVery High LDL: greater than or equal to 190 mg/dL HDL Cholesterol 40(L) >40 mg/dL [facility] Comment:Desirable HDL: great er than 40 mg/dL Note: This HDL assay may give artificially low results in patients with liver disease. Blood Venous blood specimen / Unknown 12/28/2024 9:54 AM EDT 12/28/2024 11:02 AM EDT us Olga Paulino DO LAB BLOOD ORDERABLES Final R esult [facility] [address] [place] [phone] * (ABNORMAL) Basic Metabolic Panel (12/28/2024 9:54 AM EDT) Sodium 142 135 - 145 mmol/L [facility] Potassium 4.4 3.3 - 5.1 mmol/L [facility] Chloride 107 96 - 108 mmol/L [facility] Carbon Dioxide 31(H) 22 - 29 mmol/L [facility] Anion Gap 8(L) 12 - 20 [facility] Urea Nitrogen (BUN) 20(H) 9 - 16 mg/dL [facility] Creatinine, Serum 0.86 0.5 - 1.4 mg/dL [facility] Estimated Glomerular Filt Rate >60 [facility] Comment:Chronic Kidney Disea se: Estimated GFR < 60 mL/min/1.51w2Fyzrna Kidney Disease: Estimated GFR < 15 mL/min/1.73m2 Glucose 131(H) 60 - 115 mg/dL [facility] Calcium 9.6 8.4 - 10.2 mg/dL [facility] Blood Venous blood specimen / Unknown 12/28/2024 9:54 AM EDT 12/28/2024 11:02 AM EDT Olga Paulino DO LAB BLOOD ORDERABLES Final R esult [facility] [address] [place] [phone] * (ABNORMAL) POCT Hgb A1c (12/28/2024 9:10 AM EDT) Hemoglobin A1C 6.4(A) 4.0 - 5.7 % [employer] Lot # [id number] Lot# Expiration Date 105, Blood 12/28/2024 9:10 AM EDT Olga Paulino DO POINT OF CARE TEST ENTER/PREETHI T ORDERABLES Final Result * (ABNORMAL) POCT Glucose (12/28/2024 9:10 AM EDT) Glucose Blood, POC 239(A) 60 - 200 mg/dL [employer] Lot # [id number] Lot# Expiration Date 3, Blood Capillary blood specimen / Unknown 12/28/2024 9:10 AM EDT Olga Paulino DO POINT OF CARE TEST ENTER/PREETHI T ORDERABLES Final Result from Last 3 Months Additional Health Concerns Active Problems Noted Date Diagnosed Date Help patients manage their type 2 diabetes 01/12 Weekly blood pressure task 01/12/2025 Help patients manage their type 2 diabetes 01/12 Patient has chronic kidney disease 01/12/2025 Help patients manage their type 2 diabetes 01/12 Patient has diabetic neuropathy 01/12/2025 Weekly blood pressure task 01/12/2025 Weekly blood pressure task 01/12/2025 Patient has chronic kidney disease 01/12/2025 Patient has chronic kidney disease 01/12/2025 Patient has diabetic neuropathy 01/12/2025 Patient has diabetic neuropathy 01/12/2025 Weekly blood pressure task 01/12/2025 Weekly blood pressure task 01/12/2025 Weekly blood pressure task 01/12/2025 Patient has chronic kidney disease 01/12/2025 Patient has chronic kidney disease 01/12/2025 Patient has chronic kidney disease 01/12/2025 Patient has diabetic neuropathy 01/12/2025 Patient has diabetic neuropathy 01/12/2025 Patient has diabetic neuropathy 01/12/2025 Weekly blood pressure task 01/17/2025 Weekly blood pressure task 01/17/2025 Weekly blood pressure task 01/17/2025 Patient has chronic kidney disease 01/17/2025 Patient has chronic kidney disease 01/17/2025 Patient has chronic kidney disease 01/17/2025 Patient has diabetic neuropathy 01/17/2025 Patient has diabetic neuropathy 01/17/2025 Patient has diabetic neuropathy 01/17/2025 Weekly blood pressure task 01/17/2025 Weekly blood pressure task 01/17/2025 Weekly blood pressure task 01/17/2025 Patient has chronic kidney disease 01/17/2025 Patient has chronic kidney disease 01/17/2025 Patient has chronic kidney disease 01/17/2025 Patient has diabetic neuropathy 01/17/2025 Patient has diabetic neuropathy 01/17/2025 Patient has diabetic neuropathy 01/17/2025 Insurance [facility] [employer] (O D-SNP) FIORELLA MONTGOMERY [id number] Care Teams Faucets Assembler Relationship Specialty Start Date End Date Olga Paulino DO [address] [place] [phone] PCP - General Family Medicine 03/03/18
--- OUTSIDE RECORDS SUMMARY | 2025-01-24 10:48 | XMS_ITS | Encounter Summary ---
Author Organization [employer] Address [address] [facility] [address] [place] [address] Care Team Providers Care Member Of The Legislative Council Name Role Phone Olga Paulino DO Primary Care Provider [phone]- [phone] Encounter Details Date Type Department Care Team (Late st Contact Info) Description 06/28/2022 Orders Only [facility] MED & PEDS [address] [place] [address] Olga Jaime LPN Social History Tobacco Use [...] on filedocumented in this encounter Care Teams Member Of The Legislative Council Relationship Specialty Start Date End Date Olga Paulino DO [address] [place] [address] PCP - General Family Medicine 03/03/18 documented as of this encounter
--- OUTSIDE RECORDS SUMMARY | 2025-01-24 10:48 | XMS_ITS | Encounter Summary ---
Author Organization [employer] Address [address] [facility] [address] [place] [address] Care Team Providers Care Registered Nurse Cardiac Name Role Phone Olga Paulino DO Primary Care Provider [phone]- [phone] Reason for Visit * Reason Onset Date Comments Hospital Follow-up 06/18/2024 Encounter Details Date Type Department Care Team ([facility] st Contact Info) Description 06/18/2024 Telephone [facility] MEDICINE [address] [place] [address] Olga Paulino DO [address] [place], [place] [phone] Hospital Follow-up Social History Tobacco Use Types [...] from pt requesting a HDF appt. [place] [facility] [place] admission: 06/11/24 Discharge date: 06/12/24 Diagnosed: HTN *Send message to [facility] Care Coordinators Contact pt at [phone] documented in this encounter Plan of Treatment Not on file documented as of this encounter Visit Diagnoses Not on filedocumented in this encounter Additional Health Concerns Assessment Noted Time PHQ-9 Depression Total Score: 0 10/06/19 24 9:06 AM EDT documented as of this encounter Care Teams Registered Nurse Cardiac Relationship Specialty Start Date End Date Olga Paulino DO [address] [place] [phone] PCP - General Family Medicine 03/03/18 documented as of this encounter
== END ==
LOC: HO.CARD 09:25
PROVIDERS: PCP Family Medicine; Visit Provider Internal Medicine
DX: I71.20 Thoracic aortic aneurysm, without rupture, unspecified (principal)
CPT/HCPCS: 93306

== ENCOUNTER → 2025-01-24 09:29 | Outpatient (BNV) | payer OTHER, SELFPAY | PROVIDERS: PCP Family Medicine; Visit Provider Internal Medicine | DX: I51.89 Other ill-defined heart diseases (principal); I71.21 Aneurysm of the ascending aorta, without rupture; I42.2 Other hypertrophic cardiomyopathy | CPT/HCPCS: 93306 ==

== ENCOUNTER 2025-01-31 13:15 | Outpatient (AMB) | payer OTHER, SELFPAY ==
[2025-01-31 13:34] VITALS: BP 128/68; PULSE 92; BMI 29.2
--- NOTE | 2025-01-31 13:34 | MHC.OFFVIS ---
Vital Signs 01/31/25 13:34 Height 5 ft 6 in Weight 180 lb 12.465 oz BMI 29.2 BP 128/68 Blood Pressure Location Lt brachial Position Sitting Pulse 92 Pulse Source Monitor Intake Visit Reasons: 1 yr s/p echo Part Time Receptionist Required: Yes Part Time Receptionist Name: ALIZA [id number] Allergies No Known Allergies (No Known Allergies*) Allergy (Verified 01/07/25 09:00) Medication List - Last Reconciled 01/31/25 by Rodolfo Martin MD acetaminophen 1,000 mg (2 x 500 mg) PO Q8H PRN albuterol sulfate 90 mcg/actuation 2 puffs inhalation Q4H PRN benzonatate 100 mg PO bid-tid PRN 7 days gabapentin 300 mg PO TID 14 days lisinopril 2.5 mg PO QPM metformin ER 500 mg PO DAILY nitroglycerin 0.4 mg sublingual Q5M rosuvastatin 20 mg PO DAILY tamsulosin 0.4 mg PO QPM warfarin 5 mg See Protocol PO DAILY HPI Comments Details: Ramesh returns for follow-up regarding his cardiac issues. He has coronary disease, ischemic cardiomyopathy, paroxysmal atrial fibrillation and ascending aortic aneurysm. To recall, he was seen in the past for chest pains which led to noninvasive workup with stress test followed by cardiac catheterization. That showed single vessel disease in the right coronary artery, but he is being medically managed. Patient states he is feeling fine. He does not have any cardiac symptoms like angina or exertional shortness of breath or in fact anything of cardiac nature. Discussed with patient using industrial roofer. [facility] Medical History Pulmonary nodules Tubular adenoma of colon (~2009) Hyperlipidemia Type 2 diabetes mellitus with polyneuropathy Paroxysmal atrial fibrillation (~01/2015) Essential hypertension Ascending aortic aneurysm Atherosclerotic cardiovascular disease Lumbar spondylolysis Inflammatory arthritis Surgical History History of cardiac cath (~2018) History of lung surgery (~03/2019) History of left inguinal hernia repair (~01/2019) History of colonoscopy (~02/2016) Hx of neck surgery Hx of appendectomy Family History Mother Diabetes Social History Household Members: Spouse Housing: Apartment Do you presently have visiting nurse or other home services: No Alcohol intake: never Patient Tobacco Use Status: Former Tobacco user Advance Directives Date on File: 04/18/21 Current occupational status: retired Hearing needs: Yes Review of Systems Const Denies weakness ENT Denies dizziness Card Denies chest pain, Denies chest pain with activity, Denies syncope, Denies rapid heart rate, Denies pedal edema, Denies edema, Denies leg edema, Denies lightheadedness, Denies palpitations, Denies dyspnea, Denies dyspnea on exertion and Denies orthopnea Resp Denies cough, Denies dyspnea and Denies dyspnea on exertion GI Denies hematochezia and Denies change in stool character Musc Denies abnormal gait, Denies muscle cramps, Denies muscle weakness, Denies numbness, Denies radiating pain into limb and Denies tingling Neuro Denies abnormal gait, Denies dizziness, Denies syncope, Denies numbness, Denies tingling and Denies weakness Endo Denies palpitations Physical Exam Vital Signs: Last Vital Signs Pulse 92 01/31/25 13:34 BP 128/68 01/31/25 13:34 BMI result Body Mass Index 29.2 Const General: comfortable and no acute distress Orientation/consciousness: patient oriented x3 HEENT Other: Unremarkable Head: Yes normal to inspection Neck Neck: Yes normal visual inspection Chest Chest palpation & inspection: normal inspection of the chest Resp Auscultation: clear to auscultation bilaterally Cardio Palpation: normal PMI Heart sounds: S1 normal heart sound present, S2 normal heart sound present, no gallops, no murmurs and no rubs GI Palpation (GI): Soft to palpation Back/Spine/Pelvis Other: unremarkable Skin General skin exam: no rashes or lesions noted Neuro General: patient oriented x3 Extrem General: Yes normal to inspection Psych Mental Status: mental status grossly normal Office Procedures EKG Details: EKG with sinus rhythm; supraventricular and ventricular ectopy; inferior and anterolateral T inversions; normal MT; [place]. [id number], Complete Assessment & Plan Assessment & Plan (1) Atherosclerotic cardiovascular disease: Code(s): I25.10 - Atherosclerotic heart disease of [place] coronary artery without angina pectoris Category: Medical Plan: Cardiac [id number] RCA-90% stenosis; severe, long segment, heavily calcified; ectatic and tortuous vessel; mild disease elsewhere; for medical treatment. In the most recent echocardiogram, LVEF 35-40% with inferior wall motion abnormalities. LVEF was lower than previous study where it was 46%, but visually felt to be no significant change. He was previously on beta-blockers, but not in his list anymore. There was a hospitalization for orthostatic hypotension and not clear if it was stopped after that. Patient does not know. We will clarify that with the pharmacy. Possibly resume at a smaller dose. Continue statins. Last LDL 64 mg/dL. (2) Paroxysmal A-fib: Code(s): I48.0 - Paroxysmal atrial fibrillation Category: Medical Plan: Stable. As above, probably resume some beta-blockers. Continue anticoagulation. (3) Ascending aortic aneurysm: Code(s): I71.2 - Thoracic aortic aneurysm, without rupture Category: Medical Plan: In the last echocardiogram, ascending aorta measures 4.2cm. Recheck 1 year (4) Essential hypertension: Code(s): I10 - Essential (primary) hypertension Category: Medical Plan: Stable. No changes. Plan Discussion Notes I discussed with the patient that the patient's heart pumping is on the weaker side. I advised the patient to watch for symptoms such as chest pain and difficulty breathing and to contact us if these symptoms occur. I also informed the patient that I may prescribe a small dose of metoprolol, but we will be checking with the pharmacy 1st. We discussed that the patient should remain active but avoid overdoing things. A follow-up appointment was scheduled for six months. Patient was informed and verbally consented to the use of an ambient scribe for clinic note documentation during this visit.Patient Instructions Patient Instructions: - Your heart is weaker than normal. - Contact the office if you experience any chest pain or have difficulty breathing. - You can stay active, but be careful not to overdo things. - We may start you on a low dose of a heart medication called metoprolol. - Please schedule a follow-up appointment in six months. Coding Level of Care Code Est Pt Level 4 (30714) Complex visit Add On G2211 Diagnoses Atherosclerotic cardiovascular disease I25.10 Paroxysmal A-fib I48.0 Ascending aortic aneurysm I71.2 Essential hypertension I10 CPT Codes EKG - CPT: 36193-[id number], Complete ([id number])
--- OUTSIDE RECORDS SUMMARY | 2025-01-31 16:53 | XMS_ITS | Encounter Summary ---
Author Organization [employer] Address [address] [facility] [address]t [place] [address] Care Team Providers Care Systems Librarian Name Role Phone Olga Paulino DO Primary Care Provider +1- [phone] Encounter Details Date Type Department Care Team (Late st Contact Info) Description 06/28/2022 Orders Only [facility] MED & PEDS [address] [place] [address] Olga Jaime LPN Social History Tobacco Use [...] on filedocumented in this encounter Care Teams Systems Librarian Relationship Specialty Start Date End Date Olga Paulino DO [address] [place] [address] PCP - General Family Medicine 03/03/18 documented as of this encounter
--- OUTSIDE RECORDS SUMMARY | 2025-01-31 16:53 | XMS_ITS | Encounter Summary ---
Author Organization [employer] Address [address] [facility] [address] [place] [address] Care Team Providers Care Laboratory Engineer Name Role Phone Olga Paulino DO Primary Care Provider [phone]- [phone] Reason for Visit * Reason Onset Date Comments Hospital Follow-up 06/18/2024 Encounter Details Date Type Department Care Team ([facility] st Contact Info) Description 06/18/2024 Telephone [facility] MEDICINE [address] [place] [address] Olga Paulino DO [address] [place], [place] [phone] Hospital Follow-up Social History Tobacco Use Types [...] from pt requesting a HDF appt. [place] [facility] [place]: 06/11/24 Discharge date: 06/12/24 Diagnosed: HTN *Send message to [employer] Clinical Care Coordinators Contact pt at [phone] documented in this encounter Plan of Treatment Not on file documented as of this encounter Visit Diagnoses Not on filedocumented in this encounter Additional Health Concerns Assessment Noted Time PHQ-9 Depression Total Score: 0 10/06/19 24 9:06 AM EDT documented as of this encounter Care Teams Laboratory Engineer Relationship Specialty Start Date End Date Olga Paulino DO [address] [place] [phone] PCP - General Family Medicine 03/03/18 documented as of this encounter
--- OUTSIDE RECORDS SUMMARY | 2025-01-31 16:54 | XMS_ITS | Encounter Summary ---
Author Organization [employer] Address [address] [facility] [address] [place] [address] Care Team Providers Care Sheet Metal Superintendent Name Role Phone Olga Paulino DO Primary Care Provider +1- [phone] Encounter Details Date Type Department Care Team (Late st Contact Info) Description 04/26/2022 Orders Only [facility] MED & PEDS [address] [place] [address] Olga Jaime LPN Social History Tobacco Use [...] on filedocumented in this encounter Care Teams Sheet Metal Superintendent Relationship Specialty Start Date End Date Olga Paulino DO [address] [place] [address] PCP - General Family Medicine 03/03/18 documented as of this encounter
--- OUTSIDE RECORDS SUMMARY | 2025-01-31 16:54 | XMS_ITS | Clinical Summary ---
Demographics Address [address] [place] [address] Home Phone Work Phone Mobile Phone Preferred Language es Marital Status Unknown Oriental Orthodox Affiliation Unknown Race Other Race Ethnic Group Unknown Author Organization [employer] Address [address] [facility] 7[address] [place] [address] Care Team Providers Care Emergency Room Orderly Name Role Phone Olga Paulino DO Primary Care Provider [phone] Allergies No known active allergies Medications Blood Glucose Monitoring Suppl (Ethertronicsyle Orient Lite) w/Device kit USE TO CHECK BLOOD SUGAR TWICE A DAY 1 kit 3 Active Blood Glucose Monitoring Suppl (Accu-Chek Leslye Plus) w/Device kit 1 each 2 times daily. 1 kit 3 Active glucose blood (Accu-Chek Leslye Plus) test strip USE TO TEST BLOOD SUGAR DOS VECES AL SABIHA 100 strip 11 3 Active fluticasone (Flonase) 50 MCG/ACT nasal sprayIndications:A llergic rhinitis, unspecified seasonality, unspecified trigger SPRAY 2 SPRAYS INTO EACH NOSTRIL EVERY DAY IF NEEDED 48 mL 1 4 Active lisinopril 2.5 MG tabletIndications: Essential hypertension TOME JACKIE TABLETA TODOS LOS STINSON 90 tablet 3 5 Active nitroglycerin (Nitrostat) 0.[address] 1 tablet (0.4 mg) under the tongue every 5 (five) minutes if needed for chest pain. X 3 doses. Call 911 if CP does not resolve 30 tablet 5 Active triamcinolone (Kenalog) 0.1 % ointmentIndication s:Nummular dermatitis Apply topically 2 times daily. 80 g 5 Active albuterol 108 (90 Base) MCG/ACT inhaler Inhale 2 puffs every 4 (four) hours if needed for wheezing or shortness of breath. 18 g 1 5 026 Active Spacer/Aero-Holdin g Chambers (OptiChamber Bernadette) misc 1 each every 4 (four) hours if needed (asthma). 1 each 5 Active acetaminophen (Tylenol) 500 MG tablet Take 2 tablets (1,000 mg) by mouth every 6 (six) hours if needed for moderate pain or fever. 30 tablet 5 Active rosuvastatin (Crestor) 20 MG tablet TAKE 1 TABLET BY MOUTH EVERY DAY 90 tablet 3 5 Active capsaicin (Zostrix) 0.025 % creamIndications:S hingles (herpes zoster) polyneuropathy Apply topically 2 times daily. 56.6 g 1 5 026 Active tamsulosin (Flomax) 0.4 MG 24 hr capsuleIndications :Benign prostatic hyperplasia, unspecified whether lower urinary tract symptoms present TAKE 1 CAPSULE BY MOUTH EVERY DAY 1/2 HOUR FOLLOWING THE SAME MEAL EACH DAY 90 capsule 3 5 Active warfarin (Coumadin) 5 MG tabletIndications: Paroxysmal atrial fibrillation (CMS/HCC) ([facility]) TAKE 1 - 1 & 1/2 TABLETS POR VIA ORAL TODOS [place]IN[place] AIDA LO INDICADO BY COUMADIN CLINIC 135 tablet 1 5 Active metFORMIN XR (Glucophage-XR) 500 MG 24 hr tabletIndications: Type 2 diabetes mellitus with other specified complication, unspecified whether jail insulin use ([facility]) TOME 1 TABLETA POR VIA ORAL TODOS [place] STIN[place] 90 tablet 1 5 Active docusate sodium (Colace) 100 MG capsule Take 1 capsule (100 mg) by mouth 2 times daily. 180 capsule 3 5 026 Active polycarbophil (Fibercon) 625 MG tablet Take 1 tablet (625 mg) by mouth 2 times daily. 180 tablet 3 5 026 Active pregabalin (Lyrica) 25 MG capsuleIndications :Diabetic polyneuropathy associated with type 2 diabetes mellitus (HCC) Take 1 capsule (25 mg) by mouth 3 times daily. 90 capsule 3 5 026 Active cholecalciferol (Vitamin D-3) 50 MCG (2000 UT) capsule Take 1 capsule (50 mcg) by mouth Once per day. 90 capsule 3 5 Active celecoxib (CeleBREX) 50 MG capsule Take 1 capsule (50 mg) by mouth Once per day. 30 capsule 2 5 025 Active Problems Problem Noted Date Diagnosed [...] 1:51 PM EDT): Audiology eval w/ b/l myqq-yq-gmbevcul SN hearing loss JUN 2021 -his agrees [...] Department Care Team Description 01/11/2025 Orders Only [facility] [address] [place] [address] Olga Paulino, DO Unintentional weight loss (Primary Dx); Abnormal CT scan, pelvis 01/10/2025 Telephone [facility] [address] [place] [address] Olga Paulino, DO Care Coordination 01/09/2025 Orders Only [facility] [address] [place] [address] Olga Paulino, Unintentional weight loss (Primary Dx); Abnormal CT scan, pelvis 01/07/2025 Orders Only GENERIC EXTERNAL DATA DEPARTMENT Provider, Generic External Data 01/06/2025 Telephone [facility] [address] [place] [phone] Olga Paulino DO Results 12/29/[address] [address] Olga Paulino DO Results 12/28/2024 9:00 AM EDT Office Visit [address] [address] Olga Paulino DO Type 2 diabetes mellitus [...] Healthcare maintenance 12/28/2024 Travel 12/21/2024 Patient Outreach [facility] [address] [place] [address] Olga Paulino DO Pre-visit Planning (SDOH was already completed.) 12/21/[address] [address] Olga Paulino DO Chart Prep 12/17/2024 11:00 AM EDT Office Visit [facility] [address] [place] [phone] Mary Bhagat MD Right foot pain (Primary Dx) 12/17/2024 Travel 12/10/2024 Orders Only GENERIC EXTERNAL DATA DEPARTMENT Provider, Generic External Data 12/01/[address] [phone] Olga Paulino DO telephone call; Prior Authorization ([facility] PA: Lyrica 50 MG cap) 11/17/[address] [address] Olga Paulino DO Postherpetic neuralgia 11/12/2024 Orders [...] microalbuminuria, without long-term current use of insulin ([facility]) POCT GLUCOSE Routine 12/28/2024 9:10 AM EDT Type 2 diabetes mellitus with diabetic microalbuminuria, without long-term current use of insulin ([facility]) PROTHROMBIN TIME WHOLE BLD POC Routine [...] included. Protime 32.1(H) 11.1 - 13.5 sec [facility] 01/07/2025 9:05 AM EST 01/07/2025 9:37 AM EST us Generic External Data Provider LAB BLOOD ORDERAB LES Final Result Performing Organization Address City/[facility]/ZIP Co de Phone Number [facility] [address] [place] [phone] * (ABNORMAL) ~PT, ~INR - ANTI COAG CLINIC (01/07/2025 9:05 AM EST) Only the most recent of3 resultswithin the time period is included. Prothrombin Time INR 2.7(H) 0.9 - 1.1 [facility] Comment:METER #: [id number] TERNATIONAL NORMALIZED RATIO (INR) REFERENCE RANGES Reference [...] ORDERAB LES Final Result Performing Organization Address City/[facility]/ZIP Co de Phone Number [facility] [address] [place] [phone] * CT Abdomen Pelvis w/ Contrast (01/05/2025 9:40 AM EST) Anatomical Region Laterality Modality Body, Pelvis, Abdomen Computed T omography 01/05/2025 9:40 AM EST Narrative 01/05/2025 10:31 AM EST [address] [address] [address] Scan Report Signed Patient: Ramesh Blank MR#: [id number] : 1940 Acct:[id number] Age/Sex: 84 / M ADM Date: 01/05/25 Loc: HO.CT Attending Dr: Olga Paulino DO Ordering Physician: Olga Paulino DO Date of Service: 01/05/25 Procedure(s): CT abdomen pelvis w IV con Accession Number(s): [id number] cc: Olga Paulino DO Report Number: [id number]: Total DLP = 0.00 mGy-cm Reason for [...] 01/05/25 1028 DD/ 0940 TD/TT: 01/05/25 1013 [place] [facility]: Procedure Note Donotuseinterpreter, Image - 01/05/[address] [address] [address] Scan Report Signed Patient: Ramesh BlankMR#: [id number] : 9Acct:[id number] Age/Sex: 84 / MADM Date: 01/05/25 Loc: HO.CT Attending Dr: Olga Paulino DO Ordering Physician: Olga Paulino DO Date of Service: 01/05/25 Procedure(s): CT abdomen pelvis w IV con Accession Number(s): [id number] cc: Olga Paulino DO Report Number: [id number]: Total DLP = 0.00 mGy-cm Reason for [...] by: Haim Kim MD 01/05/2025 10:28 AM [facility] Dictated By: Haim Cunha MD Signed By: <Electronically signed by Haim Silver MDin OV> 01/05/25 1028 DD/ 0940 TD/TT: 01/05/25 1013 [place] [facility]: Olga Paulino DO IMG CT PROCEDURES Final Resu lt * CT Chest w/ Contrast (01/05/2025 9:40 AM EST) Anatomical Region Laterality Modality Body, Chest Computed Tomogra phy 01/05/2025 9:40 AM EST Narrative 01/05/2025 11:02 AM EST [place] [address] CT Scan Report Signed Patient: Ramesh Blank MR#: [id number] : 1940 Acct:[id number] Age/Sex: 84 / M ADM Date: 01/05/25 Loc: HO.CT Attending Dr: Olga Paulino DO Ordering Physician: Olga Paulino DO Date of Service: 01/05/25 Procedure(s): CT chest w IV con Accession Number(s): [id number] cc: Olga Paulino DO Report Number: [id number]: Total DLP = 470.00 mGy-cm Reason for [...] 01/05/25 1059 DD/ 0940 TD/TT: 01/05/25 1013 [place] [facility]: LUIZ Procedure Note Donotuseinterpreter, Image - 01/05/[address] [place] [address] [address] Scan Report Signed Patient: Ramesh Blank#: [id number] : 1940cct:[id number] Age/Sex: 84 / MADM Date: 01/05/25 Loc: HO.CT Attending Dr: Olga Paulino DO Ordering Physician: Olga Paulino DO Date of Service: 01/05/25 Procedure(s): CT chest w IV con Accession Number(s): [id number] cc: Olga Paulino DO Report Number: [id number]: Total DLP = 470.00 mGy-cm Reason for [...] by: Grace Cosby MD 01/05/2025 10:59 AM [facility] Dictated By: Grace Cosby MD Signed By: <Electronically signed by Grace Cosby MD in OV> 01/05/25 1059 DD/ 0940 TD/TT: 01/05/25 1013 [place] [facility]: LUIZ Olga Paulino DO IMG CT PROCEDURES Final Resu lt * (ABNORMAL) Vitamin D, 25-Hydroxy, Total, Immunoassay (12/28/2024 9:54 AM EDT) Vitamin D 25-OH Total 21.3(L) >30 ng/mL [facility] Comment: Health Based Reference Values*< 20 ng/mL Cfbwqnbut55-27 ng/mL Insufficient> 30 ng/mL Sufficient*Vanessa MULLIGAN. N [...] DO LAB BLOOD ORDERABLES Final R esult [facility] [address] [place] [phone] * Vitamin B12 (Cobalamin) and Folate Panel, Serum (12/28/2024 9:54 AM EDT) Vitamin B12 492 200 - 900 pg/mL [facility] Comment:NORMAL 200-900 PG/ML INDETERMINATE 160-199 PG/ML DEFICIENT < 160 PG/ML Folate 8.2 > or = 4.0 ng/mL [facility] Comment:Reference Values:> o r = 4.0 ng/mL< 4.0 ng/mL suggests folate deficiency Methotrexate, aminopterin and folinic acid(leucovorin) are chemotherapeutic agents whose molecularstructures are similar to folate; therefore, the Architectfolate assay cannot be used for patients using these drugs. Blood 12/28/2024 9:54 AM EDT 12/28/2024 11:02 AM EDT us Olga Paulino DO LAB BLOOD ORDERABLES Final R esult [facility] [address] [place] [phone] * T-SPOT??.TB (12/28/2024 9:54 AM EDT) T Spot TB Negative Negative [facility] Comment:A negative test resu lt [...] as aquantitative test. TS PANEL A 0 [facility] TS PANEL B 0 [facility] Negative Control Passed [facility] Positive Control Passed [facility] Comment:For additional infor mation, please refer tohttp://education.Egodeus/faq/WIJ343(This link is being provided for informational/educational purposes only.)THIS TEST WAS PERFORMED AT:[id number] [place] [address]WRORFXZ W. MASON,MD,PHD 12/28/2024 9:54 AM EDT 12/28/2024 11:02 AM EDT [facility] BLOOD ORDERABLES Final R esult Performing Organization Address [facility] Co de Phone Number [facility] [address] [place] [address] [phone] * (ABNORMAL) Albumin, Random Urine W/Creatinine (12/28/2024 9:54 AM EDT) Creatinine, Urine 57.26 mg/dL [facility] Microalbumin Urine 266.0 mg/L [facility] Microalbum Creatinine Ratio Ur 464.5(H) <30 ug/mg cr [facility] Comment:Albumin/Creatinine R atio Reference Ranges: Normal: < 30 ug/mg creatinine Microalbuminuria: 30 - 300 ug/mg creatinineClinical Albuminuria: > 300 ug/mg creatinine Urine (Urine, Random) 12/28/2024 9:54 AM EDT 12/28/2024 11:02 AM EDT Olga Jefferson LAB URINE ORDERABLES Final R esult Performing Organization Address [facility]/ZIP Co de Phone Number [facility] [address] [place] [phone] * (ABNORMAL) CBC auto differential (12/28/2024 9:54 AM EDT) White Blood Count 5.1 4.8 - 10.8 X10*3/uL [facility] Red Blood Count 4.41(L) 4.60 - 5.80 X10*6/uL [facility] Hemoglobin 12.6(L) 14.0 - 18.0 g/dl [facility] Hematocrit 40.3(L) 42.0 - 52.0 % [facility] Mean Corpuscular Volume 91.4 80.0 - 98.0 fL [facility] Mean Corpuscular Hemoglobin 28.6 27.0 - 33.0 pg [facility] Mean Corpuscular HGB Conc 31.3 31.0 - 36.0 g/dl [facility] Red Cell Distribution Width 13.9 11.0 - 16.0 % [facility] Platelet Count 135(L) 160 - 400 X10*3/uL [facility] Mean Platelet Volume 12.5(H) 9.4 - 12.4 fL [facility] Neutrophils Percent Auto 63.0 45 - 73 % [facility] Imm Gran Pct Auto 0.2 0.0 - 0.4 % [facility] Lymphocytes Percent Auto 21.3 20 - 40 % [facility] Monocytes Percent Auto 10.0 2 - 11 % [facility] Eosinophils Percent Auto 4.3(H) 0 - 4 % [facility] Basophils Percent Auto 1.2 0 - 2 % [facility] NRBC Pct Auto 0.0 0.0 - 0.2 /100WBC [facility] Neutrophils Absolute Auto 3.2 2.0 - 8.3 x10*3/uL [facility] Imm Gran Abs Auto 0.01 0.00 - 0.03 X10*3/uL [facility] Lymphocytes Absolute Auto 1.1(L) 1.2 - 4.9 X10*3/uL [facility] Monocytes Absolute Auto 0.5 0.1 - 1.2 X10*3/uL [facility] Eosinophils Absolute Auto 0.2 0.0 - 0.4 X10*3/uL [facility] Basophils Absolute Auto 0.1 0.0 - 0.2 X10*3/uL [facility] NRBC Abs Auto 0.000 0.0 - 0.012 X10*3/uL [facility] Blood Venous blood specimen / Unknown 12/28/2024 9:54 AM EDT 12/28/2024 11:02 AM EDT Olga Jefferson LAB BLOOD ORDERABLES Final R esult Performing Organization Address City/[facility]/ZIP Co de Phone Number [facility] [address] [place] [phone] * Hepatitis C Antibody with Reflex to HCV, RNA, Quantitative, Real-Time PCR (12/28/2024 9:54 AM EDT) Hepatitis C Antibody Nonreactive Nonreactive [facility] Comment:Antibodies to HCV no t detected; does not exclude early acuteHCV infection. Blood Venous blood specimen / Unknown 12/28/2024 9:54 AM EDT 12/28/2024 11:02 AM EDT Olga Paulino LAB BLOOD ORDERABLES Final R esult Performing Organization Address City/[facility]/ZIP Co de Phone Number [facility] [address] [place] [phone] * Iron And Total Iron Binding Capacity (12/28/2024 9:54 AM EDT) Iron 76 45 - 160 mcg/dL [facility] Total Iron Binding Capacity 311 228 - 428 mcg/dL [facility] Percent Iron Saturation 24 15 - 50 % [facility] Unsaturated Iron Binding 235 ug/dL [facility] Blood Venous blood specimen / Unknown 12/28/2024 9:54 AM EDT 12/28/2024 11:02 AM EDT Olga Jefferson LAB BLOOD ORDERABLES Final R esult Performing Organization Address City/[facility]/ZIP Co de Phone Number [facility] [address] [place] [phone] * HIV-1/2 Antigen and Antibodies, Fourth Generation, with Reflexes (12/28/2024 9:54 AM EDT) HIV AB/AG Nonreactive Nonreactive [facility] Comment:HIV-1 p24 Ag and/or HIV-1/HIV-2 Ab not detected.A test result that is nonreactive does not exclude thepossibility of exposure to or infection with HIV-1 and/orHIV-2. Nonreactive results in this assay for individualswith prior exposure to HIV-1 and/or HIV-2 may be due toantigen and antibody levels that are below the limit ofdetection of this assay.The [employer] HIV Ag/Ab Combo assay result andsupplemental assay results should be interpreted inconjunction with the patient's clinical presentation,history and other laboratory results. If the results areinconsistent with clinical evidence, additional testing issuggested to confirm the result. Blood Venous blood specimen / Unknown 12/28/2024 9:54 AM EDT 12/28/2024 11:02 AM EDT us Olga Paulino DO LAB BLOOD ORDERABLES Final R esult [facility] [address] [place] [phone] * (ABNORMAL) Urinalysis Complete (12/28/2024 9:54 AM EDT) Color Urine Yellow [facility] Appearance Urine Clear [facility] PH 5.5 5.0 - 9.0 [facility] Glucose Urine UA Negative Negative mg/dL [facility] Urine Blood Negative Negative [facility] Specific [place] - Urine 1.015 1.005 - 1.025 [facility] Urine Protein 30 (1+)(A) Neg-Trace mg/dL [facility] Urine Ketones Negative Negative mg/dL [facility] Nitrite Urine Negative Negative [facility] Leukocyte Esterase Urine Negative Negative [facility] RBC Urine 0-2 0 - 2 /HPF [facility] Urine WBC 0-5 0 - 5 /HPF [facility] Urine Squamous Epithelial Cell 0-2 0 - 2 /HPF [facility] Urine Bacteria None Seen None Seen [facility] Hyaline Casts, Urine 0-2 0 - 2 /LPF [facility] Urine (Urine, Random) 12/28/2024 9:54 AM EDT 12/28/2024 11:02 AM EDT Olga Paulino DO LAB URINE ORDERABLES Final R esult Performing Organization Address City/[facility]/ZIP Co de Phone Number [facility] [address] [place] [phone] * Sed Rate by Modified Maria Luz (12/28/2024 9:54 AM EDT) Erythrocyte Sedimentation Rate 8 0 - 15 MM/HR [facility] Comment:Patients with polycy themia and many hemoglobin abnormalitiesmay have depressed sed rates whereas patients with anemiamay have elevated sed rates. Blood Venous blood specimen / Unknown 12/28/2024 9:54 AM EDT 12/28/2024 11:02 AM EDT Olga Paulino DO LAB BLOOD ORDERABLES Final R esult Performing Organization Address [facility] Co de Phone Number [facility] [address] [place] [phone] * C-reactive Protein (12/28/2024 9:54 AM EDT) C Reactive Protein <0.04 < or = 0.50 mg/dL [facility] Blood Venous blood specimen / Unknown 12/28/2024 9:54 AM EDT 12/28/2024 11:02 AM EDT Olga Paulino DO LAB BLOOD ORDERABLES Final R esult Performing Organization Address City/[facility]/ZIP Co de Phone Number [facility] [address] [place] [phone] * TSH (12/28/2024 9:54 AM EDT) Thyroid Stimulating Hormone 1.61 0.32 - 4.0 uIU/mL [facility] Comment:TSH 3rd Generation ( [facility]) Blood Venous blood specimen / Unknown 12/28/2024 9:54 AM EDT 12/28/2024 11:02 AM EDT Olga Paulino DO LAB BLOOD ORDERABLES Final R esult Performing Organization Address [facility]/ZIP Co de Phone Number [facility] [address] [place] [phone] * T4, Free (12/28/2024 9:54 AM EDT) Free T4 (Free Thyroxine) 0.83 0.71 - 1.85 ng/dL [facility] Blood Venous blood specimen / Unknown 12/28/2024 9:54 AM EDT 12/28/2024 11:02 AM EDT Olga Paulino DO LAB BLOOD ORDERABLES Final R esult Performing Organization Address City/[facility]/ZIP Co de Phone Number [facility] [address] [place] [phone] * PSA,Total (12/28/2024 9:54 AM EDT) Prostate Specific Antigen 2.61 <0.05 - 4.0 ng/mL [facility] Comment:PSA methodology: Linda Levi i ChemiluminescentMicroparticle Immunoassay (CMIA) Blood Venous blood specimen / Unknown 12/28/2024 9:54 AM EDT 12/28/2024 11:02 AM EDT Olga Paulino DO LAB BLOOD ORDERABLES Final R esult [facility] [address] [place] [phone] * Prealbumin (12/28/2024 9:54 AM EDT) Prealbumin 27.0 20 - 40 mg/dL [facility] Blood Venous blood specimen / Unknown 12/28/2024 9:54 AM EDT 12/28/2024 11:02 AM EDT Olga Paulino LAB BLOOD ORDERABLES Final R esult Performing Organization Address [facility] Co de Phone Number [facility] [address] [place] [phone] * (ABNORMAL) Hemoglobin A1c (12/28/2024 9:54 AM EDT) Hemoglobin A1c 6.6(H) <6.0 % [facility] Comment:Hemoglobin A1C Refer ence Range Adults: 4.8 - 6.0 % Non diabetic: < 6.0 % Goal: < 7.0 %Additional Action Suggested: > 8.0 %Note: Hemoglobin A1c results are invalid for patients with abnormal amounts of HbF. Blood transfusions may impact the HbA1c concentration in the patient sample. Estimated Average Glucose 143 mg/dL [facility] Comment:eAG = Estimated ave rage glucose which is %A1C expressed asaverage glucose, using the formula of the Z1O-EttsirdXcwqdjn Glucose study (ADAG), Diabetes Care, Vol.31,#8,Oct. 2007 Blood Venous blood specimen / Unknown 12/28/2024 9:54 AM EDT 12/28/2024 11:02 AM EDT Olga Jefferson DO LAB BLOOD ORDERABLES Final R esult Performing Organization Address [facility]/ZIP Co de Phone Number [facility] [address] [place] [phone] * Ferritin (12/28/2024 9:54 AM EDT) Ferritin 80 20 - 250 ng/mL [facility] Blood Venous blood specimen / Unknown 12/28/2024 9:54 AM EDT 12/28/2024 11:02 AM EDT Olga Paulino DO LAB BLOOD ORDERABLES Final R esult Performing Organization Address City/[facility]/ZIP Co de Phone Number [facility] [address] [place] [phone] * (ABNORMAL) Hepatic Function Panel (12/28/2024 9:54 AM EDT) Pathologist [facility] Bilirubin, Total 0.6 0.0 - 1.0 mg/dL [facility] Bilirubin, Direct 0.2 0.0 - 0.5 mg/dL [facility] Aspartate Amino Transferase 33 5 - 37 U/L [facility] Alanine Aminotransferase 41(H) 0 - 40 U/L [facility] Total Protein 6.7 6.5 - 8.0 g/dL [facility] Albumin Level 4.3 3.5 - 5.0 g/dL [facility] Alkaline Phosphatase 88 39 - 117 U/L [facility] Blood Venous blood specimen / Unknown 12/28/2024 9:54 AM EDT 12/28/2024 11:02 AM EDT Olga Paulino DO LAB BLOOD ORDERABLES Final R esult Performing Organization Address City/[facility]/ZIP Co de Phone Number [facility] [address] [place] [phone] * (ABNORMAL) Lipid Panel, Standard (12/28/2024 9:54 AM EDT) Triglycerides 110 <150 mg/dL [facility] Comment:Desirable Triglyceri de: less than 150 mg/dLBorderline High Triglyceride 150-199 mg/dLHigh Triglyceride: 200-499 mg/dLVery High Triglyceride: greater than or equal to 5OO mg/dL Cholesterol 126 <200 mg/dL [facility] Comment:Desirable Cholestero l: less than 200 mg/dLBorderline High Cholesterol: 200-239 mg/dLHigh Cholesterol: greater than 239 mg/dL LDL Cholesterol Calculated 64 <100 mg/dL [facility] Comment:Desirable LDL: less than 100 mg/dLNear Optimal/Above Optimal LDL: 110- 129 mg/dLBorderline High LDL: 130-159 mg/dLHigh LDL: 160-189 mg/dLVery High LDL: greater than or equal to 190 mg/dL HDL Cholesterol 40(L) >40 mg/dL [facility] Comment:Desirable HDL: great er than 40 mg/dL Note: This HDL assay may give artificially low results in patients with liver disease. Blood Venous blood specimen / Unknown 12/28/2024 9:54 AM EDT 12/28/2024 11:02 AM EDT us Olga Paulino DO LAB BLOOD ORDERABLES Final R esult [facility] [address] [place], [place] [phone] * (ABNORMAL) Basic Metabolic Panel (12/28/2024 9:54 AM EDT) Sodium 142 135 - 145 mmol/L [facility] Potassium 4.4 3.3 - 5.1 mmol/L [facility] Chloride 107 96 - 108 mmol/L [facility] Carbon Dioxide 31(H) 22 - 29 mmol/L [facility] Anion Gap 8(L) 12 - 20 [facility] Urea Nitrogen (BUN) 20(H) 9 - 16 mg/dL [facility] Creatinine, Serum 0.86 0.5 - 1.4 mg/dL [facility] Estimated Glomerular Filt Rate >60 [facility] Comment:Chronic Kidney Disea se: Estimated GFR < 60 mL/min/[id number] Kidney Disease: Estimated GFR < 15 mL/min/1.73m2 Glucose 131(H) 60 - 115 mg/dL [facility] Calcium 9.6 8.4 - 10.2 mg/dL [facility] Blood Venous blood specimen / Unknown 12/28/2024 9:54 AM EDT 12/28/2024 11:02 AM EDT Olga Paulino DO LAB BLOOD ORDERABLES Final R esult [facility] [address] [place] [phone] * (ABNORMAL) POCT Hgb A1c (12/28/2024 9:10 AM EDT) Hemoglobin A1C 6.4(A) 4.0 - 5.7 % QC Media Lot # [id number] Lot# Expiration Date 5,027 Blood 12/28/2024 9:10 AM EDT Olga Paulino DO POINT OF CARE TEST ENTER/PREETHI T ORDERABLES Final Result * (ABNORMAL) POCT Glucose (12/28/2024 9:10 AM EDT) Glucose Blood, POC 239(A) 60 - 200 mg/dL QC Media Lot # [id number] Lot# Expiration Date [id number] Blood Capillary blood specimen / Unknown 12/28/2024 [...] 01/17/2025 Patient has diabetic neuropathy 01/17/2025 Insurance [facility] (O D-SNP) FIORELLA MONTGOMERY [id number] Care Teams Emergency Room Orderly Relationship Specialty Start Date End Date Olga Paulino DO [address] [place] [id number] PCP - General Family Medicine 03/03/18
== END 2025-01-31 13:58 | disposition home or self-care (01) ==
LOC: HO.HCS 13:16
PROVIDERS: PCP Family Medicine; Visit Provider Internal Medicine
DX: I25.10 Atherosclerotic heart disease of native coronary artery without angina pectoris (principal); I48.0 Paroxysmal atrial fibrillation; I71.20 Thoracic aortic aneurysm, without rupture, unspecified; I10 Essential (primary) hypertension
CPT/HCPCS: 93010; 99214; G2211

== ENCOUNTER → 2025-01-31 13:15 | Outpatient (BNVA) | payer OTHER, SELFPAY | PROVIDERS: PCP Family Medicine; Visit Provider Internal Medicine | DX: I10 Essential (primary) hypertension (principal); I48.0 Paroxysmal atrial fibrillation; I25.10 Atherosclerotic heart disease of native coronary artery without angina pectoris; Z87.891 Personal history of nicotine dependence; I25.84 Coronary atherosclerosis due to calcified coronary lesion; I71.20 Thoracic aortic aneurysm, without rupture, unspecified; Z79.01 Long term (current) use of anticoagulants | CPT/HCPCS: 93005; 99212 ==

== ENCOUNTER 2025-02-04 09:08 | Outpatient (AMB) | payer OTHER, SELFPAY ==
--- NOTE | 2025-02-04 09:17 | MHC.OFFVISCO ---
Intake Intake Visit Reasons: Anticoagulation Allergies No Known Allergies (No Known Allergies*) Allergy (Verified 02/04/25 09:08) Medication List - Last Reconciled 02/04/25 by Madhuri Allen RN acetaminophen 1,000 mg (2 x 500 mg) PO Q8H PRN albuterol sulfate 90 mcg/actuation 2 puffs inhalation Q4H PRN benzonatate 100 mg PO bid-tid PRN 7 days gabapentin 300 mg PO TID 14 days lisinopril 2.5 mg PO QPM metformin ER 500 mg PO DAILY metoprolol succinate ER (Toprol XL) 25 mg PO DAILY nitroglycerin 0.4 mg sublingual Q5M rosuvastatin 20 mg PO DAILY tamsulosin 0.4 mg PO QPM warfarin 5 mg See Protocol PO DAILY Nursing Note INR: 2.3 in therapeutic range Medications and supplements reviewed No changes in health, diet, medications, or supplements, Denies any signs and symptoms of bleeding or bruising or clotting. Bleeding, bruising, clotting discussed Nutritional guidance given Dose: keep same dose 5mg x 3 days/ 7.5mg x 4 days F/U INR: 1 month Patient verbalizes understanding of instructions given Anti-Coag Initial Assessment Social Hx Patient Tobacco Use Status: Former Tobacco user alcohol intake: never Alcohol intake frequency: former alcohol drinker Coding Level of Care Code Est Patient Level 1 Diagnoses Current use of anticoagulant therapy Z79.01 Results AMB INR Fingerstick AMB INR Fingerstick 2.3 Last Edit by Madhuri Allen RN on 02/04/25 09:15 MANUAL ENTRY DUE TO FAILED INTERFACING Assessment & Plan Assessment & Plan (1) Current use of anticoagulant therapy: Onset Date: ~01/2015 Comment: (on Coumadin - for AFib dx 01/2015) 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
[2025-02-04 12:07] LABS: Prothrombin Time Whole Bld POC 27.1 sec (11.1-13.5); ~PT, ~INR - Anti Coag Clinic 2.3 (0.9-1.1)
== END 2025-02-04 09:19 | disposition home or self-care (01) ==
LOC: HO.ACS 09:08
PROVIDERS: PCP Family Medicine; Visit Provider Internal Medicine Medical Oncology
DX: Z79.01 Long term (current) use of anticoagulants (principal)

== ENCOUNTER → 2025-02-04 09:08 | Outpatient (BNVA) | payer OTHER, SELFPAY | PROVIDERS: PCP Family Medicine; Visit Provider Internal Medicine Medical Oncology | DX: I48.0 Paroxysmal atrial fibrillation (principal); Z51.81 Encounter for therapeutic drug level monitoring; Z79.01 Long term (current) use of anticoagulants | CPT/HCPCS: 85610; 99211 ==